=== PATIENT | male | born 1965 | race Caucasian/White ===

== ENCOUNTER 2021-01-10 17:11 | Outpatient (CLI) | payer OTHER, SELFPAY ==
--- NOTE | ~2021-01-10 | US_ITS ---
EXAMINATION: US art doppler w press LE DATE: 01/10/2021 18:01 INDICATION: Left lower limb pain and swelling. TECHNIQUE: Segmental pressures and plethysmographic and Doppler waveforms of the brachial and lower e xtremity arteries were obtained. COMPARISON: None. FINDINGS: Right and left brachial artery pressures of 145 mm Hg and 159 mm Hg, respectively, are concordant (no rmal difference <= 30 mmHg). The right thigh and immediate below-knee pressures could not be measured due to inability to cuff-occ lude the arteries. The right ankle-brachial index (JENNIFER) is 1.14 (normal >= 0.9-1.0). The right great toe-brachial index (TBI) is 0.89 (normal >= 0.65). Arterial Doppler waveforms are at least triphasic in common femoral artery, superficial femoral artery, and posterior tibial artery and biphasic in pop liteal artery and dorsalis pedis. The left thigh pressures could not be measured due to inability to cuff-occlude the arteries. The lef t JENNIFER is 1.06. The left TBI is 0.99. Arterial Doppler waveforms are at least triphasic in common femo ral artery and biphasic from superficial femoral artery to the ankle. IMPRESSION: 1. No significant arterial occlusive disease. Reviewed, dictated and finalized at location A.
--- NOTE | ~2021-01-10 | US_ITS ---
EXAMINATION: US venous doppler [facility] DATE: 01/10/2021 18:01 INDICATION: Left calf pain and swelling. TECHNIQUE: Grayscale ultrasound images without and with compression and Doppler ultrasound images of the bilateral lower extremity veins were obtained. COMPARISON: None. FINDINGS: The visualized portions of right common femoral vein, profunda (deep) femoral vein, femoral vein, pop liteal vein, peroneal veins, posterior tibial veins, and greater saphenous vein outflow are patent. The visualized portions of left common femoral vein, profunda femoral vein, femoral vein, popliteal v ein, peroneal veins, posterior tibial veins, and greater saphenous vein outflow are patent. There are thrombosed superficial veins in the medial left calf. IMPRESSION: 1. No deep venous thrombosis. 2. Thrombosed superficial veins in the medial left calf. Reviewed, dictated and finalized at location A.
== END 2021-01-10 17:12 | disposition home or self-care (01) ==
PROVIDERS: PCP Family Medicine; Visit Provider Nurse Practitioner Family
DX: M79.605 Pain in left leg (principal); M79.89 Other specified soft tissue disorders; R09.89 Other specified symptoms and signs involving the circulatory and respiratory systems
CPT/HCPCS: 93923; 93970

== ENCOUNTER 2021-01-11 06:45 | Outpatient (CLI) | payer OTHER, SELFPAY ==
[2021-01-11 07:26] LABS: Basophils Absolute Auto 0.1 K/mm3 (0.0-0.1); Basophils Percent Auto 0.9 % (0.2-1.2); Eosinophils Absolute Auto 0.4 K/mm3 (0-0.3); Eosinophils Percent Auto 3.8 % (0-4.4); Hematocrit 50.9 % (42.0-52.0); Hemoglobin 16.7 g/dL (14.0-18.0); Immature Granulocyte Absolute 0.03 K/mm3 (0.00-0.031); Immature Granulocyte Percent A 0.3 % (0-0.5); Lymphocytes Absolute Auto 1.75 K/mm3 (0.9-3.2); Lymphocytes Percent Auto 17.7 % (18.3-44.2); Mean Corpuscular HGB Conc 32.8 g/dl (32-36); Mean Corpuscular Hemoglobin 28.2 pg (26-34); Mean Corpuscular Volume 85.8 fl (80-100); Mean Platelet Volume 9.5 fl (7.4-10.4); Monocytes Percent Auto 9.8 % (2.6-8.5); Neutrophils Absolute Auto 6.7 K/mm3 (1.3-6.7); Neutrophils Percent Auto 67.5 % (45.5-73.1); Platelet Count Result 240 k/mm3 (150-375); Red Blood Count 5.93 M/mm3 (4.6-6.20); Red Cell Distribution Width 12.9 % (11.5-14.5); White Blood Count 9.9 K/mm3 (4.5-10.0)
[2021-01-11 07:41] LABS: D Dimer 0.82 ug/mL (<0.48)
[2021-01-11 07:47] LABS: Alanine Aminotransferase 21 U/L (4-50); Albumin Level 4.5 g/dL (3.5-5.1); Alkaline Phosphatase 98 U/L (38-126); Anion Gap 10 mmol/L (8-16); Aspartate Amino Transferase 26 U/L (17-59); Bilirubin,Total 0.7 mg/dL (0.2-1.3); Blood Urea Nitrogen 18 mg/dL (9-20); CRP 2.6 mg/dL (<1.0); Calcium 9.9 mg/dL (8.4-10.2); Carbon Dioxide 25 mmol/L (22-30); Chloride 103 mmol/L (98-107); Estimated Glomerular Filt Rate > 60; Glucose 189 mg/dL (75-110); Potassium 3.9 mmol/L (3.4-5.0); Sodium 138 mmol/L (137-145)
[2021-01-11 08:02] LABS: Erythrocyte Sedimentation Rate 4 mm/hr (0-20)
== END 2021-01-11 06:46 | disposition home or self-care (01) ==
PROVIDERS: PCP Family Medicine; Visit Provider Nurse Practitioner Family
DX: M79.605 Pain in left leg (principal); M79.89 Other specified soft tissue disorders; K70.31 Alcoholic cirrhosis of liver with ascites; G89.29 Other chronic pain; I83.90 Asymptomatic varicose veins of unspecified lower extremity; M25.569 Pain in unspecified knee
CPT/HCPCS: 36415; 80048; 80076; 85025; 85380; 85652; 86038; 86140

== ENCOUNTER 2023-11-14 14:28 | Outpatient (CLI) | payer OTHER, SELFPAY ==
--- NOTE | ~2023-11-14 | US_ITS ---
EXAMINATION: US venous doppler [facility] DATE: 11/14/2023 14:56 INDICATION: Left lower limb pain and swelling. Asymptomatic varicose veins of unspecified lower limb. TECHNIQUE: Grayscale ultrasound images without and with compression and Doppler ultrasound images of the left lower extremity veins were obtained. COMPARISON: Ultrasound 01/10/2021 FINDINGS: The visualized portions of left common femoral vein, profunda (deep) femoral vein, femoral vein, popl iteal vein, peroneal veins, posterior tibial veins, and greater saphenous vein outflow are patent. In the anteromedial lower leg, there is a 2.7 x 0.9 cm hypoechoic mass. IMPRESSION: 1. No deep venous thrombosis. 2. 2.7 x 0.9 cm hypoechoic mass in the anteromedial lower leg, likely a hematoma. Reviewed, dictated and finalized at location E. [employer] IMPRESSION: 1. No deep venous thrombosis. 2. 2.7 x 0.9 cm hypoechoic mass in the anteromedial lower leg, likely a hematom a.
--- NOTE | ~2023-11-14 | XR_ITS ---
EXAMINATION: XR tibia fibula LT 2V DATE: 11/14/2023 14:59 INDICATION: Left lower leg pain. Fall 3 weeks ago. TECHNIQUE: 2 views of left tibia and fibula on 3 radiographs were obtained. COMPARISON: None. FINDINGS: Bone alignment is normal. No fracture. Joint spaces are normal. IMPRESSION: 1. No fracture. Reviewed, dictated and finalized at location E. ER IMPRESSION: 1. No fracture.
== END 2023-11-14 14:29 ==
LOC: MICIMG 14:30
PROVIDERS: PCP Physician Assistant; Visit Provider Physician Assistant
DX: I83.90 Asymptomatic varicose veins of unspecified lower extremity (principal); M79.605 Pain in left leg; M79.89 Other specified soft tissue disorders
CPT/HCPCS: 73590; 93971

== ENCOUNTER 2024-01-14 13:45 | Emergency (ER) | payer OTHER, SELFPAY ==
[2024-01-14] VITALS (17 sets, daily range): BP systolic 105–155; BP diastolic 68–87; PULSE 77–102; RESP 13–20; O2SAT 94–100
--- NOTE | ~2024-01-14 | XR_ITS ---
EXAMINATION: XR chest 2V DATE: 01/14/2024 14:11 INDICATION: Chest pain TECHNIQUE: PA and lateral views of the chest were obtained. COMPARISON: None FINDINGS: The lungs are clear with no focal airspace opacities, pulmonary edema, pleural effusion or pneumothor ax. The cardiomediastinal silhouette is normal. A few chronic appearing bilateral rib fractures. Mild thoracic spondylosis with mild anterior wedging of a couple mid thoracic vertebral bodies. Likely ch olecystectomy clips in upper abdomen. IMPRESSION: 1. No acute cardiopulmonary disease. 2. A few likely old bilateral rib fractures. Correlate with clinical history and for point tenderness as clinically indicated. Reviewed, dictated and finalized at location A. IMPRESSION: 1. No acute cardiopulmonary disease. 2. A few likely old bilateral rib fractures. Correlate with clinical history an d for point tenderness as clinically indicated.
--- NOTE | ~2024-01-14 | NM_ITS ---
EXAMINATION: NM lung vent and perfusion DATE: 01/14/2024 17:13 INDICATION: Chest pain. TECHNIQUE: 20.0 mCi Xenon-133 was given for ventilation images. 4.95 mCi Tc-99m MAA was administered intravenously for perfusion images. Scintigraphic images of the chest were obtained. COMPARISON: Chest 2 views 01/14/2024 FINDINGS: Ventilation images demonstrate low [id number] ratio. Perfusion images show no defects. IMPRESSION: 1. Normal lung perfusion. Reviewed, dictated and finalized at location A. IMPRESSION: 1. Normal lung perfusion.
--- NOTE | 2024-01-14 13:49 | ECG_ITS ---
SEE SCANNED COPY FOR CONFIRMED REPORT MTDD
[2024-01-14 14:09] LABS: Basophils Absolute Auto 0.1 K/mm3 (0.0-0.1); Basophils Percent Auto 0.5 % (0.2-1.2); Eosinophils Absolute Auto 0.1 K/mm3 (0-0.3); Hematocrit 46.6 % (42.0-52.0); Hemoglobin 15.5 g/dL (14.0-18.0); Immature Granulocyte Absolute 0.06 K/mm3 (0.00-0.031); Immature Granulocyte Percent A 0.5 % (0-0.5); Lymphocytes Percent Auto 11.7 % (18.3-44.2); Mean Corpuscular HGB Conc 33.3 g/dl (32-36); Mean Corpuscular Volume 87.3 fl (80-100); Mean Platelet Volume 9.4 fl (7.4-10.4); Monocytes Absolute Auto 0.8 K/mm3 (0.1-0.6); Neutrophils Absolute Auto 8.8 K/mm3 (1.3-6.7); Neutrophils Percent Auto 79.3 % (45.5-73.1); Platelet Count Result 260 k/mm3 (150-375); Red Blood Count 5.34 M/mm3 (4.6-6.20); Red Cell Distribution Width 12.4 % (11.5-14.5); White Blood Count 11.1 K/mm3 (4.5-10.0)
[2024-01-14 14:20] LABS: Alanine Aminotransferase 27 U/L (6-50); Albumin Level 4.6 g/dL (3.5-5.1); Alkaline Phosphatase 81 U/L (38-126); Anion Gap 12 mmol/L (4-12); Aspartate Amino Transferase 30 U/L (17-59); Bilirubin,Total 0.8 mg/dL (0.2-1.3); Blood Urea Nitrogen 29 mg/dL (9-20); Calcium 9.6 mg/dL (8.4-10.2); Carbon Dioxide 18 mmol/L (22-30); Chloride 101 mmol/L (98-107); Estimated CRCL calculation 35 ml/min; Estimated Glomerular Filt Rate 31; Glucose 186 mg/dL (65-110); Lipase 182 U/L (23-300); Potassium 3.8 mmol/L (3.4-5.0); Sodium 131 mmol/L (137-145)
[2024-01-14 14:21] LABS: INR 1.2; Partial Thromboplastin Time 33.1 Seconds (22.3-36.8)
[2024-01-14 14:31] LABS: Troponin I < 0.012 ng/mL (0.000-0.034)
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
--- NOTE | 2024-01-14 16:12 | PC.NURSE ---
Called radiology for nuc med call in for VQ d/t kidney function.
--- NOTE | 2024-01-14 17:05 | PC.NURSE ---
Pt returned to room 7 at this time
[2024-01-14] MEDS: LACTATED RINGERS 500 ML 999 ML IV CONT (17:10)
[2024-01-14 17:39] LABS: NT Pro B Type Natriuretic Pept < 20 pg/mL (19.9-100)
[2024-01-14 17:42] LABS: Troponin I < 0.012 ng/mL (0.000-0.034)
[2024-01-14 17:55] LABS: Influenza A QL RT-PCR Negative (Negative); Influenza B QL RT-PCR Negative (Negative); RSV RNA, RT-PCR Negative (Negative); SARS-CoV-2 RNA PCR Negative (Negative)
[2024-01-14] MEDS: RIVAROXABAN 15 MG TABLET PO (19:11)
[2024-01-14 19:55] LABS: Appearance Urine Clear (Clear); Bilirubin Urine Negative (Negative); Blood Urine Negative (Negative); Color Urine Yellow (Yellow); Glucose Urine UA Negative (Negative); Ketones Urine Trace mg/dL (Negative); Leukocyte Esterase Ur Negative LEU/UL (Negative); Nitrate Urine Negative (Negative); Protein Urine Negative (Negative); Specific Grav Ur 1.019 (1.001-1.035); Urobilinogen Urine 0.2 mg/dL (<2.0)
[2024-01-14 20:16] LABS: Add Urine Microscopic? NO
[2024-01-14] MEDS: TACROLIMUS 0.5 MG CAPSULE 3 MG PO (22:02)
--- NOTE | 2024-01-14 22:08 | PC.NURSE ---
Pt reports L sided pain. made aware. Dr. Sejal HODGE for 1000 mg PO tylenol stat.
[2024-01-14] MEDS: ACETAMINOPHEN 500 MG TABLET 1000 MG PO (22:11)
[2024-01-15 02:09] VITALS: BP 178/97; PULSE 84; RESP 20; O2SAT 94
[2024-01-15 04:16] VITALS: BP 160/93; PULSE 76; RESP 12; O2SAT 98
[2024-01-15] MEDS: oxyCODONE/ACETAMINOPHEN (*CRX) 5-325 MG TABLET 1 TABLET PO (06:29)
[2024-01-15 06:50] VITALS: PULSE 80; RESP 15; O2SAT 95
[2024-01-15 07:16] VITALS: BP 195/100; PULSE 80; RESP 15; O2SAT 98
--- NOTE | 2024-01-15 07:27 | PC.NURSE ---
Breakfast tray ordered for pt
[2024-01-15 07:45] LABS: Anion Gap 7 mmol/L (4-12); Blood Urea Nitrogen 28 mg/dL (9-20); Calcium 9.5 mg/dL (8.4-10.2); Carbon Dioxide 24 mmol/L (22-30); Chloride 103 mmol/L (98-107); Estimated CRCL calculation 45 ml/min; Estimated Glomerular Filt Rate 41; Glucose 134 mg/dL (65-110); Sodium 134 mmol/L (137-145)
[2024-01-15 15:13] LABS: Tacrolimus Prograf 7.6 mcg/L
== END 2024-01-15 09:10 | disposition left against medical advice (07) ==
PROVIDERS: Emergency Medicine; Emergency Provider Student in an Organized Health Care Education/Training Program; PCP Family Medicine
DX: N17.9 Acute kidney failure, unspecified (principal); R07.89 Other chest pain; Z11.52 Encounter for screening for COVID-19; Z94.4 Liver transplant status; Z94.0 Kidney transplant status; Z86.718 Personal history of other venous thrombosis and embolism; Z79.01 Long term (current) use of anticoagulants; Z79.82 Long term (current) use of aspirin; Z77.22 Contact with and (suspected) exposure to environmental tobacco smoke (acute) (chronic)
CPT/HCPCS: 36415; 71046; 78582; 80048; 80053; 80197; 81003; 82570; 83690; 83880; 84484; 85025; 85610; 85730; 87637; 93005; 96360; 99284; A9270; A9540; A9558; J7120

== ENCOUNTER 2024-06-29 09:30 | Outpatient (CLI) | payer OTHER, SELFPAY ==
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
== END 2024-06-29 09:31 | disposition home or self-care (01) ==
PROVIDERS: PCP Family Medicine; Visit Provider Nurse Practitioner Family
DX: M25.512 Pain in left shoulder (principal); M25.531 Pain in right wrist
CPT/HCPCS: 73030; 73110

== ENCOUNTER 2024-10-15 08:45 | Emergency (ER) | payer OTHER, SELFPAY ==
[2024-10-15 08:48] VITALS: BP 157/90; PULSE 87; RESP 14; TEMP 37.1; O2SAT 99
--- OUTSIDE RECORDS SUMMARY | 2024-10-15 08:56 | XMS_ITS | Encounter Summary ---
Author Organization [facility] Address [address] [place] [address] [place] [address] Care Team Providers Care Police Aide Name Role Phone Zain Valenzuela MD Primary Care Provider [phone] Hillary Gallardo RN Unavailable Unavailable Reason for Visit * Reason Onset Date Comments MEDICATION REFILL 02/27/2020 Encounter Details Date Type Department Care Team (Late st Contact Info) Description 02/27/2020 Refill [facility] - Nephrology [address] [place] [phone] Mychart, Generic Provider MEDICATION REFILL Social History Tobacco Use Types Packs/Day Years Used Date Smoking Tobacco: Never Smokeless Tobacco: Never Alcohol Use Standard Drinks/Week Comments No 0 (1 standard drink = 0.6 oz pur e alcohol) Sex and Gender Information Value Date Recorded Sex Assigned at Not on file Gender Identity Not on file Sexual Orientation Not on file documented as of this encounter Functional Status Functional Status Response Date of Assess ment Is person deaf or have serious hearing difficult y? No 11/26/2018 Is person blind or have serious difficulty seein g? No 11/26/2018 Does person have serious dif ficulty walking/climbing stairs? No 11/26/2018 Does person have difficulty dressing/bathing? No 11/26/2018 Does person have difficulty doing errands alone? No 11/26/2018 Cognitive Status Response Date of Assessm ent Does person have difficulty concentrating/remembering/making decisions? No 11/26/2018 documented as of this encounter Plan of Treatment Upcoming Encounters Date Type Department Care Team (Late st Contact Info) Description 10/19/2024 10:00 AM DIRECTOR SCRIPT Office Visit [facility] - Nephrology [address] [place] [address], [place] [phone] 10/19/2024 11:30 AM DIRECTOR SCRIPT Office Visit [facility] - GI [address] [facility], [place] [phone] Katya Montero PA-C [address] [place] [address] [address] [place] [phone] documented as of this encounter Goals Goal Patient Goal Type Associated Problems Recent Progress Patient-Stated? Author Safety General On track( 10:36 AM CDT) No Poly Schaeffer, CHRISTINA Note: Expected end date: Ongonig Interventions: Your nurse will assess your risk for falls/injury each visit Use appropriate and safe transfer methods Medication Management General On track( 10:36 AM CDT) No Poly Schaeffer, CHRISTINA Note: Expected end date: Ongoing Interventions: Take all medications as prescribed Let your doctor know right away about any changes in your medications documented as of this encounter Visit Diagnoses Diagnosis S/P Combined Kidney-Liver TXP in 01/06/16 Kidney replaced by transplant Hypertension, unspecified type documented in this encounter Care Teams Police Aide Relationship Specialty Start Date End Date Zain Valenzuela MD [address] [place] [address] PCP - General 01/10/16 Hillary Gallardo, RN Registered Nurse Hepatology 12/24/17 documented as of this encounter
--- OUTSIDE RECORDS SUMMARY | 2024-10-15 08:56 | XMS_ITS | Encounter Summary ---
Author Organization [facility] Address [address] [place] [address] Care Team Providers Care Railroad Operator Name Role Phone Zain Valenzuela MD Primary Care Provider [phone] Hillary Gallardo RN Unavailable Unavailable Reason for Visit * Reason Comments Refill Request Encounter Details Date Type Department Care Team (Late st Contact Info) Description 09/05/2023 Refill [facility] - Nephrology [address] [place] [address], [place] [phone] Alfonso Pfeiffer MD [address] [place] [address] [place] [phone] Refill Request Social History Tobacco Use Types Packs/Day Years Used Date Smoking Tobacco: Never Smokeless Tobacco: Never Alcohol Use Standard Drinks/Week Comments No 0 (1 standard drink = 0.6 oz pur e alcohol) AUDIT-C Answer Date Recorded Q1: How often do you have a drink containing alc ohol? Never 12/07/2021 Average Number of Drinks Not on file 022 Q3: How often do you have si x or more drinks on one occasion? Never 12/07/2021 Sex and Gender Information Value Date Recorded Sex Assigned at Not on file Gender Identity Not on file Sexual Orientation Not on file documented as of this encounter Functional Status Functional Status Response Date of Assess ment Is person deaf or have serious hearing difficult y? No 12/07/2021 Is person blind or have serious difficulty seein g? No 12/07/2021 Does person have serious dif ficulty walking/climbing stairs? No 12/07/2021 Does person have difficulty dressing/bathing? No 12/07/2021 Does person have difficulty doing errands alone? No 12/07/2021 Cognitive Status Response Date of Assessm ent Does person have difficulty concentrating/remembering/making decisions? No 12/07/2021 documented as of this encounter Plan of Treatment Upcoming Encounters Date Type Department Care Team (Late st Contact Info) Description 10/19/2024 10:00 AM HEAVY EQUIPMENT MECHANIC Office Visit [facility] - Nephrology [address] [place] [phone] 10/19/2024 11:30 AM HEAVY EQUIPMENT MECHANIC Office Visit [facility] - GI [address] [place] [phone] Katya Montero PA-C [address] [place] [address] [facility] [place] [phone] documented as of this encounter Goals Goal Patient Goal Type Associated Problems Recent Progress Patient-Stated? Author Safety General On track( 10:36 AM CDT) No Poly Schaeffer, CHRISTINA Note: Expected end date: Ongonig Interventions: Your nurse will assess your risk for falls/injury each visit Use appropriate and safe transfer methods Medication Management General On track( 10:36 AM CDT) Poly Mejía, CHRISTINA Note: Expected end date: Ongoing Interventions: Take all medications as prescribed Let your doctor know right away about any changes in your medications Medication Management General On track( 11:14 AM HEAVY EQUIPMENT MECHANIC) Neida Alvarado RN Note: Expected end date: ongoing Interventions: Take all medications as prescribed Let your doctor know right away about any changes in your medications Make sure to request a refill of your medication at least one week prior to your last dose documented as of this encounter Visit Diagnoses Diagnosis S/P Combined Kidney-Liver TXP in 01/06/16 Kidney replaced by transplant Hyperuricemia Other abnormal blood chemistry documented in this encounter Care Teams Railroad Operator Relationship Specialty Start Date End Date Zain Valenzuela MD [address] [place] [address] PCP - General 01/10/16 Hillary Gallardo, RN Registered Nurse Hepatology 12/24/17 documented as of this encounter
--- OUTSIDE RECORDS SUMMARY | 2024-10-15 08:56 | XMS_ITS | Clinical Summary ---
Author Organization [facility] Guide Address [address] [place] [address] Care Team Providers Care Milk Hauler Name Role Phone Zain Valenzuela MD Primary Care Provider [phone] Hillary Gallardo RN Unavailable Unavailable Source Comments [facility],non-owned Affiliates and Associated Physician Practices is amultiple site organization consisting of ambulatory clinics and hospital sitesin [place], [place], [place] and [place]. This disclosure is being madepursuant to the Care Everywhere program and may not contain all information available regarding this patient. Last updated 18.[facility] Guide Allergies Active Allergy Reactions Criticality Noted Date Comments Live Vaccines (Immunodeficiency) Other Low 08/14/2016 Patient is s/p liver transplant and is immunocompromised. Should not have live vaccines. Hmg-Coa-R Inhibitors Photosensitivity Medium 9 Medications * Be aware that medications may not be up to date on this document. Alwaysverify current medications with the patient. Medication Sig Dispensed Refills Start Date End Date Status vitamin D, cholecalciferol, 2000 UNITS tablet Take 1 (one) tablet by mouth DAILY 45 tablet 09/16/2017 Active magnesium oxide (MAG-OX) 400 (241.3 MG) MG tablet Take 2 (two) tablets by mouth 2 times daily 120 tablet 11 09/16/2017 Active escitalopram (LEXAPRO) 10 MG tablet Take 1 (one) tablet by mouth DAILY 07/24/2017 Active Multiple Vitamin Take 1 tablet by mouth DAILY. 30 tablet 11 05/23/2017 Active diphenhydrAMINE (BENADRYL) 25 MG capsule Take 2 (two) capsules by mouth nightly as needed Active traZODone (DESYREL) 50 MG tablet Take 1 (one) tablet by mouth at bedtime 09/12/2020 Active Rivaroxaban (XARELTO PO) Take 15 mg by mouth once daily Active gentamicin (GARAMYCIN) 0.1 % topical ointment Apply to affected area 3 times daily 15 g 12/07/2021 Active aspirin (ASPIRIN) 81 MG chew tabletIndication s:S/P liver transplant (HCC) CHEW AND SWALLOW 1 TABLET BY MOUTH ONCE DAILY 30 tablet 11 02/26/2022 Active triamcinolone acetonide (KENALOG) 0.1 % ointmentIndicati ons:Arthropod bite, initial encounter Apply to affected bug bites twice daily. 30 days supply. 80 g 1 04/02/2022 Active pantoprazole EC (Protonix) 40 MG tabletIndication s:Kidney replaced by transplant ([facility]) Take 1 (one) tablet by mouth once daily 90 tablet 3 08/23/2022 Active predniSONE (Deltasone) 5 MG tabletIndication s:Kidney replaced by transplant ([facility]) Take 1 (one) tablet by mouth every 2 days 45 tablet 3 08/23/2022 Active tacrolimus (Prograf) 1 MG capsuleIndicatio ns:Kidney replaced by transplant ([facility]) Take 3 (three) capsules by mouth every morning AND 2 (two) capsules every evening. 450 capsule 3 08/23/2022 Active tacrolimus (Prograf) 1 MG capsule Take 3 (three) capsules by mouth 2 times daily 180 capsule 11 09/02/2023 Active levothyroxine (Synthroid) 112 MCG tablet Take 1 (one) tablet by mouth once daily 09/04/2023 Active Blood Pressure Monitor KIT Use 1 kit once daily 1 kit 10/14/2023 Active allopurinol (Zyloprim) 100 MG tabletIndication s:Kidney replaced by transplant ([facility]),Hyperurice charlee Take 1 (one) tablet by mouth once daily 90 tablet 3 03/01/2024 Active tamsulosin (Flomax) 0.4 MG capsule TAKE ONE CAPSULE BY MOUTH EVERY NIGHT AT BEDTIME AT THE SAME TIME EACH DAY AFTER A MEAL 90 capsule 3 09/02/2023 Active pantoprazole EC (Protonix) 40 MG tablet TAKE ONE TABLET BY MOUTH ONCE DAILY 90 tablet 3 09/09/2023 Active lisinopril (Prinivil; Zestril) 10 MG tablet TAKE ONE TABLET BY MOUTH ONCE DAILY 90 tablet 3 12/03/2023 Active dilTIAZem coated beads 24hr (Cardizem CD) 240 MG capsuleIndicatio ns:Kidney transplant status (HCC) TAKE ONE CAPSULE BY MOUTH ONCE DAILY 90 capsule 3 02/05/2024 02/04/2025 Active allopurinol (Zyloprim) 100 MG tabletIndication s:Kidney transplant status (HCC) TAKE ONE TABLET BY MOUTH ONCE DAILY 90 tablet 3 03/01/2024 03/01/2025 Active pantoprazole EC (Protonix) 40 MG tablet TAKE ONE TABLET BY MOUTH ONCE DAILY 90 tablet 1 06/24/2024 12/20/2024 Active predniSONE (Deltasone) 5 MG tablet Take 1 (one) tablet by mouth every 2 days 45 tablet 1 06/25/2024 Active tacrolimus (Prograf) 1 MG capsule TAKE 3 CAPSULES BY MOUTH 2 TIMES A DAY 180 capsule 11 09/23/2024 09/23/2025 Active predniSONE (Deltasone) 5 MG tablet TAKE ONE TABLET BY MOUTH EVERY 2 DAYS 45 tablet 3 09/23/2024 09/23/2025 Active tacrolimus (Prograf) 1 MG capsule TAKE 3 CAPSULES BY MOUTH 2 TIMES A DAY 180 capsule 11 09/02/2023 09/23/2024 Discontinued (Reorder) predniSONE (Deltasone) 5 MG tablet TAKE ONE TABLET BY MOUTH EVERY 2 DAYS 45 tablet 3 12/03/2023 09/23/2024 Discontinued (Reorder) Active Problems Problem Noted Date Diagnosed Date CKD (chronic kidney disease) stage 2, GFR 60-89 ml/min 04/13/2024 Overview (04/13/2024): SCr: 1.0-1.2, No proteinuria ANA (acute kidney injury) 01/14/2024 Actinic keratosis 04/02/2022 Arthropod bite 04/02/2022 Melanocytic nevi of trunk 04/02/2022 Solar lentiginosis 04/02/2022 Tubular adenoma of colon 10/02/2021 Essential hypertension, benign 05/18/2019 Anemia in stage 2 chronic kidney disease 09/10/2 019 Chronic kidney disease-mineral and bone disorder 05/18/2019 Pure hyperglyceridemia 05/18/2019 Hyperuricemia 04/30/2018 S/P Combined Kidney-Liver TXP in 01/06/16 018 Overview (11/25/2018): Overview: S/P Combined Kidney-Liver TXP in 01/06/16. Donor: Standard criteria donor [id number] KDPI 32% CMV D+/R-, EBV D+/R+ HLA: 0 Ag match, 5 Ag mismatch Recipient: A: 23, 25 B: 18, 49 DR: 11, 17 Donor: A: 1, - B: 7, 57 DR: 7, 103 MAG 3 Renal Scan on 02/01/16: [place] kidneys 47%, TXP 53% function. Bx in 02/21/2016: ATN, no rejection, only 13 glomeruli are available with no FSGS or global glomerulosclerosis, there is minimal IFTA. No glomeruli seen in EM. Bx in 03/04/16: No rejection. 31 glomeruli with no glomerulosclerosis or FSGS. Has some tubular vacuolization. Minimal IFTA. EM: diffuse effacement of foot processes. Rxed with PP + Rituxin. Daily PP started on 03/12/2016 for 1 week, then MWF. Weekly Rituxin started on 03/19/16 X6 doses. 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 PD catheter placed 11/2015 and using it to drain ascites. Liver Kidney Transplant: 01/06/2016: 1) Total hepatectomy 2) Orthotopic liver transplant 3) Left cadaveric kidney transplant to right iliac fossa 4) Cholecystectomy of donor liver 5) Removal PD catheter 6) Primary repair of umbilical hernia Discharged on 01/13/16. Immunosuppression: Thymoglobulin induction 2mg/kg x 3 doses POD 0, 2, 4 Methlpred 500mg - 500mg + 250 mg- 125mg Prednisone 5mg daily Cellcept 500mg BID started POD 1. Tacrolimus started POD 1 Prophylaxis: Valcyte 450mg daily x 6 months for CMV Bactrim SS daily x 6 months for PCP Adjustments: Readmissions: 01/29-02/01: fluid overload, protienuria 02/20: Biopsy 03/04: Repeat biopsy. Elevated Cr and protienuria. Bx and reduction of lisinopril due to hypotension 03/08-03/10: Placement of Vigil and plasmapheresis x 2 for FSGS recurrance treatment. Daily plasmapheresis x 1 week, then MWF at blood donation services 03/19: Rituximab (plan for weekly dose x 4- (03/19, 04/02, 04/10) Started Acthar twice weekly. 07/03/2016: Umbilical hernia repair (Pj) Biopsies: Explant 01/06/2016 LIVER AND GALLBLADDER, CHICKEN RANCH, EXPLANT (A): CIRRHOTIC LIVER WITH STAGE 4 FIBROSIS MILD TO MODERATE PORTAL/PERIPORTAL INFLAMMATION SCHEUER GRADE 1 NO HEPATOCELLULAR CARCINOMA IDENTIFIED GALLBLADDER, NO SIGNIGICANT HISTOPATHOLOGIC CHANGES Kidney Biopsy 02/21/2016 KIDNEY, ALLOGRAFT, PERCUTANEOUS NEEDLE BIOPSY: - ACUTE TUBULAR INJURY. - NEGATIVE FOR ACUTE/ACTIVE (CELLULAR) REJECTION. - NEGATIVE FOR ACUTE ANTIBODY-MEDIATED REJECTION. - SEE COMMENT. COMMENT: Interpretation was hindered by paucity of cortex in the sample: only 13 glomeruli are available for light microscopic analysis, and none show segmental sclerosis. With regard to chronic changes, none of 13 glomeruli is globally sclerotic, there is minimal tubule atrophy, and there is approximately 5% interstitial fibrosis. Kidney Biopsy 03/04/2016 KIDNEY, ALLOGRAFT, PERCUTANEOUS NEEDLE BIOPSY: - TUBULE VACUOLIZATION, CONSISTENT WITH ACUTE CALCINEURIN INHIBITOR EFFECT. - NEGATIVE FOR ACUTE/ACTIVE (CELLULAR) REJECTION. - NEGATIVE FOR ACUTE ANTIBODY-MEDIATED REJECTION. COMMENT: With regard to chronic changes, none of 31 glomeruli is sclerotic, there is minimal tubule atrophy, and there is minimal interstitial fibrosis. EM INTERPRETATION: - WIDESPREAD FOOT PROCESS EFFACEMENT (SEE NOTE). NOTE: Though not specific, widespread foot process effacement is consistent with evolving recurrent focal segmental glomerulosclerosis; however, no segmentally sclerotic glomeruli have been identified in the renal allograft. 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/ml Stent Removed: removed by MINDY 04/04/2016 Transplant Date: 01/06/2016 Donor: Standard criteria donor [id number] KDPI 32% CMV D+/R-, EBV D+/R+ HLA: 0 Am match, 5 Ag mismatch Recipient: A: 23, 25 B: 18, 49 DR: 11, 17 Donor: A: 1, - B: 7, 57 DR: 7, 103 Pre-Transplant Summary: Liver disease secondary to alcoholic cirrhosis. 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 PD catheter placed 11/2015 and using it to drain ascites. Liver Kidney Transplant: 01/06/2016: 1) Total hepatectomy 2) Orthotopic liver transplant 3) Left cadaveric kidney transplant to right iliac fossa 4) Cholecystectomy of donor liver 5) Removal PD catheter 6) Primary repair of umbilical hernia Discharged on 01/13/16. Immunosuppression: Thymoglobulin induction 2mg/kg x 3 doses POD 0, 2, 4 Methlpred 500mg - 500mg + 250 mg- 125mg Prednisone 5mg daily Cellcept 500mg BID started POD 1. Tacrolimus started POD 1 Prophylaxis: Valcyte 450mg daily x 6 months for CMV Bactrim SS daily x 6 months for PCP Adjustments: Readmissions: 01/29-02/01: fluid overload, protienuria 02/20: Biopsy 03/04: Repeat biopsy. Elevated Cr and protienuria. Bx and reduction of lisinopril due to hypotension 03/08-03/10: Placement of Vigil and plasmapheresis x 2 for FSGS recurrance treatment. Daily plasmapheresis x 1 week, then MWF at blood donation services 03/19: Rituximab (plan for weekly dose x 4- (03/19, 04/02, 04/10) Started Acthar twice weekly. 07/03/2016: Umbilical hernia repair (Pj) Biopsies: Explant 01/06/2016 LIVER AND GALLBLADDER, CHICKEN RANCH, EXPLANT (A): CIRRHOTIC LIVER WITH STAGE 4 FIBROSIS MILD TO MODERATE PORTAL/PERIPORTAL INFLAMMATION SCHEUER GRADE 1 NO HEPATOCELLULAR CARCINOMA IDENTIFIED GALLBLADDER, NO SIGNIGICANT HISTOPATHOLOGIC CHANGES Kidney Biopsy 02/21/2016 KIDNEY, ALLOGRAFT, PERCUTANEOUS NEEDLE BIOPSY: - ACUTE TUBULAR INJURY. - NEGATIVE FOR ACUTE/ACTIVE (CELLULAR) REJECTION. - NEGATIVE FOR ACUTE ANTIBODY-MEDIATED REJECTION. - SEE COMMENT. COMMENT: Interpretation was hindered by paucity of cortex in the sample: only 13 glomeruli are available for light microscopic analysis, and none show segmental sclerosis. With regard to chronic changes, none of 13 glomeruli is globally sclerotic, there is minimal tubule atrophy, and there is approximately 5% interstitial fibrosis. Kidney Biopsy 03/04/2016 KIDNEY, ALLOGRAFT, PERCUTANEOUS NEEDLE BIOPSY: - TUBULE VACUOLIZATION, CONSISTENT WITH ACUTE CALCINEURIN INHIBITOR EFFECT. - NEGATIVE FOR ACUTE/ACTIVE (CELLULAR) REJECTION. - NEGATIVE FOR ACUTE ANTIBODY-MEDIATED REJECTION. COMMENT: With regard to chronic changes, none of 31 glomeruli is sclerotic, there is minimal tubule atrophy, and there is minimal interstitial fibrosis. EM INTERPRETATION: - WIDESPREAD FOOT PROCESS EFFACEMENT (SEE NOTE). NOTE: Though not specific, widespread foot process effacement is consistent with evolving recurrent focal segmental glomerulosclerosis; however, no segmentally sclerotic glomeruli have been identified in the renal allograft. 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6-1.8, 2.0, 2.1, 2.3, UPC: 11.5 (03/2015); 20 (07/2015); >19.5 (10/2015); 10 (11/2015); 9.2, 12, 16, 21.3 (01/2016); 13.5 (02/2016); 6.3,10.4, 7.3 (03/2016);10.3 (04/2016) 24 hr urine Protein: 15.6 (07/2015); 30 (01/2016); 16.7 (02/07/2016) UAC: >0.5 (10/30/2015), >1.7 (02/27/16) g/g Long-term use of immunosuppressant medication Therapeutic drug monitoring 01/30/2016 H/O End stage renal disease 01/06/2016 Overview (11/09/2019): 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 Vang's esophagus 11/01/2015 Overview (04/30/2018): Overview: Long segment 01/23/15 EGD: no dysplasia on multiple biopsies Long segment 01/23/15 EGD: no dysplasia on multiple biopsies Hypoalbuminemia 03/01/2015 Resolved Problems Problem Noted Date Diagnosed Date Resolved Date Nausea vomiting and diarrhea 11/24/2018 12/23/2018 Right knee injury 04/29/2018 11/25/2018 Cellulitis of knee 04/29/2018 9 Left lower quadrant pain 06/21/201606/2019 Other disorders of plasma-pr otein metabolism, not elsewhere classified 04/10/2016 05/18/2019 Hypomagnesemia 03/14/2016 05/18/2019 Hyperlipidemia 03/04/2016 05/18/2019 Encounters Date Type Department Care Team Description 09/24/2024 Orders Only [facility] - Nephrology [address] [place] [phone] Da River MD Chronic kidney disease-mineral and bone disorder; S/P Combined Kidney-Liver TXP in 01/06/16 09/24/2024 Orders Only [facility] - Nephrology [address] [place] [phone] Shalonda Barboza MD Kidney replaced by transplant (HCC); Chronic kidney disease-mineral and bone disorder 09/23/2024 Refill [facility] [address] [place] [phone] Alfonso Pfeiffer MD MEDICATION REFILL 09/23/2024 Refill [facility] [address] [place] [phone] Frankie Valero MD MEDICATION REFILL 08/27/2024 Orders [place] [facility] [place] [address] [place] [phone] Katya Montero PA-C S/P Combined Kidney-Liver TXP in 01/06/16; Long-term use of immunosuppressant medication 07/30/[address] [facility] - GI [address] [place] [phone] Katya Montero PA-C S/P Combined Kidney-Liver TXP in 01/06/16; Long-term use of immunosuppressant medication 07/30/[address] [facility] - Nephrology [address] [place] [phone] Shalonda Barboza MD Kidney replaced by transplant (HCC); Chronic kidney disease-mineral and bone disorder from Last 3 Months Immunizations Name Administration Dates Next Due INFLUENZA VACCINE, TRIV. (AF LURIA, FLUZONE TRIVALENT; 6MO+) (IIV3) 05/25/2017 Family History Medical History Relation Name Comments Arthritis - Osteo Brother 1 Status: Al marcelo None Known Brother 2 Status: Alive None Known Father Status: d COPD - Chronic Obstructive P ulmonary Disease Mother Cancer Mother vaginal wall; S tatus: Alive Relation Name Status Comments Brother 1 Brother 2 Father Mother Social History Tobacco Use Types Packs/Day Years Used Date Smoking Tobacco: Never Smokeless Tobacco: Never Tobacco Cessation:Counseling Given: Not Answered Alcohol Use Standard Drinks/Week Comments No 0 [...] on file Sexual Orientation Not on file Last Filed Vital Signs Vital Sign Reading Time Taken Comments Blood Pressure 137/89 04/13/2024 11:29 AM CDT Pulse 76 04/13/2024 11:29 AM CDT Temperature 36.6 C (97.9 F) 04/16/2022 11:17 AM CDT Respiratory Rate 18 04/16/2022 11:17 AM CDT Oxygen Saturation 97% 04/13/2024 11:29 AM CDT Inhaled Oxygen Concentration - - Weight 89.8 kg (198 lb) 04/13/2024 11:29 AM CDT Height 180.3 cm (5' 11 ) 10/14/2023 11:[address] REPORTER Body Mass Index 27.62 10/14/2023 11:[address] REPORTER Plan of Treatment Upcoming Encounters Date Type Department Care Team (Late st Contact Info) Description 10/19/2024 10:[address] REPORTER Office Visit [facility] - Nephrology [address] [place] [phone] 10/19/2024 11:[address] REPORTER Office Visit [facility] - GI [address] [place] [phone] Katya Montero PA-C [address] [place] [address] [facility] [place] [phone] Health Maintenance Due Date Last Done Comments COLOGUARD (AGES 45-75) - COLON CA SCREENING 1965 CT COLONOGRAPHY - COLON CA SCREENING 1965 FIT - COLON CA SCREENING 1965 FLEX SIG - COLON CA SCREENING 1965 COVID-19 VACCINE (#1) 01/25/1969 DTAP/TDAP/TD VACCINES (1 - Tdap) 01/25/1983 PNEUMOCOCCAL VACCINE 50+ (1 of 2 - PCV) 01/25/1983 ZOSTER VACCINE (1 of 2) 01/25/1983 HEPATITIS B VACCINE (1 of 3 - Risk 3-dose series) 2024 Respiratory Syncytial Virus (RSV) Vaccine Pt: or over 60 yrs (1 - Risk 60-74 years 1-dose series) 2024 INFLUENZA VACCINE (#1) 2024 05/29/2017, 2016 DEPRESSION SCREENING 09/08/2024 SCREENING FOR DIABETES 09/11/2027 , 09/11/2024, 09/11/2024, Additional history exists LIPID TESTING 04/17/2029 04/17/2024, 1212/2022, 08/29/2022, Additional history exists COLON MONITORING 12/08/2031 12/07/2021, 12/07/2021 COLONOSCOPY - COLON CA SCREENING 12/08/2031 12/07/2021, 12/07/2021 Colorectal Cancer Screening 12/08/2031 HIV SCREENING Completed 12/06/2015 HEPATITIS C SCREENING Completed 01/06/2016 , 10/31/2015, 07/20/2015, Additional history exists HIB VACCINE Aged Out No longer eligi ble based on patient's age to complete this topic HPV VACCINE Aged Out No longer eligi ble based on patient's age to complete this topic MENINGOCOCCAL (Group B) VACCINE Aged Out No longer eligible based on patient's age to complete this topic MENINGOCOCCAL VACCINE Aged Out No jeannette jessica eligible based on patient's age to complete this topic Goals Goal Patient Goal Type Associated Problems Recent Progress Patient-Stated? Author Safety General On track( 10:36 AM CDT) No Poly Schaeffer, CHRISTINA Note: Expected end date: Ongonig Interventions: Your nurse will assess your risk for falls/injury each visit Use appropriate and safe transfer methods Medication Management General On track( 10:36 AM CDT) No Poly Schaeffer RN Note: Expected end date: Ongoing Interventions: Take all medications as prescribed Let your doctor know right away about any changes in your medications Medication Management General On track( 11:[address] REPORTER) No Neida Mcgarry RN Note: Expected end date: ongoing Interventions: Take all medications as prescribed Let your doctor know right away about any changes in your medications Make sure to request a refill of your medication at least one week prior to your last dose Procedures Procedure Name Priority Date/Time Associated Diagnosis Comments HEMOGLOBIN A1C Routine 09/11/2024 9:[address] REPORTER 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 MICROALB/CREAT RATIO URINE RANDOM PANEL Routine 09/11/2024 9:[address] REPORTER Kidney replaced by transplant ([facility]) Chronic kidney disease-mineral and bone disorder URINALYSIS REFLEX TO MICROSCOPIC NO CULTURE Routine 09/11/2024 9:[address] REPORTER Kidney replaced by transplant ([facility]) Chronic kidney disease-mineral and bone disorder PHOSPHORUS BLOOD Routine 09/11/2024 9:[address] REPORTER Kidney replaced by transplant ([facility]) Chronic kidney disease-mineral and bone disorder MAGNESIUM BLOOD Routine 09/11/2024 9:[address] REPORTER Kidney replaced by transplant ([facility]) Chronic kidney disease-mineral and bone disorder COMPREHENSIVE METABOLIC PANEL Routine 09/11/2024 9:[address] REPORTER Kidney replaced by transplant ([facility]) Chronic kidney disease-mineral and bone disorder CBC W AUTO DIFFERENTIAL Routine 09/11/2024 9:[address] REPORTER Kidney replaced by transplant ([facility]) Chronic kidney disease-mineral and bone disorder TACROLIMUS LEVEL Routine 09/11/2024 9:[address] REPORTER S/P Combined Kidney-Liver TXP in 01/06/16 Long-term use of immunosuppressant medication CBC W AUTO DIFFERENTIAL Routine 09/11/2024 9:[address] REPORTER S/P Combined Kidney-Liver TXP in 01/06/16 Long-term use of immunosuppressant medication COMPREHENSIVE METABOLIC PANEL Routine 09/11/2024 9:[address] REPORTER S/P Combined Kidney-Liver TXP in 01/06/16 Long-term use of immunosuppressant medication LIPID PROFILE Routine 04/17/2024 10:14 AM CDT Kidney replaced by transplant ([facility]) Chronic kidney disease-mineral and bone disorder ENDOSCOPY, COLON, DIAGNOSTIC Routine 12/07/2021 9:32 AM CDT HEPATITIS SCREEN ACUTE Routine 01/06/2016 10:53 PM CDT HIV-1 HIV-2 ANTIGEN/ANTIBODY Routine 12/06/2015 9:36 AM CDT from Last 3 Months or Most Recently Relevant to Health Maintenance Results * (ABNORMAL) HEMOGLOBIN A1C (09/11/2024 9:[address] REPORTER) Hemoglobin A1c 6.6(H) 4.8 - 5.6 % [facility] INSURANCE BILL Comment: Prediabetes: 5.7 - 6.4 Diabetes: >6.4 Glycemic control for adults with diabetes: <7.0 Blood BLOOD SPECIMEN / Unknown 09/11/2024 9:[address] REPORTER 09/11/2024 Narrative [facility] INSURANCE BILL - 09/12/2024 6:[address] REPORTER Performed at: [address] [place] [id number] [employer] Operator: Santana Mathis PhD, Phone: [phone] Da River MD LAB - CHEMISTRY REID MILL[facility] Organization Address City/State/ZIP Co de Phone Number [facility] INSURANCE BILL [address] [place] [address] * MICROALB/CREAT RATIO URINE RANDOM PANEL (09/11/2024 9:[address] REPORTER) Creatinine Urine 52.0 Not Estab. mg/dL [facility] INSURANCE BILL Microalbumin Urine 14.4 Not Estab. ug/mL [facility] INSURANCE BILL Microalbumin/Crea tinine Ratio 28 0 - 29 mg/g creat [facility] INSURANCE BILL Comment: Normal: 0 - 29 Moderately increased: 30 - 300 Severely increased: >300 Urine URINE SPECIMEN OBTAINED BY CLEAN CATCH PROCEDURE / Unknown 09/11/2024 9:[address] REPORTER 09/11/2024 Narrative [facility] INSURANCE BILL - 09/12/2024 7:[address] REPORTER Performed at: [facility] [address] [place] [id number] [employer] Screen Printing Machine Operator: Santana Mathis PhD, Phone: [phone] Da River MD LAB - URINE CHEMISTR Y ORDERABLES Performing Organization Address [facility] de Phone Number [facility] INSURANCE BILL [address] [place] [address] * URINALYSIS REFLEX TO MICROSCOPIC NO CULTURE (09/11/2024 9:[address] REPORTER) Specific [place] UA 1.011 1.005 - 1.030 [facility] INSURANCE BILL pH UA 7.5 5.0 - 7.5 [facility] INSURANCE BILL Color UA Yellow Yellow [facility] INSURANCE BILL Appearance Clear Clear [facility] INSURANCE BILL Leukocyte UA Negative Negative [facility] INSURANCE BILL Protein UA Negative Negative/Tra ce [facility] INSURANCE BILL Glucose UA Negative Negative [facility] INSURANCE BILL Ketone UA Negative Negative [facility] INSURANCE BILL Occult Blood Urine Negative Negative [facility] INSURANCE BILL Bilirubin UA Negative Negative [facility] INSURANCE BILL Urobilinogen 0.2 0.2 - 1.0 mg/dL [facility] INSURANCE BILL Nitrite UA Negative Negative [facility] INSURANCE BILL Microscopic Examination Urine Comment [facility] INSURANCE BILL Comment:Microscopic not elio cated and not performed. Urine URINE SPECIMEN OBTAINED BY CLEAN CATCH PROCEDURE / Unknown 09/11/2024 9:[address] REPORTER 09/11/2024 Narrative [facility] INSURANCE BILL - 09/12/2024 7:[address] REPORTER Performed at: [address] [place] [id number] Rotary Screen Printing Machine Operator: Santana Mathis PhD, Phone: [phone] Da River MD LAB - URINALYSIS ORD ERABLES Performing Organization Address [facility] Co de Phone Number [facility] INSURANCE BILL [address] [place] [address] * CBC WITH DIFFERENTIAL (09/11/2024 9:[address] REPORTER) Only the most recent of2 resultswithin the time period is included. WBC 6.9 3.4 - 10.8 x10E3/uL [facility] INSURANCE BILL RBC 5.31 4.14 - 5.80 x10E6/uL [facility] INSURANCE BILL Hemoglobin 15.5 13.0 - 17.7 g/dL [facility] INSURANCE BILL Hematocrit 46.4 37.5 - 51.0 % [facility] INSURANCE BILL MCV 87 79 - 97 fL [facility] INSURANCE BILL MCH 29.2 26.6 - 33.0 pg [facility] INSURANCE BILL MCHC 33.4 31.5 - 35.7 g/dL [facility] INSURANCE BILL RDW 12.3 11.6 - 15.4 % [facility] INSURANCE BILL Platelet Count 331 150 - 450 x10E3/uL [facility] INSURANCE BILL Granulocytes % 59 Not Estab. % [facility] INSURANCE BILL Lymphocytes % 23 Not Estab. % [facility] INSURANCE BILL Monocytes % 11 Not Estab. % [facility] INSURANCE BILL Eosinophils % 6 Not Estab. % [facility] INSURANCE BILL Basophils % 1 Not Estab. % [facility] INSURANCE BILL Granulocytes Absolute 4.1 1.4 - 7.0 x10E3/uL [facility] INSURANCE BILL Lymphocytes Absolute 1.6 0.7 - 3.1 x10E3/uL [facility] INSURANCE BILL Monocytes Absolute 0.7 0.1 - 0.9 x10E3/uL [facility] INSURANCE BILL Eosinophils Absolute 0.4 0.0 - 0.4 x10E3/uL [facility] INSURANCE BILL Basophils Absolute 0.1 0.0 - 0.2 x10E3/uL [facility] INSURANCE BILL Immature Granulocytes 0 Not Estab. % [facility] INSURANCE BILL Immature Granulocytes Absolute 0.0 0.0 - 0.1 x10E3/uL [facility] INSURANCE BILL Blood BLOOD SPECIMEN / Unknown 09/11/2024 9:[address] REPORTER 09/11/2024 Narrative [facility] INSURANCE BILL - 09/12/2024 7:[address] REPORTER Performed at: 01 - [facility] [id number] Rotary Screen Printing Machine Operator: Santana Mathis PhD, Phone: [phone] Da River MD LAB - HEMATOLOGY ORD ERABLES [facility] INSURANCE BILL [address] [place] [address] * (ABNORMAL) COMPREHENSIVE METABOLIC PANEL (09/11/2024 9:[address] REPORTER) Only the most recent of2 resultswithin the time period is included. Glucose 134(H) 70 - 99 mg/dL [facility] INSURANCE BILL BUN 14 8 - 27 mg/dL [facility] INSURANCE BILL Creatinine 1.12 0.76 - 1.27 mg/dL [facility] INSURANCE BILL eGFR by CKD-EPI 75 >59 mL/min/1.7 3 [facility] INSURANCE BILL BUN/Creatinine Ratio 13 10 - 24 [facility] INSURANCE BILL Sodium 141 134 - 144 mmol/L [facility] INSURANCE BILL Potassium 4.2 3.5 - 5.2 mmol/L [facility] INSURANCE BILL Chloride 103 96 - 106 mmol/L [facility] INSURANCE BILL CO2 22 20 - 29 mmol/L [facility] INSURANCE BILL Calcium 10.0 8.6 - 10.2 mg/dL [facility] INSURANCE BILL Protein Total 7.1 6.0 - 8.5 g/dL [facility] INSURANCE BILL Albumin 4.2 3.8 - 4.9 g/dL [facility] INSURANCE BILL Globulin Total 2.9 1.5 - 4.5 g/dL [facility] INSURANCE BILL Bilirubin Total 0.3 0.0 - 1.2 mg/dL [facility] INSURANCE BILL Alkaline Phosphatase 108 44 - 121 IU/L [facility] INSURANCE BILL AST 24 0 - 40 IU/L [facility] INSURANCE BILL ALT 21 0 - 44 IU/L [facility] INSURANCE BILL Blood BLOOD SPECIMEN / Unknown 09/11/2024 9:[address] REPORTER 09/11/2024 Narrative [facility] INSURANCE BILL - 09/12/2024 8:[address] REPORTER Performed at: 01 - [place] [id number] [place], [place] [id number] Rotary Screen Printing Machine Operator: Santana Mathis PhD, Phone: [phone] Da River MD LAB - CHEMISTRY REID MILLER [facility] INSURANCE BILL [address] [place] [address] * PHOSPHORUS BLOOD (09/11/2024 9:[address] REPORTER) Phosphorus 3.3 2.8 - 4.1 mg/dL [facility] INSURANCE BILL Blood BLOOD SPECIMEN / Unknown 09/11/2024 9:[address] REPORTER 09/11/2024 Narrative [facility] INSURANCE BILL - 09/12/2024 8:[address] REPORTER Performed at: [address] [place] [id number] Rotary Screen Printing Machine Operator: Santana Mathis PhD, Phone: [phone] Da River MD LAB - CHEMISTRY REID MILLER Performing Organization Address [facility] Co de Phone Number [facility] INSURANCE BILL [address] [place] [address] * MAGNESIUM BLOOD (09/11/2024 9:[address] REPORTER) Magnesium 1.7 1.6 - 2.3 mg/dL [facility] INSURANCE BILL Blood BLOOD SPECIMEN / Unknown 09/11/2024 9:[address] REPORTER 09/11/2024 Narrative [facility] INSURANCE BILL - 09/12/2024 8:[address] REPORTER Performed at: [address] [place] [id number] Rotary Screen Printing Machine Operator: Santana Mathis PhD, Phone: [phone] Da River MD LAB - CHEMISTRY REID MILLER Performing Organization Address [facility] de Phone Number [facility] INSURANCE BILL [address] [place] [address] * TACROLIMUS LEVEL (09/11/2024 9:[address] REPORTER) Tacrolimus 11.9 2.0 - 20.0 ng/mL [facility] INSURANCE BILL Comment: Trough (immediately following transplant) 15.0 Trough (steady state, 2 weeks or more after transplant): 3.0 - 8.0 Performed by LC-MS/MS technology. Blood BLOOD SPECIMEN / Unknown 09/11/2024 9:[address] REPORTER 09/11/2024 Narrative [facility] INSURANCE BILL - 09/16/2024 6:[address] REPORTER Test(s) [id number] ([id number]), Blood was developed and its performance characteristics determined by [employer]. It has not been cleared or approved by the Food and Drug Administration. Performed at: [place] [address] [place], [place] [id number] Rotary Screen Printing Machine Operator: Lauren Flores MD, Phone: [phone] Katya Montero PA-C LAB - THERAPEUT IC DRUG MONITORING ORDERABLES Performing Organization Address [facility]/ZIP Co de Phone Number [facility] INSURANCE BILL [address] [place] [address] * (ABNORMAL) LIPID PROFILE (04/17/2024 10:14 AM CDT) Cholesterol 218(H) 100 - 199 mg/dL [facility] INSURANCE BILL Triglycerides 285(H) 0 - 149 mg/dL [facility] INSURANCE BILL HDL Cholesterol 38(L) >39 mg/dL [facility] INSURANCE BILL VLDL Calculated 51(H) 5 - 40 mg/dL [facility] INSURANCE BILL LDL Calculated 129(H) 0 - 99 mg/dL [facility] INSURANCE BILL Comment LDL Calc NOT AVAILABLE [facility] INSURANCE BILL Comment: FASTING Result cannot be obtained for this observation. Blood BLOOD SPECIMEN / Unknown 04/17/2024 10:14 AM CDT 04/17/2024 Narrative Resulting Agency Comment Lab Testing performed at: [facility] [address] [facility] [id number] Da River MD LAB - CHEMISTRY REID MILLER Performing Organization Address [facility] Co de Phone Number [facility] INSURANCE BILL [address] [place] [address] * ENDOSCOPY, COLON, DIAGNOSTIC (12/07/2021 9:32 AM CDT) Report Endoscopy POC Endoscopy Department Report _ Patient Name: Raul Wan Procedure Date: 12/07/2021 9:32 AM Date of : 1965 Classification: Outpatient Gender: Male Ethnicity: Not or Race: White _ Providers: Shereen Erwin MD, Sommer Martinez (Fellow) Referring MD: Zain Valenzuela MD (Referring MD) Procedure: Colonoscopy Indications: Screening for colorectal malignant neoplasm Medications: Monitored Anesthesia Care Description of Procedure: Pre-Anesthesia Assessment: - Prior to the procedure, a History and Physical was performed, and patient medications and allergies were reviewed. The patient's tolerance of previous anesthesia was also reviewed. The risks and benefits of the procedure and the sedation options and risks were discussed with the patient. All questions were answered, and informed consent was obtained. Prior Anticoagulants: The patient has taken Xarelto (rivaroxaban), last dose was day of procedure. ASA Grade Assessment: III - A patient with severe systemic disease. After reviewing the risks and benefits, the patient was deemed in satisfactory condition to undergo the procedure. After I obtained informed consent, the scope was passed under direct vision. Throughout the procedure, the patient's blood pressure, pulse, and oxygen saturations were monitored continuously. The [id number] was introduced through the anus and advanced to the cecum, identified by appendiceal orifice and ileocecal valve. The colonoscopy was performed without difficulty. The patient tolerated the procedure well. The quality of the bowel preparation was adequate. The appendiceal orifice and the rectum were photographed. Findings: The perianal and digital rectal examinations were normal. Multiple diverticula were found in the recto-sigmoid colon and sigmoid colon. Internal hemorrhoids were found during retroflexion. Estimated Blood Loss: Estimated blood loss: none. Complications: No immediate complications. Impression: - Diverticulosis in the recto-sigmoid colon and in the sigmoid colon. - Internal hemorrhoids. - No specimens collected. Recommendation: - Patient has a contact number available for emergencies. The signs and symptoms of potential delayed complications were discussed with the patient. Return to normal activities tomorrow. Written discharge instructions were provided to the patient. - Resume previous diet. - Continue present medications. - Repeat colonoscopy in 10 years for screening purposes. Attending Participation: I was present and participated during the entire procedure, including non-turk portions. Procedure Code(s): --- Professional --- 11048, Colonoscopy, flexible; diagnostic, including collection of specimen(s) by brushing or washing, when performed (separate procedure) Diagnosis Code(s): --- Professional --- Z12.11, Encounter for screening for malignant neoplasm of colon K64.8, Other hemorrhoids K57.30, Diverticulosis of large intestine without perforation or abscess without bleeding CPT copyright 2019 [employer]. All rights reserved. The codes documented in this report are preliminary and upon account services representative review may be revised to meet current compliance requirements. Shereen Erwin MD 12/07/2021 10:50:24 AM This report has been signed electronically. Note Initiated On: 12/07/2021 9:32 AM Number of Addenda: [address] 12/07/2021 9:32 AM CDT Shereen Erwin MD GI PROCEDURE ORDERAB LES [facility] * HEPATITIS SCREEN ACUTE (01/06/2016 10:53 PM CDT) Hepatitis A Virus Antibody IgM Non-react [facility] Hepatitis B Virus Surface Antigen Non-react [facility] Hepatitis B Core Virus Antibody IgM Non-react [facility] Hepatitis C Antibody Non-react [facility] Comment: Hepatitis C Antibody screen indicates no serologic evidence of past or current infection with Hepatitis C Virus. Patients with unexplained liver disease who are immunocompromised or suspected of having acute Hepatitis C infection may benefit from Nucleic Acid Test (MARIANO) for Hepatitis C Viral RNA to confirm Hepatitis C status. Blood specimen (specimen) BLOOD SPECIMEN / Unknown 01/06/2016 10:53 PM CDT 01/06/2016 11:05 PM CDT Zaida Oliva MD LAB - CHEMISTRY ORDERABLES Performing Organization Address [facility]/ZIP Co de Phone Number [facility] [address] [place] [address] * HIV-1 HIV-2 ANTIGEN/ANTIBODY (12/06/2015 9:36 AM CDT) HIV Antigen/Antibod y 1 & 2 Non-reacti ve Non-react marcelo [facility] Comment: Neither HIV-1 p24 Antigen nor HIV-1/HIV-2 Antibodies are detected. Blood specimen (specimen) BLOOD SPECIMEN / Unknown 12/06/2015 9:36 AM CDT 12/06/2015 10:14 AM CDT Zaida Oliva MD LAB - HEMATOLOG Y ORDERABLES Performing Organization Address [facility] Co de Phone Number [address] [phone] from Last 3 Months or Most Recently Relevant to Health Maintenance Advance Directives * Full Code (Latest Code Status on File) Date Activated Date Inactivated Comments 11/24/2018 7:20 PM 11/26/2018 1:25 PM * Full Code Date Activated Date Inactivated Comments 04/29/2018 5:12 PM 05/01/2018 2:37 PM Care Teams Milk Hauler Relationship Specialty Start Date End Date Zain Valenzuela MD [address] [place] [address] PCP - General 01/10/16 Hillary Gallardo, RN Registered Nurse Hepatology 12/24/17
--- OUTSIDE RECORDS SUMMARY | 2024-10-15 08:56 | XMS_ITS | Encounter Summary ---
Author Organization [facility] Address [facility] [place] [address] Care Team Providers Care Master Coastal Waters Name Role Phone Zain Valenzuela MD Primary Care Provider [phone] Hillary Gallardo RN Unavailable Unavailable Reason for Visit * Reason Comments Refill Request Encounter Details Date Type Department Care Team (Late st Contact Info) Description 09/05/2023 Refill [facility] - GI [address] [place] [address], [place] [address] Katya Montero PA-C [address] [place] [address] [address] [place] [address] Refill Request Social History Tobacco [...] st Contact Info) Description 10/19/2024 10:00 AM CRANE SERVICE TECHNICIAN Office Visit [facility] - Nephrology [address] [place] [phone] 10/19/2024 11:30 AM CRANE SERVICE TECHNICIAN Office Visit [facility] - GI [address] [place] [phone] Katya Montero PA-C [address] [place] [address] [address] [place] [place] [address] documented as of this encounter [...] Medication Management General On track( 11:14 AM CRANE SERVICE TECHNICIAN) Neida Alvarado RN Note: Expected end date: ongoing Interventions: Take all medications as prescribed Let your doctor know right away about any changes in your medications Make sure to request a refill of your medication at least one week prior to your last dose documented as of this encounter Visit Diagnoses Diagnosis 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
--- OUTSIDE RECORDS SUMMARY | 2024-10-15 08:56 | XMS_ITS ---
Author Organization [facility] Address [address] [place] [address] Care Team Providers Care Tallier Name Role Phone Zain Valenzuela MD Primary Care Provider [phone] Hillary Gallardo RN Unavailable Unavailable Transplant Episode Kidney Recipient 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 Donor Information Organ ABO Source Meets Risk Criteria HLA Match Mismatches Cross Match Left Kidney Transplanted B DBD No A: B: DR: Left Kidney Donor Serology Results Anti-CMV CMV IgG: Positive EBV IgG EBV VCA IgM: Positive Anti-HBcAb HBC Total: Negative HBsAg HBsAg: Negative HBV DNA No results on file Anti-HCV HCV: Negative Anti-HIV I/II HIV-1: Negative RPR/VDRL RPR: Negative EBV IgM EBV VCA IgM: Positive HBsAb No results on file Toxoplas ma No results on file SARS CoV-2 No results on file Care Team Name Role Phone Fax Email Hillary Gallardo RN Kidney Coordinator N/A N/A N/A Frankie Valero MD Referring Physician N/A N/A N/A Zaida Oliva MD Transplant Surgeon N/A N/A N/A Events Post-Transplant Pre-Transplant Admitted: 01/06/2016 Referred: 10/31/2015 Transplanted: 01/06/2016 Evaluation began: 6 Discharged: 01/13/2016 UNOS qualified: 11/30/2015 Center waitlisted: 6
--- OUTSIDE RECORDS SUMMARY | 2024-10-15 08:56 | XMS_ITS ---
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 History Noted Survival Infection Treatment Organism Resolved 09/16/2017 1 year 8 months 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 Donor Information Organ ABO Source Meets Risk Criteria HLA Match Mismatches Cross Match Liver Transplanted B DBD No A: B: DR: Liver Donor Serology Results Anti-CMV CMV IgG: Positive EBV IgG EBV VCA IgM: Positive Anti-HBcAb HBC Total: Negative HBsAg HBsAg: Negative HBV DNA No results on file Anti-HCV HCV: Negative Anti-HIV I/II HIV-1: Negative Anti-HTLV I/II HTLV: Not Done RPR/VDRL RPR: Negative EBV IgM EBV VCA IgM: Positive HBsAb No results on file Toxoplasma No results on file SARS CoV-2 No results on file Care Team Name Role Phone Fax Email Hillary Gallardo RN Liver Coordinator N/A N/A N/A Frankie Valero MD Referring Physician N/A N/A N/A Zaida Oliva MD Transplant Surgeon N/A N/A N/A Events Post-Transplant Pre-Transplant Admitted: 01/06/2016 Referred: 10/31/2015 Transplanted: 01/06/2016 Evaluation began: 6 Discharged: 01/13/2016 Center waitlisted: 6
--- OUTSIDE RECORDS SUMMARY | 2024-10-15 08:56 | XMS_ITS | Referral Summary ---
Author Organization [facility] Address [address] [place] [address] Care Team Providers Care Implementation Analyst Name Role Phone Zain Valenzuela MD Primary Care Provider Hillary Gallardo RN Unavailable Unavailable Source Comments [facility],non-owned Affiliates and Associated Physician Practices is amultiple site organization consisting of ambulatory clinics and hospital sitesin [place], [place], [place] and [place]. This disclosure is being madepursuant to the Care Everywhere program and may not contain all information available regarding this patient. Last updated 18.[facility] Encounters Date Type Department Care Team Description 09/24/2024 Orders Only [facility] - Nephrology [address] [place] [phone] Da River MD Chronic kidney disease-mineral and bone disorder; S/P Combined Kidney-Liver TXP in 01/06/16 09/24/2024 Orders Only [facility] - Nephrology [address] [place] [address] [phone] Shalonda Barboza MD Kidney replaced by transplant (HCC); Chronic kidney disease-mineral and bone disorder 09/23/2024 Refill [facility] [address] [place] [phone] Alfonso Pfeiffer MD MEDICATION REFILL 09/23/2024 Refill [facility] [address] [place] [address] Frankie Valero MD MEDICATION REFILL 08/27/2024 Orders Only [facility] - GI [address] [place] [phone] Katya Montero PA-C S/P Combined Kidney-Liver TXP in 01/06/16; Long-term use of immunosuppressant medication 07/30/2024 Orders Only [facility] - GI [address] [place] [phone] Katya Montero PA-C S/P Combined Kidney-Liver TXP in 01/06/16; Long-term use of immunosuppressant medication 07/30/2024 Orders Only [facility] - Nephrology [address] [place] [address] [phone] Shalonda Barboza MD Kidney replaced by transplant (HCC); Chronic kidney disease-mineral and bone disorder from Last 3 Months Allergies Active Allergy Reactions Criticality Noted Date [...] by mouth 2 times daily 120 tablet 09/16/2017 Active escitalopram (LEXAPRO) 10 MG tablet [...] 81 MG chew tabletIndication s:S/P liver transplant ([facility]) CHEW AND SWALLOW 1 TABLET BY MOUTH ONCE DAILY 30 tablet 11 02/26/2022 Active triamcinolone acetonide (KENALOG) 0.1 % ointmentIndicati ons:Arthropod bite, initial encounter Apply to affected bug bites twice daily. 30 days supply. 80 g 1 04/02/2022 Active pantoprazole EC (Protonix) 40 MG tabletIndication s:Kidney replaced by transplant ([facility]) Take 1 (one) tablet by mouth once daily 90 tablet 3 08/23/2022 Active predniSONE (Deltasone) 5 MG tabletIndication s:Kidney replaced by transplant ([facility]) Take 1 (one) tablet by mouth every 2 days 45 tablet 3 08/23/2022 Active tacrolimus (Prograf) 1 MG capsuleIndicatio ns:Kidney replaced by transplant ([facility]) Take 3 (three) capsules by mouth every [...] 100 MG tabletIndication s:Kidney replaced by transplant ([facility]),Hyperurice charlee Take 1 (one) tablet by mouth [...] 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 Donor: Standard criteria donor [id number] KDPI 32% CMV D+/R-, EBV D+/R+ HLA: 0 Ag match, 5 Ag mismatch Recipient: A: 23, 25 B: 18, 49 DR: 11, 17 Donor: A: 1, - B: 7, 57 DR: 7, 103 MAG 3 Renal Scan on 02/01/16: [place] kidneys 47%, TXP 53% function. Bx in [...] Transplant Date: 01/06/2016 Donor: Standard criteria donor [id number] KDPI 32% CMV D+/R-, EBV D+/R+ HLA: [...] (Pj) Biopsies: Explant 01/06/2016 LIVER AND GALLBLADDER, [place], EXPLANT (A): CIRRHOTIC LIVER WITH STAGE 4 [...] 13,000 copies/ml Stent Removed: removed by 04/04/2016 Transplant Date: 01/06/2016 Donor: Standard criteria donor [id number] KDPI 32% CMV D+/R-, EBV D+/R+ HLA: [...] (Pj) Biopsies: Explant 01/06/2016 LIVER AND GALLBLADDER, [place], EXPLANT (A): CIRRHOTIC LIVER WITH STAGE 4 [...] 05/18/2019 Hypomagnesemia 03/14/2016 05/18/2019 Hyperlipidemia 03/04/2016 05/18/2019 Immunizations Name Administration Dates Next Due INFLUENZA VACCINE, TRIV. (AF LURIA, FLUZONE TRIVALENT; 6MO+) (IIV3) 05/25/2017 Social History Tobacco Use Types Packs/Day Years [...] cm (5' 11 ) 10/14/2023 11:50 AM WATER PROJECT MANAGER Body Mass Index 27.62 10/14/2023 11:50 AM WATER PROJECT MANAGER Functional Status Functional Status Response Date of [...] person have difficulty concentrating/remembering/making decisions? No 12/07/2021 Plan of Treatment Upcoming Encounters Date Type Department Care Team (Late st Contact Info) Description 10/19/2024 10:00 AM WATER PROJECT MANAGER Office Visit [facility] - Nephrology [address] [place] [address] [phone] 10/19/2024 11:30 AM WATER PROJECT MANAGER Office Visit [facility] - GI [address] [place] [phone] Katya Montero PA-C [address] [place] [address] [place] [phone] Goals Goal Patient Goal Type Associated Problems Recent Progress Patient-Stated? Author Safety General On track( 10:36 AM CDT) Poly Mejía RN Note: Expected end date: Ongonig Interventions: Your nurse will assess your risk for falls/injury each visit Use appropriate and safe transfer methods Medication Management General On track( 10:36 AM CDT) Poly Mejía, CHRISTINA Note: Expected end date: Ongoing Interventions: Take all medications as prescribed Let your doctor know right away about any changes in your medications Medication Management General On track(01/25/2 022 11:14 AM WATER PROJECT MANAGER) Neida Alvarado RN Note: Expected end date: ongoing Interventions: Take all medications as prescribed Let your doctor know right away about any changes in your medications Make sure to request a refill of your medication at least one week prior to your last dose Procedures Procedure Name Priority Date/Time Associated Diagnosis Comments HEMOGLOBIN A1C Routine 09/11/2024 9:08 AM WATER PROJECT MANAGER 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 MICROALB/CREAT RATIO URINE RANDOM PANEL Routine 09/11/2024 9:07 AM WATER PROJECT MANAGER Kidney replaced by transplant ([facility]) Chronic kidney disease-mineral and bone disorder URINALYSIS REFLEX TO MICROSCOPIC NO CULTURE Routine 09/11/2024 9:07 AM WATER PROJECT MANAGER Kidney replaced by transplant ([facility]) Chronic kidney disease-mineral and bone disorder PHOSPHORUS BLOOD Routine 09/11/2024 9:07 AM WATER PROJECT MANAGER Kidney replaced by transplant ([facility]) Chronic kidney disease-mineral and bone disorder MAGNESIUM BLOOD Routine 09/11/2024 9:07 AM WATER PROJECT MANAGER Kidney replaced by transplant ([facility]) Chronic kidney disease-mineral and bone disorder COMPREHENSIVE METABOLIC PANEL Routine 09/11/2024 9:07 AM WATER PROJECT MANAGER Kidney replaced by transplant ([facility]) Chronic kidney disease-mineral and bone disorder CBC W AUTO DIFFERENTIAL Routine 09/11/2024 9:07 AM WATER PROJECT MANAGER Kidney replaced by transplant ([facility]) Chronic kidney disease-mineral and bone disorder TACROLIMUS LEVEL Routine 09/11/2024 9:06 AM WATER PROJECT MANAGER S/P Combined Kidney-Liver TXP in 01/06/16 Long-term use of immunosuppressant medication CBC W AUTO DIFFERENTIAL Routine 09/11/2024 9:06 AM WATER PROJECT MANAGER S/P Combined Kidney-Liver TXP in 01/06/16 Long-term use of immunosuppressant medication COMPREHENSIVE METABOLIC PANEL Routine 09/11/2024 9:06 AM WATER PROJECT MANAGER S/P Combined Kidney-Liver TXP in 01/06/16 Long-term use of immunosuppressant medication LIPID PROFILE Routine 04/17/2024 10:14 AM CDT Kidney replaced by transplant (HCC) Chronic kidney disease-mineral and bone disorder ENDOSCOPY, COLON, DIAGNOSTIC Routine 12/07/2021 9:32 AM CDT HEPATITIS SCREEN ACUTE Routine 01/06/2016 10:53 PM CDT HIV-1 HIV-2 ANTIGEN/ANTIBODY Routine 12/06/2015 9:36 AM CDT from Last 3 Months or Most Recently Relevant to Health Maintenance Results * (ABNORMAL) HEMOGLOBIN A1C (09/11/2024 9:08 AM WATER PROJECT MANAGER) Hemoglobin A1c 6.6(H) 4.8 - 5.6 % [facility] INSURANCE BILL Comment: Prediabetes: 5.7 - 6.4 Diabetes: >6.4 Glycemic control for adults with diabetes: <7.0 Blood BLOOD SPECIMEN / Unknown 09/11/2024 9:08 AM WATER PROJECT MANAGER 09/11/2024 Narrative [facility] INSURANCE BILL - 09/12/2024 6:39 AM WATER PROJECT MANAGER Performed at: [address] [place] [address] [id number] Gluing Pressman: Santana Mathis PhD, Phone: [phone] Da River MD LAB - CHEMISTRY REID MILLER [facility] INSURANCE BILL [address] [place] [address] * MICROALB/CREAT RATIO URINE RANDOM PANEL (09/11/2024 9:07 AM WATER PROJECT MANAGER) Creatinine Urine 52.0 Not Estab. mg/dL [facility] INSURANCE BILL Microalbumin Urine 14.4 Not Estab. ug/mL [facility] INSURANCE BILL Microalbumin/Crea tinine Ratio 28 0 - 29 mg/g creat [facility] INSURANCE BILL Comment: Normal: 0 - 29 Moderately increased: 30 - 300 Severely increased: >300 Urine URINE SPECIMEN OBTAINED BY CLEAN CATCH PROCEDURE / Unknown 09/11/2024 9:07 AM WATER PROJECT MANAGER 09/11/2024 Narrative [facility] INSURANCE BILL - 09/12/2024 7:06 AM WATER PROJECT MANAGER Performed at: [address] [place] [id number] Gluing Pressman: Santana Mathis PhD, Phone: [phone] Da River MD LAB - URINE CHEMISTR Y ORDERABLES Performing Organization Address City/State/[facility] Co de Phone Number [facility] INSURANCE BILL [address] [place] [address] * URINALYSIS REFLEX TO MICROSCOPIC NO CULTURE (09/11/2024 9:07 AM WATER PROJECT MANAGER) Specific [place] UA 1.011 1.005 - 1.030 [facility] INSURANCE [...] CATCH PROCEDURE / Unknown 09/11/2024 9:07 AM WATER PROJECT MANAGER 09/11/2024 Narrative [facility] INSURANCE BILL - 09/12/2024 7:06 AM WATER PROJECT MANAGER Performed at: [address] [place] [address] [id number] Gluing Pressman: Santana Mathis PhD, Phone: [phone] Da River MD LAB - URINALYSIS ORD ERABLES [facility] INSURANCE BILL [address] [place] [address] * CBC WITH DIFFERENTIAL (09/11/2024 9:07 AM WATER PROJECT MANAGER) Only the most recent of2 resultswithin the [...] BLOOD SPECIMEN / Unknown 09/11/2024 9:07 AM WATER PROJECT MANAGER 09/11/2024 Narrative [facility] INSURANCE BILL - 09/12/2024 7:06 AM WATER PROJECT MANAGER Performed at: 01 - [facility] [address] [place], [place] [id number] Gluing Pressman: Santana Mathis PhD, Phone: [phone] Da River MD LAB - HEMATOLOGY ORD ERABLES [facility] INSURANCE BILL [address] [place] [address] * (ABNORMAL) COMPREHENSIVE METABOLIC PANEL (09/11/2024 9:07 AM WATER PROJECT MANAGER) Only the most recent of2 resultswithin the [...] BLOOD SPECIMEN / Unknown 09/11/2024 9:07 AM WATER PROJECT MANAGER 09/11/2024 Narrative [facility] INSURANCE BILL - 09/12/2024 8:07 AM WATER PROJECT MANAGER Performed at: - [facility] [address] [place], [place] [id number] Gluing Pressman: Santana Mathis PhD, Phone: [phone] Da River MD LAB - CHEMISTRY REID MILLER Performing Organization Address City/[facility]/ZIP Co de Phone Number [facility] INSURANCE BILL [address] [place] [address] * PHOSPHORUS BLOOD (09/11/2024 9:07 AM WATER PROJECT MANAGER) Phosphorus 3.3 2.8 - 4.1 mg/dL [facility] INSURANCE BILL Blood BLOOD SPECIMEN / Unknown 09/11/2024 9:07 AM WATER PROJECT MANAGER 09/11/2024 Narrative [facility] INSURANCE BILL - 09/12/2024 8:07 AM WATER PROJECT MANAGER Performed at: - [facility] [id number] Gluing Pressman: Santana Mathis PhD, Phone: [phone] Da River MD LAB - CHEMISTRY REID MILLER Performing Organization Address [facility] Co de Phone Number [facility] INSURANCE BILL [address] [place] [address] * MAGNESIUM BLOOD (09/11/2024 9:07 AM WATER PROJECT MANAGER) Magnesium 1.7 1.6 - 2.3 mg/dL [facility] INSURANCE BILL Blood BLOOD SPECIMEN / Unknown 09/11/2024 9:07 AM WATER PROJECT MANAGER 09/11/2024 Narrative [facility] INSURANCE BILL - 09/12/2024 8:07 AM WATER PROJECT MANAGER Performed at: [facility] [id number] Gluing Pressman: Santana Mathis PhD, Phone: [phone] Da River MD LAB - CHEMISTRY REID MILLER Performing Organization Address City/[facility] Co de Phone Number [facility] INSURANCE BILL [address] [place] [address] * TACROLIMUS LEVEL (09/11/2024 9:06 AM WATER PROJECT MANAGER) Tacrolimus 11.9 2.0 - 20.0 ng/mL [facility] INSURANCE BILL Comment: Trough (immediately following transplant) 15.0 Trough (steady state, 2 weeks or more after transplant): 3.0 - 8.0 Performed by LC-MS/MS technology. Blood BLOOD SPECIMEN / Unknown 09/11/2024 9:06 AM WATER PROJECT MANAGER 09/11/2024 Narrative [facility] INSURANCE BILL - 09/16/2024 6:10 AM WATER PROJECT MANAGER Test(s) 336432-[id number] (FK506), Blood was developed and its performance characteristics determined by [facility] It has not been cleared or approved by the Food and Drug Administration. Performed at: - [address] [id number] Gluing Pressman: Lauren Flores MD, Phone: [phone] Katya Montero PA-C LAB - THERAPEUT IC DRUG MONITORING ORDERABLES Performing Organization Address [facility] Co de Phone Number [facility] INSURANCE BILL [address] [place] [address] * (ABNORMAL) LIPID PROFILE (04/17/2024 10:14 AM [...] Resulting Agency Comment Lab Testing performed at: [facility] [address] [facility] [id number] Da River MD LAB - CHEMISTRY REID MILLER Performing Organization Address City/[facility]/ZIP Co de Phone Number [facility] INSURANCE BILL [address] [place] [address] * ENDOSCOPY, COLON, DIAGNOSTIC (12/07/2021 9:32 AM [...] non-turk portions. Procedure Code(s): --- Professional --- 72998, Colonoscopy, flexible; diagnostic, including collection of specimen(s) by brushing or washing, when performed (separate procedure) Diagnosis Code(s): --- Professional --- Z12.11, Encounter for screening for malignant neoplasm of colon K64.8, Other hemorrhoids K57.30, Diverticulosis of large intestine without perforation or abscess without bleeding CPT copyright 2019 [employer]. All rights reserved. The codes documented in this report are preliminary and upon director of knowledge management review may be revised to meet current compliance requirements. Shereen Erwin MD 12/07/2021 10:50:24 AM This report has been signed electronically. Note Initiated On: 12/07/2021 9:32 AM Number of Addenda: [address] [address] [facility] 12/07/2021 9:32 AM CDT Shereen Erwin MD GI PROCEDURE ORDERAB LES [facility] * HEPATITIS SCREEN ACUTE (01/06/2016 10:53 PM CDT) Hepatitis A Virus Antibody IgM Non-react marcelo Non-reac tive [facility] Hepatitis B Virus Surface Antigen [facility] Hepatitis B Core Virus Antibody IgM Non-react [facility] Hepatitis C Antibody Non-react [facility] Comment: Hepatitis C Antibody screen indicates [...] 10:53 PM CDT 01/06/2016 11:05 PM CDT aZida Oliva MD LAB - CHEMISTRY ORDERABLES Performing Organization Address [facility] Co de Phone Number [address] [phone] * HIV-1 HIV-2 ANTIGEN/ANTIBODY (12/06/2015 9:36 AM CDT) HIV Antigen/Antibod y 1 & 2 Non-reacti ve Non-react [facility] Comment: Neither HIV-1 p24 Antigen nor HIV-1/HIV-2 Antibodies are detected. Blood specimen (specimen) BLOOD SPECIMEN / Unknown 12/06/2015 9:36 AM CDT 12/06/2015 10:14 AM CDT Zaida Oliva MD LAB - HEMATOLOG Y ORDERABLES Performing Organization Address City/[facility]/ZIP Co de Phone Number [address] [phone] from Last 3 Months or Most Recently Relevant to Health Maintenance Advance Directives * Full Code (Latest Code Status on File) Date Activated Date Inactivated Comments 11/24/2018 7:20 PM 11/26/2018 1:25 PM * Full Code Date Activated Date Inactivated Comments 04/29/2018 5:12 PM 05/01/2018 2:37 PM Care Teams Implementation Analyst Relationship Specialty Start Date End Date Zain Valenzuela MD [address] [place] [address] PCP - General 01/10/16 Hillary Gallardo, RN Registered Nurse Hepatology 12/24/17
--- OUTSIDE RECORDS SUMMARY | 2024-10-15 08:56 | XMS_ITS | Encounter Summary ---
Author Organization [facility] Address [address] [place], [place] [address] [address] Care Team Providers Care International Trade Manager Name Role Phone Zain Valenzuela MD Primary Care Provider [phone] Hillary Gallardo RN Unavailable Unavailable Reason for Visit * Reason Onset Date Comments MEDICATION REFILL 10/19/2019 Encounter Details Date Type Department Care Team (Late st Contact Info) Description 10/19/2019 Refill [facility] GI [address] [place] [address] Frankie Valero MD [address] [place] [address] MEDICATION REFILL Social History Tobacco Use Types [...] st Contact Info) Description 10/19/2024 10:00 AM QUALITY ASSURANCE/R&D LAB TECHNICIAN Office Visit [facility] - Nephrology [address] [place] [address], [place] [phone] 10/19/2024 11:30 AM QUALITY ASSURANCE/R&D LAB TECHNICIAN Office Visit [facility] [place] [address] [place] [phone] Katya Montero PA-C [address] [place] [address] [address] [place] [phone] documented as of this encounter Goals Goal [...] documented as of this encounter Visit Diagnoses Not on filedocumented in this encounter Care Teams International Trade Manager Relationship Specialty Start Date End Date Zain Valenzuela MD [address] [place] [phone] PCP - General 01/10/16 Hillary Gallardo, RN Registered Nurse Hepatology 12/24/17 documented as of this encounter
--- OUTSIDE RECORDS SUMMARY | 2024-10-15 08:56 | XMS_ITS | Encounter Summary ---
Author Organization [facility] Address [facility] [facility] [place] [address] Care Team Providers Care Kitchen Designer Name Role Phone Zain Valenzuela MD Primary Care Provider [phone] Hillary Gallardo RN Unavailable Unavailable Reason for Visit * Reason Onset Date Comments MEDICATION REFILL 04/22/2023 Encounter Details Date Type Department Care Team (Late st Contact Info) Description 04/22/2023 Refill [facility] [address] [facility] [address] [place] [address] Alfonso Pfeiffer MD [address] [place] [phone] MEDICATION REFILL Social History Tobacco Use Types [...] st Contact Info) Description 10/19/2024 10:00 AM BALANCE WHEEL ARM BURNISHER Office Visit [facility] - Nephrology [address] [place] [phone] 10/19/2024 11:30 AM BALANCE WHEEL ARM BURNISHER Office Visit [facility] - GI [address] [place] [phone] Katya Montero PA-C [address] [place] [address] [facility] [place] [place] [phone] documented as of this encounter Goals Goal Patient Goal Type Associated Problems Recent Progress Patient-Stated? Author Safety General On track( 10:36 AM CDT) Poly Mejía, CHRISTINA Note: Expected end date: Ongonig Interventions: [...] Medication Management General On track( 11:14 AM BALANCE WHEEL ARM BURNISHER) Neida Alvarado RN Note: Expected end date: ongoing Interventions: Take all medications as prescribed Let your doctor know right away about any changes in your medications Make sure to request a refill of your medication at least one week prior to your last dose documented as of this encounter Visit Diagnoses Not on filedocumented in this encounter Care Teams Kitchen Designer Relationship Specialty Start Date End Date Zain Valenzuela MD [address] [place] [phone] PCP - General 01/10/16 Hillary Gallardo, RN Registered Nurse Hepatology 12/24/17 documented as of this encounter
--- OUTSIDE RECORDS SUMMARY | 2024-10-15 08:57 | XMS_ITS | Patient Health Summary ---
Author Organization [facility] Address [address] [place] [address] Care Team Providers Care Group Program Manager Name Role Phone Zain Valenzuela MD Primary Care Provider [phone] Hillary Gallardo RN Unavailable Unavailable Note from [facility],non-owned Affiliates and Associated Physician Practices is amultiple site organization consisting of ambulatory clinics and hospital sitesin [place], [place], [place] and [place]. This disclosure is being madepursuant to the Care Everywhere program and may not contain all information available regarding this patient. Last updated 18.[facility] Allergies * Live Vaccines (Immunodeficiency)(Other) -Low Criticality * Hmg-Coa-R Inhibitors(Photosensitivity) -Medium Criticality Medications * Be aware that medications may not be up to date on this document. Alwaysverify current medications with the patient. * vitamin D, cholecalciferol, 2000 UNITS tablet(Started 09/16/2017) Take 1 (one) tablet by mouth DAILY 11 refills left * magnesium oxide (MAG-OX) 400 (241.3 MG) MG tablet(Started 09/16/2017) Take 2 (two) tablets by mouth 2 times daily 11 refills left * escitalopram (LEXAPRO) 10 MG tablet(Started 07/24/2017) Take 1 (one) tablet by mouth DAILY * Multiple Vitamin(Started 05/23/2017) Take 1 tablet by mouth DAILY. 11 refills left * diphenhydrAMINE (BENADRYL) 25 MG capsule Take 2 (two) capsules by mouth nightly as needed * traZODone (DESYREL) 50 MG tablet(Started 09/12/2020) Take 1 (one) tablet by mouth at bedtime * Rivaroxaban (XARELTO PO) Take 15 mg by mouth once daily * gentamicin (GARAMYCIN) 0.1 % topical ointment(Started 12/07/2021) Apply to affected area 3 times daily * aspirin (ASPIRIN) 81 MG chew tablet(Started 02/26/2022) CHEW AND SWALLOW 1 TABLET BY MOUTH ONCE DAILY 11 refills by 02/26/2023 * triamcinolone acetonide (KENALOG) 0.1 % ointment(Started 04/02/2022) Apply to affected bug bites twice daily. 30 days supply. 1 refill by 04/02/2023 * pantoprazole EC (Protonix) 40 MG tablet(Started 08/23/2022) Take 1 (one) tablet by mouth once daily 3 refills by 08/23/2023 * predniSONE (Deltasone) 5 MG tablet(Started 08/23/2022) Take 1 (one) tablet by mouth every 2 days 3 refills by 08/23/2023 * tacrolimus (Prograf) 1 MG capsule(Started 08/23/2022) Take 3 (three) capsules by mouth every morning AND 2 (two) capsules every evening. 3 refills by 08/23/2023 * tacrolimus (Prograf) 1 MG capsule(Started 09/02/2023) Take 3 (three) capsules by mouth 2 times daily 11 refills by 09/01/2024 * levothyroxine (Synthroid) 112 MCG tablet(Started 09/04/2023) Take 1 (one) tablet by mouth once daily * Blood Pressure Monitor KIT(Started 10/14/2023) Use 1 kit once daily * allopurinol (Zyloprim) 100 MG tablet(Started 03/01/2024) Take 1 (one) tablet by mouth once daily 3 refills by 03/01/2025 * tamsulosin (Flomax) 0.4 MG capsule(Started 09/02/2023) TAKE ONE CAPSULE BY MOUTH EVERY NIGHT AT BEDTIME AT THE SAME TIME EACH DAY AFTER A MEAL Partial refill of 30 capsules by 09/01/2024 * pantoprazole EC (Protonix) 40 MG tablet(Started 09/09/2023) TAKE ONE TABLET BY MOUTH ONCE DAILY 2+ refills by 02/27/2024 * lisinopril (Prinivil; Zestril) 10 MG tablet(Started 12/03/2023) TAKE ONE TABLET BY MOUTH ONCE DAILY 2+ refills by 04/13/2024 * dilTIAZem coated beads 24hr (Cardizem CD) 240 MG capsule(Started 02/05/2024) TAKE ONE CAPSULE BY MOUTH ONCE DAILY 1 refill by 02/04/2025 * allopurinol (Zyloprim) 100 MG tablet(Started 03/01/2024) TAKE ONE TABLET BY MOUTH ONCE DAILY 3+ refills by 03/01/2025 * pantoprazole EC (Protonix) 40 MG tablet(Started 06/24/2024) TAKE ONE TABLET BY MOUTH ONCE DAILY Partial refill of 60 tablets by 06/24/2025 * predniSONE (Deltasone) 5 MG tablet(Started 06/25/2024) Take 1 (one) tablet by mouth every 2 days 2 refills by 06/25/2025 * tacrolimus (Prograf) 1 MG capsule(Started 09/23/2024) TAKE 3 CAPSULES BY MOUTH 2 TIMES A DAY 11 refills by 09/23/2025 * predniSONE (Deltasone) 5 MG tablet(Started 09/23/2024) TAKE ONE TABLET BY MOUTH EVERY 2 DAYS 3+ refills by 09/23/2025 Ended Medications* tacrolimus (Prograf) 1 MG capsule(Started 09/02/2023) (Discontinued) TAKE 3 CAPSULES BY MOUTH 2 TIMES A DAY No refills remaining * predniSONE (Deltasone) 5 MG tablet(Started 12/03/2023)(Discontinued) TAKE ONE TABLET BY MOUTH EVERY 2 DAYS Partial refill of 30 tablets by 12/02/2024 Active Problems Problem Noted Date Diagnosed Date CKD (chronic kidney disease) stage 2, GFR 60-89 ml/min 04/13/2024 ANA (acute kidney injury) 01/14/2024 Actinic keratosis 04/02/2022 Arthropod bite 04/02/2022 Melanocytic nevi of trunk 04/02/2022 Solar lentiginosis 04/02/2022 Tubular adenoma of colon 10/02/2021 Essential hypertension, benign 05/18/2019 Anemia in stage 2 chronic kidney disease 019 Chronic kidney disease-mineral and bone disorder 05/18/2019 Pure hyperglyceridemia 05/18/2019 Hyperuricemia 04/30/2018 S/P Combined Kidney-Liver TXP in 01/06/16 018 Viral infection 09/16/2017 CKD stage 2, GFR 60-89 ml/min 09/16/2017 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 S/P liver transplant 01/03/2017 Medication overuse headache 10/01/2016 Umbilical hernia without obstruction and without gangrene 07/05/2016 Nephrotic syndrome with foca l and segmental glomerular lesion 02/21/2016 Long-term use of immunosuppressant medication Therapeutic drug monitoring 01/30/2016 H/O End stage renal disease 01/06/2016 Vang's esophagus 11/01/2015 Hypoalbuminemia 03/01/2015 Resolved Problems Problem Noted Date Diagnosed Date Resolved Date Nausea vomiting and diarrhea 11/24/2018 12/23/2018 Right knee injury 04/29/2018 11/25/2018 Cellulitis of knee 04/29/2018 9 Left lower quadrant pain 06/21/201606/2019 Other disorders of plasma-pr otein metabolism, not elsewhere classified 04/10/2016 05/18/2019 Hypomagnesemia 03/14/2016 05/18/2019 Hyperlipidemia 03/04/2016 05/18/2019 Immunizations * INFLUENZA VACCINE, TRIV. 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 Procedures * HEMOGLOBIN A1C(Performed 09/11/2024) Performed for Chronic kidney disease-mineral and bone disorder, S/P Combined Kidney-Liver TXP in 01/06/16 * MICROALB/CREAT RATIO URINE RANDOM PANEL(Performed 09/11/2024) Performed for Kidney replaced by transplant ([facility]), Chronic kidney disease- mineral and bone disorder * URINALYSIS REFLEX TO MICROSCOPIC NO CULTURE(Performed 09/11/2024) Performed for Kidney replaced by transplant ([facility]), Chronic kidney disease- mineral and bone disorder * PHOSPHORUS BLOOD(Performed 09/11/2024) Performed for Kidney replaced by transplant ([facility]), Chronic kidney disease- mineral and bone disorder * MAGNESIUM BLOOD(Performed 09/11/2024) Performed for Kidney replaced by transplant ([facility]), Chronic kidney disease- mineral and bone disorder * COMPREHENSIVE METABOLIC PANEL(Performed 09/11/2024) Performed for Kidney replaced by transplant ([facility]), Chronic kidney disease- mineral and bone disorder * CBC W AUTO DIFFERENTIAL(Performed 09/11/2024) Performed for Kidney replaced by transplant ([facility]), Chronic kidney disease- mineral and bone disorder * TACROLIMUS LEVEL(Performed 09/11/2024) Performed for S/P Combined Kidney-Liver TXP in 01/06/16, Long-term use of immunosuppressant medication * CBC W AUTO DIFFERENTIAL(Performed 09/11/2024) Performed for S/P Combined Kidney-Liver TXP in 01/06/16, Long-term use of immunosuppressant medication * COMPREHENSIVE METABOLIC PANEL(Performed 09/11/2024) Performed for S/P Combined Kidney-Liver TXP in 01/06/16, Long-term use of immunosuppressant medication * HEMOGLOBIN A1C(Performed 04/17/2024) Performed for Chronic kidney disease-mineral and bone disorder, S/P Combined Kidney-Liver TXP in 01/06/16 * MICROALB/CREAT RATIO URINE RANDOM PANEL(Performed 04/17/2024) Performed for Kidney replaced by transplant ([facility]), Chronic kidney disease- mineral and bone disorder * URINALYSIS REFLEX TO MICROSCOPIC NO CULTURE(Performed 04/17/2024) Performed for Kidney replaced by transplant ([facility]), Chronic kidney disease- mineral and bone disorder * TACROLIMUS LEVEL(Performed 04/17/2024) Performed for Kidney replaced by transplant ([facility]), Chronic kidney disease- mineral and bone disorder * PHOSPHORUS BLOOD(Performed 04/17/2024) Performed for Kidney replaced by transplant ([facility]), Chronic kidney disease- mineral and bone disorder * MAGNESIUM BLOOD(Performed 04/17/2024) Performed for Kidney replaced by transplant ([facility]), Chronic kidney disease- mineral and bone disorder * COMPREHENSIVE METABOLIC PANEL(Performed 04/17/2024) Performed for Kidney replaced by transplant ([facility]), Chronic kidney disease- mineral and bone disorder * CBC W AUTO DIFFERENTIAL(Performed 04/17/2024) Performed for Kidney replaced by transplant ([facility]), Chronic kidney disease- mineral and bone disorder * PTH INTACT(Performed 04/17/2024) Performed for Kidney replaced by transplant ([facility]), Chronic kidney disease- mineral and bone disorder * URIC ACID BLOOD(Performed 04/17/2024) Performed for Kidney replaced by transplant ([facility]), Chronic kidney disease- mineral and bone disorder * VITAMIN D 25-HYDROXY(Performed 04/17/2024) Performed for Kidney replaced by transplant ([facility]), Chronic kidney disease- mineral and bone disorder * CYTOMEGALOVIRUS QUANT BLOOD(Performed 04/17/2024) Performed for Kidney replaced by transplant ([facility]), Chronic kidney disease- mineral and bone disorder * BK VIRUS PCR QUANTITATIVE(Performed 04/17/2024) Performed for Kidney replaced by transplant ([facility]), Chronic kidney disease- mineral and bone disorder * LIPID PROFILE(Performed 04/17/2024) Performed for Kidney replaced by transplant ([facility]), Chronic kidney disease- mineral and bone disorder * COMPREHENSIVE METABOLIC PANEL(Performed 01/31/2024) Performed for ANA (acute kidney injury) ([facility]), S/P Combined Kidney-Liver TXP in 01/06/16 * TACROLIMUS LEVEL(Performed 01/31/2024) Performed for S/P Combined Kidney-Liver TXP in 01/06/16, Long-term use of immunosuppressant medication, 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, Tubular adenoma of colon, CKD stage 2, GFR 60-89 ml/min * CBC W AUTO DIFFERENTIAL(Performed 01/31/2024) Performed for S/P Combined Kidney-Liver TXP in 01/06/16, Long-term use of immunosuppressant medication, 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, Tubular adenoma of colon, CKD stage 2, GFR 60-89 ml/min * COMPREHENSIVE METABOLIC PANEL(Performed 01/31/2024) Performed for S/P Combined Kidney-Liver TXP in 01/06/16, Long-term use of immunosuppressant medication, 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, Tubular adenoma of colon, CKD stage 2, GFR 60-89 ml/min * TACROLIMUS LEVEL(Performed 01/15/2024) Performed for S/P Combined Kidney-Liver TXP in 01/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, Long-term use of immunosuppressant medication, 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, Tubular adenoma of colon, CKD stage 2, GFR 60-89 ml/min * CBC W AUTO DIFFERENTIAL(Performed 01/15/2024) Performed for S/P Combined Kidney-Liver TXP in 01/06/16, Long-term use of immunosuppressant medication, 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, Tubular adenoma of colon, CKD stage 2, GFR 60-89 ml/min * COMPREHENSIVE METABOLIC PANEL(Performed 01/15/2024) Performed for S/P Combined Kidney-Liver TXP in 01/06/16, Long-term use of immunosuppressant medication, 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, Tubular adenoma of colon, CKD stage 2, GFR 60-89 ml/min * URINALYSIS MICROSCOPIC ONLY REFLEXED(Performed 08/11/2023) Performed for Kidney replaced by transplant (HCC), CKD (chronic kidney disease) stage 2, GFR 60-89 ml/min, Alcoholic cirrhosis of liver without ascites (HCC) * COMPREHENSIVE METABOLIC PANEL(Performed 08/11/2023) Performed for S/P Combined Kidney-Liver TXP in 01/06/16, CKD stage 2, GFR 60-89 ml/min, Alcoholic cirrhosis of liver without ascites (HCC) * CBC W AUTO DIFFERENTIAL(Performed 08/11/2023) Performed for S/P Combined Kidney-Liver TXP in 01/06/16, CKD stage 2, GFR 60-89 ml/min, Alcoholic cirrhosis of liver without ascites (HCC) * TACROLIMUS LEVEL(Performed 08/11/2023) Performed for S/P Combined Kidney-Liver TXP in 01/06/16, CKD stage 2, GFR 60-89 ml/min, Alcoholic cirrhosis of liver without ascites (HCC) * PHOSPHORUS BLOOD(Performed 08/11/2023) Performed for S/P Combined Kidney-Liver TXP in 01/06/16, CKD stage 2, GFR 60-89 ml/min, Alcoholic cirrhosis of liver without ascites (HCC) * MAGNESIUM BLOOD(Performed 08/11/2023) Performed for S/P Combined Kidney-Liver TXP in 01/06/16, CKD stage 2, GFR 60-89 ml/min, Alcoholic cirrhosis of liver without ascites (HCC) * URINALYSIS W/MICROSCOPIC NO CULTURE(Performed 08/11/2023) Performed for S/P Combined Kidney-Liver TXP in 01/06/16, CKD stage 2, GFR 60-89 ml/min, Alcoholic cirrhosis of liver without ascites (HCC) * PROTEIN URINE RANDOM QUANTITATIVE(Performed 08/11/2023) Performed for S/P Combined Kidney-Liver TXP in 01/06/16, CKD stage 2, GFR 60-89 ml/min, Alcoholic cirrhosis of liver without ascites (HCC) * CREATININE URINE RANDOM(Performed 08/11/2023) Performed for S/P Combined Kidney-Liver TXP in 01/06/16, CKD stage 2, GFR 60-89 ml/min, Alcoholic cirrhosis of liver without ascites (HCC) * LIPID PROFILE(Performed 08/11/2023) Performed for S/P Combined Kidney-Liver TXP in 01/06/16, CKD stage 2, GFR 60-89 ml/min, Alcoholic cirrhosis of liver without ascites (HCC) * VITAMIN D 1,25 DIHYDROXY(Performed 08/11/2023) Performed for S/P Combined Kidney-Liver TXP in 01/06/16, CKD stage 2, GFR 60-89 ml/min, Alcoholic cirrhosis of liver without ascites (HCC) * URIC ACID BLOOD(Performed 08/11/2023) Performed for S/P Combined Kidney-Liver TXP in 01/06/16, CKD stage 2, GFR 60-89 ml/min, Alcoholic cirrhosis of liver without ascites (HCC) * PTH INTACT(Performed 08/11/2023) Performed for S/P Combined Kidney-Liver TXP in 01/06/16, CKD stage 2, GFR 60-89 ml/min, Alcoholic cirrhosis of liver without ascites (HCC) * BK VIRUS PCR QUANTITATIVE(Performed 08/11/2023) Performed for S/P Combined Kidney-Liver TXP in 01/06/16, CKD stage 2, GFR 60-89 ml/min, Alcoholic cirrhosis of liver without ascites (HCC) * URINALYSIS MICROSCOPIC ONLY REFLEXED(Performed 08/29/2022) Performed for Hyperuricemia, Pure hyperglyceridemia, Kidney replaced by transplant (HCC), Immunosuppression ([facility]), Long-term use of immunosuppressant medication, Chronic kidney disease-mineral and bone disorder * PTH INTACT(Performed 08/29/2022) Performed for Hyperuricemia, Pure hyperglyceridemia, S/P Combined Kidney-Liver TXP in 01/06/16, Immunosuppression ([facility]), Long-term use of immunosuppressant medication, Chronic kidney disease-mineral and bone disorder * URIC ACID BLOOD(Performed 08/29/2022) Performed for Hyperuricemia, Pure hyperglyceridemia, S/P Combined Kidney-Liver TXP in 01/06/16, Immunosuppression ([facility]), Long-term use of immunosuppressant medication, Chronic kidney disease-mineral and bone disorder * VITAMIN D 25-HYDROXY(Performed 08/29/2022) Performed for Hyperuricemia, Pure hyperglyceridemia, S/P Combined Kidney-Liver TXP in 01/06/16, Immunosuppression ([facility]), Long-term use of immunosuppressant medication, Chronic kidney disease-mineral and bone disorder * LIPID PROFILE(Performed 08/29/2022) Performed for Hyperuricemia, Pure hyperglyceridemia, S/P Combined Kidney-Liver TXP in 01/06/16, Immunosuppression ([facility]), Long-term use of immunosuppressant medication, Chronic kidney disease-mineral and bone disorder * CREATININE URINE RANDOM(Performed 08/29/2022) Performed for Hyperuricemia, Pure hyperglyceridemia, S/P Combined Kidney-Liver TXP in 01/06/16, Immunosuppression ([facility]), Long-term use of immunosuppressant medication, Chronic kidney disease-mineral and bone disorder * PROTEIN URINE RANDOM QUANTITATIVE(Performed 08/29/2022) Performed for Hyperuricemia, Pure hyperglyceridemia, S/P Combined Kidney-Liver TXP in 01/06/16, Immunosuppression ([facility]), Long-term use of immunosuppressant medication, Chronic kidney disease-mineral and bone disorder * URINALYSIS W/MICROSCOPIC NO CULTURE(Performed 08/29/2022) Performed for Hyperuricemia, Pure hyperglyceridemia, S/P Combined Kidney-Liver TXP in 01/06/16, Immunosuppression ([facility]), Long-term use of immunosuppressant medication, Chronic kidney disease-mineral and bone disorder * PHOSPHORUS BLOOD(Performed 08/29/2022) Performed for Hyperuricemia, Pure hyperglyceridemia, S/P Combined Kidney-Liver TXP in 01/06/16, Immunosuppression ([facility]), Long-term use of immunosuppressant medication, Chronic kidney disease-mineral and bone disorder * MAGNESIUM BLOOD(Performed 08/29/2022) Performed for Hyperuricemia, Pure hyperglyceridemia, S/P Combined Kidney-Liver TXP in 01/06/16, Immunosuppression ([facility]), Long-term use of immunosuppressant medication, Chronic kidney disease-mineral and bone disorder * CYTOMEGALOVIRUS QUANT BLOOD(Performed 08/29/2022) Performed for Hyperuricemia, Pure hyperglyceridemia, S/P Combined Kidney-Liver TXP in 01/06/16, Immunosuppression ([facility]), Long-term use of immunosuppressant medication, Chronic kidney disease-mineral and bone disorder * BK VIRUS PCR QUANTITATIVE(Performed 08/29/2022) Performed for Hyperuricemia, Pure hyperglyceridemia, S/P Combined Kidney-Liver TXP in 01/06/16, Immunosuppression ([facility]), Long-term use of immunosuppressant medication, Chronic kidney disease-mineral and bone disorder * TACROLIMUS LEVEL(Performed 08/29/2022) Performed for S/P Combined Kidney-Liver TXP in 01/06/16, Therapeutic drug monitoring, Long-term use of immunosuppressant medication * COMPREHENSIVE METABOLIC PANEL(Performed 08/29/2022) Performed for S/P Combined Kidney-Liver TXP in 01/06/16, Therapeutic drug monitoring, Long-term use of immunosuppressant medication * CBC W AUTO DIFFERENTIAL(Performed 08/29/2022) Performed for S/P Combined Kidney-Liver TXP in 01/06/16, Therapeutic drug monitoring, Long-term use of immunosuppressant medication * URINALYSIS MICROSCOPIC ONLY REFLEXED(Performed 04/27/2022) Performed for Kidney replaced by transplant (HCC), Hyperuricemia, Pure hyperglyceridemia, Immunosuppression (HCC), Long-term use of immunosuppressant medication, Chronic kidney disease-mineral and bone disorder * CREATININE URINE RANDOM(Performed 04/27/2022) Performed for S/P Combined Kidney-Liver TXP in 01/06/16, Hyperuricemia, Pure hyperglyceridemia, Immunosuppression (HCC), Long-term use of immunosuppressant medication, Chronic kidney disease-mineral and bone disorder * PROTEIN URINE RANDOM QUANTITATIVE(Performed 04/27/2022) Performed for S/P Combined Kidney-Liver TXP in 01/06/16, Hyperuricemia, Pure hyperglyceridemia, Immunosuppression (HCC), Long-term use of immunosuppressant medication, Chronic kidney disease-mineral and bone disorder * URINALYSIS W/MICROSCOPIC NO CULTURE(Performed 04/27/2022) Performed for S/P Combined Kidney-Liver TXP in 01/06/16, Hyperuricemia, Pure hyperglyceridemia, Immunosuppression (HCC), Long-term use of immunosuppressant medication, Chronic kidney disease-mineral and bone disorder * PHOSPHORUS BLOOD(Performed 04/27/2022) Performed for S/P Combined Kidney-Liver TXP in 01/06/16, Hyperuricemia, Pure hyperglyceridemia, Immunosuppression (HCC), Long-term use of immunosuppressant medication, Chronic kidney disease-mineral and bone disorder * MAGNESIUM BLOOD(Performed 04/27/2022) Performed for S/P Combined Kidney-Liver TXP in 01/06/16, Hyperuricemia, Pure hyperglyceridemia, Immunosuppression (HCC), Long-term use of immunosuppressant medication, Chronic kidney disease-mineral and bone disorder * COMPREHENSIVE METABOLIC PANEL(Performed 04/27/2022) Performed for S/P Combined Kidney-Liver TXP in 01/06/16, Hyperuricemia, Pure hyperglyceridemia, Immunosuppression (HCC), Long-term use of immunosuppressant medication, Chronic kidney disease-mineral and bone disorder * CBC W AUTO DIFFERENTIAL(Performed 04/27/2022) Performed for S/P Combined Kidney-Liver TXP in 01/06/16, Hyperuricemia, Pure hyperglyceridemia, Immunosuppression (HCC), Long-term use of immunosuppressant medication, Chronic kidney disease-mineral and bone disorder * TACROLIMUS LEVEL(Performed 04/27/2022) Performed for S/P Combined Kidney-Liver TXP in 01/06/16, Hyperuricemia, Pure hyperglyceridemia, Immunosuppression (HCC), Long-term use of immunosuppressant medication, Chronic kidney disease-mineral and bone disorder * CBC W AUTO DIFFERENTIAL(Performed 04/27/2022) Performed for Kidney replaced by transplant (HCC), Essential hypertension, benign, Long-term use ofimmunosuppressant medication, 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, CKD stage 2, GFR 60-89 ml/min * COMPREHENSIVE METABOLIC PANEL(Performed 04/27/2022) Performed for Kidney replaced by transplant (HCC), Essential hypertension, benign, Long-term use ofimmunosuppressant medication, 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, CKD stage 2, GFR 60-89 ml/min * PROSTATE SPECIFIC ANTIGEN SCREEN(Performed 04/27/2022) Performed for Kidney replaced by transplant (HCC), Essential hypertension, benign, Long-term use ofimmunosuppressant medication, 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, CKD stage 2, GFR 60-89 ml/min * MO DESTROY PREMALIG LESION, 1ST LESION(Performed 04/02/2022) Performed for Actinic keratosis * PATHOLOGY TISSUE(Performed 12/07/2021) Performed for Screen for colon cancer, 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 * COLONOSCOPY SCREEN(Performed 12/07/2021) Performed for Screen for colon cancer, 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 * MO ED EGD FLEX TRANSORAL DX(Performed 12/07/2021) Performed for Screen for colon cancer, 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 * EGD(Performed 12/07/2021) * ENDOSCOPY, COLON, DIAGNOSTIC(Performed 12/07/2021) * MAGNESIUM BLOOD(Performed 12/07/2021) Performed for S/P Combined Kidney-Liver TXP in 01/06/16 * BK VIRUS PCR QUANT BLOOD STL(Performed 10/02/2021) Performed for BK polyoma viremia, Essential hypertension, benign, Hyperuricemia, Hypoalbuminemia, Long-term use of immunosuppressant medication, Pure hyperglyceridemia, Chronic kidney disease-mineraland bone disorder, Kidney replaced by transplant (HCC) * PTH INTACT W/O CALCIUM(Performed 10/02/2021) Performed for BK polyoma viremia, Essential hypertension, benign, Hyperuricemia, Hypoalbuminemia, Long-term use of immunosuppressant medication, Pure hyperglyceridemia, Chronic kidney disease-mineraland bone disorder, Kidney replaced by transplant (HCC) * LIPID PROFILE(Performed 10/02/2021) Performed for BK polyoma viremia, Essential hypertension, benign, Hyperuricemia, Hypoalbuminemia, Long-term use of immunosuppressant medication, Pure hyperglyceridemia, Chronic kidney disease-mineraland bone disorder, Kidney replaced by transplant ([facility]) * VITAMIN D 25-HYDROXY(Performed 10/02/2021) Performed for BK polyoma viremia, Essential hypertension, benign, Hyperuricemia, Hypoalbuminemia, Long-term use of immunosuppressant medication, Pure hyperglyceridemia, Chronic kidney disease-mineraland bone disorder, Kidney replaced by transplant ([facility]) * URIC ACID BLOOD(Performed 10/02/2021) Performed for BK polyoma viremia, Essential hypertension, benign, Hyperuricemia, Hypoalbuminemia, Long-term use of immunosuppressant medication, Pure hyperglyceridemia, Chronic kidney disease-mineraland bone disorder, Kidney replaced by transplant ([facility]) * CREATININE URINE RANDOM(Performed 10/02/2021) Performed for BK polyoma viremia, Essential hypertension, benign, Hyperuricemia, Hypoalbuminemia, Long-term use of immunosuppressant medication, Pure hyperglyceridemia, Chronic kidney disease-mineraland bone disorder, Kidney replaced by transplant ([facility]) * PROTEIN URINE RANDOM QUANTITATIVE(Performed 10/02/2021) Performed for BK polyoma viremia, Essential hypertension, benign, Hyperuricemia, Hypoalbuminemia, Long-term use of immunosuppressant medication, Pure hyperglyceridemia, Chronic kidney disease-mineraland bone disorder, Kidney replaced by transplant ([facility]) * URINALYSIS W/MICROSCOPIC NO CULTURE(Performed 10/02/2021) Performed for BK polyoma viremia, Essential hypertension, benign, Hyperuricemia, Hypoalbuminemia, Long-term use of immunosuppressant medication, Pure hyperglyceridemia, Chronic kidney disease-mineraland bone disorder, Kidney replaced by transplant ([facility]) * PHOSPHORUS BLOOD(Performed 10/02/2021) Performed for BK polyoma viremia, Essential hypertension, benign, Hyperuricemia, Hypoalbuminemia, Long-term use of immunosuppressant medication, Pure hyperglyceridemia, Chronic kidney disease-mineraland bone disorder, Kidney replaced by transplant ([facility]) * MAGNESIUM BLOOD(Performed 10/02/2021) Performed for BK polyoma viremia, Essential hypertension, benign, Hyperuricemia, Hypoalbuminemia, Long-term use of immunosuppressant medication, Pure hyperglyceridemia, Chronic kidney disease-mineraland bone disorder, Kidney replaced by transplant ([facility]) * COMPREHENSIVE METABOLIC PANEL(Performed 10/02/2021) Performed for BK polyoma viremia, Essential hypertension, benign, Hyperuricemia, Hypoalbuminemia, Long-term use of immunosuppressant medication, Pure hyperglyceridemia, Chronic kidney disease-mineraland bone disorder, Kidney replaced by transplant (HCC) * CBC W AUTO DIFFERENTIAL(Performed 10/02/2021) Performed for BK polyoma viremia, Essential hypertension, benign, Hyperuricemia, Hypoalbuminemia, Long-term use of immunosuppressant medication, Pure hyperglyceridemia, Chronic kidney disease-mineraland bone disorder, Kidney replaced by transplant (HCC) * TACROLIMUS LEVEL(Performed 10/02/2021) Performed for BK polyoma viremia, Essential hypertension, benign, Hyperuricemia, Hypoalbuminemia, Long-term use of immunosuppressant medication, Pure hyperglyceridemia, Chronic kidney disease-mineraland bone disorder, Kidney replaced by transplant (HCC) * TACROLIMUS LEVEL(Performed 07/14/2021) Performed for S/P Combined Kidney-Liver TXP in 01/06/16, Long-term use of immunosuppressant medication * URINALYSIS MICROSCOPIC ONLY REFLEXED(Performed 06/09/2021) Performed for Kidney replaced by transplant (HCC), Hyperuricemia, Pure hyperglyceridemia, Immunosuppression (HCC), Long-term use of immunosuppressant medication, Chronic kidney disease-mineral and bone disorder * PTH INTACT(Performed 06/09/2021) Performed for S/P Combined Kidney-Liver TXP in 01/06/16, Hyperuricemia, Pure hyperglyceridemia, Immunosuppression (HCC), Long-term use of immunosuppressant medication, Chronic kidney disease-mineral and bone disorder * URIC ACID BLOOD(Performed 06/09/2021) Performed for S/P Combined Kidney-Liver TXP in 01/06/16, Hyperuricemia, Pure hyperglyceridemia, Immunosuppression (HCC), Long-term use of immunosuppressant medication, Chronic kidney disease-mineral and bone disorder * VITAMIN D 25-HYDROXY(Performed 06/09/2021) Performed for S/P Combined Kidney-Liver TXP in 01/06/16, Hyperuricemia, Pure hyperglyceridemia, Immunosuppression (HCC), Long-term use of immunosuppressant medication, Chronic kidney disease-mineral and bone disorder * LIPID PROFILE(Performed 06/09/2021) Performed for S/P Combined Kidney-Liver TXP in 01/06/16, Hyperuricemia, Pure hyperglyceridemia, Immunosuppression (HCC), Long-term use of immunosuppressant medication, Chronic kidney disease-mineral and bone disorder * CREATININE URINE RANDOM(Performed 06/09/2021) Performed for S/P Combined Kidney-Liver TXP in 01/06/16, Hyperuricemia, Pure hyperglyceridemia, Immunosuppression (HCC), Long-term use of immunosuppressant medication, Chronic kidney disease-mineral and bone disorder * PROTEIN URINE RANDOM QUANTITATIVE(Performed 06/09/2021) Performed for S/P Combined Kidney-Liver TXP in 01/06/16, Hyperuricemia, Pure hyperglyceridemia, Immunosuppression (HCC), Long-term use of immunosuppressant medication, Chronic kidney disease-mineral and bone disorder * URINALYSIS W/MICROSCOPIC NO CULTURE(Performed 06/09/2021) Performed for S/P Combined Kidney-Liver TXP in 01/06/16, Hyperuricemia, Pure hyperglyceridemia, Immunosuppression (HCC), Long-term use of immunosuppressant medication, Chronic kidney disease-mineral and bone disorder * PHOSPHORUS BLOOD(Performed 06/09/2021) Performed for S/P Combined Kidney-Liver TXP in 01/06/16, Hyperuricemia, Pure hyperglyceridemia, Immunosuppression (HCC), Long-term use of immunosuppressant medication, Chronic kidney disease-mineral and bone disorder * MAGNESIUM BLOOD(Performed 06/09/2021) Performed for S/P Combined Kidney-Liver TXP in 01/06/16, Hyperuricemia, Pure hyperglyceridemia, Immunosuppression (HCC), Long-term use of immunosuppressant medication, Chronic kidney disease-mineral and bone disorder * COMPREHENSIVE METABOLIC PANEL(Performed 06/09/2021) Performed for S/P Combined Kidney-Liver TXP in 01/06/16, Hyperuricemia, Pure hyperglyceridemia, Immunosuppression (HCC), Long-term use of immunosuppressant medication, Chronic kidney disease-mineral and bone disorder * CBC W AUTO DIFFERENTIAL(Performed 06/09/2021) Performed for S/P Combined Kidney-Liver TXP in 01/06/16, Hyperuricemia, Pure hyperglyceridemia, Immunosuppression (HCC), Long-term use of immunosuppressant medication, Chronic kidney disease-mineral and bone disorder * TACROLIMUS LEVEL(Performed 06/09/2021) Performed for S/P Combined Kidney-Liver TXP in 01/06/16, Hyperuricemia, Pure hyperglyceridemia, Immunosuppression ([facility]), Long-term use of immunosuppressant medication, Chronic kidney disease-mineral and bone disorder * DIFFERENTIAL MANUAL(Performed 09/12/2020) Performed for S/P Combined Kidney-Liver TXP in 01/06/16, Hyperuricemia, Immunosuppression ([facility]), Long-term use of immunosuppressant medication, Chronic kidney disease-mineral and bone disorder * PTH INTACT W/O CALCIUM(Performed 09/12/2020) Performed for Kidney replaced by transplant ([facility]) * URIC ACID BLOOD(Performed 09/12/2020) Performed for S/P Combined Kidney-Liver TXP in 01/06/16, Hyperuricemia, Immunosuppression ([facility]), Long-term use of immunosuppressant medication, Chronic kidney disease-mineral and bone disorder * VITAMIN D 25-HYDROXY(Performed 09/12/2020) Performed for S/P Combined Kidney-Liver TXP in 01/06/16, Hyperuricemia, Immunosuppression ([facility]), Long-term use of immunosuppressant medication, Chronic kidney disease-mineral and bone disorder * LIPID PROFILE(Performed 09/12/2020) Performed for S/P Combined Kidney-Liver TXP in 01/06/16, Hyperuricemia, Immunosuppression ([facility]), Long-term use of immunosuppressant medication, Chronic kidney disease-mineral and bone disorder * CREATININE URINE RANDOM(Performed 09/12/2020) Performed for S/P Combined Kidney-Liver TXP in 01/06/16, Hyperuricemia, Immunosuppression ([facility]), Long-term use of immunosuppressant medication, Chronic kidney disease-mineral and bone disorder * PROTEIN URINE RANDOM QUANTITATIVE(Performed 09/12/2020) Performed for S/P Combined Kidney-Liver TXP in 01/06/16, Hyperuricemia, Immunosuppression ([facility]), Long-term use of immunosuppressant medication, Chronic kidney disease-mineral and bone disorder * URINALYSIS W/MICROSCOPIC NO CULTURE(Performed 09/12/2020) Performed for S/P Combined Kidney-Liver TXP in 01/06/16, Hyperuricemia, Immunosuppression ([facility]), Long-term use of immunosuppressant medication, Chronic kidney disease-mineral and bone disorder * PHOSPHORUS BLOOD(Performed 09/12/2020) Performed for S/P Combined Kidney-Liver TXP in 01/06/16, Hyperuricemia, Immunosuppression (HCC), Long-term use of immunosuppressant medication, Chronic kidney disease-mineral and bone disorder * MAGNESIUM BLOOD(Performed 09/12/2020) Performed for S/P Combined Kidney-Liver TXP in 01/06/16, Hyperuricemia, Immunosuppression (HCC), Long-term use of immunosuppressant medication, Chronic kidney disease-mineral and bone disorder * COMPREHENSIVE METABOLIC PANEL(Performed 09/12/2020) Performed for S/P Combined Kidney-Liver TXP in 01/06/16, Hyperuricemia, Immunosuppression (HCC), Long-term use of immunosuppressant medication, Chronic kidney disease-mineral and bone disorder * CBC W AUTO DIFFERENTIAL(Performed 09/12/2020) Performed for S/P Combined Kidney-Liver TXP in 01/06/16, Hyperuricemia, Immunosuppression (HCC), Long-term use of immunosuppressant medication, Chronic kidney disease-mineral and bone disorder * TACROLIMUS LEVEL(Performed 09/12/2020) Performed for S/P Combined Kidney-Liver TXP in 01/06/16, Hyperuricemia, Immunosuppression (HCC), Long-term use of immunosuppressant medication, Chronic kidney disease-mineral and bone disorder * TACROLIMUS LEVEL(Performed 05/27/2020) Performed for S/P Combined Kidney-Liver TXP in 01/06/16, Long-term use of immunosuppressant medication * COMPREHENSIVE METABOLIC PANEL(Performed 05/27/2020) Performed for S/P Combined Kidney-Liver TXP in 01/06/16, Long-term use of immunosuppressant medication * CBC W AUTO DIFFERENTIAL(Performed 05/27/2020) Performed for S/P Combined Kidney-Liver TXP in 01/06/16, Long-term use of immunosuppressant medication * URINALYSIS MICROSCOPIC ONLY REFLEXED(Performed 05/27/2020) Performed for Kidney replaced by transplant (HCC), Hyperuricemia, Pure hyperglyceridemia, Long-termuse of immunosuppressant medication, Chronic kidney disease-mineral and bone disorder * PTH INTACT(Performed 05/27/2020) Performed for S/P Combined Kidney-Liver TXP in 01/06/16, Hyperuricemia, Pure hyperglyceridemia, Long-term use of immunosuppressant medication, Chronic kidney disease-mineral and bone disorder * URIC ACID BLOOD(Performed 05/27/2020) Performed for S/P Combined Kidney-Liver TXP in 01/06/16, Hyperuricemia, Pure hyperglyceridemia, Long-term use of immunosuppressant medication, Chronic kidney disease-mineral and bone disorder * VITAMIN D 25-HYDROXY(Performed 05/27/2020) Performed for S/P Combined Kidney-Liver TXP in 01/06/16, Hyperuricemia, Pure hyperglyceridemia, Long-term use of immunosuppressant medication, Chronic kidney disease-mineral and bone disorder * LIPID PROFILE(Performed 05/27/2020) Performed for S/P Combined Kidney-Liver TXP in 01/06/16, Hyperuricemia, Pure hyperglyceridemia, Long-term use of immunosuppressant medication, Chronic kidney disease-mineral and bone disorder * CREATININE URINE RANDOM(Performed 05/27/2020) Performed for S/P Combined Kidney-Liver TXP in 01/06/16, Hyperuricemia, Pure hyperglyceridemia, Long-term use of immunosuppressant medication, Chronic kidney disease-mineral and bone disorder * PROTEIN URINE RANDOM QUANTITATIVE(Performed 05/27/2020) Performed for S/P Combined Kidney-Liver TXP in 01/06/16, Hyperuricemia, Pure hyperglyceridemia, Long-term use of immunosuppressant medication, Chronic kidney disease-mineral and bone disorder * URINALYSIS W/MICROSCOPIC NO CULTURE(Performed 05/27/2020) Performed for S/P Combined Kidney-Liver TXP in 01/06/16, Hyperuricemia, Pure hyperglyceridemia, Long-term use of immunosuppressant medication, Chronic kidney disease-mineral and bone disorder * PHOSPHORUS BLOOD(Performed 05/27/2020) Performed for S/P Combined Kidney-Liver TXP in 01/06/16, Hyperuricemia, Pure hyperglyceridemia, Long-term use of immunosuppressant medication, Chronic kidney disease-mineral and bone disorder * MAGNESIUM BLOOD(Performed 05/27/2020) Performed for S/P Combined Kidney-Liver TXP in 01/06/16, Hyperuricemia, Pure hyperglyceridemia, Long-term use of immunosuppressant medication, Chronic kidney disease-mineral and bone disorder * URINALYSIS MICROSCOPIC ONLY REFLEXED(Performed 01/08/2020) Performed for Kidney replaced by transplant (HCC), Hyperuricemia, Pure hyperglyceridemia, Long-termuse of immunosuppressant medication, Chronic kidney disease-mineral and bone disorder * PTH INTACT(Performed 01/08/2020) Performed for S/P Combined Kidney-Liver TXP in 01/06/16, Hyperuricemia, Pure hyperglyceridemia, Long-term use of immunosuppressant medication, Chronic kidney disease-mineral and bone disorder * URIC ACID BLOOD(Performed 01/08/2020) Performed for S/P Combined Kidney-Liver TXP in 01/06/16, Hyperuricemia, Pure hyperglyceridemia, Long-term use of immunosuppressant medication, Chronic kidney disease-mineral and bone disorder * VITAMIN D 25-HYDROXY(Performed 01/08/2020) Performed for S/P Combined Kidney-Liver TXP in 01/06/16, Hyperuricemia, Pure hyperglyceridemia, Long-term use of immunosuppressant medication, Chronic kidney disease-mineral and bone disorder * LIPID PROFILE(Performed 01/08/2020) Performed for S/P Combined Kidney-Liver TXP in 01/06/16, Hyperuricemia, Pure hyperglyceridemia, Long-term use of immunosuppressant medication, Chronic kidney disease-mineral and bone disorder * CREATININE URINE RANDOM(Performed 01/08/2020) Performed for S/P Combined Kidney-Liver TXP in 01/06/16, Hyperuricemia, Pure hyperglyceridemia, Long-term use of immunosuppressant medication, Chronic kidney disease-mineral and bone disorder * PROTEIN URINE RANDOM QUANTITATIVE(Performed 01/08/2020) Performed for S/P Combined Kidney-Liver TXP in 01/06/16, Hyperuricemia, Pure hyperglyceridemia, Long-term use of immunosuppressant medication, Chronic kidney disease-mineral and bone disorder * URINALYSIS W/MICROSCOPIC NO CULTURE(Performed 01/08/2020) Performed for S/P Combined Kidney-Liver TXP in 01/06/16, Hyperuricemia, Pure hyperglyceridemia, Long-term use of immunosuppressant medication, Chronic kidney disease-mineral and bone disorder * PHOSPHORUS BLOOD(Performed 01/08/2020) Performed for S/P Combined Kidney-Liver TXP in 01/06/16, Hyperuricemia, Pure hyperglyceridemia, Long-term use of immunosuppressant medication, Chronic kidney disease-mineral and bone disorder * MAGNESIUM BLOOD(Performed 01/08/2020) Performed for S/P Combined Kidney-Liver TXP in 01/06/16, Hyperuricemia, Pure hyperglyceridemia, Long-term use of immunosuppressant medication, Chronic kidney disease-mineral and bone disorder * TACROLIMUS LEVEL(Performed 01/08/2020) Performed for S/P Combined Kidney-Liver TXP in 01/06/16, Long-term use of immunosuppressant medication * COMPREHENSIVE METABOLIC PANEL(Performed 01/08/2020) Performed for S/P Combined Kidney-Liver TXP in 01/06/16, Long-term use of immunosuppressant medication * CBC W AUTO DIFFERENTIAL(Performed 01/08/2020) Performed for S/P Combined Kidney-Liver TXP in 01/06/16, Long-term use of immunosuppressant medication * HEMOGLOBIN A1C(Performed 11/29/2019) Performed for Elevated fasting glucose * TACROLIMUS LEVEL(Performed 11/29/2019) Performed for S/P Combined Kidney-Liver TXP in 01/06/16, Long-term use of immunosuppressant medication * COMPREHENSIVE METABOLIC PANEL(Performed 11/29/2019) Performed for S/P Combined Kidney-Liver TXP in 01/06/16, Long-term use of immunosuppressant medication * CBC W AUTO DIFFERENTIAL(Performed 11/29/2019) Performed for S/P Combined Kidney-Liver TXP in 01/06/16, Long-term use of immunosuppressant medication * URINALYSIS MICROSCOPIC ONLY REFLEXED(Performed 11/06/2019) Performed for Immunosuppression ([facility]), Long-term use of immunosuppressant medication, Kidney replaced by transplant ([facility]), Chronic kidney disease-mineral and bone disorder, Hyperuricemia, Pure hyperglyceridemia, S/P liver transplant ([facility]) * VITAMIN D 25-HYDROXY(Performed 11/06/2019) Performed for Immunosuppression ([facility]), Long-term use of immunosuppressant medication, Kidney replaced by transplant ([facility]), Chronic kidney disease-mineral and bone disorder, Hyperuricemia, Pure hyperglyceridemia, S/P liver transplant ([facility]) * PTH INTACT(Performed 11/06/2019) Performed for Immunosuppression ([facility]), Long-term use of immunosuppressant medication, Kidney replaced by transplant ([facility]), Chronic kidney disease-mineral and bone disorder, Hyperuricemia, Pure hyperglyceridemia, S/P liver transplant ([facility]) * URIC ACID BLOOD(Performed 11/06/2019) Performed for Immunosuppression ([facility]), Long-term use of immunosuppressant medication, Kidney replaced by transplant ([facility]), Chronic kidney disease-mineral and bone disorder, Hyperuricemia, Pure hyperglyceridemia, S/P liver transplant ([facility]) * LIPID PROFILE(Performed 11/06/2019) Performed for Immunosuppression ([facility]), Long-term use of immunosuppressant medication, Kidney replaced by transplant ([facility]), Chronic kidney disease-mineral and bone disorder, Hyperuricemia, Pure hyperglyceridemia, S/P liver transplant ([facility]) * CREATININE URINE RANDOM(Performed 11/06/2019) Performed for Immunosuppression ([facility]), Long-term use of immunosuppressant medication, Kidney replaced by transplant ([facility]), Chronic kidney disease-mineral and bone disorder, Hyperuricemia, Pure hyperglyceridemia, S/P liver transplant ([facility]) * PROTEIN URINE RANDOM QUANTITATIVE(Performed 11/06/2019) Performed for Immunosuppression ([facility]), Long-term use of immunosuppressant medication, Kidney replaced by transplant ([facility]), Chronic kidney disease-mineral and bone disorder, Hyperuricemia, Pure hyperglyceridemia, S/P liver transplant ([facility]) * URINALYSIS W/MICROSCOPIC NO CULTURE(Performed 11/06/2019) Performed for Immunosuppression ([facility]), Long-term use of immunosuppressant medication, Kidney replaced by transplant ([facility]), Chronic kidney disease-mineral and bone disorder, Hyperuricemia, Pure hyperglyceridemia, S/P liver transplant ([facility]) * PHOSPHORUS BLOOD(Performed 11/06/2019) Performed for Immunosuppression ([facility]), Long-term use of immunosuppressant medication, Kidney replaced by transplant ([facility]), Chronic kidney disease-mineral and bone disorder, Hyperuricemia, Pure hyperglyceridemia, S/P liver transplant ([facility]) * MAGNESIUM BLOOD(Performed 11/06/2019) Performed for Immunosuppression ([facility]), Long-term use of immunosuppressant medication, Kidney replaced by transplant ([facility]), Chronic kidney disease-mineral and bone disorder, Hyperuricemia, Pure hyperglyceridemia, S/P liver transplant ([facility]) * COMPREHENSIVE METABOLIC PANEL(Performed 06/19/2019) Performed for S/P Combined Kidney-Liver TXP in 01/06/16, Long-term use of immunosuppressant medication * CBC W AUTO DIFFERENTIAL(Performed 06/19/2019) Performed for S/P Combined Kidney-Liver TXP in 01/06/16, Long-term use of immunosuppressant medication * TACROLIMUS IMMUNOASSAY(Performed 06/19/2019) Performed for Encounter for therapeutic drug level monitoring, History of kidney transplant ([facility]), History of liver transplant ([facility]) * CREATININE URINE RANDOM(Performed 05/18/2019) Performed for Long-term use of immunosuppressant medication, Kidney replaced by transplant (HCC), Chronic kidney disease-mineral and bone disorder, Hyperlipidemia, unspecified hyperlipidemia type, Hyperuricemia * PROTEIN URINE RANDOM QUANTITATIVE(Performed 05/18/2019) Performed for Long-term use of immunosuppressant medication, Kidney replaced by transplant (HCC), Chronic kidney disease-mineral and bone disorder, Hyperlipidemia, unspecified hyperlipidemia type, Hyperuricemia * URINALYSIS W/MICROSCOPIC NO CULTURE(Performed 05/18/2019) Performed for Long-term use of immunosuppressant medication, Kidney replaced by transplant (HCC), Chronic kidney disease-mineral and bone disorder, Hyperlipidemia, unspecified hyperlipidemia type, Hyperuricemia * TACROLIMUS LEVEL(Performed 05/18/2019) Performed for S/P Combined Kidney-Liver TXP in 01/06/16, CKD stage 2, GFR 60-89 ml/min * COMPREHENSIVE METABOLIC PANEL(Performed 05/18/2019) Performed for S/P Combined Kidney-Liver TXP in 01/06/16, CKD stage 2, GFR 60-89 ml/min * CBC W AUTO DIFFERENTIAL(Performed 05/18/2019) Performed for S/P Combined Kidney-Liver TXP in 01/06/16, CKD stage 2, GFR 60-89 ml/min * PTH INTACT W/O CALCIUM(Performed 05/18/2019) Performed for S/P Combined Kidney-Liver TXP in 01/06/16, Viral infection * URIC ACID BLOOD(Performed 05/18/2019) Performed for Long-term use of immunosuppressant medication, Kidney replaced by transplant (HCC), Chronic kidney disease-mineral and bone disorder, Hyperlipidemia, unspecified hyperlipidemia type, Hyperuricemia * VITAMIN D 25-HYDROXY(Performed 05/18/2019) Performed for Long-term use of immunosuppressant medication, Kidney replaced by transplant (HCC), Chronic kidney disease-mineral and bone disorder, Hyperlipidemia, unspecified hyperlipidemia type, Hyperuricemia * LIPID PROFILE(Performed 05/18/2019) Performed for Long-term use of immunosuppressant medication, Kidney replaced by transplant (HCC), Chronic kidney disease-mineral and bone disorder, Hyperlipidemia, unspecified hyperlipidemia type, Hyperuricemia * PHOSPHORUS BLOOD(Performed 05/18/2019) Performed for Long-term use of immunosuppressant medication, Kidney replaced by transplant (HCC), Chronic kidney disease-mineral and bone disorder, Hyperlipidemia, unspecified hyperlipidemia type, Hyperuricemia * MAGNESIUM BLOOD(Performed 05/18/2019) Performed for Long-term use of immunosuppressant medication, Kidney replaced by transplant (HCC), Chronic kidney disease-mineral and bone disorder, Hyperlipidemia, unspecified hyperlipidemia type, Hyperuricemia * CBC W AUTO DIFFERENTIAL(Performed 11/26/2018) * RENAL FUNCTION PANEL(Performed 11/26/2018) * BK VIRUS PCR QUANTITATIVE(Performed 11/26/2018) * URIC ACID BLOOD(Performed 11/26/2018) * MAGNESIUM BLOOD(Performed 11/26/2018) * TACROLIMUS LEVEL(Performed 11/26/2018) * CREATININE URINE RANDOM(Performed 11/26/2018) * PROTEIN URINE RANDOM QUANTITATIVE(Performed 11/26/2018) * PT-INR [facility](Performed 11/25/2018) * PTT [facility](Performed 11/25/2018) * DIFFERENTIAL MANUAL(Performed 11/25/2018) * TACROLIMUS LEVEL(Performed 11/25/2018) * CBC W AUTO DIFFERENTIAL(Performed 11/25/2018) * COMPREHENSIVE METABOLIC PANEL(Performed 11/25/2018) * URINALYSIS REFLEX TO MICROSCOPIC NO CULTURE(Performed 11/25/2018) * UREA NITROGEN URINE RANDOM(Performed 11/25/2018) * CREATININE URINE RANDOM(Performed 11/25/2018) * SODIUM URINE RANDOM(Performed 11/25/2018) * CULTURE STOOL+ E COLI SHIGA-LIKE TOXIN(Performed 11/25/2018) * C DIFFICILE GDH AG + TOXIN A+B(Performed 11/24/2018) * XR ABDOMEN 2VW(Performed 11/24/2018) Performed for Nausea vomiting and diarrhea * LACTIC ACID BLOOD(Performed 11/24/2018) * TACROLIMUS LEVEL(Performed 11/24/2018) * T4 FREE(Performed 11/24/2018) * TSH(Performed 11/24/2018) * COMPREHENSIVE METABOLIC PANEL(Performed 11/24/2018) * CBC W AUTO DIFFERENTIAL(Performed 11/24/2018) * CULTURE BLOOD(Performed 11/24/2018) * CULTURE BLOOD(Performed 11/24/2018) * PATHOLOGY TISSUE(Performed 11/16/2018) Performed for Encounter for therapeutic drug level monitoring, S/P liver transplant (HCC), CKD stage G3b/A3, GFR 30-44 and albumin creatinine ratio >300 mg/g (HCC) * ESOPHAGOGASTRODUODENOSCOPY (EGD) DIAGNOSTIC(Performed 11/16/2018) Performed for Encounter for therapeutic drug level monitoring, S/P liver transplant (HCC), CKD stage G3b/A3, GFR 30-44 and albumin creatinine ratio >300 mg/g (HCC) * EGD(Performed 11/16/2018) * TACROLIMUS IMMUNOASSAY(Performed 09/12/2018) Performed for Encounter for therapeutic drug level monitoring, History of kidney transplant (HCC), History of liver transplant (HCC) * CBC W AUTO DIFFERENTIAL(Performed 09/12/2018) Performed for Encounter for therapeutic drug level monitoring, History of kidney transplant (HCC), History of liver transplant (HCC) * COMPREHENSIVE METABOLIC PANEL(Performed 09/12/2018) Performed for Encounter for therapeutic drug level monitoring, History of kidney transplant (HCC), History of liver transplant (HCC) * CARDIAC PROCEDURE ORDER(Performed 07/04/2018) * CARDIAC EKG ORDER(Performed 06/24/2018) * CYTOMEGALOVIRUS QUANT BLOOD(Performed 06/10/2018) * BK VIRUS PCR QUANTITATIVE(Performed 06/10/2018) * TACROLIMUS LEVEL(Performed 06/10/2018) * CREATININE URINE RANDOM(Performed 06/10/2018) * PROTEIN URINE RANDOM QUANTITATIVE(Performed 06/10/2018) * BASIC METABOLIC PANEL (CALCIUM TOTAL)(Performed 06/10/2018) * URINALYSIS W/MICROSCOPIC NO CULTURE(Performed 06/10/2018) * CBC W AUTO DIFFERENTIAL(Performed 06/10/2018) * MAGNESIUM BLOOD(Performed 06/10/2018) * PHOSPHORUS BLOOD(Performed 06/10/2018) * HEPATIC FUNCTION PANEL(Performed 06/10/2018) * URINALYSIS MICROSCOPIC ONLY REFLEXED(Performed 06/10/2018) * CULTURE URINE(Performed 06/10/2018) * TACROLIMUS IMMUNOASSAY(Performed 05/12/2018) * CREATININE URINE RANDOM(Performed 05/12/2018) * PROTEIN URINE RANDOM QUANTITATIVE(Performed 05/12/2018) * CBC W AUTO DIFFERENTIAL(Performed 05/12/2018) * PTH INTACT(Performed 05/12/2018) Performed for History of kidney transplant (HCC) * COMPREHENSIVE METABOLIC PANEL(Performed 05/12/2018) Performed for Encounter for therapeutic drug level monitoring, History of kidney transplant (HCC), History of liver transplant (HCC) * CARDIAC EKG ORDER(Performed 05/04/2018) * CARDIAC EKG ORDER(Performed 05/04/2018) * CBC W AUTO DIFFERENTIAL(Performed 05/04/2018) Performed for History of kidney transplant (HCC), History of liver transplant (HCC), Encounter for therapeutic drug level monitoring, 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 * URIC ACID BLOOD(Performed 05/01/2018) Performed for Cellulitis, unspecified cellulitis site, Injury of right knee, subsequent encounter, Cellulitis of right lower extremity, Hyperkalemia, History of kidney transplant (HCC), History of liver transplant (HCC), Chronic kidney disease, stage III (moderate) (HCC), Cellulitis of knee, S/P Combined Kidney- Liver TXP in 01/06/16, CKD stage G3b/A3, GFR 30-44 and albumin creatinine ratio >300mg/g (HCC), S/P liver transplant (HCC), Nephrotic syndrome with focal and segmental glomerular lesion, Encounter for therapeutic drug level monitoring, Viral infection, Drug-induced headache, not elsewhere classified, not intractable, Umbilical hernia without obstruction or gangrene, Left lower quad rant pain, Other disorders of plasma-protein metabolism, not elsewhere classified, Hypomagnesemia, Hyperlipidemia, unspecified hyperlipidemia type, H/O End stage renal disease, BK polyoma viremia, Hyperuricemia * MAGNESIUM BLOOD(Performed 05/01/2018) Performed for Cellulitis, unspecified cellulitis site, Injury of right knee, subsequent encounter, Cellulitis of right lower extremity, Hyperkalemia, History of kidney transplant (HCC), History of liver transplant (HCC), Chronic kidney disease, stage III (moderate) (HCC), Cellulitis of knee, S/P Combined Kidney- Liver TXP in 01/06/16, CKD stage G3b/A3, GFR 30-44 and albumin creatinine ratio >300mg/g (HCC), S/P liver transplant (HCC), Nephrotic syndrome with focal and segmental glomerular lesion, Encounter for therapeutic drug level monitoring, Viral infection, Drug-induced headache, not elsewhere classified, not intractable, Umbilical hernia without obstruction or gangrene, Left lower quad rant pain, Other disorders of plasma-protein metabolism, not elsewhere classified, Hypomagnesemia, Hyperlipidemia, unspecified hyperlipidemia type, H/O End stage renal disease, BK polyoma viremia, Hyperuricemia * BASIC METABOLIC PANEL (CALCIUM TOTAL)(Performed 05/01/2018) Performed for Cellulitis of right lower extremity, Chronic kidney disease, stage III (moderate) (HCC) * TACROLIMUS LEVEL(Performed 05/01/2018) Performed for History of kidney transplant (HCC), History of liver transplant (HCC) * CBC W AUTO DIFFERENTIAL(Performed 05/01/2018) Performed for Cellulitis of knee * EKG 12-LEAD(Performed 05/01/2018) Performed for Hyperkalemia * MAGNESIUM BLOOD(Performed 04/30/2018) Performed for S/P Combined Kidney-Liver TXP in 01/06/16 * BASIC METABOLIC PANEL (CALCIUM TOTAL)(Performed 04/30/2018) Performed for Cellulitis, unspecified cellulitis site, Injury of right knee, subsequent encounter, Cellulitis of right lower extremity, Hyperkalemia, History of kidney transplant (HCC), History of liver transplant (HCC), Chronic kidney disease, stage III (moderate) (HCC), Cellulitis of knee, S/P Combined Kidney- Liver TXP in 01/06/16, CKD stage G3b/A3, GFR 30-44 and albumin creatinine ratio >300mg/g (HCC), S/P liver transplant (HCC), Nephrotic syndrome with focal and segmental glomerular lesion, Encounter for therapeutic drug level monitoring, Viral infection, Drug-induced headache, not elsewhere classified, not intractable, Umbilical hernia without obstruction or gangrene, Left lower quad rant pain, Other disorders of plasma-protein metabolism, not elsewhere classified, Hypomagnesemia, Hyperlipidemia, unspecified hyperlipidemia type, H/O End stage renal disease, BK polyoma viremia, Hyperuricemia * BK VIRUS PCR QUANTITATIVE(Performed 04/30/2018) Performed for S/P Combined Kidney-Liver TXP in 01/06/16 * CREATININE URINE RANDOM(Performed 04/30/2018) * UREA NITROGEN URINE RANDOM(Performed 04/30/2018) * SODIUM URINE RANDOM(Performed 04/30/2018) * HEPATIC FUNCTION PANEL(Performed 04/30/2018) * BASIC METABOLIC PANEL (CALCIUM TOTAL)(Performed 04/30/2018) * PT-INR [facility](Performed 04/30/2018) * CBC W AUTO DIFFERENTIAL(Performed 04/30/2018) * TACROLIMUS LEVEL(Performed 04/30/2018) * BASIC METABOLIC PANEL (CALCIUM TOTAL)(Performed 04/29/2018) * XR KNEE RIGHT 2VW OR LESS(Performed 04/29/2018) Performed for Cellulitis of right lower extremity * EKG 12-LEAD(Performed 04/29/2018) Performed for Hyperkalemia * CULTURE BLOOD(Performed 04/29/2018) * MAGNESIUM BLOOD(Performed 04/29/2018) * PT-INR [facility](Performed 04/29/2018) * PHOSPHORUS BLOOD(Performed 04/29/2018) * LACTIC ACID BLOOD(Performed 04/29/2018) * CBC W AUTO DIFFERENTIAL(Performed 04/29/2018) * COMPREHENSIVE METABOLIC PANEL(Performed 04/29/2018) * CULTURE BLOOD(Performed 04/29/2018) * URINALYSIS W/MICROSCOPIC NO CULTURE(Performed 04/29/2018) * PT EVAL AND TREAT(Performed 04/29/2018) * OT EVAL AND TREAT(Performed 04/29/2018) * TACROLIMUS IMMUNOASSAY(Performed 04/28/2018) Performed for History of kidney transplant (HCC), History of liver transplant (HCC), Encounter for therapeutic drug level monitoring, 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 * MAGNESIUM BLOOD(Performed 04/13/2018) * PHOSPHORUS BLOOD(Performed 04/13/2018) * TACROLIMUS LEVEL(Performed 04/13/2018) * CYTOMEGALOVIRUS QUANT BLOOD(Performed 04/13/2018) * BK VIRUS PCR QUANTITATIVE(Performed 04/13/2018) * HEPATIC FUNCTION PANEL(Performed 04/13/2018) * BASIC METABOLIC PANEL (CALCIUM TOTAL)(Performed 04/13/2018) * URINALYSIS MICROSCOPIC ONLY REFLEXED(Performed 04/13/2018) * URINALYSIS W/MICROSCOPIC NO CULTURE(Performed 04/13/2018) * CBC W AUTO DIFFERENTIAL(Performed 04/13/2018) * CREATININE URINE RANDOM(Performed 04/13/2018) Performed for History of kidney transplant (HCC), 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) * PROTEIN URINE RANDOM QUANTITATIVE(Performed 04/13/2018) Performed for History of kidney transplant (HCC), 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) * CULTURE URINE(Performed 04/13/2018) * BK VIRUS PCR QUANTITATIVE(Performed 12/27/2017) * TACROLIMUS LEVEL(Performed 12/27/2017) * CBC W AUTO DIFFERENTIAL(Performed 12/27/2017) * CREATININE URINE RANDOM(Performed 12/27/2017) * PROTEIN URINE RANDOM QUANTITATIVE(Performed 12/27/2017) * URINALYSIS W/MICROSCOPIC NO CULTURE(Performed 12/27/2017) * PHOSPHORUS BLOOD(Performed 12/27/2017) * MAGNESIUM BLOOD(Performed 12/27/2017) * HEPATIC FUNCTION PANEL(Performed 12/27/2017) * BASIC METABOLIC PANEL (CALCIUM TOTAL)(Performed 12/27/2017) * URINALYSIS MICROSCOPIC ONLY REFLEXED(Performed 12/27/2017) * CYTOMEGALOVIRUS DNA RT-PCR QUANT(Performed 12/27/2017) * CULTURE URINE(Performed 12/27/2017) * BK VIRUS PCR QUANTITATIVE(Performed 10/30/2017) * TACROLIMUS LEVEL(Performed 10/30/2017) * PTH INTACT W/O CALCIUM(Performed 10/30/2017) * CREATININE URINE RANDOM(Performed 10/30/2017) * PROTEIN URINE RANDOM QUANTITATIVE(Performed 10/30/2017) * URINALYSIS W/MICROSCOPIC NO CULTURE(Performed 10/30/2017) * URIC ACID BLOOD(Performed 10/30/2017) * PHOSPHORUS BLOOD(Performed 10/30/2017) * MAGNESIUM BLOOD(Performed 10/30/2017) * HEPATIC FUNCTION PANEL(Performed 10/30/2017) * URINALYSIS MICROSCOPIC ONLY REFLEXED(Performed 10/30/2017) * BASIC METABOLIC PANEL (CALCIUM TOTAL)(Performed 10/30/2017) * CBC W AUTO DIFFERENTIAL(Performed 10/30/2017) * VITAMIN D 25-HYDROXY(Performed 10/30/2017) * LIPID PROFILE(Performed 10/30/2017) * CYTOMEGALOVIRUS DNA RT-PCR QUANT(Performed 10/30/2017) * CULTURE URINE(Performed 10/30/2017) * NM RENAL SCAN W FLOW AND FUNCTION(Performed 10/13/2017) * BK VIRUS PCR QUANTITATIVE(Performed 09/13/2017) * TACROLIMUS LEVEL(Performed 09/13/2017) * CBC W AUTO DIFFERENTIAL(Performed 09/13/2017) * URINALYSIS MICROSCOPIC ONLY REFLEXED(Performed 09/13/2017) * URINALYSIS W/MICROSCOPIC NO CULTURE(Performed 09/13/2017) * CREATININE URINE RANDOM(Performed 09/13/2017) * PROTEIN URINE RANDOM QUANTITATIVE(Performed 09/13/2017) * PHOSPHORUS BLOOD(Performed 09/13/2017) * MAGNESIUM BLOOD(Performed 09/13/2017) * HEPATIC FUNCTION PANEL(Performed 09/13/2017) * BASIC METABOLIC PANEL (CALCIUM TOTAL)(Performed 09/13/2017) * CYTOMEGALOVIRUS DNA RT-PCR QUANT(Performed 09/13/2017) * CULTURE URINE(Performed 09/13/2017) * BK VIRUS PCR QUANTITATIVE(Performed 07/18/2017) * TACROLIMUS LEVEL(Performed 07/18/2017) * PTH INTACT W/O CALCIUM(Performed 07/18/2017) * CREATININE URINE RANDOM(Performed 07/18/2017) * PROTEIN URINE RANDOM QUANTITATIVE(Performed 07/18/2017) * URINALYSIS REFLEX TO MICROSCOPIC NO CULTURE(Performed 07/18/2017) * PHOSPHORUS BLOOD(Performed 07/18/2017) * MAGNESIUM BLOOD(Performed 07/18/2017) * HEPATIC FUNCTION PANEL(Performed 07/18/2017) * BASIC METABOLIC PANEL (CALCIUM TOTAL)(Performed 07/18/2017) * CBC W AUTO DIFFERENTIAL(Performed 07/18/2017) * [facility] VIRUS PCR QUANT BLOOD/CSF(Performed 07/18/2017) * CYTOMEGALOVIRUS DNA RT-PCR QUANT(Performed 07/18/2017) * PROTEIN CREATININE RATIO URINE RANDOM PNL(Performed 05/22/2017) * URINALYSIS REFLEX TO MICROSCOPIC NO CULTURE(Performed 05/22/2017) * CULTURE URINE(Performed 05/22/2017) * TACROLIMUS LEVEL(Performed 05/22/2017) * BK VIRUS PCR QUANTITATIVE(Performed 05/22/2017) * HEPATIC FUNCTION PANEL(Performed 05/22/2017) * BASIC METABOLIC PANEL (CALCIUM TOTAL)(Performed 05/22/2017) * PHOSPHORUS BLOOD(Performed 05/22/2017) * MAGNESIUM BLOOD(Performed 05/22/2017) * CBC W AUTO DIFFERENTIAL(Performed 05/22/2017) * CYTOMEGALOVIRUS DNA RT-PCR QUANT(Performed 05/22/2017) * [facility] VIRUS PCR QUANT BLOOD/CSF(Performed 05/22/2017) * TACROLIMUS LEVEL(Performed 04/12/2017) * CBC W AUTO DIFFERENTIAL(Performed 04/12/2017) * HEPATIC FUNCTION PANEL(Performed 04/12/2017) * BASIC METABOLIC PANEL (CALCIUM TOTAL)(Performed 04/12/2017) * PHOSPHORUS BLOOD(Performed 04/12/2017) * MAGNESIUM BLOOD(Performed 04/12/2017) * URINALYSIS W/MICROSCOPIC NO CULTURE(Performed 04/12/2017) * IMMUNE CELL FUNCTION ASSAY(Performed 04/12/2017) * BK VIRUS PCR QUANTITATIVE(Performed 03/27/2017) * TACROLIMUS LEVEL(Performed 03/27/2017) * VITAMIN D 25-HYDROXY(Performed 03/27/2017) * PTH INTACT W/O CALCIUM(Performed 03/27/2017) * PHOSPHORUS BLOOD(Performed 03/27/2017) * MAGNESIUM BLOOD(Performed 03/27/2017) * HEPATIC FUNCTION PANEL(Performed 03/27/2017) * BASIC METABOLIC PANEL (CALCIUM TOTAL)(Performed 03/27/2017) * LIPID PROFILE(Performed 03/27/2017) * URIC ACID BLOOD(Performed 03/27/2017) * CREATININE URINE RANDOM(Performed 03/27/2017) * PROTEIN URINE RANDOM QUANTITATIVE(Performed 03/27/2017) * CBC W AUTO DIFFERENTIAL(Performed 03/27/2017) * [facility] VIRUS PCR QUANT BLOOD/CSF(Performed 03/27/2017) * CYTOMEGALOVIRUS DNA RT-PCR QUANT(Performed 03/27/2017) * CBC W AUTO DIFFERENTIAL(Performed 03/27/2017) * PROTEIN CREATININE RATIO URINE RANDOM PNL(Performed 01/22/2017) * URINALYSIS REFLEX TO MICROSCOPIC NO CULTURE(Performed 01/22/2017) * CULTURE URINE(Performed 01/22/2017) * BK VIRUS PCR QUANTITATIVE(Performed 01/22/2017) * TACROLIMUS LEVEL(Performed 01/22/2017) * HEPATIC FUNCTION PANEL(Performed 01/22/2017) * BASIC METABOLIC PANEL (CALCIUM TOTAL)(Performed 01/22/2017) * PHOSPHORUS BLOOD(Performed 01/22/2017) * MAGNESIUM BLOOD(Performed 01/22/2017) * CBC W AUTO DIFFERENTIAL(Performed 01/22/2017) * CYTOMEGALOVIRUS DNA RT-PCR QUANT(Performed 01/22/2017) * [facility] VIRUS PCR QUANT BLOOD/CSF(Performed 01/22/2017) * HEMOGLOBIN A1C(Performed 12/19/2016) * TACROLIMUS LEVEL(Performed 12/17/2016) * PROTEIN CREATININE RATIO URINE RANDOM PNL(Performed 12/17/2016) * HEPATIC FUNCTION PANEL(Performed 12/17/2016) * BASIC METABOLIC PANEL (CALCIUM TOTAL)(Performed 12/17/2016) * PHOSPHORUS BLOOD(Performed 12/17/2016) * MAGNESIUM BLOOD(Performed 12/17/2016) * URINALYSIS REFLEX TO MICROSCOPIC NO CULTURE(Performed 12/17/2016) * CBC W AUTO DIFFERENTIAL(Performed 12/17/2016) * CULTURE URINE(Performed 12/17/2016) * TACROLIMUS LEVEL(Performed 11/19/2016) * PROTEIN CREATININE RATIO URINE RANDOM PNL(Performed 11/19/2016) * HEPATIC FUNCTION PANEL(Performed 11/19/2016) * BASIC METABOLIC PANEL (CALCIUM TOTAL)(Performed 11/19/2016) * PHOSPHORUS BLOOD(Performed 11/19/2016) * MAGNESIUM BLOOD(Performed 11/19/2016) * URINALYSIS REFLEX TO MICROSCOPIC NO CULTURE(Performed 11/19/2016) * CBC W AUTO DIFFERENTIAL(Performed 11/19/2016) * CULTURE URINE(Performed 11/19/2016) * TACROLIMUS LEVEL(Performed 10/29/2016) * PROTEIN CREATININE RATIO URINE RANDOM PNL(Performed 10/29/2016) * HEPATIC FUNCTION PANEL(Performed 10/29/2016) * BASIC METABOLIC PANEL (CALCIUM TOTAL)(Performed 10/29/2016) * PHOSPHORUS BLOOD(Performed 10/29/2016) * MAGNESIUM BLOOD(Performed 10/29/2016) * URINALYSIS REFLEX TO MICROSCOPIC NO CULTURE(Performed 10/29/2016) * CBC W AUTO DIFFERENTIAL(Performed 10/29/2016) * CULTURE URINE(Performed 10/29/2016) * TACROLIMUS LEVEL(Performed 10/22/2016) * HEPATIC FUNCTION PANEL(Performed 10/22/2016) * BASIC METABOLIC PANEL (CALCIUM TOTAL)(Performed 10/22/2016) * PHOSPHORUS BLOOD(Performed 10/22/2016) * MAGNESIUM BLOOD(Performed 10/22/2016) * CBC W AUTO DIFFERENTIAL(Performed 10/22/2016) * TACROLIMUS LEVEL(Performed 10/15/2016) * PROTEIN CREATININE RATIO URINE RANDOM PNL(Performed 10/15/2016) * URINALYSIS REFLEX TO MICROSCOPIC NO CULTURE(Performed 10/15/2016) * HEPATIC FUNCTION PANEL(Performed 10/15/2016) * BASIC METABOLIC PANEL (CALCIUM TOTAL)(Performed 10/15/2016) * PHOSPHORUS BLOOD(Performed 10/15/2016) * MAGNESIUM BLOOD(Performed 10/15/2016) * CBC W AUTO DIFFERENTIAL(Performed 10/15/2016) * CULTURE URINE(Performed 10/15/2016) * BK VIRUS PCR QUANTITATIVE(Performed 10/07/2016) * TACROLIMUS LEVEL(Performed 10/07/2016) * PROTEIN CREATININE RATIO URINE RANDOM PNL(Performed 10/07/2016) * HEPATIC FUNCTION PANEL(Performed 10/07/2016) * BASIC METABOLIC PANEL (CALCIUM TOTAL)(Performed 10/07/2016) * PHOSPHORUS BLOOD(Performed 10/07/2016) * MAGNESIUM BLOOD(Performed 10/07/2016) * CBC W AUTO DIFFERENTIAL(Performed 10/07/2016) * URINALYSIS REFLEX TO MICROSCOPIC NO CULTURE(Performed 10/07/2016) * CULTURE URINE(Performed 10/07/2016) * CULTURE URINE(Performed 10/07/2016) * [facility] VIRUS PCR QUANT BLOOD/CSF(Performed 10/07/2016) * CULTURE URINE(Performed 10/07/2016) * CYTOMEGALOVIRUS DNA RT-PCR QUANT(Performed 10/07/2016) * CULTURE URINE(Performed 10/07/2016) * CULTURE URINE(Performed 10/07/2016) * BK VIRUS PCR QUANTITATIVE(Performed 09/30/2016) * TACROLIMUS LEVEL(Performed 09/30/2016) * PROTEIN CREATININE RATIO URINE RANDOM PNL(Performed 09/30/2016) * URINALYSIS REFLEX TO MICROSCOPIC NO CULTURE(Performed 09/30/2016) * HEPATIC FUNCTION PANEL(Performed 09/30/2016) * BASIC METABOLIC PANEL (CALCIUM TOTAL)(Performed 09/30/2016) * PHOSPHORUS BLOOD(Performed 09/30/2016) * MAGNESIUM BLOOD(Performed 09/30/2016) * CBC W AUTO DIFFERENTIAL(Performed 09/30/2016) * CULTURE URINE(Performed 09/30/2016) * CULTURE URINE(Performed 09/30/2016) * [facility] VIRUS PCR QUANT BLOOD/CSF(Performed 09/30/2016) * CULTURE URINE(Performed 09/30/2016) * CYTOMEGALOVIRUS DNA RT-PCR QUANT(Performed 09/30/2016) * CULTURE URINE(Performed 09/30/2016) * CULTURE URINE(Performed 09/30/2016) * PROTEIN CREATININE RATIO URINE RANDOM PNL(Performed 09/11/2016) * URINALYSIS REFLEX TO MICROSCOPIC NO CULTURE(Performed 09/11/2016) * CULTURE URINE(Performed 09/11/2016) * BK VIRUS PCR QUANTITATIVE(Performed 09/11/2016) * TACROLIMUS LEVEL(Performed 09/11/2016) * PTH INTACT W/O CALCIUM(Performed 09/11/2016) * VITAMIN D 25-HYDROXY(Performed 09/11/2016) * URIC ACID BLOOD(Performed 09/11/2016) * LIPID PROFILE(Performed 09/11/2016) * HEPATIC FUNCTION PANEL(Performed 09/11/2016) * BASIC METABOLIC PANEL (CALCIUM TOTAL)(Performed 09/11/2016) * PHOSPHORUS BLOOD(Performed 09/11/2016) * MAGNESIUM BLOOD(Performed 09/11/2016) * CBC W AUTO DIFFERENTIAL(Performed 09/11/2016) * CYTOMEGALOVIRUS DNA RT-PCR QUANT(Performed 09/11/2016) * [facility] VIRUS PCR QUANT BLOOD/CSF(Performed 09/11/2016) * PROTEIN CREATININE RATIO URINE RANDOM PNL(Performed 09/03/2016) * TACROLIMUS LEVEL(Performed 09/03/2016) * URINALYSIS REFLEX TO MICROSCOPIC NO CULTURE(Performed 09/03/2016) * HEPATIC FUNCTION PANEL(Performed 09/03/2016) * BASIC METABOLIC PANEL (CALCIUM TOTAL)(Performed 09/03/2016) * PHOSPHORUS BLOOD(Performed 09/03/2016) * MAGNESIUM BLOOD(Performed 09/03/2016) * CBC W AUTO DIFFERENTIAL(Performed 09/03/2016) * CULTURE URINE(Performed 09/03/2016) * TACROLIMUS LEVEL(Performed 08/20/2016) * HEPATIC FUNCTION PANEL(Performed 08/20/2016) * BASIC METABOLIC PANEL (CALCIUM TOTAL)(Performed 08/20/2016) * PHOSPHORUS BLOOD(Performed 08/20/2016) * MAGNESIUM BLOOD(Performed 08/20/2016) * PROTEIN CREATININE RATIO URINE RANDOM PNL(Performed 08/20/2016) * URINALYSIS REFLEX TO MICROSCOPIC NO CULTURE(Performed 08/20/2016) * CBC W AUTO DIFFERENTIAL(Performed 08/20/2016) * CULTURE URINE(Performed 08/20/2016) * CULTURE URINE(Performed 08/20/2016) * VITAMIN D 25-HYDROXY(Performed 08/13/2016) * CALCIUM IONIZED BLOOD(Performed 08/13/2016) * ASPERGILLUS ANTIGEN PANEL(Performed 08/13/2016) * PT-INR [facility](Performed 08/13/2016) * CRYPTOCOCCUS ANTIGEN BLOOD(Performed 08/13/2016) * IMMUNE CELL FUNCTION ASSAY(Performed 08/13/2016) * BK VIRUS PCR QUANTITATIVE(Performed 08/13/2016) * TACROLIMUS LEVEL(Performed 08/13/2016) * PROTEIN CREATININE RATIO URINE RANDOM PNL(Performed 08/13/2016) * HEPATIC FUNCTION PANEL(Performed 08/13/2016) * BASIC METABOLIC PANEL (CALCIUM TOTAL)(Performed 08/13/2016) * PHOSPHORUS BLOOD(Performed 08/13/2016) * MAGNESIUM BLOOD(Performed 08/13/2016) * CBC W AUTO DIFFERENTIAL(Performed 08/13/2016) * URINALYSIS REFLEX TO MICROSCOPIC NO CULTURE(Performed 08/13/2016) * CULTURE URINE(Performed 08/13/2016) * [facility] VIRUS PCR QUANT BLOOD/CSF(Performed 08/13/2016) * CULTURE URINE(Performed 08/13/2016) * CULTURE URINE(Performed 08/13/2016) * CYTOMEGALOVIRUS DNA RT-PCR QUANT(Performed 08/13/2016) * CULTURE URINE(Performed 08/13/2016) * CULTURE URINE(Performed 08/13/2016) * TACROLIMUS LEVEL(Performed 08/06/2016) * PROTEIN CREATININE RATIO URINE RANDOM PNL(Performed 08/06/2016) * URINALYSIS REFLEX TO MICROSCOPIC NO CULTURE(Performed 08/06/2016) * HEPATIC FUNCTION PANEL(Performed 08/06/2016) * BASIC METABOLIC PANEL (CALCIUM TOTAL)(Performed 08/06/2016) * PHOSPHORUS BLOOD(Performed 08/06/2016) * MAGNESIUM BLOOD(Performed 08/06/2016) * CBC W AUTO DIFFERENTIAL(Performed 08/06/2016) * CULTURE URINE(Performed 08/06/2016) * CULTURE URINE(Performed 08/06/2016) * CULTURE URINE(Performed 08/06/2016) * TACROLIMUS LEVEL(Performed 07/23/2016) * HEPATIC FUNCTION PANEL(Performed 07/23/2016) * BASIC METABOLIC PANEL (CALCIUM TOTAL)(Performed 07/23/2016) * PHOSPHORUS BLOOD(Performed 07/23/2016) * MAGNESIUM BLOOD(Performed 07/23/2016) * CBC W AUTO DIFFERENTIAL(Performed 07/23/2016) * BK VIRUS PCR QUANTITATIVE(Performed 07/16/2016) * PROTEIN CREATININE RATIO URINE RANDOM PNL(Performed 07/16/2016) * TACROLIMUS LEVEL(Performed 07/16/2016) * HEPATIC FUNCTION PANEL(Performed 07/16/2016) * BASIC METABOLIC PANEL (CALCIUM TOTAL)(Performed 07/16/2016) * PHOSPHORUS BLOOD(Performed 07/16/2016) * MAGNESIUM BLOOD(Performed 07/16/2016) * URINALYSIS REFLEX TO MICROSCOPIC NO CULTURE(Performed 07/16/2016) * CBC W AUTO DIFFERENTIAL(Performed 07/16/2016) * CULTURE URINE(Performed 07/16/2016) * CYTOMEGALOVIRUS DNA RT-PCR QUANT(Performed 07/16/2016) * CULTURE URINE(Performed 07/16/2016) * CULTURE URINE(Performed 07/16/2016) * [facility] VIRUS PCR QUANT BLOOD/CSF(Performed 07/16/2016) * CULTURE URINE(Performed 07/16/2016) * PROTEIN CREATININE RATIO URINE RANDOM PNL(Performed 07/09/2016) * TACROLIMUS LEVEL(Performed 07/09/2016) * HEPATIC FUNCTION PANEL(Performed 07/09/2016) * BASIC METABOLIC PANEL (CALCIUM TOTAL)(Performed 07/09/2016) * PHOSPHORUS BLOOD(Performed 07/09/2016) * MAGNESIUM BLOOD(Performed 07/09/2016) * URINALYSIS REFLEX TO MICROSCOPIC NO CULTURE(Performed 07/09/2016) * CBC W AUTO DIFFERENTIAL(Performed 07/09/2016) * CULTURE URINE(Performed 07/09/2016) * [facility] VIRUS PCR QUALITATIVE(Performed 07/09/2016) * CULTURE URINE(Performed 07/09/2016) * EKG 12-LEAD(Performed 07/03/2016) * XR CHEST 2VW(Performed 07/01/2016) * BK VIRUS PCR QUANTITATIVE(Performed 07/01/2016) * TACROLIMUS LEVEL(Performed 07/01/2016) * PROTEIN CREATININE RATIO URINE RANDOM PNL(Performed 07/01/2016) * HEPATIC FUNCTION PANEL(Performed 07/01/2016) * BASIC METABOLIC PANEL (CALCIUM TOTAL)(Performed 07/01/2016) * PHOSPHORUS BLOOD(Performed 07/01/2016) * MAGNESIUM BLOOD(Performed 07/01/2016) * CBC W AUTO DIFFERENTIAL(Performed 07/01/2016) * URINALYSIS REFLEX TO MICROSCOPIC NO CULTURE(Performed 07/01/2016) * CBC W AUTO DIFFERENTIAL(Performed 07/01/2016) * CULTURE URINE(Performed 07/01/2016) * CULTURE URINE(Performed 07/01/2016) * CYTOMEGALOVIRUS DNA RT-PCR QUANT(Performed 07/01/2016) * CULTURE URINE(Performed 07/01/2016) * EKG 12-LEAD(Performed 07/01/2016) * TACROLIMUS LEVEL(Performed 06/25/2016) * PROTEIN CREATININE RATIO URINE RANDOM PNL(Performed 06/25/2016) * HEPATIC FUNCTION PANEL(Performed 06/25/2016) * BASIC METABOLIC PANEL (CALCIUM TOTAL)(Performed 06/25/2016) * PHOSPHORUS BLOOD(Performed 06/25/2016) * MAGNESIUM BLOOD(Performed 06/25/2016) * CBC W AUTO DIFFERENTIAL(Performed 06/25/2016) * URINALYSIS REFLEX TO MICROSCOPIC NO CULTURE(Performed 06/25/2016) * CBC W AUTO DIFFERENTIAL(Performed 06/25/2016) * CULTURE URINE(Performed 06/25/2016) * CULTURE URINE(Performed 06/25/2016) * URINALYSIS REFLEX TO MICROSCOPIC NO CULTURE(Performed 06/21/2016) * CULTURE URINE(Performed 06/21/2016) * PROTEIN CREATININE RATIO URINE RANDOM PNL(Performed 06/18/2016) * TACROLIMUS LEVEL(Performed 06/18/2016) * HEPATIC FUNCTION PANEL(Performed 06/18/2016) * RENAL FUNCTION PANEL(Performed 06/18/2016) * MAGNESIUM BLOOD(Performed 06/18/2016) * CBC W AUTO DIFFERENTIAL(Performed 06/18/2016) * TACROLIMUS LEVEL(Performed 06/11/2016) * PROTEIN CREATININE RATIO URINE RANDOM PNL(Performed 06/11/2016) * HEPATIC FUNCTION PANEL(Performed 06/11/2016) * RENAL FUNCTION PANEL(Performed 06/11/2016) * MAGNESIUM BLOOD(Performed 06/11/2016) * CBC W AUTO DIFFERENTIAL(Performed 06/11/2016) * PROTEIN CREATININE RATIO URINE RANDOM PNL(Performed 06/04/2016) * TACROLIMUS LEVEL(Performed 06/04/2016) * HEPATIC FUNCTION PANEL(Performed 06/04/2016) * RENAL FUNCTION PANEL(Performed 06/04/2016) * MAGNESIUM BLOOD(Performed 06/04/2016) * CBC W AUTO DIFFERENTIAL(Performed 06/04/2016) * BK VIRUS PCR QUANTITATIVE(Performed 05/28/2016) * TACROLIMUS LEVEL(Performed 05/28/2016) * COMPREHENSIVE METABOLIC PANEL(Performed 05/28/2016) * CBC W AUTO DIFFERENTIAL(Performed 05/28/2016) * CREATININE URINE RANDOM(Performed 05/28/2016) * PROTEIN URINE RANDOM QUANTITATIVE(Performed 05/28/2016) * PROTEIN CREATININE RATIO URINE RANDOM PNL(Performed 05/21/2016) * MAGNESIUM BLOOD(Performed 05/21/2016) * RENAL FUNCTION PANEL(Performed 05/21/2016) * HEPATIC FUNCTION PANEL(Performed 05/21/2016) * TACROLIMUS LEVEL(Performed 05/21/2016) * CBC W AUTO DIFFERENTIAL(Performed 05/21/2016) * PROTEIN CREATININE RATIO URINE RANDOM PNL(Performed 05/16/2016) * TACROLIMUS LEVEL(Performed 05/16/2016) * TACROLIMUS LEVEL(Performed 05/10/2016) * PROTEIN CREATININE RATIO URINE RANDOM PNL(Performed 05/10/2016) * CBC W AUTO DIFFERENTIAL(Performed 05/10/2016) * TACROLIMUS LEVEL(Performed 05/10/2016) * MAGNESIUM BLOOD(Performed 05/10/2016) * RENAL FUNCTION PANEL(Performed 05/10/2016) * HEPATIC FUNCTION PANEL(Performed 05/10/2016) * PROTEIN CREATININE RATIO URINE RANDOM PNL(Performed 05/10/2016) * CBC W AUTO DIFFERENTIAL(Performed 05/10/2016) * IR PICC LINE INSERT(Performed 05/03/2016) * CRYPTOCOCCUS ANTIGEN BLOOD(Performed 05/03/2016) * PROTEIN CREATININE RATIO URINE RANDOM PNL(Performed 05/01/2016) * URINALYSIS REFLEX TO MICROSCOPIC NO CULTURE(Performed 05/01/2016) * CULTURE URINE(Performed 05/01/2016) * BK VIRUS PCR QUANTITATIVE(Performed 05/01/2016) * TACROLIMUS LEVEL(Performed 05/01/2016) * PTH INTACT W/O CALCIUM(Performed 05/01/2016) * MAGNESIUM BLOOD(Performed 05/01/2016) * RENAL FUNCTION PANEL(Performed 05/01/2016) * HEPATIC FUNCTION PANEL(Performed 05/01/2016) * LIPID PROFILE(Performed 05/01/2016) * URIC ACID BLOOD(Performed 05/01/2016) * VITAMIN D 25-HYDROXY(Performed 05/01/2016) * CBC W AUTO DIFFERENTIAL(Performed 05/01/2016) * CYTOMEGALOVIRUS DNA RT-PCR QUANT(Performed 05/01/2016) * PARVOVIRUS B19 ANTIBODY IGM(Performed 04/30/2016) * PARVOVIRUS B19 ANTIBODY IGG(Performed 04/30/2016) * BK VIRUS PCR QUANTITATIVE(Performed 04/30/2016) * TRANSFERRIN(Performed 04/30/2016) * FERRITIN(Performed 04/30/2016) * IRON BLOOD(Performed 04/30/2016) * TACROLIMUS LEVEL(Performed 04/30/2016) * FOLATE(Performed 04/30/2016) * VITAMIN B12(Performed 04/30/2016) * VITAMIN D 25-HYDROXY(Performed 04/30/2016) * DIFFERENTIAL MANUAL(Performed 04/30/2016) * HEPATIC FUNCTION PANEL(Performed 04/30/2016) * MAGNESIUM BLOOD(Performed 04/30/2016) * PTH INTACT W/O CALCIUM(Performed 04/30/2016) * LIPID PROFILE(Performed 04/30/2016) * URIC ACID BLOOD(Performed 04/30/2016) * RENAL FUNCTION PANEL(Performed 04/30/2016) * CBC W AUTO DIFFERENTIAL(Performed 04/30/2016) * RETIC COUNT(Performed 04/30/2016) * CYTOMEGALOVIRUS DNA RT-PCR QUANT(Performed 04/30/2016) * CBC W AUTO DIFFERENTIAL(Performed 04/30/2016) * PT-INR [facility](Performed 04/26/2016) * CBC W/O DIFFERENTIAL(Performed 04/26/2016) * CALCIUM IONIZED WHOLE BLOOD(Performed 04/26/2016) * PT-INR [facility](Performed 04/25/2016) * CALCIUM IONIZED WHOLE BLOOD(Performed 04/25/2016) * CBC W/O DIFFERENTIAL(Performed 04/25/2016) * PROTEIN URINE RANDOM QUANTITATIVE(Performed 04/23/2016) * CREATININE URINE RANDOM(Performed 04/23/2016) * TACROLIMUS LEVEL(Performed 04/23/2016) * MAGNESIUM BLOOD(Performed 04/23/2016) * COMPREHENSIVE METABOLIC PANEL(Performed 04/23/2016) * PHOSPHORUS BLOOD(Performed 04/23/2016) * DIFFERENTIAL MANUAL(Performed 04/23/2016) * PT-INR [facility](Performed 04/23/2016) * CALCIUM IONIZED WHOLE BLOOD(Performed 04/23/2016) * CBC W AUTO DIFFERENTIAL(Performed 04/23/2016) * CBC W AUTO DIFFERENTIAL(Performed 04/23/2016) * TACROLIMUS LEVEL(Performed 04/19/2016) * COMPREHENSIVE METABOLIC PANEL(Performed 04/19/2016) * PT-INR [facility](Performed 04/19/2016) * CALCIUM IONIZED WHOLE BLOOD(Performed 04/19/2016) * CBC W/O DIFFERENTIAL(Performed 04/19/2016) * PT-INR [facility](Performed 04/17/2016) * CBC W/O DIFFERENTIAL(Performed 04/17/2016) * CALCIUM IONIZED WHOLE BLOOD(Performed 04/17/2016) * PROTEIN URINE RANDOM QUANTITATIVE(Performed 04/15/2016) * CREATININE URINE RANDOM(Performed 04/15/2016) * TACROLIMUS LEVEL(Performed 04/15/2016) * COMPREHENSIVE METABOLIC PANEL(Performed 04/15/2016) * MAGNESIUM BLOOD(Performed 04/15/2016) * PHOSPHORUS BLOOD(Performed 04/15/2016) * PT-INR [facility](Performed 04/15/2016) * CBC W/O DIFFERENTIAL(Performed 04/15/2016) * CALCIUM IONIZED WHOLE BLOOD(Performed 04/15/2016) * PT-INR [facility](Performed 04/12/2016) * CALCIUM IONIZED WHOLE BLOOD(Performed 04/12/2016) * CBC W/O DIFFERENTIAL(Performed 04/12/2016) * PT-INR [facility](Performed 04/10/2016) * CBC W/O DIFFERENTIAL(Performed 04/10/2016) * CALCIUM IONIZED WHOLE BLOOD(Performed 04/10/2016) * PROTEIN URINE RANDOM QUANTITATIVE(Performed 04/09/2016) * CREATININE URINE RANDOM(Performed 04/09/2016) * TYPE + SCREEN PANEL(Performed 04/09/2016) * TACROLIMUS LEVEL(Performed 04/09/2016) * DIFFERENTIAL MANUAL(Performed 04/09/2016) * PHOSPHORUS BLOOD(Performed 04/09/2016) * COMPREHENSIVE METABOLIC PANEL(Performed 04/09/2016) * MAGNESIUM BLOOD(Performed 04/09/2016) * PT-INR [facility](Performed 04/09/2016) * CBC W AUTO DIFFERENTIAL(Performed 04/09/2016) * CALCIUM IONIZED WHOLE BLOOD(Performed 04/09/2016) * CBC W AUTO DIFFERENTIAL(Performed 04/09/2016) * TYPE + SCREEN PANEL(Performed 04/05/2016) * CBC W/O DIFFERENTIAL(Performed 04/05/2016) * PT-INR [facility](Performed 04/05/2016) * CALCIUM IONIZED WHOLE BLOOD(Performed 04/05/2016) * CULTURE BLOOD(Performed 04/03/2016) * CULTURE BLOOD(Performed 04/03/2016) * CULTURE BLOOD(Performed 04/03/2016) * COMPREHENSIVE METABOLIC PANEL(Performed 04/03/2016) * PT-INR [facility](Performed 04/03/2016) * CBC W/O DIFFERENTIAL(Performed 04/03/2016) * CALCIUM IONIZED WHOLE BLOOD(Performed 04/03/2016) * CREATININE URINE RANDOM(Performed 04/01/2016) * PROTEIN URINE RANDOM QUANTITATIVE(Performed 04/01/2016) * TYPE + SCREEN PANEL(Performed 04/01/2016) * TACROLIMUS LEVEL(Performed 04/01/2016) * COMPREHENSIVE METABOLIC PANEL(Performed 04/01/2016) * PHOSPHORUS BLOOD(Performed 04/01/2016) * MAGNESIUM BLOOD(Performed 04/01/2016) * PT-INR [facility](Performed 04/01/2016) * CBC W AUTO DIFFERENTIAL(Performed 04/01/2016) * CALCIUM IONIZED WHOLE BLOOD(Performed 04/01/2016) * CBC W AUTO DIFFERENTIAL(Performed 04/01/2016) * TYPE + SCREEN PANEL(Performed 03/29/2016) * CROSSMATCH RBC LEUKOREDUCED(Performed 03/29/2016) * CBC W/O DIFFERENTIAL(Performed 03/29/2016) * PT-INR [facility](Performed 03/29/2016) * CALCIUM IONIZED WHOLE BLOOD(Performed 03/29/2016) * FERRITIN(Performed 03/27/2016) * IRON BLOOD(Performed 03/27/2016) * TRANSFERRIN(Performed 03/27/2016) * CBC W/O DIFFERENTIAL(Performed 03/27/2016) * MAGNESIUM BLOOD(Performed 03/27/2016) * PT-INR [facility](Performed 03/27/2016) * CALCIUM IONIZED WHOLE BLOOD(Performed 03/27/2016) * CREATININE URINE RANDOM(Performed 03/25/2016) * PROTEIN URINE RANDOM QUANTITATIVE(Performed 03/25/2016) * PT-INR [facility](Performed 03/25/2016) * TYPE + SCREEN PANEL(Performed 03/25/2016) * TACROLIMUS LEVEL(Performed 03/25/2016) * MAGNESIUM BLOOD(Performed 03/25/2016) * COMPREHENSIVE METABOLIC PANEL(Performed 03/25/2016) * PHOSPHORUS BLOOD(Performed 03/25/2016) * CBC W AUTO DIFFERENTIAL(Performed 03/25/2016) * CALCIUM IONIZED WHOLE BLOOD(Performed 03/25/2016) * CBC W AUTO DIFFERENTIAL(Performed 03/25/2016) * PT-INR [facility](Performed 03/22/2016) * CBC W/O DIFFERENTIAL(Performed 03/22/2016) * CALCIUM IONIZED WHOLE BLOOD(Performed 03/22/2016) * CBC W/O DIFFERENTIAL(Performed 03/21/2016) * PT-INR [facility](Performed 03/21/2016) * CALCIUM IONIZED WHOLE BLOOD(Performed 03/21/2016) * PT-INR [facility](Performed 03/20/2016) * CBC W/O DIFFERENTIAL(Performed 03/20/2016) * CALCIUM IONIZED WHOLE BLOOD(Performed 03/20/2016) * CREATININE URINE RANDOM(Performed 03/19/2016) * PROTEIN URINE RANDOM QUANTITATIVE(Performed 03/19/2016) * PT-INR [facility](Performed 03/19/2016) * CALCIUM IONIZED WHOLE BLOOD(Performed 03/19/2016) * CBC W/O DIFFERENTIAL(Performed 03/19/2016) * TYPE + SCREEN PANEL(Performed 03/18/2016) * TACROLIMUS LEVEL(Performed 03/18/2016) * MAGNESIUM BLOOD(Performed 03/18/2016) * PHOSPHORUS BLOOD(Performed 03/18/2016) * COMPREHENSIVE METABOLIC PANEL(Performed 03/18/2016) * PT-INR [facility](Performed 03/18/2016) * CBC W AUTO DIFFERENTIAL(Performed 03/18/2016) * CALCIUM IONIZED WHOLE BLOOD(Performed 03/18/2016) * CBC W AUTO DIFFERENTIAL(Performed 03/18/2016) * PT-INR [facility](Performed 03/15/2016) * CBC W/O DIFFERENTIAL(Performed 03/15/2016) * CALCIUM IONIZED WHOLE BLOOD(Performed 03/15/2016) * PT-INR [facility](Performed 03/14/2016) * CBC W/O DIFFERENTIAL(Performed 03/14/2016) * CALCIUM IONIZED WHOLE BLOOD(Performed 03/14/2016) * IR PICC LINE INSERT(Performed 03/13/2016) * IR PICC OR CENTRAL LINE REPLACE(Performed 03/13/2016) * TYPE + SCREEN PANEL(Performed 03/13/2016) * PT-INR [facility](Performed 03/13/2016) * CBC W/O DIFFERENTIAL(Performed 03/13/2016) * CALCIUM IONIZED WHOLE BLOOD(Performed 03/13/2016) * XR CHEST 1VW PORTABLE(Performed 03/10/2016) * PT-INR [facility](Performed 03/10/2016) * CALCIUM IONIZED WHOLE BLOOD(Performed 03/10/2016) * CBC W/O DIFFERENTIAL(Performed 03/10/2016) * TACROLIMUS LEVEL(Performed 03/10/2016) * COMPREHENSIVE METABOLIC PANEL(Performed 03/10/2016) * CBC W/O DIFFERENTIAL(Performed 03/10/2016) * PT-INR [facility](Performed 03/09/2016) * COMPREHENSIVE METABOLIC PANEL(Performed 03/09/2016) * CALCIUM IONIZED WHOLE BLOOD(Performed 03/09/2016) * CBC W AUTO DIFFERENTIAL(Performed 03/09/2016) * CBC W AUTO DIFFERENTIAL(Performed 03/09/2016) * URINALYSIS REFLEX TO MICROSCOPIC NO CULTURE(Performed 03/08/2016) * GLUCOSE ACCUCHECK(Performed 03/08/2016) * CULTURE AEROBIC(Performed 03/08/2016) * DIFFERENTIAL MANUAL FLUID(Performed 03/08/2016) * CELL COUNT W DIFFERENTIAL FLUID(Performed 03/08/2016) * CELL COUNT FLUID(Performed 03/08/2016) * CULTURE ANAEROBE(Performed 03/08/2016) * TYPE + SCREEN PANEL(Performed 03/08/2016) * CALCIUM IONIZED WHOLE BLOOD(Performed 03/08/2016) * IR PICC LINE INSERT(Performed 03/08/2016) * IR US GUIDE VASCULAR ACCESS(Performed 03/08/2016) * IR CENTRAL LINE INSERT TUNNEL(Performed 03/08/2016) * COMPREHENSIVE METABOLIC PANEL(Performed 03/08/2016) * PTT [facility](Performed 03/08/2016) * PT-INR [facility](Performed 03/08/2016) * CBC W AUTO DIFFERENTIAL(Performed 03/08/2016) * CBC W AUTO DIFFERENTIAL(Performed 03/08/2016) * TACROLIMUS LEVEL(Performed 03/05/2016) * COMPREHENSIVE METABOLIC PANEL(Performed 03/05/2016) * CBC W AUTO DIFFERENTIAL(Performed 03/05/2016) * CBC W AUTO DIFFERENTIAL(Performed 03/04/2016) * CBC W AUTO DIFFERENTIAL(Performed 03/04/2016) * CT GUIDED NEEDLE PLACEMENT(Performed 03/04/2016) * CT GUIDED NEEDLE PLACEMENT(Performed 03/04/2016) * PATHOLOGY TISSUE(Performed 03/04/2016) * BASIC METABOLIC PANEL (CALCIUM TOTAL)(Performed 03/04/2016) * PTT [facility](Performed 03/04/2016) * PT-INR [facility](Performed 03/04/2016) * CBC W AUTO DIFFERENTIAL(Performed 03/04/2016) * CBC W AUTO DIFFERENTIAL(Performed 03/04/2016) * TYPE + SCREEN PANEL(Performed 03/04/2016) * MICROALB/CREAT RATIO URINE RANDOM PANEL(Performed 02/27/2016) * CREATININE URINE RANDOM(Performed 02/27/2016) * TACROLIMUS LEVEL(Performed 02/26/2016) * COMPREHENSIVE METABOLIC PANEL(Performed 02/26/2016) * CBC W AUTO DIFFERENTIAL(Performed 02/26/2016) * CBC W AUTO DIFFERENTIAL(Performed 02/21/2016) * CBC W AUTO DIFFERENTIAL(Performed 02/21/2016) * CT GUIDED NEEDLE PLACEMENT(Performed 02/21/2016) * CT GUIDED NEEDLE PLACEMENT(Performed 02/21/2016) * PATHOLOGY TISSUE(Performed 02/21/2016) * HEPATITIS B DNA QUANT(Performed 02/19/2016) * CULTURE URINE(Performed 02/09/2016) * CREATININE CLEARANCE URINE TIMED + BLOOD(Performed 02/07/2016) * PROTEIN CREATININE RATIO URINE TIMED PNL(Performed 02/07/2016) * HEPATIC FUNCTION PANEL(Performed 02/07/2016) * BASIC METABOLIC PANEL (CALCIUM TOTAL)(Performed 02/07/2016) * PHOSPHORUS BLOOD(Performed 02/07/2016) * MAGNESIUM BLOOD(Performed 02/07/2016) * TACROLIMUS LEVEL(Performed 02/07/2016) * CREATININE URINE RANDOM(Performed 02/07/2016) * URINALYSIS REFLEX TO MICROSCOPIC NO CULTURE(Performed 02/07/2016) * CBC W AUTO DIFFERENTIAL(Performed 02/07/2016) * PT-INR [facility](Performed 02/07/2016) * TACROLIMUS LEVEL(Performed 02/02/2016) * CBC W AUTO DIFFERENTIAL(Performed 02/02/2016) * CBC W AUTO DIFFERENTIAL(Performed 02/02/2016) * COMPREHENSIVE METABOLIC PANEL(Performed 02/02/2016) * PHOSPHORUS BLOOD(Performed 02/02/2016) * MAGNESIUM BLOOD(Performed 02/02/2016) * PROTHROMBIN [id number] PANEL(Performed 02/01/2016) * FACTOR V LEIDEN MUTATION PANEL(Performed 02/01/2016) * CT PARACENTESIS(Performed 02/01/2016) * PROTEIN FLUID(Performed 02/01/2016) * ALBUMIN FLUID(Performed 02/01/2016) * PROTEIN URINE TIMED QUANTITATIVE(Performed 02/01/2016) * UREA NITROGEN URINE TIMED(Performed 02/01/2016) * CREATININE URINE TIMED(Performed 02/01/2016) * NM RENAL SCAN W FLOW AND FUNCTION(Performed 02/01/2016) * TACROLIMUS LEVEL(Performed 02/01/2016) * MAGNESIUM BLOOD(Performed 02/01/2016) * COMPREHENSIVE METABOLIC PANEL(Performed 02/01/2016) * PHOSPHORUS BLOOD(Performed 02/01/2016) * PT-INR [facility](Performed 02/01/2016) * CBC W AUTO DIFFERENTIAL(Performed 02/01/2016) * CBC W AUTO DIFFERENTIAL(Performed 02/01/2016) * PREALBUMIN(Performed 01/31/2016) * FACTOR X ASSAY(Performed 01/31/2016) * PT-INR [facility](Performed 01/31/2016) * VAS BILATERAL VENOUS DUPLEX LE(Performed 01/31/2016) * PT-INR [facility](Performed 01/31/2016) * PHOSPHORUS BLOOD(Performed 01/31/2016) * CBC W AUTO DIFFERENTIAL(Performed 01/31/2016) * CBC W AUTO DIFFERENTIAL(Performed 01/31/2016) * TACROLIMUS LEVEL(Performed 01/31/2016) * COMPREHENSIVE METABOLIC PANEL(Performed 01/31/2016) * MAGNESIUM BLOOD(Performed 01/31/2016) * COMPREHENSIVE METABOLIC PANEL(Performed 01/30/2016) * CBC W AUTO DIFFERENTIAL(Performed 01/30/2016) * CBC W AUTO DIFFERENTIAL(Performed 01/30/2016) * US RENAL TRANSPLANT(Performed 01/30/2016) * US ABDOMEN LIMITED(Performed 01/30/2016) * US ABDOMEN DOPPLER ONLY LTD(Performed 01/30/2016) * CREATININE URINE RANDOM(Performed 01/30/2016) * PROTEIN URINE RANDOM QUANTITATIVE(Performed 01/30/2016) * URINALYSIS REFLEX TO MICROSCOPIC NO CULTURE(Performed 01/30/2016) * CULTURE URINE(Performed 01/30/2016) * HEPATIC FUNCTION PANEL(Performed 01/29/2016) * TACROLIMUS LEVEL(Performed 01/29/2016) * URINALYSIS REFLEX TO MICROSCOPIC NO CULTURE(Performed 01/29/2016) * BASIC METABOLIC PANEL (CALCIUM TOTAL)(Performed 01/29/2016) * MAGNESIUM BLOOD(Performed 01/29/2016) * PHOSPHORUS BLOOD(Performed 01/29/2016) * CBC W AUTO DIFFERENTIAL(Performed 01/29/2016) * CULTURE URINE(Performed 01/29/2016) * CBC W AUTO DIFFERENTIAL(Performed 01/29/2016) * HEPATIC FUNCTION PANEL(Performed 01/25/2016) * TACROLIMUS LEVEL(Performed 01/25/2016) * BASIC METABOLIC PANEL (CALCIUM TOTAL)(Performed 01/25/2016) * MAGNESIUM BLOOD(Performed 01/25/2016) * PHOSPHORUS BLOOD(Performed 01/25/2016) * CBC W AUTO DIFFERENTIAL(Performed 01/25/2016) * CBC W AUTO DIFFERENTIAL(Performed 01/25/2016) * URINALYSIS W/MICROSCOPIC NO CULTURE(Performed 01/25/2016) * TACROLIMUS LEVEL(Performed 01/22/2016) * MAGNESIUM BLOOD(Performed 01/22/2016) * HEPATIC FUNCTION PANEL(Performed 01/22/2016) * PHOSPHORUS BLOOD(Performed 01/22/2016) * BASIC METABOLIC PANEL (CALCIUM TOTAL)(Performed 01/22/2016) * CBC W AUTO DIFFERENTIAL(Performed 01/22/2016) * CBC W AUTO DIFFERENTIAL(Performed 01/22/2016) * TACROLIMUS LEVEL(Performed 01/18/2016) * CREATININE URINE RANDOM(Performed 01/18/2016) * PROTEIN URINE RANDOM QUANTITATIVE(Performed 01/18/2016) * DIFFERENTIAL MANUAL(Performed 01/18/2016) * CBC W AUTO DIFFERENTIAL(Performed 01/18/2016) * CBC W AUTO DIFFERENTIAL(Performed 01/18/2016) * HEPATIC FUNCTION PANEL(Performed 01/18/2016) * BASIC METABOLIC PANEL (CALCIUM TOTAL)(Performed 01/18/2016) * PHOSPHORUS BLOOD(Performed 01/18/2016) * MAGNESIUM BLOOD(Performed 01/18/2016) * URINALYSIS W/MICROSCOPIC NO CULTURE(Performed 01/18/2016) * CULTURE URINE(Performed 01/18/2016) * TACROLIMUS LEVEL(Performed 01/15/2016) * HEPATIC FUNCTION PANEL(Performed 01/15/2016) * BASIC METABOLIC PANEL (CALCIUM TOTAL)(Performed 01/15/2016) * MAGNESIUM BLOOD(Performed 01/15/2016) * PHOSPHORUS BLOOD(Performed 01/15/2016) * CBC W AUTO DIFFERENTIAL(Performed 01/15/2016) * DIFFERENTIAL MANUAL(Performed 01/15/2016) * CBC W AUTO DIFFERENTIAL(Performed 01/15/2016) * TACROLIMUS LEVEL(Performed 01/13/2016) * CBC W AUTO DIFFERENTIAL(Performed 01/13/2016) * DIFFERENTIAL MANUAL(Performed 01/13/2016) * BASIC METABOLIC PANEL (CALCIUM TOTAL)(Performed 01/13/2016) * HEPATIC FUNCTION PANEL(Performed 01/13/2016) * CBC W AUTO DIFFERENTIAL(Performed 01/13/2016) * PHOSPHORUS BLOOD(Performed 01/13/2016) * MAGNESIUM BLOOD(Performed 01/13/2016) * GLUCOSE ACCUCHECK(Performed 01/12/2016) * GLUCOSE ACCUCHECK(Performed 01/12/2016) * TACROLIMUS LEVEL(Performed 01/12/2016) * MAGNESIUM BLOOD(Performed 01/12/2016) * HEPATIC FUNCTION PANEL(Performed 01/12/2016) * BASIC METABOLIC PANEL (CALCIUM TOTAL)(Performed 01/12/2016) * PHOSPHORUS BLOOD(Performed 01/12/2016) * CBC W AUTO DIFFERENTIAL(Performed 01/12/2016) * CBC W AUTO DIFFERENTIAL(Performed 01/12/2016) * GLUCOSE ACCUCHECK(Performed 01/11/2016) * GLUCOSE ACCUCHECK(Performed 01/11/2016) * GLUCOSE ACCUCHECK(Performed 01/11/2016) * GLUCOSE ACCUCHECK(Performed 01/11/2016) * GLUCOSE ACCUCHECK(Performed 01/11/2016) * TACROLIMUS LEVEL(Performed 01/11/2016) * HEPATIC FUNCTION PANEL(Performed 01/11/2016) * PHOSPHORUS BLOOD(Performed 01/11/2016) * BASIC METABOLIC PANEL (CALCIUM TOTAL)(Performed 01/11/2016) * MAGNESIUM BLOOD(Performed 01/11/2016) * CBC W AUTO DIFFERENTIAL(Performed 01/11/2016) * CBC W AUTO DIFFERENTIAL(Performed 01/11/2016) * GLUCOSE ACCUCHECK(Performed 01/10/2016) * GLUCOSE ACCUCHECK(Performed 01/10/2016) * GLUCOSE ACCUCHECK(Performed 01/10/2016) * PT-INR [facility](Performed 01/10/2016) * GLUCOSE ACCUCHECK(Performed 01/10/2016) * TACROLIMUS LEVEL(Performed 01/10/2016) * PHOSPHORUS BLOOD(Performed 01/10/2016) * HEPATIC FUNCTION PANEL(Performed 01/09/2016) * BASIC METABOLIC PANEL (CALCIUM TOTAL)(Performed 01/09/2016) * MAGNESIUM BLOOD(Performed 01/09/2016) * CBC W AUTO DIFFERENTIAL(Performed 01/09/2016) * CBC W AUTO DIFFERENTIAL(Performed 01/09/2016) * GLUCOSE ACCUCHECK(Performed 01/09/2016) * GLUCOSE ACCUCHECK(Performed 01/09/2016) * GLUCOSE ACCUCHECK(Performed 01/09/2016) * GLUCOSE ACCUCHECK(Performed 01/09/2016) * MRI ANGIO ABDOMEN WWO CONTRAST(Performed 01/09/2016) * MRI ANGIO PELVIS WWO CONTRAST(Performed 01/09/2016) * GLUCOSE ACCUCHECK(Performed 01/09/2016) * GLUCOSE ACCUCHECK(Performed 01/09/2016) * GLUCOSE ACCUCHECK(Performed 01/09/2016) * BASIC METABOLIC PANEL (CALCIUM TOTAL)(Performed 01/09/2016) * HEPATIC FUNCTION PANEL(Performed 01/09/2016) * MAGNESIUM BLOOD(Performed 01/09/2016) * CBC W AUTO DIFFERENTIAL(Performed 01/09/2016) * CBC W AUTO DIFFERENTIAL(Performed 01/09/2016) * PTT [facility](Performed 01/09/2016) * GLUCOSE ACCUCHECK(Performed 01/08/2016) * GLUCOSE ACCUCHECK(Performed 01/08/2016) * PROTEIN URINE RANDOM QUANTITATIVE(Performed 01/08/2016) * CREATININE URINE RANDOM(Performed 01/08/2016) * PREALBUMIN(Performed 01/08/2016) * PT-INR [facility](Performed 01/08/2016) * GLUCOSE ACCUCHECK(Performed 01/08/2016) * GLUCOSE ACCUCHECK(Performed 01/08/2016) * TACROLIMUS LEVEL(Performed 01/08/2016) * HEPATIC FUNCTION PANEL(Performed 01/08/2016) * BASIC METABOLIC PANEL (CALCIUM TOTAL)(Performed 01/08/2016) * MAGNESIUM BLOOD(Performed 01/08/2016) * CBC W AUTO DIFFERENTIAL(Performed 01/08/2016) * CBC W AUTO DIFFERENTIAL(Performed 01/08/2016) * PTT [facility](Performed 01/08/2016) * HEPATIC FUNCTION PANEL(Performed 01/08/2016) * BASIC METABOLIC PANEL (CALCIUM TOTAL)(Performed 01/08/2016) * MAGNESIUM BLOOD(Performed 01/08/2016) * PTT [facility](Performed 01/08/2016) * PT-INR [facility](Performed 01/08/2016) * CBC W/O DIFFERENTIAL(Performed 01/08/2016) * GLUCOSE ACCUCHECK(Performed 01/07/2016) * D-DIMER(Performed 01/07/2016) * FIBRINOGEN ACTIVITY(Performed 01/07/2016) * HEPATIC FUNCTION PANEL(Performed 01/07/2016) * BASIC METABOLIC PANEL (CALCIUM TOTAL)(Performed 01/07/2016) * MAGNESIUM BLOOD(Performed 01/07/2016) * PTT [facility](Performed 01/07/2016) * PT-INR [facility](Performed 01/07/2016) * HEPATIC FUNCTION PANEL(Performed 01/07/2016) * BASIC METABOLIC PANEL (CALCIUM TOTAL)(Performed 01/07/2016) * PTT [facility](Performed 01/07/2016) * MAGNESIUM BLOOD(Performed 01/07/2016) * CBC W/O DIFFERENTIAL(Performed 01/07/2016) * GLUCOSE ACCUCHECK(Performed 01/07/2016) * US RENAL TRANSPLANT(Performed 01/07/2016) * US ABDOMEN LIMITED(Performed 01/07/2016) * US ABDOMEN DOPPLER ONLY LTD(Performed 01/07/2016) * GLUCOSE ACCUCHECK(Performed 01/07/2016) * GLUCOSE ACCUCHECK(Performed 01/07/2016) * PT-INR [facility](Performed 01/07/2016) * HEPATIC FUNCTION PANEL(Performed 01/07/2016) * PTT [facility](Performed 01/07/2016) * GLUCOSE ACCUCHECK(Performed 01/07/2016) * GLUCOSE ACCUCHECK(Performed 01/07/2016) * GLUCOSE ACCUCHECK(Performed 01/07/2016) * GLUCOSE ACCUCHECK(Performed 01/07/2016) * GLUCOSE ACCUCHECK(Performed 01/07/2016) * PT-INR [facility](Performed 01/07/2016) * MAGNESIUM BLOOD(Performed 01/07/2016) * HEPATIC FUNCTION PANEL(Performed 01/07/2016) * BASIC METABOLIC PANEL (CALCIUM TOTAL)(Performed 01/07/2016) * GLUCOSE ACCUCHECK(Performed 01/07/2016) * GLUCOSE ACCUCHECK(Performed 01/07/2016) * GLUCOSE ACCUCHECK(Performed 01/06/2016) * XR CHEST 1VW PORTABLE(Performed 01/06/2016) * CYTOMEGALOVIRUS ANTIBODY IGG BLOOD(Performed 01/06/2016) * PTH INTACT W/O CALCIUM(Performed 01/06/2016) * CBC W AUTO DIFFERENTIAL(Performed 01/06/2016) * CBC W AUTO DIFFERENTIAL(Performed 01/06/2016) * HEPATITIS SCREEN ACUTE(Performed 01/06/2016) * MAGNESIUM BLOOD(Performed 01/06/2016) * BASIC METABOLIC PANEL (CALCIUM TOTAL)(Performed 01/06/2016) * PT-INR [facility](Performed 01/06/2016) * PTT [facility](Performed 01/06/2016) * PHOSPHORUS BLOOD(Performed 01/06/2016) * LACTIC ACID BLOOD(Performed 01/06/2016) * FIBRINOGEN ACTIVITY(Performed 01/06/2016) * CALCIUM IONIZED WHOLE BLOOD(Performed 01/06/2016) * BLOOD GASES ARTERIAL(Performed 01/06/2016) * GLUCOSE ACCUCHECK(Performed 01/06/2016) * BLOOD GASES ART COMPLETE [facility] OR(Performed 01/06/2016) * XR ABDOMEN KUB PORTABLE(Performed 01/06/2016) * BLOOD GASES ART COMPLETE [facility] OR(Performed 01/06/2016) * PATHOLOGY TISSUE(Performed 01/06/2016) * BLOOD GASES ART COMPLETE [facility] OR(Performed 01/06/2016) * XR ABDOMEN KUB PORTABLE(Performed 01/06/2016) * BLOOD GASES ART COMPLETE [facility] OR(Performed 01/06/2016) * TEG CITRATED KAOLIN (CK)(Performed 01/06/2016) * BLOOD GASES ART COMPLETE [facility] OR(Performed 01/06/2016) * PT-INR [facility](Performed 01/06/2016) * PTT [facility](Performed 01/06/2016) * FIBRINOGEN ACTIVITY(Performed 01/06/2016) * CBC W AUTO DIFFERENTIAL(Performed 01/06/2016) * CBC W AUTO DIFFERENTIAL(Performed 01/06/2016) * BLOOD GASES ART COMPLETE [facility] OR(Performed 01/06/2016) * URINALYSIS W/MICROSCOPIC NO CULTURE(Performed 01/06/2016) * CULTURE URINE(Performed 01/06/2016) * TEG CITRATED KAOLIN (CK)(Performed 01/06/2016) * FIBRINOGEN ACTIVITY(Performed 01/06/2016) * PTT [facility](Performed 01/06/2016) * PT-INR [facility](Performed 01/06/2016) * CBC W/O DIFFERENTIAL(Performed 01/06/2016) * BLOOD GASES ART COMPLETE [facility] OR(Performed 01/06/2016) * CULTURE ANAEROBE(Performed 01/06/2016) * CULTURE AEROBIC(Performed 01/06/2016) * FLOW HLA XM DONOR(Performed 01/06/2016) * HLA ANTIBODY SCREEN LUM CLASS 2 SAB(Performed 01/06/2016) * HLA ANTIBODY SCREEN LUM CLASS 1 SAB(Performed 01/06/2016) * HLA XM SEROLOGIC DONOR(Performed 01/06/2016) * HLA TYPING DNA LOW RESOLUTION A,B,C(Performed 01/06/2016) * HLA TYPING DNA LOW RESOLUTION DR,DQ(Performed 01/06/2016) * VAS BILATERAL VENOUS DUPLEX LE(Performed 01/06/2016) * CELL COUNT W DIFFERENTIAL FLUID(Performed 01/06/2016) * DIFFERENTIAL MANUAL FLUID(Performed 01/06/2016) * CELL COUNT FLUID(Performed 01/06/2016) * CULTURE ANAEROBE(Performed 01/06/2016) * CULTURE AEROBIC(Performed 01/06/2016) * PREPARE FFP UNIT(S)(Performed 01/06/2016) * CROSSMATCH RBC LEUKOREDUCED(Performed 01/06/2016) * PREPARE FFP UNIT(S)(Performed 01/06/2016) * XR CHEST 2VW(Performed 01/06/2016) * TYPE + SCREEN PANEL(Performed 01/06/2016) * CBC W AUTO DIFFERENTIAL(Performed 01/06/2016) * CBC W AUTO DIFFERENTIAL(Performed 01/06/2016) * HEPATIC FUNCTION PANEL(Performed 01/06/2016) * BASIC METABOLIC PANEL (CALCIUM TOTAL)(Performed 01/06/2016) * PHOSPHORUS BLOOD(Performed 01/06/2016) * MAGNESIUM BLOOD(Performed 01/06/2016) * LIPASE BLOOD(Performed 01/06/2016) * AMYLASE BLOOD(Performed 01/06/2016) * PT-INR [facility](Performed 01/06/2016) * FIBRINOGEN ACTIVITY(Performed 01/06/2016) * PTT [facility](Performed 01/06/2016) * EKG 12-LEAD(Performed 01/06/2016) * PT-INR [facility](Performed 01/04/2016) * COMPREHENSIVE METABOLIC PANEL(Performed 01/04/2016) * VANCOMYCIN LEVEL TROUGH(Performed 12/27/2015) * PT-INR [facility](Performed 12/27/2015) * COMPREHENSIVE METABOLIC PANEL(Performed 12/27/2015) * TRIGLYCERIDES FLUID(Performed 12/27/2015) * CELL COUNT W DIFFERENTIAL FLUID(Performed 12/27/2015) * DIFFERENTIAL MANUAL FLUID(Performed 12/27/2015) * CELL COUNT FLUID(Performed 12/27/2015) * CULTURE FUNGUS OTHER+FUNGUS SMEAR(Performed 12/27/2015) * CULTURE AEROBIC(Performed 12/27/2015) * DIFFERENTIAL MANUAL FLUID(Performed 12/15/2015) * CELL COUNT FLUID(Performed 12/15/2015) * CELL COUNT W DIFFERENTIAL FLUID(Performed 12/15/2015) * CULTURE AEROBIC(Performed 12/15/2015) * CELL COUNT W DIFFERENTIAL FLUID(Performed 12/08/2015) * DIFFERENTIAL MANUAL FLUID(Performed 12/08/2015) * CELL COUNT FLUID(Performed 12/08/2015) * CULTURE AEROBIC(Performed 12/08/2015) * URINALYSIS REFLEX TO MICROSCOPIC NO CULTURE(Performed 12/06/2015) * DRUG ABUSE PANEL 10-20+ETHANOL URINE NO CONFIRM(Performed 12/06/2015) * HLA XM SEROLOGIC DONOR(Performed 12/06/2015) * HLA TYPING DNA LOW RESOLUTION A,B,C(Performed 12/06/2015) * HLA TYPING DNA LOW RESOLUTION DR,DQ(Performed 12/06/2015) * XR PANOREX(Performed 12/06/2015) * TYPE + SCREEN PANEL(Performed 12/06/2015) * QUANTIFERON TB-GOLD (CLIENT INCUBATED)(Performed 12/06/2015) * VANCOMYCIN LEVEL RANDOM(Performed 12/06/2015) * HLA XM SEROLOGIC AUTO(Performed 12/06/2015) * HLA ANTIBODY SCREEN LUM CLASS 2 ID(Performed 12/06/2015) * HLA ANTIBODY SCREEN LUM CLASS 1 ID(Performed 12/06/2015) * BLOOD TYPE ABO+ RH PANEL(Performed 12/06/2015) * NICOTINE + METABOLITES BLOOD(Performed 12/06/2015) * CYTOMEGALOVIRUS ANTIBODY IGG BLOOD(Performed 12/06/2015) * A[facility]A-JUNIOR VIRUS ANTIBODY TO VCA IGG(Performed 12/06/2015) * MUMPS ANTIBODY IGG(Performed 12/06/2015) * RUBELLA ANTIBODY IGG(Performed 12/06/2015) * ALPHA FETOPROTEIN BLOOD TUMOR MARKER(Performed 12/06/2015) * HEPATITIS A ANTIBODY(Performed 12/06/2015) * RPR(Performed 12/06/2015) * HEPATITIS B SURFACE ANTIGEN W RFLX CONFIRMATION(Performed 12/06/2015) * HEMOGLOBIN A1C(Performed 12/06/2015) * FERRITIN(Performed 12/06/2015) * HIV-1 HIV-2 ANTIGEN/ANTIBODY(Performed 12/06/2015) * HEPATITIS B SURFACE ANTIBODY(Performed 12/06/2015) * HEPATITIS B CORE ANTIBODY TOTAL(Performed 12/06/2015) * PSA FREE + TOTAL PANEL(Performed 12/06/2015) * TRANSFERRIN(Performed 12/06/2015) * COMPREHENSIVE METABOLIC PANEL(Performed 12/06/2015) * ALCOHOL ETHYL BLOOD(Performed 12/06/2015) * [id number] BLOOD(Performed 12/06/2015) * CERULOPLASMIN(Performed 12/06/2015) * LIPID PROFILE(Performed 12/06/2015) * CBC W AUTO DIFFERENTIAL(Performed 12/06/2015) * PT-INR SLH(Performed 12/06/2015) * CBC W AUTO DIFFERENTIAL(Performed 12/06/2015) * ECHO STRESS COLOR FLOW AND DOPPLER(Performed 12/06/2015) * ECHO STRESS W DOBUTAMINE(Performed 12/06/2015) * VANCOMYCIN LEVEL TROUGH(Performed 11/27/2015) * PT-INR [facility](Performed 11/27/2015) * CELL COUNT W DIFFERENTIAL FLUID(Performed 11/20/2015) * DIFFERENTIAL MANUAL FLUID(Performed 11/20/2015) * CELL COUNT FLUID(Performed 11/20/2015) * CULTURE AEROBIC(Performed 11/20/2015) * RENAL FUNCTION PANEL(Performed 11/18/2015) * CBC W AUTO DIFFERENTIAL(Performed 11/18/2015) * PT-INR [facility](Performed 11/18/2015) * DIFFERENTIAL MANUAL FLUID(Performed 11/15/2015) * CELL COUNT W DIFFERENTIAL FLUID(Performed 11/15/2015) * CELL COUNT FLUID(Performed 11/15/2015) * CULTURE ANAEROBE(Performed 11/15/2015) * CULTURE AEROBIC(Performed 11/15/2015) * RENAL FUNCTION PANEL(Performed 11/15/2015) * MAGNESIUM BLOOD(Performed 11/15/2015) * PT-INR [facility](Performed 11/15/2015) * CBC W AUTO DIFFERENTIAL(Performed 11/15/2015) * CBC W AUTO DIFFERENTIAL(Performed 11/15/2015) * CALCIUM IONIZED WHOLE BLOOD(Performed 11/15/2015) * PROTEIN URINE RANDOM QUANTITATIVE(Performed 11/15/2015) * CREATININE URINE RANDOM(Performed 11/15/2015) * CULTURE URINE(Performed 11/14/2015) * TYPE + SCREEN PANEL(Performed 11/14/2015) * CELL COUNT W DIFFERENTIAL FLUID(Performed 11/14/2015) * DIFFERENTIAL MANUAL FLUID(Performed 11/14/2015) * CELL COUNT FLUID(Performed 11/14/2015) * TRIGLYCERIDES FLUID(Performed 11/14/2015) * ALBUMIN FLUID(Performed 11/14/2015) * CULTURE ANAEROBE(Performed 11/14/2015) * CULTURE AEROBIC(Performed 11/14/2015) * RENAL FUNCTION PANEL(Performed 11/14/2015) * MAGNESIUM BLOOD(Performed 11/14/2015) * PT-INR [facility](Performed 11/14/2015) * CBC W AUTO DIFFERENTIAL(Performed 11/14/2015) * CBC W AUTO DIFFERENTIAL(Performed 11/14/2015) * SODIUM URINE RANDOM(Performed 11/13/2015) * OSMOLALITY URINE(Performed 11/13/2015) * URINALYSIS W/MICROSCOPIC NO CULTURE(Performed 11/13/2015) * MAGNESIUM BLOOD(Performed 11/13/2015) * PHOSPHORUS BLOOD(Performed 11/13/2015) * COMPREHENSIVE METABOLIC PANEL(Performed 11/13/2015) * CBC W AUTO DIFFERENTIAL(Performed 11/13/2015) * CBC W AUTO DIFFERENTIAL(Performed 11/13/2015) * CULTURE BLOOD(Performed 11/13/2015) * CULTURE BLOOD(Performed 11/13/2015) * HEPATIC FUNCTION PANEL(Performed 11/10/2015) * BASIC METABOLIC PANEL (CALCIUM TOTAL)(Performed 11/10/2015) * PT-INR [facility](Performed 11/10/2015) * CBC W AUTO DIFFERENTIAL(Performed 11/10/2015) * PTT SLH(Performed 11/02/2015) * PTT [facility](Performed 11/02/2015) * COMPREHENSIVE METABOLIC PANEL(Performed 11/02/2015) * PT-INR [facility](Performed 11/02/2015) * PHOSPHORUS BLOOD(Performed 11/02/2015) * MAGNESIUM BLOOD(Performed 11/02/2015) * PTT [facility](Performed 11/02/2015) * CBC W AUTO DIFFERENTIAL(Performed 11/02/2015) * CBC W AUTO DIFFERENTIAL(Performed 11/02/2015) * PTT [facility](Performed 11/01/2015) * PTT [facility](Performed 11/01/2015) * PTT [facility](Performed 11/01/2015) * CBC W AUTO DIFFERENTIAL(Performed 11/01/2015) * CBC W AUTO DIFFERENTIAL(Performed 11/01/2015) * COMPREHENSIVE METABOLIC PANEL(Performed 11/01/2015) * PHOSPHORUS BLOOD(Performed 11/01/2015) * MAGNESIUM BLOOD(Performed 11/01/2015) * PT-INR [facility](Performed 11/01/2015) * PTT [facility](Performed 11/01/2015) * PTT [facility](Performed 10/31/2015) * CBC W AUTO DIFFERENTIAL(Performed 10/31/2015) * CBC W AUTO DIFFERENTIAL(Performed 10/31/2015) * HEPATITIS SCREEN ACUTE(Performed 10/31/2015) * MAGNESIUM BLOOD(Performed 10/31/2015) * COMPREHENSIVE METABOLIC PANEL(Performed 10/31/2015) * PHOSPHORUS BLOOD(Performed 10/31/2015) * PT-INR [facility](Performed 10/31/2015) * PTT [facility](Performed 10/31/2015) * XR CHEST 2VW(Performed 10/30/2015) * IR PERITONEAL TUNNEL CATH PLACE(Performed 10/30/2015) * IR PERITONEOGRAM(Performed 10/30/2015) * IR PERITONEOGRAM(Performed 10/30/2015) * IR US PARACENTESIS(Performed 10/30/2015) * US GUIDE INTRAOPERATIVE(Performed 10/30/2015) * PROTEIN URINE TIMED QUANTITATIVE(Performed 10/30/2015) * ALBUMIN URINE TIMED(Performed 10/30/2015) * CREATININE URINE TIMED(Performed 10/30/2015) * VITAMIN D 25-HYDROXY(Performed 10/30/2015) * PTH INTACT W/O CALCIUM(Performed 10/30/2015) * MAGNESIUM BLOOD(Performed 10/30/2015) * COMPREHENSIVE METABOLIC PANEL(Performed 10/30/2015) * PHOSPHORUS BLOOD(Performed 10/30/2015) * PT-INR [facility](Performed 10/30/2015) * CBC W AUTO DIFFERENTIAL(Performed 10/30/2015) * CBC W AUTO DIFFERENTIAL(Performed 10/30/2015) * PTT [facility](Performed 10/29/2015) * PTT [facility](Performed 10/29/2015) * CBC W/O DIFFERENTIAL(Performed 10/29/2015) * CALCIUM IONIZED WHOLE BLOOD(Performed 10/29/2015) * MAGNESIUM BLOOD(Performed 10/29/2015) * COMPREHENSIVE METABOLIC PANEL(Performed 10/29/2015) * PHOSPHORUS BLOOD(Performed 10/29/2015) * PTT [facility](Performed 10/29/2015) * CBC W AUTO DIFFERENTIAL(Performed 10/29/2015) * CBC W AUTO DIFFERENTIAL(Performed 10/29/2015) * CBC W AUTO DIFFERENTIAL(Performed 10/28/2015) * CBC W AUTO DIFFERENTIAL(Performed 10/28/2015) * VAS BILATERAL VENOUS DUPLEX LE(Performed 10/28/2015) * CBC W/O DIFFERENTIAL(Performed 10/28/2015) * CT ABDOMEN PELVIS WO CONTRAST(Performed 10/28/2015) * CBC W AUTO DIFFERENTIAL(Performed 10/28/2015) * CBC W AUTO DIFFERENTIAL(Performed 10/28/2015) * TYPE + SCREEN PANEL(Performed 10/28/2015) * CROSSMATCH RBC LEUKOREDUCED(Performed 10/28/2015) * BASIC METABOLIC PANEL (CALCIUM TOTAL)(Performed 10/28/2015) * PHOSPHORUS BLOOD(Performed 10/28/2015) * MAGNESIUM BLOOD(Performed 10/28/2015) * CBC W AUTO DIFFERENTIAL(Performed 10/28/2015) * CBC W AUTO DIFFERENTIAL(Performed 10/28/2015) * URINALYSIS W/MICROSCOPIC NO CULTURE(Performed 10/27/2015) * DIFFERENTIAL MANUAL FLUID(Performed 10/27/2015) * CELL COUNT W DIFFERENTIAL FLUID(Performed 10/27/2015) * AMYLASE BODY FLUID(Performed 10/27/2015) * TRIGLYCERIDES FLUID(Performed 10/27/2015) * PROTEIN FLUID(Performed 10/27/2015) * CELL COUNT FLUID(Performed 10/27/2015) * CULTURE AEROBIC(Performed 10/27/2015) * CULTURE ANAEROBE(Performed 10/27/2015) * CBC W AUTO DIFFERENTIAL(Performed 10/27/2015) * DIFFERENTIAL MANUAL(Performed 10/27/2015) * CBC W AUTO DIFFERENTIAL(Performed 10/27/2015) * BASIC METABOLIC PANEL (CALCIUM TOTAL)(Performed 10/27/2015) * CT GUIDED NEEDLE PLACEMENT(Performed 10/27/2015) * CT GUIDED NEEDLE PLACEMENT(Performed 10/27/2015) * PATHOLOGY TISSUE(Performed 10/27/2015) * PT-INR [facility](Performed 10/25/2015) * HEPATIC FUNCTION PANEL(Performed 10/25/2015) * BASIC METABOLIC PANEL (CALCIUM TOTAL)(Performed 10/25/2015) * CBC W AUTO DIFFERENTIAL(Performed 10/25/2015) * DIFFERENTIAL MANUAL FLUID(Performed 10/19/2015) * CELL COUNT W DIFFERENTIAL FLUID(Performed 10/19/2015) * CELL COUNT FLUID(Performed 10/19/2015) * CULTURE ANAEROBE(Performed 10/19/2015) * CULTURE AEROBIC(Performed 10/19/2015) * MICROALB/CREAT RATIO URINE RANDOM PANEL(Performed 10/17/2015) * COMPREHENSIVE METABOLIC PANEL(Performed 10/17/2015) * URINALYSIS W/MICROSCOPIC NO CULTURE(Performed 10/17/2015) * CBC W AUTO DIFFERENTIAL(Performed 10/17/2015) * CELL COUNT W DIFFERENTIAL FLUID(Performed 10/09/2015) * DIFFERENTIAL MANUAL FLUID(Performed 10/09/2015) * CELL COUNT FLUID(Performed 10/09/2015) * CULTURE ANAEROBE(Performed 10/09/2015) * CULTURE AEROBIC(Performed 10/09/2015) * HEPATIC FUNCTION PANEL(Performed 10/05/2015) * BASIC METABOLIC PANEL (CALCIUM TOTAL)(Performed 10/05/2015) * PT-INR [facility](Performed 10/05/2015) * CBC W AUTO DIFFERENTIAL(Performed 10/05/2015) * CBC W AUTO DIFFERENTIAL(Performed 09/28/2015) * CBC W AUTO DIFFERENTIAL(Performed 09/28/2015) * DIFFERENTIAL MANUAL FLUID(Performed 09/28/2015) * CELL COUNT W DIFFERENTIAL FLUID(Performed 09/28/2015) * CELL COUNT FLUID(Performed 09/28/2015) * CULTURE ANAEROBE(Performed 09/28/2015) * CULTURE AEROBIC(Performed 09/28/2015) * COMPREHENSIVE METABOLIC PANEL(Performed 09/28/2015) * PT-INR [facility](Performed 09/28/2015) * DRUG ABUSE PANEL 10-20+ETHANOL URINE NO CONFIRM(Performed 09/20/2015) * COMPREHENSIVE METABOLIC PANEL(Performed 09/20/2015) * PHOSPHORUS BLOOD(Performed 09/20/2015) * MAGNESIUM BLOOD(Performed 09/20/2015) * PT-INR [facility](Performed 09/20/2015) * CBC W AUTO DIFFERENTIAL(Performed 09/20/2015) * CBC W AUTO DIFFERENTIAL(Performed 09/20/2015) * URINALYSIS W/MICROSCOPIC NO CULTURE(Performed 09/20/2015) * CULTURE URINE(Performed 09/20/2015) * CULTURE BLOOD(Performed 09/19/2015) * BASIC METABOLIC PANEL (CALCIUM TOTAL)(Performed 09/19/2015) * HEPATIC FUNCTION PANEL(Performed 09/19/2015) * PHOSPHORUS BLOOD(Performed 09/19/2015) * MAGNESIUM BLOOD(Performed 09/19/2015) * CBC W AUTO DIFFERENTIAL(Performed 09/19/2015) * CBC W AUTO DIFFERENTIAL(Performed 09/19/2015) * PT-INR [facility](Performed 09/19/2015) * CULTURE BLOOD(Performed 09/19/2015) * DIFFERENTIAL MANUAL FLUID(Performed 09/19/2015) * CELL COUNT W DIFFERENTIAL FLUID(Performed 09/19/2015) * CELL COUNT FLUID(Performed 09/19/2015) * CULTURE ANAEROBE(Performed 09/19/2015) * CULTURE AEROBIC(Performed 09/19/2015) * DIFFERENTIAL MANUAL FLUID(Performed 09/18/2015) * CELL COUNT W DIFFERENTIAL FLUID(Performed 09/18/2015) * CELL COUNT FLUID(Performed 09/18/2015) * CULTURE ANAEROBE(Performed 09/18/2015) * CULTURE AEROBIC(Performed 09/18/2015) * CELL COUNT W DIFFERENTIAL FLUID(Performed 09/06/2015) * DIFFERENTIAL MANUAL FLUID(Performed 09/06/2015) * CELL COUNT FLUID(Performed 09/06/2015) * CULTURE ANAEROBE(Performed 09/06/2015) * CULTURE AEROBIC(Performed 09/06/2015) * MICROALB/CREAT RATIO URINE RANDOM PANEL(Performed 09/04/2015) * COMPREHENSIVE METABOLIC PANEL(Performed 09/04/2015) * URINALYSIS W/MICROSCOPIC NO CULTURE(Performed 09/04/2015) * CBC W AUTO DIFFERENTIAL(Performed 09/04/2015) * CELL COUNT W DIFFERENTIAL FLUID(Performed 08/21/2015) * DIFFERENTIAL MANUAL FLUID(Performed 08/21/2015) * CELL COUNT FLUID(Performed 08/21/2015) * CULTURE ANAEROBE(Performed 08/21/2015) * CULTURE AEROBIC(Performed 08/21/2015) * COMPREHENSIVE METABOLIC PANEL(Performed 08/21/2015) * PT-INR [facility](Performed 08/21/2015) * CBC W AUTO DIFFERENTIAL(Performed 08/21/2015) * CBC W AUTO DIFFERENTIAL(Performed 08/21/2015) * MICROALB/CREAT RATIO URINE RANDOM PANEL(Performed 08/09/2015) * URINALYSIS W/MICROSCOPIC NO CULTURE(Performed 08/09/2015) * COMPREHENSIVE METABOLIC PANEL(Performed 08/09/2015) * CBC W AUTO DIFFERENTIAL(Performed 08/09/2015) * DIFFERENTIAL MANUAL FLUID(Performed 08/07/2015) * CELL COUNT W DIFFERENTIAL FLUID(Performed 08/07/2015) * CELL COUNT FLUID(Performed 08/07/2015) * CBC W AUTO DIFFERENTIAL(Performed 08/07/2015) * CBC W AUTO DIFFERENTIAL(Performed 08/07/2015) * PT-INR [facility](Performed 08/07/2015) * CULTURE ANAEROBE(Performed 08/07/2015) * CULTURE AEROBIC(Performed 08/07/2015) * COMPREHENSIVE METABOLIC PANEL(Performed 08/07/2015) * VAS LEFT VENOUS DUPLEX LE(Performed 07/24/2015) * HEPATIC FUNCTION PANEL(Performed 07/24/2015) * BASIC METABOLIC PANEL (CALCIUM TOTAL)(Performed 07/24/2015) * PHOSPHORUS BLOOD(Performed 07/24/2015) * MAGNESIUM BLOOD(Performed 07/24/2015) * CBC W AUTO DIFFERENTIAL(Performed 07/24/2015) * CBC W AUTO DIFFERENTIAL(Performed 07/24/2015) * PT-INR [facility](Performed 07/24/2015) * CULTURE BLOOD(Performed 07/23/2015) * HEPATIC FUNCTION PANEL(Performed 07/23/2015) * BASIC METABOLIC PANEL (CALCIUM TOTAL)(Performed 07/23/2015) * MAGNESIUM BLOOD(Performed 07/23/2015) * PHOSPHORUS BLOOD(Performed 07/23/2015) * PT-INR [facility](Performed 07/23/2015) * CBC W AUTO DIFFERENTIAL(Performed 07/23/2015) * CBC W AUTO DIFFERENTIAL(Performed 07/23/2015) * CULTURE BLOOD(Performed 07/22/2015) * CREATINE URINE TIMED(Performed 07/22/2015) * UREA NITROGEN URINE TIMED(Performed 07/22/2015) * PROTEIN URINE TIMED QUANTITATIVE(Performed 07/22/2015) * CBC W AUTO DIFFERENTIAL(Performed 07/22/2015) * CBC W AUTO DIFFERENTIAL(Performed 07/22/2015) * HEPATIC FUNCTION PANEL(Performed 07/22/2015) * BASIC METABOLIC PANEL (CALCIUM TOTAL)(Performed 07/22/2015) * MAGNESIUM BLOOD(Performed 07/22/2015) * PHOSPHORUS BLOOD(Performed 07/22/2015) * PT-INR [facility](Performed 07/22/2015) * FOLATE(Performed 07/21/2015) * VITAMIN B12(Performed 07/21/2015) * FERRITIN(Performed 07/21/2015) * TRANSFERRIN(Performed 07/21/2015) * IRON BLOOD(Performed 07/21/2015) * RETIC COUNT(Performed 07/21/2015) * PATHOLOGY TISSUE(Performed 07/21/2015) * TYPE + SCREEN PANEL(Performed 07/21/2015) * US ABDOMEN LIMITED(Performed 07/21/2015) * HEPATIC FUNCTION PANEL(Performed 07/21/2015) * BASIC METABOLIC PANEL (CALCIUM TOTAL)(Performed 07/21/2015) * CBC W AUTO DIFFERENTIAL(Performed 07/21/2015) * CBC W AUTO DIFFERENTIAL(Performed 07/21/2015) * MAGNESIUM BLOOD(Performed 07/21/2015) * PHOSPHORUS BLOOD(Performed 07/21/2015) * PT-INR [facility](Performed 07/21/2015) * PROTEIN URINE RANDOM QUANTITATIVE(Performed 07/20/2015) * CREATININE URINE RANDOM(Performed 07/20/2015) * SODIUM URINE RANDOM(Performed 07/20/2015) * URINALYSIS W/MICROSCOPIC NO CULTURE(Performed 07/20/2015) * EOSINOPHIL URINE SMEAR(Performed 07/20/2015) * CULTURE URINE(Performed 07/20/2015) * HEPATITIS C RNA QUANTITATIVE(Performed 07/20/2015) * T4 FREE(Performed 07/20/2015) * TSH(Performed 07/20/2015) * CULTURE BLOOD(Performed 07/20/2015) * BCID PANEL(Performed 07/20/2015) * CULTURE BLOOD(Performed 07/20/2015) * CELL COUNT W DIFFERENTIAL FLUID(Performed 07/20/2015) * DIFFERENTIAL MANUAL FLUID(Performed 07/20/2015) * CELL COUNT FLUID(Performed 07/20/2015) * COMPREHENSIVE METABOLIC PANEL(Performed 07/20/2015) * PT-INR [facility](Performed 07/20/2015) * CBC W AUTO DIFFERENTIAL(Performed 07/20/2015) * CBC W AUTO DIFFERENTIAL(Performed 07/20/2015) * CULTURE AEROBIC(Performed 07/20/2015) * CULTURE ANAEROBE(Performed 07/20/2015) * HEPATIC FUNCTION PANEL(Performed 07/17/2015) * BASIC METABOLIC PANEL (CALCIUM TOTAL)(Performed 07/17/2015) * CBC W AUTO DIFFERENTIAL(Performed 07/17/2015) * PT-INR [facility](Performed 07/17/2015) * CULTURE ANAEROBE(Performed 07/06/2015) * CULTURE AEROBIC(Performed 07/06/2015) * CELL COUNT W DIFFERENTIAL FLUID(Performed 07/06/2015) * DIFFERENTIAL MANUAL FLUID(Performed 07/06/2015) * CELL COUNT FLUID(Performed 07/06/2015) * COMPREHENSIVE METABOLIC PANEL(Performed 07/06/2015) * DIFFERENTIAL MANUAL(Performed 07/06/2015) * CBC W AUTO DIFFERENTIAL(Performed 07/06/2015) * PT-INR [facility](Performed 07/06/2015) * CBC W AUTO DIFFERENTIAL(Performed 07/06/2015) * XR CHEST 2VW(Performed 06/26/2015) * COMPREHENSIVE METABOLIC PANEL(Performed 06/26/2015) * CBC W AUTO DIFFERENTIAL(Performed 06/26/2015) * CBC W AUTO DIFFERENTIAL(Performed 06/26/2015) * IR PICC LINE INSERT(Performed 06/26/2015) * IR US GUIDE VASCULAR ACCESS(Performed 06/26/2015) * DIFFERENTIAL MANUAL FLUID(Performed 06/26/2015) * CELL COUNT W DIFFERENTIAL FLUID(Performed 06/26/2015) * CELL COUNT FLUID(Performed 06/26/2015) * CULTURE ANAEROBE(Performed 06/26/2015) * CULTURE AEROBIC(Performed 06/26/2015) * DIFFERENTIAL MANUAL FLUID(Performed 06/15/2015) * CELL COUNT W DIFFERENTIAL FLUID(Performed 06/15/2015) * CELL COUNT FLUID(Performed 06/15/2015) * CULTURE ANAEROBE(Performed 06/15/2015) * CULTURE AEROBIC(Performed 06/15/2015) * HEPATIC FUNCTION PANEL(Performed 06/14/2015) * BASIC METABOLIC PANEL (CALCIUM TOTAL)(Performed 06/14/2015) * CBC W AUTO DIFFERENTIAL(Performed 06/14/2015) * PT-INR [facility](Performed 06/14/2015) * COMPLEMENT C4(Performed 06/14/2015) * COMPLEMENT C3(Performed 06/14/2015) * QUANTIFERON TB-GOLD(Performed 06/14/2015) * CELL COUNT W DIFFERENTIAL FLUID(Performed 06/01/2015) * DIFFERENTIAL MANUAL FLUID(Performed 06/01/2015) * CELL COUNT FLUID(Performed 06/01/2015) * CULTURE ANAEROBE(Performed 06/01/2015) * CULTURE AEROBIC(Performed 06/01/2015) * CBC W AUTO DIFFERENTIAL(Performed 05/26/2015) * CBC W AUTO DIFFERENTIAL(Performed 05/26/2015) * CT GUIDED NEEDLE PLACEMENT(Performed 05/26/2015) * CT GUIDED NEEDLE PLACEMENT(Performed 05/26/2015) * PATHOLOGY TISSUE(Performed 05/26/2015) * PROTEIN ELECTROPHORESIS URINE RANDOM PANEL(Performed 05/18/2015) * HEPATIC FUNCTION PANEL(Performed 05/18/2015) * US ABDOMEN DOPPLER ONLY LTD(Performed 05/18/2015) * US RETROPERITONEAL COMPLETE(Performed 05/18/2015) * CELL COUNT W DIFFERENTIAL FLUID(Performed 05/18/2015) * DIFFERENTIAL MANUAL FLUID(Performed 05/18/2015) * CELL COUNT FLUID(Performed 05/18/2015) * CULTURE ANAEROBE(Performed 05/18/2015) * CULTURE AEROBIC(Performed 05/18/2015) * COMPREHENSIVE METABOLIC PANEL(Performed 05/18/2015) * PT-INR [facility](Performed 05/18/2015) * CBC W AUTO DIFFERENTIAL(Performed 05/18/2015) * CBC W AUTO DIFFERENTIAL(Performed 05/18/2015) * MPO + PR3 W/ REFLEX ANCA(Performed 05/09/2015) * HIV 1/0/2 RFLX TO WB DONOR(Performed 05/09/2015) * GLOMERULAR BASE MEMBRANE ANTIBODY IGG(Performed 05/09/2015) * PROTEIN ELECTROPHORESIS WO INTERP BLOOD(Performed 05/09/2015) * PROTEIN URINE RANDOM QUANTITATIVE(Performed 05/09/2015) * IMMUNOFIXATION BLOOD(Performed 05/09/2015) * NEUTROPHIL CYTOPLASMIC ANTIBODY(Performed 05/09/2015) * HIV-1 HIV-2 ANTIBODY DIFFERENTIATION(Performed 05/09/2015) * C3, C4, COMPLEMENT CH50(Performed 05/09/2015) * HEPATITIS B IMMUNITY PANEL(Performed 05/09/2015) * URINALYSIS REFLEX TO MICROSCOPIC NO CULTURE(Performed 05/09/2015) * DIFFERENTIAL MANUAL FLUID(Performed 05/04/2015) * CELL COUNT W DIFFERENTIAL FLUID(Performed 05/04/2015) * CELL COUNT FLUID(Performed 05/04/2015) * CULTURE ANAEROBE(Performed 05/04/2015) * CULTURE AEROBIC(Performed 05/04/2015) * PT-INR SLH(Performed 05/02/2015) * HEPATIC FUNCTION PANEL(Performed 05/02/2015) * BASIC METABOLIC PANEL (CALCIUM TOTAL)(Performed 05/02/2015) * CBC W AUTO DIFFERENTIAL(Performed 05/02/2015) * DIFFERENTIAL MANUAL FLUID(Performed 04/20/2015) * CELL COUNT W DIFFERENTIAL FLUID(Performed 04/20/2015) * CELL COUNT FLUID(Performed 04/20/2015) * CULTURE ANAEROBE(Performed 04/20/2015) * CULTURE AEROBIC(Performed 04/20/2015) * PT-INR [facility](Performed 04/18/2015) * HEPATIC FUNCTION PANEL(Performed 04/18/2015) * BASIC METABOLIC PANEL (CALCIUM TOTAL)(Performed 04/18/2015) * CBC W AUTO DIFFERENTIAL(Performed 04/18/2015) * DIFFERENTIAL MANUAL FLUID(Performed 04/10/2015) * CELL COUNT W DIFFERENTIAL FLUID(Performed 04/10/2015) * CELL COUNT FLUID(Performed 04/10/2015) * CULTURE ANAEROBE(Performed 04/10/2015) * CULTURE AEROBIC(Performed 04/10/2015) * PT-INR [facility](Performed 04/01/2015) * HEPATIC FUNCTION PANEL(Performed 04/01/2015) * BASIC METABOLIC PANEL (CALCIUM TOTAL)(Performed 04/01/2015) * CBC W AUTO DIFFERENTIAL(Performed 04/01/2015) * URINALYSIS REFLEX TO MICROSCOPIC NO CULTURE(Performed 03/20/2015) * CREATININE URINE RANDOM(Performed 03/20/2015) * PROTEIN URINE RANDOM QUANTITATIVE(Performed 03/20/2015) * CELL COUNT W DIFFERENTIAL FLUID(Performed 03/20/2015) * DIFFERENTIAL MANUAL FLUID(Performed 03/20/2015) * CELL COUNT FLUID(Performed 03/20/2015) * CULTURE ANAEROBE(Performed 03/20/2015) * CULTURE AEROBIC(Performed 03/20/2015) * COMPREHENSIVE METABOLIC PANEL(Performed 03/18/2015) * TROPONIN I(Performed 03/18/2015) * MAGNESIUM BLOOD(Performed 03/18/2015) * PTT SLH(Performed 03/18/2015) * PT-INR [facility](Performed 03/18/2015) * CBC W AUTO DIFFERENTIAL(Performed 03/18/2015) * CBC W AUTO DIFFERENTIAL(Performed 03/18/2015) * EKG 12-LEAD(Performed 03/18/2015) * PT-INR [facility](Performed 03/08/2015) * HEPATIC FUNCTION PANEL(Performed 03/08/2015) * BASIC METABOLIC PANEL (CALCIUM TOTAL)(Performed 03/08/2015) * CBC W AUTO DIFFERENTIAL(Performed 03/08/2015) * COMPREHENSIVE METABOLIC PANEL(Performed 03/01/2015) * CBC W AUTO DIFFERENTIAL(Performed 03/01/2015) * CBC W AUTO DIFFERENTIAL(Performed 03/01/2015) * DIFFERENTIAL MANUAL FLUID(Performed 03/01/2015) * CELL COUNT W DIFFERENTIAL FLUID(Performed 03/01/2015) * CELL COUNT FLUID(Performed 03/01/2015) * CULTURE ANAEROBE(Performed 03/01/2015) * CULTURE AEROBIC(Performed 03/01/2015) * CELL COUNT W DIFFERENTIAL FLUID(Performed 02/13/2015) * DIFFERENTIAL MANUAL FLUID(Performed 02/13/2015) * CELL COUNT FLUID(Performed 02/13/2015) * COMPREHENSIVE METABOLIC PANEL(Performed 02/13/2015) * PT-INR SLH(Performed 02/13/2015) * CBC W AUTO DIFFERENTIAL(Performed 02/13/2015) * CBC W AUTO DIFFERENTIAL(Performed 02/13/2015) * CULTURE ANAEROBE(Performed 02/13/2015) * CULTURE AEROBIC(Performed 02/13/2015) * PATHOLOGY TISSUE(Performed 01/23/2015) * PT-INR SL[facility](Performed 01/21/2015) * CBC W AUTO DIFFERENTIAL(Performed 01/21/2015) * HEPATIC FUNCTION PANEL(Performed 01/21/2015) * BASIC METABOLIC PANEL (CALCIUM TOTAL)(Performed 01/21/2015) * COMPREHENSIVE METABOLIC PANEL(Performed 01/06/2015) * TRIGLYCERIDES FLUID(Performed 12/29/2014) * CELL COUNT W DIFFERENTIAL FLUID(Performed 12/29/2014) * DIFFERENTIAL MANUAL FLUID(Performed 12/29/2014) * CELL COUNT FLUID(Performed 12/29/2014) * ALBUMIN FLUID(Performed 12/29/2014) * CYTOLOGY NON-ESCALATOR SERVICE MECHANIC PANEL (STL)(Performed 12/29/2014) * PROTEIN FLUID(Performed 12/29/2014) * AMYLASE BODY FLUID(Performed 12/29/2014) * LIPASE BODY FLUID STL(Performed 12/29/2014) * CULTURE ANAEROBE(Performed 12/29/2014) * CULTURE AEROBIC(Performed 12/29/2014) * PT-INR [facility](Performed 12/29/2014) * COMPREHENSIVE METABOLIC PANEL(Performed 12/29/2014) * CBC W AUTO DIFFERENTIAL(Performed 12/29/2014) * CBC W AUTO DIFFERENTIAL(Performed 12/29/2014) * COMPREHENSIVE METABOLIC PANEL(Performed 12/26/2014) * [id number] BLOOD PHENOTYPING PANEL(Performed 12/13/2014) * MITOCHONDRIAL ANTIBODY SCREEN(Performed 12/13/2014) * SMOOTH MUSCLE ANTIBODY(Performed 12/13/2014) * HEPATITIS A ANTIBODY(Performed 12/13/2014) * TRANSFERRIN(Performed 12/13/2014) * IRON BLOOD(Performed 12/13/2014) * FERRITIN(Performed 12/13/2014) * HEPATITIS C ANTIBODY(Performed 12/13/2014) * HEPATITIS B SURFACE ANTIGEN W RFLX CONFIRMATION(Performed 12/13/2014) * HEPATITIS B SURFACE ANTIBODY(Performed 12/13/2014) * COMPREHENSIVE METABOLIC PANEL(Performed 12/13/2014) * PT-INR SL[facility](Performed 12/13/2014) * CBC W AUTO DIFFERENTIAL(Performed 12/13/2014) * CBC W AUTO DIFFERENTIAL(Performed 12/13/2014) * HEPATITIS B VIRUS DNA QUANT PCR(Performed 02/18/1998) Results * (ABNORMAL) HEMOGLOBIN A1C (09/11/2024 9:08 AM MANAGER PAPER) Only the most recent of5 resultswithin the time period is included. Hemoglobin A1c 6.6(H) 4.8 - 5.6 % [facility] INSURANCE BILL Comment: Prediabetes: 5.7 - 6.4 Diabetes: >6.4 Glycemic control for adults with diabetes: <7.0 Blood BLOOD SPECIMEN / Unknown 09/11/2024 9:08 AM MANAGER PAPER 09/11/2024 Narrative [facility] INSURANCE BILL - 09/12/2024 6:39 AM MANAGER PAPER Performed at: - [address] [id number] Travel Ticketing Reviewer: Santana Mathis PhD, Phone: [phone] Peggy River MD LAB - CHEMISTRY [facility] Organization Address City/State/ZIP Co de Phone Number [facility] INSURANCE BILL [address] [place] [address] * MICROALB/CREAT RATIO URINE RANDOM PANEL (09/11/2024 9:07 AM MANAGER PAPER) Only the most recent of6 resultswithin the time period is included. Creatinine Urine 52.0 Not Estab. mg/dL [facility] INSURANCE BILL Microalbumin Urine 14.4 Not Estab. ug/mL [facility] INSURANCE BILL Microalbumin/Crea tinine Ratio 28 0 - 29 mg/g creat [facility] INSURANCE BILL Comment: Normal: 0 - 29 Moderately increased: 30 - 300 Severely increased: >300 Urine URINE SPECIMEN OBTAINED BY CLEAN CATCH PROCEDURE / Unknown 09/11/2024 9:07 AM MANAGER PAPER 09/11/2024 Narrative [facility] INSURANCE BILL - 09/12/2024 7:06 AM MANAGER PAPER Performed at: 01 - Lab[address] [id number] Travel Ticketing Reviewer: Santana Mathis PhD, Phone: [phone] Peggy River MD LAB - URINE CHEMISTR Y ORDERABLES Performing Organization Address [facility] Co de Phone Number [facility] INSURANCE BILL [address] [place] [address] * URINALYSIS REFLEX TO MICROSCOPIC NO CULTURE (09/11/2024 9:07 AM MANAGER PAPER) Only the most recent of30 resultswithin the time period is included. Specific Crane UA 1.011 1.005 - 1.030 [facility] INSURANCE [...] CATCH PROCEDURE / Unknown 09/11/2024 9:07 AM MANAGER PAPER 09/11/2024 Narrative [facility] INSURANCE BILL - 09/12/2024 7:06 AM MANAGER PAPER Performed at: [facility] Lab[address] [id number] Travel Ticketing Reviewer: Santana Mathis PhD, Phone: [phone] Peggy River MD LAB - URINALYSIS ORD ERABLES Performing Organization Address City/[facility]/ZIP Co de Phone Number [facility] INSURANCE BILL [address] [place] [address] * CBC WITH DIFFERENTIAL (09/11/2024 9:07 AM MANAGER PAPER) Only the most recent of203 resultswithin the time period is included. WBC [...] BLOOD SPECIMEN / Unknown 09/11/2024 9:07 AM MANAGER PAPER 09/11/2024 Narrative [facility] INSURANCE BILL - 09/12/2024 7:06 AM MANAGER PAPER Performed at: 01 - [address] [id number] Travel Ticketing Reviewer: Santana Mathis PhD, Phone: [phone] Peggy River MD LAB - HEMATOLOGY LILIANA DIALLO [facility] INSURANCE BILL [address] [place] [address] * (ABNORMAL) COMPREHENSIVE METABOLIC PANEL (09/11/2024 9:07 AM MANAGER PAPER) Only the most recent of68 resultswithin the time period is included. Glucose [...] BLOOD SPECIMEN / Unknown 09/11/2024 9:07 AM MANAGER PAPER 09/11/2024 Narrative [facility] INSURANCE BILL - 09/12/2024 8:07 AM MANAGER PAPER Performed at: 01 - [address] [id number] Travel Ticketing Reviewer: Santana Mathis PhD, Phone: [phone] Peggy River MD LAB - CHEMISTRY REID MILLER [facility] INSURANCE BILL [address] [place] [address] * PHOSPHORUS BLOOD (09/11/2024 9:07 AM MANAGER PAPER) Only the most recent of74 resultswithin the time period is included. Phosphorus 3.3 2.8 - 4.1 mg/dL [facility] INSURANCE BILL Blood BLOOD SPECIMEN / Unknown 09/11/2024 9:07 AM MANAGER PAPER 09/11/2024 Narrative [facility] INSURANCE BILL - 09/12/2024 8:07 AM MANAGER PAPER Performed at: [address] [place] [id number] Travel Ticketing Reviewer: Santana Mathis PhD, Phone: [phone] Peggy River MD LAB - CHEMISTRY REID MILLER Performing Organization Address [facility] de Phone Number [facility] INSURANCE BILL [address] [place] [address] * MAGNESIUM BLOOD (09/11/2024 9:07 AM MANAGER PAPER) Only the most recent of95 resultswithin the time period is included. Magnesium 1.7 1.6 - 2.3 mg/dL [facility] INSURANCE BILL Blood BLOOD SPECIMEN / Unknown 09/11/2024 9:07 AM MANAGER PAPER 09/11/2024 Narrative [facility] INSURANCE BILL - 09/12/2024 8:07 AM MANAGER PAPER Performed at: [facility] [employer] [id number] Travel Ticketing Reviewer: Santana Mathis PhD, Phone: [phone] Peggy River MD LAB - CHEMISTRY REID MILLER Performing Organization Address [facility] Co de Phone Number [facility] INSURANCE BILL [address] [place] [address] * TACROLIMUS LEVEL (09/11/2024 9:06 AM MANAGER PAPER) Only the most recent of81 resultswithin the time period is included. Tacrolimus 11.9 2.0 - 20.0 ng/mL [facility] INSURANCE BILL Comment: Trough (immediately following transplant) 15.0 Trough (steady state, 2 weeks or more after transplant): 3.0 - 8.0 Performed by LC-MS/MS technology. Blood BLOOD SPECIMEN / Unknown 09/11/2024 9:06 AM MANAGER PAPER 09/11/2024 Narrative [facility] INSURANCE BILL - 09/16/2024 6:10 AM MANAGER PAPER Test(s) 101527-[id number] ([id number]), Blood was developed and its performance characteristics determined by [facility]. It has not been cleared or approved by the Food and Drug Administration. Performed at: - [address] [id number] Travel Ticketing Reviewer: Lauren Flores MD, Phone: [phone] Katya Montero PA-C LAB - THERAPEUT IC DRUG MONITORING ORDERABLES Performing Organization Address [facility] de Phone Number [facility] INSURANCE BILL [address] [place] [address] * CYTOMEGALOVIRUS QUANT BLOOD (04/17/2024 10:14 AM CDT) Only the most recent of4 resultswithin the time period is included. [facility] Cytomegalovirus DNA Quantitative PCR Negative Negative IU/mL [facility] INSURANCE BILL Comment: No CMV DNA detected. The quantitative range of this assay is 200 to 1 million IU/mL. log10 CMV QN DNA Plasma NOT AVAILABLE log10 IU/mL [facility] INSURANCE BILL Comment: Unable to calculate result since non-numeric result obtained for component test. FASTING Result cannot be obtained for this observation. Blood BLOOD SPECIMEN / Unknown 04/17/2024 10:14 AM CDT 04/17/2024 Narrative Resulting Agency Comment Lab Testing performed at: [address] [phone] Peggy River MD LAB - CHEMISTRY REID MILLER Performing Organization Address City/[facility]/ZIP Co de Phone Number [facility] INSURANCE BILL [address] [place] [address] * URIC ACID BLOOD (04/17/2024 10:14 AM CDT) Only the most recent of17 resultswithin the time period is included. Uric Acid 7.5 3.8 - 8.4 mg/dL [facility] INSURANCE BILL Comment: Therapeutic target for gout patients: <6.0 FASTING Blood BLOOD SPECIMEN / Unknown 04/17/2024 10:14 AM CDT 04/17/2024 Narrative Resulting Agency Comment Lab Testing performed at: [facility] [place] [address] [facility] [phone] Peggy River MD LAB - CHEMISTRY REID MILLER Performing Organization Address City/[facility]/ZIP Co de Phone Number [facility] INSURANCE BILL [address] [place] [address] * PTH INTACT (04/17/2024 10:14 AM CDT) Only the most recent of8 resultswithin the time period is included. PTH Intact 36 15 - 65 pg/mL [facility] INSURANCE BILL Comment:FASTING Blood BLOOD SPECIMEN / Unknown 04/17/2024 10:14 AM CDT 04/17/2024 Narrative Resulting Agency Comment Lab Testing performed at: [facility] [place] [address] [facility] [phone] Peggy River MD LAB - CHEMISTRY REID MILLER Performing Organization Address [facility] Co de Phone Number [facility] INSURANCE BILL [address] [place] [address] * VITAMIN D 25-HYDROXY (04/17/2024 10:14 AM CDT) Only the most recent of16 resultswithin the time period is included. Vitamin D, 25 Hydroxy 35.7 30.0 - 100.0 ng/mL [facility] INSURANCE BILL Comment: Vitamin D deficiency has been defined by the [place] of Medicine and an Endocrine Society practice guideline as a level of serum 25-OH vitamin D less than 20 ng/mL (1,2). The Endocrine Society went on to further define vitamin D insufficiency as a level between 21 and 29 ng/mL (2). 1. IOM ([place] of Medicine). 2010. Dietary reference intakes for calcium and D. [place]: The National Academies Press. 2. Salvatore MF, Vern MURPHY, Fortino VANG, et al. Evaluation, treatment, and prevention of vitamin D deficiency: an Endocrine Society clinical practice guideline. JCEM. 2010; 96(7):1911-30. FASTING Blood BLOOD SPECIMEN / Unknown 04/17/2024 10:14 AM CDT 04/17/2024 Narrative Resulting Agency Comment Lab Testing performed at: [facility] [place] [address] [facility] [phone] Peggy River MD LAB - CHEMISTRY REID ANGUIANOJAYLON Performing Organization Address City/[facility] Co de Phone Number [facility] INSURANCE BILL [address] [place] [address] * BK VIRUS PCR QUANTITATIVE (04/17/2024 10:14 AM CDT) Only the most recent of23 resultswithin the time period is included. Pathologist [facility] BK Virus Quantitative Negative Negative IU/mL [facility] INSURANCE BILL Comment: No BK DNA detected. . The linear range of the assay is 22 - 100,000,000 IU/mL. BK DNA Quantitative PCR Log 10 copy/mL NOT AVAILABLE [facility] INSURANCE BILL Comment: FASTING Result cannot be obtained for this observation. Blood BLOOD SPECIMEN / Unknown 04/17/2024 10:14 AM CDT 04/17/2024 Narrative Resulting Agency Comment Lab Testing performed at: [employer] [id number] Peggy River MD LAB - CHEMISTRY ScreenTagZbigniew MILLER Performing Organization Address City/[facility]/ZIP Co de Phone Number [facility] INSURANCE BILL [address] [place] [address] * (ABNORMAL) LIPID PROFILE (04/17/2024 10:14 AM CDT) Only the most recent of16 resultswithin the time period is included. Cholesterol 218(H) 100 - 199 mg/dL [facility] [...] Resulting Agency Comment [facility] [address] [facility] [phone] Peggy River MD LAB - CHEMISTRY REID MILLER [facility] INSURANCE BILL [address] [place] [address] * URINALYSIS MICROSCOPIC ONLY REFLEXED (08/11/2023 10:44 AM MANAGER PAPER) Only the most recent of12 resultswithin the time period is included. WBC UA None seen 0 - 5 /hpf [facility] INSURANCE BILL RBC UA None seen 0 - 2 /hpf [facility] INSURANCE BILL Epithelial Cells (non renal) None seen 0 - 10 /hpf [facility] INSURANCE BILL Epithelial Cells (renal) NOT AVAILABLE [facility] INSURANCE BILL Comment:Result cannot be obt ained for this observation. Casts ua None seen None seen /lpf [facility] INSURANCE BILL Casts UA NOT AVAILABLE [facility] INSURANCE BILL Comment:Result cannot be obt ained for this observation. Crystals UA NOT AVAILABLE [facility] INSURANCE BILL Comment:Result cannot be obt ained for this observation. Crystals UA NOT AVAILABLE [facility] INSURANCE BILL Comment:Result cannot be obt ained for this observation. Mucus UA NOT AVAILABLE [facility] INSURANCE BILL Comment:Result cannot be obt ained for this observation. Bacteria UA None seen None seen/Few [facility] INSURANCE BILL Yeast UA NOT AVAILABLE [facility] INSURANCE BILL Comment:Result cannot be obt ained for this observation. Trichomonas UA NOT AVAILABLE [facility] INSURANCE BILL Comment:Result cannot be obt ained for this observation. Comment Urine NOT AVAILABLE [facility] INSURANCE BILL Comment: FASTING Result cannot be obtained for this observation. 08/11/2023 10:4 4 AM MANAGER PAPER 08/11/2023 Narrative Resulting Agency Comment Lab Testing performed at: [facility] [place] [address] [facility] [phone] Moni Nova APRN-OFFICE MACHINES SALES REPRESENTATIVE LAB - URINALYSI S ORDERABLES Performing Organization Address City/[facility]/ZIP Co de Phone Number [facility] INSURANCE BILL [address] [place] [address] * URINALYSIS W/MICROSCOPIC NO CULTURE (08/11/2023 10:44 AM MANAGER PAPER) Only the most recent of27 resultswithin the time period is included. Specific Crane UA 1.016 1.005 - 1.030 [facility] INSURANCE BILL pH UA 7.0 5.0 - 7.5 [facility] INSURANCE BILL Color [...] Negative [facility] INSURANCE BILL Microscopic Examination Urine [facility] INSURANCE BILL Comment:Microscopic follows if indicated. Microscopic Examination Urine See below: [facility] INSURANCE BILL Comment: Microscopic was indicated and was performed. FASTING Urine URINE SPECIMEN OBTAINED BY CLEAN CATCH PROCEDURE / Unknown 08/11/2023 10:44 AM MANAGER PAPER 08/11/2023 Narrative Resulting Agency Comment Lab Testing performed at: [facility] [place] [address] [facility] [phone] Moni Nova APRN-OFFICE MACHINES SALES REPRESENTATIVE LAB - URINALYSI S ORDERABLES Performing Organization Address City/[facility]/ZIP Co de Phone Number [facility] INSURANCE BILL [address] [place] [address] * VITAMIN D 1,25 DIHYDROXY (08/11/2023 10:44 AM MANAGER PAPER) Calcitriol (1,25 di-OH Vit D) 62.4 24.8 - 81.5 pg/mL [facility] INSURANCE BILL Comment:FASTING Blood BLOOD SPECIMEN / Unknown 08/11/2023 10:44 AM MANAGER PAPER 08/11/2023 Narrative Resulting Agency Comment Lab Testing performed at: [facility] [address] [phone] Moni Nova PARTS COUNTER SALESPERSON-OFFICE MACHINES SALES REPRESENTATIVE LAB - CHEMISTRY ORDERABLES Performing Organization Address City/[facility] Co de Phone Number [facility] INSURANCE BILL [address] [place] [address] * PROTEIN URINE RANDOM QUANTITATIVE (08/11/2023 10:44 AM MANAGER PAPER) Only the most recent of33 resultswithin the time period is included. Protein Urine 12.0 Not Estab. mg/dL [facility] INSURANCE BILL Comment:FASTING Urine URINE SPECIMEN OBTAINED BY CLEAN CATCH PROCEDURE / Unknown 08/11/2023 10:44 AM MANAGER PAPER 08/11/2023 Narrative Resulting Agency Comment Lab Testing performed at: [facility] [place] [id number] [facility] [phone] Moni Nova PARTS COUNTER SALESPERSON-OFFICE MACHINES SALES REPRESENTATIVE LAB - URINE KEERTHI ASHLEY ORDERABLES Performing Organization Address [facility] de Phone Number [facility] INSURANCE BILL [address] [place] [address] * CREATININE URINE RANDOM (08/11/2023 10:44 AM MANAGER PAPER) Only the most recent of36 resultswithin the time period is included. Creatinine Urine 137.8 Not Estab. mg/dL [facility] INSURANCE BILL Comment:FASTING Urine URINE SPECIMEN OBTAINED BY CLEAN CATCH PROCEDURE / Unknown 08/11/2023 10:44 AM MANAGER PAPER 08/11/2023 Narrative Resulting Agency Comment Lab Testing performed at: [facility] [place] [address] [facility] [phone] Moni Nova PARTS COUNTER SALESPERSON-OFFICE MACHINES SALES REPRESENTATIVE LAB - URINE KEERTHI ASHLEY ORDERABLES Performing Organization Address City/[facility] Co de Phone Number [facility] INSURANCE BILL [address] [place] [address] * PROSTATE SPECIFIC ANTIGEN SCREEN (04/27/2022 8:58 AM CDT) PSA 2.7 0.0 - 4.0 ng/mL [facility] INSURANCE BILL Comment: Mandy ECLIA methodology. . According to the [place] [employer], Serum PSA should decrease and remain at undetectable levels after radical prostatectomy. The AUA defines biochemical recurrence as an initial PSA value 0.2 ng/mL or greater followed by a subsequent confirmatory PSA value 0.2 ng/mL or greater. Values obtained with different assay methods or kits cannot be used interchangeably. Results cannot be interpreted as absolute evidence of the presence or absence of malignant disease. FASTING Blood BLOOD SPECIMEN / Unknown 04/27/2022 8:58 AM CDT 04/27/2022 Narrative Resulting Agency Comment Lab Testing performed at: [facility] [address] [facility] [phone] Katya Montero PA-C LAB - CHEMISTRY ORDERABLES [facility] INSURANCE BILL [address] [place] [address] * MO DESTROY PREMALIG LESION, 1ST LESION (04/02/2022 1:53 PM CDT) Narrative German Thompson MD - 04/02/2022 1:53 PM CDT Kenia Nunez MD 04/02/2022 1:54 PM Diagnosis and treatment options discussed, addressing the benefit and risks of each. Pt wish to proceed with cryotherapy. Liquid Nitrogen was applied to 1 lesion on (R anglican) for 7-10s each. Number of cycles: 1. Wound care reviewed. Kenia Nunez MD Dermatology, PGY-2 German Thompson MD PROCEDURE/MINOR SURG ICAL ORDERABLES * PATHOLOGY TISSUE (12/07/2021 9:49 AM CDT) Only the most recent of9 resultswithin the time period is included. Case Report Surgical Pathology Report Case: [id number] Authorizing Provider: Shereen Erwin MD Collected: 12/07/2021 09:49 AM Ordering Location: [facility] END[facility]COPY Received: 12/07/2021 11:14 AM Pathologist: German Anthony MD Specimens: A) - Esophagus, Esophageal Bx at 36-38 cm B) - Esophagus, Esophageal Bx 34-36 cm C) - Esophagus, Esophageal Bx 32- 34 cm D) - Esophagus, Esophageal Bx 30- 32 cm E) - Esophagus, Esophageal Bx 28- 30 cm F) - Esophagus, Esophageal Bx 26-28 cm 12/10/2021 11:20 AM [facility] LAB Final Diagnosis Esophagus, 36-38 cm, biopsy (A): - Columnar mucosa with mild chronic inflammation - No squamous mucosa - No intestinal metaplasia - No dysplasia Esophagus, 34-36 cm, biopsy (B): - Columnar mucosa with intestinal metaplasia (see comment) - No dysplasia Esophagus, 32-34 cm, biopsy (C): - Columnar mucosa with intestinal metaplasia (see comment) - No dysplasia Esophagus, 30-32 cm, biopsy (D): - Columnar mucosa with intestinal metaplasia (see comment) - No dysplasia Esophagus, 28-30 cm, biopsy (E): - Columnar mucosa with intestinal metaplasia (see comment) - No dysplasia Esophagus, 26-28 cm, biopsy (F): - Squamocolumnar mucosa with mild chronic inflammation - No intestinal metaplasia - No dysplasia 12/10/2021 11:20 AM [facility] Microscopic Description and Comment Comment: For parts B, C, D, and E the biopsies shows gastric-type mucosa with scattered goblet cells. The diagnosis in this case depends on the location of this biopsy. If this biopsy was taken from the tubular esophagus, it represents Vang mucosa of the distinctive type. If this biopsy was taken from the gastric cardia, it represents intestinal metaplasia of the gastric cardia. Sections show varying amounts of squamocolumnar mucosa with or without complete intestinal metaplasia as per the final diagnosis, similar to the prior biopsies ([id number], reviewed). 12/10/2021 11:20 AM [facility] Clinical History The patient is a 56-year-old man with Vang's esophagus, no history of dysplasia. Operative procedure/findings: 12 cm Vang's, biopsied. 12/10/2021 11:20 AM [facility] Gross Description The requisition and specimen(s) are identified with the patient's name Raul Wan. Received in formalin, specimen A , is a 0.4 x 0.2 x 0.2 cm pink-hartman tissue, submitted in toto in cassette A1. Received in formalin, specimen B , is a 0.5 x 0.3 x 0.1 cm pink-hartman tissue, submitted in toto in cassette B1. Received in formalin, specimen C , are 2 pink-hartman tissues, 0.1 x 0.1 x 0.1 cm and 0.3 x 0.2 x 0.1 cm, submitted in toto in cassette C1. Received in formalin, specimen D , is a 0.2 x 0.2 x 0.1 cm pink-hartman tissue with associated fecal material, submitted in toto in cassette D1. Received in formalin, specimen E , are 3 pink-hartman tissues, 0.3-0.4 cm in greatest dimension and 0.9 x 0.1 x 0.1 cm in aggregate, submitted in toto in cassette E1. Received in formalin, specimen F , is a 0.4 x 0.2 x 0.1 cm pink-hartman tissue, submitted in toto in cassette F1. DF 12/10/2021 11:20 AM [facility] Disclaimer The performance characteristics of all immunohistochemical and indirect immunofluorescence stains (if any) cited in this report were determined by the Histopathology Laboratory of [facility]. Some of these tests were developed by our own laboratory and have not been cleared or approved by the US Food and Drug Administration. The FDA does not require this test to go through premarket FDA review. These tests are used for clinical purposes. They should not be regarded as investigational or for research. This laboratory is certified under the Clinical Laboratory Improvement Amendments (CLIA) as qualified to perform high complexity clinical laboratory testing. This case has been personally reviewed and interpreted by the attending (teaching) pathologist. 12/10/2021 11:20 AM [facility] Embedded Images 12/10/2021 11:20 AM [facility] Biopsy, NOS REGION OF ESOPHAGUS / Unknown 12/07/2021 9:49 AM CDT 12/07/2021 11:14 AM CDT Comment:Pre-op diagnosis: Screen for colon cancer [Z12.11] 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 [K22.70] Biopsy, NOS REGION OF ESOPHAGUS / Unknown 12/07/2021 9:51 AM CDT 12/07/2021 11:14 AM CDT Comment:Pre-op diagnosis: Screen for colon cancer [Z12.11] 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 [K22.70] Biopsy, NOS REGION OF ESOPHAGUS / Unknown 12/07/2021 9:52 AM CDT 12/07/2021 11:14 AM CDT Comment:Pre-op diagnosis: Screen for colon cancer [Z12.11] 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 [K22.70] Biopsy, NOS REGION OF ESOPHAGUS / Unknown 12/07/2021 9:54 AM CDT 12/07/2021 11:14 AM CDT Comment:Pre-op diagnosis: Screen for colon cancer [Z12.11] 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 [K22.70] Biopsy, NOS REGION OF ESOPHAGUS / Unknown 12/07/2021 9:55 AM CDT 12/07/2021 11:14 AM CDT Comment:Pre-op diagnosis: Screen for colon cancer [Z12.11] 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 [K22.70] Biopsy, NOS REGION OF ESOPHAGUS / Unknown 12/07/2021 9:57 AM CDT 12/07/2021 11:14 AM CDT Comment:Pre-op diagnosis: Screen for colon cancer [Z12.11] 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 [K22.70] Shereen Erwin MD LAB - PATHOLOGY/CYTO LOGY ORDERABLES Performing Organization Address City/State/[facility] de Phone Number [facility] [address] [place], [place] [address] [phone] * EGD (12/07/2021 9:34 AM CDT) Report Endoscopy POC Endoscopy Department Report _ Patient Name: Raul Wan Procedure Date: 12/07/2021 9:34 AM Date of : 1965 Classification: Outpatient Gender: Male Ethnicity: Not or Race: White _ Providers: Shereen Erwin MD, Sommer Martinez (Fellow) Referring MD: Zain Valenzuela MD (Referring MD) Procedure: Upper GI endoscopy Indications: Follow-up of Vang's esophagus Medications: Monitored Anesthesia Care Description of Procedure: [...] has taken Xarelto (rivaroxaban), last dose was 2 days prior to procedure. ASA Grade Assessment: IV - A patient with severe systemic disease that is a constant threat to life. After reviewing the risks and benefits, the patient was deemed in satisfactory condition to undergo the procedure. After obtaining informed consent, the endoscope was passed under direct vision. Throughout the procedure, the patient's blood pressure, pulse, and oxygen saturations were monitored continuously. The Endoscope was introduced through the mouth, and advanced to the second part of duodenum. The upper GI endoscopy was accomplished without difficulty. The patient tolerated the procedure well. Findings: Esophagogastric landmarks were identified: the Z-line was found at 26 cm, the upper extent of the gastric folds was found at 36 cm and the site of hiatal narrowing was found at 38 cm from the incisors. There were esophageal mucosal changes consistent with long-segment Vang's esophagus present in the mid esophagus and in the distal esophagus. The maximum longitudinal extent of these mucosal changes was 11 cm in length. Mucosa was biopsied with a cold forceps for histology in 4 quadrants at intervals of 2 cm at 26, 28, 30, 32, 34, 36 and 38 cm from the incisors. C9M11 according to prague classification. A total of 6 specimen bottles were sent to pathology. The entire examined stomach was normal. The examined duodenum was normal. Estimated Blood Loss: Estimated blood loss was minimal. Complications: No immediate complications. Impression: - Esophagogastric landmarks identified. - Esophageal mucosal changes consistent with long-segment Vang's esophagus. Biopsied. C9M11 according to prague classification. - Normal stomach. - Normal examined duodenum. Recommendation: - Patient has a contact number available for emergencies. The signs and symptoms of potential delayed complications were discussed with the patient. Return to normal activities tomorrow. Written discharge instructions were provided to the patient. - Resume previous diet. - Continue present medications. - Await pathology results. - Repeat upper endoscopy based on pathology report. - Perform a colonoscopy now. Attending Participation: I was present and participated during the entire procedure, including non-turk portions. Procedure Code(s): --- Professional --- 17435, Esophagogastroduod enoscopy, flexible, transoral; with biopsy, single or multiple Diagnosis Code(s): --- Professional --- K22.70, 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 CPT copyright 2019 [employer]. All rights reserved. The codes documented in this report are preliminary and upon outpatient coder review may be revised to meet current compliance requirements. Shereen Erwin MD 12/07/2021 10:48:06 AM This report has been signed electronically. Note Initiated On: 12/07/2021 9:34 AM Number of Addenda: 0 [facility] [address] [place] [address] [facility] 12/07/2021 9:34 AM CDT Shereen Erwin MD GI PROCEDURE ORDERAB LES [facility] * ENDOSCOPY, COLON, DIAGNOSTIC (12/07/2021 9:32 AM [...] non-turk portions. Procedure Code(s): --- Professional --- 44806, Colonoscopy, flexible; diagnostic, including collection of specimen(s) by brushing or washing, when performed (separate procedure) Diagnosis Code(s): --- Professional --- Z12.11, Encounter for screening for malignant neoplasm of colon K64.8, Other hemorrhoids K57.30, Diverticulosis of large intestine without perforation or abscess without bleeding CPT copyright 2019 [employer]. All rights reserved. The codes documented in this report are preliminary and upon outpatient coder review may be revised to meet current compliance requirements. Shereen Erwin MD 12/07/2021 10:50:24 AM This report has been signed electronically. Note Initiated On: 12/07/2021 9:32 AM Number of Addenda: [address] [address] [facility] 12/07/2021 9:32 AM CDT Shereen Erwin MD GI PROCEDURE ORDERAB LES [facility] * BK VIRUS QUANT PCR PLASMA STL (10/02/2021 10:26 AM MANAGER PAPER) BK Virus Quant by PCR, Interp Not detected Not detected 10/03/2021 3:46 PM MANAGER PAPER [facility]CRO[facility] Specimen Type Plasma 10/03/2021 3:46 PM MANAGER PAPER [facility] Blood BLOOD SPECIMEN / Unknown Lab Venipuncture / Unknown 10/02/2021 10:26 AM MANAGER PAPER 10/02/2021 11:12 AM MANAGER PAPER Narrative [facility] MICRO[facility]OLOG[facility] - 10/03/2021 3:46 PM MANAGER PAPER DNA isolated from the plasma was analyzed in a qPCR assay to detect and quantify BK virus DNA. An internal control is included to evaluate for PCR inhibition. The quantitative range of this assay is 200 IU/mL to 20,000,000 IU/mL. Values below 200 IU/mL will be reported as (Detected <200 IU/mL). 1 copy equals 0.32 IU. This test was developed and its performance characteristics determined by [facility]. It has not been cleared or approved by the U.S. Food and Drug Administration. The FDA has determined that such clearance or approval is not necessary. The test is used for clinical purposes. It should not be regarded as investigational or for research. This laboratory is certified under the Clinical Laboratory. Moni Nova PARTS [facility]TER [facility] - CHEMISTRY ORDERABLES [facility] [address] [place] [address], [facility] [phone] * (ABNORMAL) PTH INTACT ([facility]) (10/02/2021 10:26 AM MANAGER PAPER) Only the most recent of11 resultswithin the time period is included. PTH Intact 84.0(H) 8.0 - 77.0 pg/mL 10/02/2021 11:48 AM MANAGER PAPER [facility] Blood BLOOD SPECIMEN / Unknown Lab Venipuncture / Unknown 10/02/2021 10:26 AM MANAGER PAPER 10/02/2021 11:14 AM MANAGER PAPER Moni Nova PARTS COUNTER [facility] - CHEMISTRY ORDERABLES [facility] [address] [place] [address], [place] [phone] * (ABNORMAL) DIFFERENTIAL MANUAL (09/12/2020 10:49 AM MANAGER PAPER) Only the most recent of10 resultswithin the time period is included. WBC (corrected for NRBC) 16.3 10 3/uL 09/12/2020 12:32 PM [facility] Total Cell Count 100 09/12/2020 12:32 PM [facility] Neutrophils Absolute Manual 12.06(H) 1.60 - 7.00 10 3/uL 09/12/2020 12:32 PM [facility] Comment:(BANDS+SEGS) x WBC = NEUT # (ANC) Lymphocyte Absolute Manual 1.79 0.80 - 2.90 10 3/uL 09/12/2020 12:32 PM [facility] Monocytes Absolute Manual 2.12(H) 0.14 - 0.66 10 3/uL 09/12/2020 12:32 PM [facility] Eosinophils Absolute Manual 0.16 0.00 - 0.22 10 3/uL 09/12/2020 12:32 PM [facility] Basophil Absolute Manual 0.16(H) 0.00 - 0.06 10 3/uL 09/12/2020 12:32 PM [facility] Band % Manual 1 0 - 10 % 09/12/2020 12:32 PM [facility] Neutrophil % Manual 73(H) 30 - 60 % 09/12/2020 12:32 PM [facility] Lymphocyte % Manual 11(L) 20 - 45 % 09/12/2020 12:32 PM [facility] Monocytes % Manual 13(H) 2 - 10 % 09/12/2020 12:32 PM [facility] Eosinophils % Manual 1 1 - 6 % 09/12/2020 12:32 PM [facility] Basophils % Manual 1 0 - 3 % 09/12/2020 12:32 PM [facility] Platelet Estimate Adequate Adequate 09/12/2020 12:32 PM [facility] RBC Morphology Normal 09/12/2020 12:32 PM [facility] Blood BLOOD SPECIMEN / Unknown Lab Venipuncture / Unknown 09/12/2020 10:49 AM MANAGER PAPER 09/12/2020 11:19 AM MANAGER PAPER Moni Dunbarp PARTS COUNTER SALESPERSON-OFFICE MACHINES SALES REPRESENTATIVE LAB - HEMATOLOG Y ORDERABLES [facility] [address] [place] [address], [facility] [phone] * TACROLIMUS IMMUNOASSAY (06/19/2019 10:50 AM CDT) Only the most recent of4 resultswithin the time period is included. Pathologist [facility] Tacrolimus 6.5 2.0 - 20.0 ng/mL [facility] INSURANCE BILL Comment: Clinical studies have shown that patients administered 0.07 mg/kg Prograf, obtain an optimal response to the drug at the following trough levels: . Trough (immediately following transplant): 15.0 . Trough (steady state, 2 weeks or more after transplant): 3.0 - 8.0 . Detection Limit = 2.0 . Tacrolimus assay performed by [employer] QMS Immunoassay. FASTING Blood BLOOD SPECIMEN / Unknown 06/19/2019 10:50 AM CDT 06/19/2019 Narrative Resulting Agency Comment Lab Testing performed at: [facility] [address] [facility] [id number] Katya Montero PA-C LAB - CHEMISTRY ORDERABLES [facility] INSURANCE BILL [address] [place] [address] * (ABNORMAL) RENAL FUNCTION PANEL (11/26/2018 5:17 AM CDT) Only the most recent of11 resultswithin the time period is included. Pathologist [facility] BUN 15 7 - 26 mg/dL 11/26/2018 6:00 AM T [facility] Creatinine 1.1 0.6 - 1.2 mg/dL 11/26/2018 6:[address] [facility] Sodium 141 136 - 145 mmol/L 11/26/2018 6:00 AM T [facility] Potassium 3.3(L) 3.5 - 4.5 mmol/L 11/26/2018 6:00 AM T [facility] Chloride 109(H) 98 - 107 mmol/L 11/26/2018 6:[address] [facility] CO2 23 22 - 29 mmol/L 11/26/2018 6:[address] [facility] Glucose 105 70 - 115 mg/dL 11/26/2018 6:00 AM [facility] Albumin 3.4 3.4 - 5.0 g/dL 11/26/2018 6:00 AM [facility] Calcium 8.8 8.4 - 10.2 mg/dL 11/26/2018 6:00 AM [facility] Phosphorus 3.2 2.3 - 4.7 mg/dL 11/26/2018 6:00 AM [facility] Anion Gap 12 8 - 18 11/26/2018 6:00 AM [facility] BUN/Creatinine Ratio 14 7 - 23 11/26/2018 6:00 AM [facility] Osmolality Calculated 293 270 - 300 mOsm/kg 11/26/2018 6:00 AM [facility] eGFR >60 >60 mL/min/1.7 3 m2 11/26/2018 6:00 AM [facility] Blood BLOOD SPECIMEN / Unknown Lab Venipuncture / Unknown 11/26/2018 5:17 AM CDT 11/26/2018 5:34 AM CDT Amanda Anguiano MD LAB - CHEMISTRY [facility] [address] [phone] * PTT [facility] (11/25/2018 7:14 AM CDT) Only the most recent of26 resultswithin the time period is included. APTT 33.2 23.0 - 38.4 Seconds 11/25/2018 8:02 AM [facility] Comment: Suggested therapeutic range for full dose I.V. heparin therapy for venous thromboembolism is 66.0-91.0 seconds. Blood BLOOD SPECIMEN / Unknown Lab Venipuncture / Unknown 11/25/2018 7:14 AM CDT 11/25/2018 7:44 AM CDT Zander Lux MD LAB - COAGULATION OR DERABLES [address] [phone] * PT-INR [facility] (11/25/2018 7:14 AM CDT) Only the most recent of82 resultswithin the time period is included. PT 13.7 12.1 - 14.8 Seconds 11/25/2018 8:01 AM CDT [facility] INR 1.1 See Comment 11/25/2018 8:01 AM CDT [facility] Comment: The suggested therapeutic range for standard coumadin (warfarin) therapy is an INR of 2.0-3.0. For high-risk patients (Mechanical Mitral Valve Prosthesis, etc.), the suggested prophylactic therapeutic range is an INR of 2.5-3.5. Blood BLOOD SPECIMEN / Unknown Lab Venipuncture / Unknown 11/25/2018 7:14 AM CDT 11/25/2018 7:44 AM CDT Zander Lux MD LAB - COAGULATION OR DERABLES Performing Organization Address [facility] Co de Phone Number [address] [phone] * CULTURE STOOL+ E COLI SHIGA-LIKE TOXIN (11/25/2018 3:53 AM CDT) Culture No growth Salmonella, Shigella, Campylobacter, Escherichia coli 0157:h7 or Yersinia RICKY 11/27/2018 2:29 PM CDT [facility] Culture Negative Escherichia coli Shiga-like toxin (NM) RICKY 11/27/2018 2:29 PM CDT [facility] Stool STOOL SPECIMEN / Unknown Collection / Unknown 11/25/2018 3:53 AM CDT 11/25/2018 3:53 AM CDT Zander Lux MD LAB - MICROBIOLOGY O RDERABLES Performing Organization Address [facility]/ZIP Co de Phone Number [facility]CROBIOLOGY [address] [place] [address], [facility] [phone] * SODIUM URINE RANDOM (11/25/2018 3:53 AM CDT) Only the most recent of4 resultswithin the time period is included. Sodium Urine <20 Not Established mmol/L 11/25/2018 4:16 AM CDT [facility] Urine URINE SPECIMEN OBTAINED BY CLEAN CATCH PROCEDURE / Unknown Collection / Unknown 11/25/2018 3:53 AM CDT 11/25/2018 3:53 AM CDT Leticia Marte MD LAB - URINE CHEMISTR Y ORDERABLES Performing Organization Address City/[facility] Co de Phone Number [address] [phone] * UREA NITROGEN URINE RANDOM (11/25/2018 3:53 AM CDT) Only the most recent of2 resultswithin the time period is included. Urea Nitrogen Random Urine 1,801 Not Established mg/dL 11/25/2018 4:16 AM CDT [facility] Urine URINE SPECIMEN OBTAINED BY CLEAN CATCH PROCEDURE / Unknown Collection / Unknown 11/25/2018 3:53 AM CDT 11/25/2018 3:53 AM CDT Leticia Marte MD LAB - URINE CHEMISTR Y ORDERABLES Performing Organization Address [facility] Co de Phone Number [address] [phone] * CLOSTRIDIUM DIFFICILE GD AG + TOXIN A+B (11/24/2018 7:55 PM CDT) GDH Antigen Negative Negative, Invalid 11/25/2018 8:34 AM CDT [facility] C difficile Toxin A + B Negative Negative, Invalid 11/25/2018 8:34 AM CDT [facility] Interpretation C difficile Negative for toxigenic C. difficile Negative for toxigenic C. difficile 11/25/2018 8:34 AM CDT [facility] Stool STOOL SPECIMEN / Unknown Collection / Unknown 11/24/2018 7:55 PM CDT 11/24/2018 7:55 PM CDT Amanda Anguiano MD LAB - MICROBIOLOGY O NIKI [facility] [address] [place], [place] [address], [facility] [phone] * XR ABDOMEN 2VW (11/24/2018 7:38 PM CDT) Anatomical Region Laterality Modality Abdomen Radiographic Leticia ging 11/25/2018 7:41 AM CDT Impressions 11/25/2018 7:50 AM CDT IMPRESSION: No evidence of bowel obstruction. Dictated by Keeley Irvin MD (radiology clerk). Dr. DEBO Mccoy have personally reviewed and interpreted this examination/study. This report was electronically signed by DEBO HAUSER on 11/25/2018 7:50 AM . Narrative 11/25/2018 7:50 AM CDT EXAMINATION: XR ABDOMEN 2VW HISTORY: diarrhea work up COMPARISON: Abdominal radiograph dated 01/06/2016 FINDINGS: Surgical clips are seen in the right pelvis. There are no dilated bowel loops. No pathological calcification is seen. The visible osseous structures are intact. Procedure Note Debo Hauser, DO - 11/25/2018 EXAMINATION: XR ABDOMEN 2VW HISTORY: diarrhea work up COMPARISON: Abdominal radiograph dated 01/06/2016 FINDINGS: Surgical clips are seen in the right pelvis. There are no dilated bowel loops. No pathological calcification is seen. The visible osseous structures are intact. IMPRESSION: No evidence of bowel obstruction. Dictated by Keeley Irvin MD (radiology clerk). Dr. DEBO Mccoy have personally reviewed and interpreted this examination/study. This report was electronically signed by DEBO HAUSER on 11/25/2018 7:50 AM . Amanda Anguiano MD DIAGNOSTIC IMAGING O NIKI * LACTIC ACID BLOOD (11/24/2018 7:20 PM CDT) Only the most recent of3 resultswithin the time period is included. Lactic Acid-Stat 1.1 0.5 - 2.2 mmol/L 11/24/2018 7:44 PM [facility]T [facility] Blood BLOOD SPECIMEN / Unknown Lab Venipuncture / Unknown 11/24/2018 7:20 PM CDT 11/24/2018 7:20 PM CDT Amanda Anguiano MD LAB - CHEMISTRY [facility] [address] [phone] * TSH (11/24/2018 7:19 PM CDT) Only the most recent of2 resultswithin the time period is included. TSH 0.598 0.350 - 4.940 uIU/mL 11/24/2018 9:38 PM CDT [facility] Blood BLOOD SPECIMEN / Unknown Lab Venipuncture / Unknown 11/24/2018 7:19 PM CDT 11/24/2018 7:19 PM CDT Amanda Anguiano MD LAB - CHEMISTRY [facility] Performing Organization Address [facility]/ZIP Co de Phone Number [address] [phone] * T4 FREE (11/24/2018 7:19 PM CDT) Only the most recent of2 resultswithin the time period is included. T4 Free 0.9 0.7 - 1.5 ng/dL 11/24/2018 9:38 PM CDT [facility] Blood BLOOD SPECIMEN / Unknown Lab Venipuncture / Unknown 11/24/2018 7:19 PM CDT 11/24/2018 7:19 PM CDT Amanda Anguiano MD LAB - CHEMISTRY [facility] Performing Organization Address City/[facility]/[place] [address], [facility] [phone] * CULTURE BLOOD (11/24/2018 7:09 PM CDT) Only the most recent of15 resultswithin the time period is included. Culture No growth day 5 RICKY 11/29/2018 11:30 PM CDT [facility] Blood PERIPHERAL BLOOD / Unknown Lab Venipuncture / Unknown 11/24/2018 7:09 PM CDT 11/24/2018 7:19 PM CDT Amanda Anguiano MD LAB - MICROBIOLOGY O RDERABLES [facility] MICROBIOLOGY [address] [place], [address] [phone] * EGD (11/16/2018 1:45 PM CDT) Report Endoscopy POC Endoscopy Department Report __ _ Patient Name: Raul Wan Procedure Date: 11/16/2018 1:45 PM Date of : 1965 Classification: Outpatient Gender: Male __ _ Providers: Frankie Valero MD, Monica Marcos (Fellow) Referring MD: Procedure: Upper GI endoscopy Indications: Follow-up of Vang's esophagus Medications: Monitored Anesthesia Care Description of Procedure: [...] obtained. Prior Anticoagulants: The patient has taken aspirin. ASA Grade Assessment: III - A patient with severe systemic disease. After reviewing the risks and benefits, the patient was deemed in satisfactory condition to undergo the procedure. After obtaining informed consent, the endoscope was passed under direct vision. Throughout the procedure, the patient's blood pressure, pulse, and oxygen saturations were monitored continuously. The GIF-H190 was introduced through the mouth, and advanced to the second part of duodenum. The upper GI endoscopy was accomplished without difficulty. The patient tolerated the procedure well. Findings: Esophagogastric landmarks were identified: the Z-line was found at 25 cm, the gastroesophageal junction was found at 36 cm and the site of hiatal narrowing was found at 40 cm from the incisors. A 4 cm hiatal hernia was present. The esophagus and gastroesophageal junction were examined with white light. There were esophageal mucosal changes classified as Vang's stage C9-M11 per [place] criteria. These changes involved the mucosa at the upper extent of the gastric folds (36 cm from the incisors) extending to the Z-line (25 cm from the incisors). Circumferential salmon-colored mucosa was present at 27 cm and multiple tongues of salmon-colored mucosa were present from 25 to 27 cm. The maximum longitudinal extent of these esophageal mucosal changes was 11 cm in length. This was biopsied with a cold forceps for histology. Biopsies were taken every 2 cm with 4 quadrants. Bottles were marked as: 36, 34, 32, 30, 28, 26, 25 cm. A single localized, small non-bleeding erosion was found in the gastric antrum. There were no stigmata of recent bleeding. The examined duodenum was normal. Estimated Blood Loss: Estimated blood loss: none. Complications: No immediate complications. 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 Biopsied 4 quadrant every 2 cm. - Non-bleeding erosive gastropathy. - Normal examined duodenum. Recommendation: - Patient has a contact number available for emergencies. The signs and symptoms of potential delayed complications were discussed with the patient. Return to normal activities tomorrow. Written discharge instructions were provided to the patient. - Discharge patient to home (ambulatory). - Resume previous diet. - Continue present medications. - Await pathology results. - Would recommend to check H. Pylori serology. Attending Participation: I was present and participated during the entire procedure from insertion to removal of the endoscope. Procedure Code(s): --- Professional --- 03355, Esophagogastroduode noscopy, flexible, transoral; with biopsy, single or multiple Diagnosis Code(s): --- Professional --- K22.70, 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 K31.89, Other diseases of stomach and duodenum CPT copyright 2016 [employer]. All rights reserved. The codes documented in this report are preliminary and upon outpatient coder review may be revised to meet current compliance requirements. Frankie Valero MD 11/16/2018 2:38:25 PM This report has been signed electronically. Note Initiated On: 11/16/2018 1:45 PM Number of Addenda: 0 [facility] [address] [facility] [place] [address] [facility] 11/16/2018 1:45 PM CDT Frankie Valero MD GI PROCEDURE ORDERAB LES [facility] PROVATION * CARDIAC PROCEDURE ORDER (07/04/2018 3:30 PM CDT) Narrative 07/04/2018 3:30 PM CDT Ordered by an unspecified provider. Scanned Document CARDIAC SERVICES ORD ERABLES * CARDIAC EKG ORDER (06/24/2018 8:22 AM CDT) Only the most recent of3 resultswithin the time period is included. Narrative 06/24/2018 8:22 AM CDT Ordered by an unspecified provider. Scanned Document CARDIAC SERVICES ORD ERABLES * CULTURE URINE (06/10/2018 8:01 AM CDT) Only the most recent of54 resultswithin the time period is included. Urine Culture Routine Final report [facility] INSURANCE BILL Result 1 No growth [facility] INSURANCE BILL Comment:FASTING 06/10/2018 8:01 AM CDT 06/10/2018 Narrative Resulting Agency Comment [address] [id number] Mariah Giordano MD LAB - MICROBIOLOGY O RDERABLES Performing Organization Address [facility]/ZIP Co de Phone Number [facility] INSURANCE BILL [address] [place] [address] * (ABNORMAL) BASIC METABOLIC PANEL (CALCIUM TOTAL) (06/10/2018 8:01 AM CDT) Only the most recent of67 resultswithin the time period is included. Glucose 129(H) 65 - 99 mg/dL [facility] INSURANCE BILL BUN 15 6 - 24 mg/dL [facility] INSURANCE BILL Creatinine 1.07 0.76 - 1.27 mg/dL [facility] INSURANCE BILL eGFR by MDRD 78 >59 mL/min/1.7 3 [facility] INSURANCE BILL eGFR by MDRD 90 >59 mL/min/1.7 3 [facility] INSURANCE BILL BUN/Creatinine Ratio 14 9 - 20 [facility] INSURANCE BILL Sodium 143 134 - 144 mmol/L [facility] INSURANCE BILL Potassium 4.4 3.5 - 5.2 mmol/L [facility] INSURANCE BILL Chloride 103 96 - 106 mmol/L [facility] INSURANCE BILL CO2 21 20 - 29 mmol/L [facility] INSURANCE BILL Calcium 9.6 8.7 - 10.2 mg/dL [facility] INSURANCE BILL Comment:FASTING 06/10/2018 8:01 AM CDT 06/10/2018 Narrative Resulting Agency Comment [facility] [address] [facility] [phone] Mariah Giordano MD LAB - CHEMISTRY ORDE RABJAYLON Performing Organization Address [facility] Co de Phone Number [facility] INSURANCE BILL [address] [place] [address] * (ABNORMAL) HEPATIC FUNCTION PANEL (06/10/2018 8:01 AM CDT) Only the most recent of69 resultswithin the time period is included. Protein Total 6.6 6.0 - 8.5 g/dL [facility] INSURANCE BILL Albumin 4.3 3.5 - 5.5 g/dL [facility] INSURANCE BILL Bilirubin Total <0.2 0.0 - 1.2 mg/dL [facility] INSURANCE BILL Bilirubin Direct 0.09 0.00 - 0.40 mg/dL [facility] INSURANCE BILL Alkaline Phosphatase 121(H) 39 - 117 IU/L [facility] INSURANCE BILL AST 23 0 - 40 IU/L [facility] INSURANCE BILL ALT 27 0 - 44 IU/L [facility] INSURANCE BILL Comment:FASTING 06/10/2018 8:01 AM CDT 06/10/2018 Narrative Resulting Agency Comment [facility] [address] [facility] [phone] Mariah Giordano MD LAB - CHEMISTRY [facility] Performing Organization Address City/[facility]/ZIP Co de Phone Number [facility] INSURANCE BILL [address] [place] [address] * EKG 12-LEAD (05/01/2018 12:42 AM CDT) Only the most recent of6 resultswithin the time period is included. Ventricular Rate 77 BPM [facility] Atrial Rate 77 BPM [facility] P-R Interval 176 ms [facility] QRS Duration ms 86 ms [facility] Q-T Interval ms 350 ms [facility] QTC Calculation (Bezet) 396 ms [facility] Calculated P [place] 30 degrees [facility] Calculated R [place] 39 degrees [facility] Calculated T [place] 30 degrees [facility] Interpretation EKG NORMAL SINUS RHYTHM St elevation consistent with EARLY REPOLARIZATION and pericarditis ABNORMAL ECG WHEN COMPARED WITH ECG OF 29-APR-2018 19:31, NO SIGNIFICANT CHANGE WAS FOUND Confirmed by MD Denise., Leni ([id number]), order editor Jagdish Blari ([id number]) on 05/20/2018 9:03:31 PM [facility] MUSE 05/01/2018 12:4 2 AM CDT 05/20/2018 9:03 PM CDT Tristin Gray MD ECG ORDERA BLESylwia Performing Organization Address City/[facility]/ZIP Co de Phone Number [facility] MUSE * XR KNEE RIGHT 2VW OR LESS (04/29/2018 8:40 PM CDT) Anatomical Region Laterality Modality Lower Extremity Radiographic Leticia ging 04/30/2018 7:10 AM CDT Impressions 04/30/2018 7:17 AM CDT Impression: No acute osseous injury. Dictated by Glynn Jean MD (radiology clerk) Nadine, Dr. DEBO HAUSER have personally reviewed and interpreted this examination/study. This report was electronically signed by DEBO HAUSER on 04/30/2018 7:17 AM . Narrative 04/30/2018 7:17 AM CDT Exam: XR KNEE RIGHT 2VW OR LESS Date: 04/29/2018 8:40 PM History: knee injury, swelling, abrasion Comparison: No prior study is available for comparison. Findings: The osseous structures are intact and well aligned without acute fracture or dislocation. The knee joint space is preserved. Bone density and texture are normal. There is mild soft tissue swelling at the knee. Vascular calcification is noted. Procedure Note Debo Hauser DO - 04/30/2018 Exam: XR KNEE RIGHT 2VW OR LESS Date: 04/29/2018 8:40 PM History: knee injury, swelling, abrasion Comparison: No prior study is available for comparison. Findings: The osseous structures are intact and well aligned without acutefracture or dislocation. The knee joint space is preserved. Bone density and texture are normal. There is mild soft tissue swelling at the knee. Vascular calcification is noted. Impression: No acute osseous injury. Dictated by Glynn Jean MD (radiology clerk) Dr. DEBO Mccoy have personally reviewed and interpreted this examination/study. This report was electronically signed by DEBO HAUSER on 04/30/2018 7:17 AM . Ruchi Bond DO DIAGNOSTIC IMAGING ORDERABLES * CYTOMEGALOVIRUS DNA RT-PCR QUANT (12/27/2017 7:56 AM CDT) Only the most recent of15 resultswithin the time period is included. Cytomegalovirus DNA Quantitative Negative Negative IU/mL [facility] ([facility]) Comment: No CMV DNA detected. The quantitative range of this assay is 200 to 1 million IU/mL. This test was developed and its performance characteristics determined by [facility]. It has not been cleared or approved by the Food and Drug Administration. The FDA has determined that such clearance or approval is not necessary. log10 CMV DNA Quantitative CANCELED log10 IU/mL [facility] ([facility]) Comment: Unable to calculate result since non-numeric result obtained for component test. Result canceled by the ancillary 12/27/2017 7:56 AM CDT 12/27/2017 Narrative [facility] ([facility]) - 12/30/2017 3:21 PM CDT Performed at: - [address] [id number] Travel Ticketing Reviewer: Casey El MD, Phone: [phone] Mariah Giordano MD LAB - MICROBIOLOGY O RDERABLES [facility] ([facility]) [address] [place] [address] * NM RENAL SCAN W FLOW AND FUNCTION (10/13/2017 10:46 AM MANAGER PAPER) Only the most recent of2 resultswithin the time period is included. Anatomical Region Laterality Modality Abdomen Other Impressions 10/13/2017 2:19 PM MANAGER PAPER Procedure: Renal blood flow and function without Lasix diuresis. 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 Technique: 10.3 mCi of Tc-99m MAG3, injected IV in the RAC. Sequential dynamic blood flow images of the abdomen were obtained in the anterior and posterior projections for 30 minutes following radiotracer injection. Patient's weight 201 lb, height 175 cm. Findings: Comparison is made to prior study from 02/01/2016. Right kidney : There is a normal blood flow to the kidney. There is prompt uptake and excretion of the radiotracer. There is no evidence of obstruction or hydronephrosis. The ureter is visualized. Left kidney: There is a normal blood flow to the kidney. There is prompt uptake and excretion of the radiotracer. There is no evidence of obstruction or hydronephrosis. The ureter is visualized. Transplanted kidney: There is a normal blood flow to the kidney. There is prompt uptake and excretion of the radiotracer. There is no evidence of obstruction or hydronephrosis. Quantitative function Left Right Txp Renography 4.5 4.0 2.5 Peak time (min) 10 12.5 7.5 T1/2 (Min) 22% 23% 55% Differential function (%) Impression: 1. Normal blood flow with prompt uptake and excretion of the tracer by both [place] kidneys. No evidence of hydronephrosis or obstruction. 2. In the transplanted kidney, there is preserved flow and function and no evidence for obstruction. 3. Differential function is 55% for the transplanted kidney and 45% for the [place] kidneys, grossly unchanged (previously 53%and 47% respectively). This report was approved by Monica Patel on 10/13/2017 1:37 PM . I, Dr. SMITHA MELO D.O. have personally reviewed and interpreted this examination/study. This report was electronically signed by SMITHA MELO D.O. on 10/13/2017 2:19 PM . Narrative Procedure Note Smitha Melo, DO - 12/10/2017 IMPRESSION Procedure: Renal blood flow and function without Lasix diuresis. 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 Technique: 10.3 mCi of Tc-99m MAG3, injected IV in the RAC. Sequentialdynamic blood flow images of the abdomen were obtained in the anterior andposterior projections for 30 minutes following radiotracer injection.Patient's weight 201 lb, height 175 cm. Findings: Comparison is made to prior study from 02/01/2016. Right kidney : There is a normal blood flow to the kidney. There is promptuptake and excretion of the radiotracer. There is no evidence ofobstruction or hydronephrosis. The ureter is visualized. Left kidney: There is a normal blood flow to the kidney. There is promptuptake and excretion of the radiotracer. There is no evidence ofobstruction or hydronephrosis. The ureter is visualized. Transplanted kidney: There is a normal blood flow to the kidney. There isprompt uptake and excretion of the radiotracer. There is no evidence ofobstruction or hydronephrosis. Quantitative function Left Right Txp Renography 4.5 4.0 2.5 Peak time (min) 10 12.5 7.5 T1/2 (Min) 22% 23% 55% Differential function (%) Impression: 1. Normal blood flow with prompt uptake and excretion of the tracer byboth [place] kidneys. No evidence of hydronephrosis or obstruction. 2. In the transplanted kidney, there is preserved flow and function and noevidence for obstruction. 3. Differential function is 55% for the transplanted kidney and 45% forthe [place] kidneys, grossly unchanged (previously 53%and 47%respectively). This report was approved by Monica Patel on 10/13/2017 1:37 PM . I, Dr. SMITHA MELO D.O. have personally reviewed and interpreted thisexamination/study. This report was electronically signed by SMITHA MELO D.O. on 10/13/20172:19 PM . Peggy River MD NM ORDERABLES * AURORA-JUNIOR VIRUS PCR QUANT BLOOD/CSF (07/18/2017 8:05 AM MANAGER PAPER) Only the most recent of9 resultswithin the time period is included. Aurora-Junior DNA PCR Real Time Negative CANCELED Negative copies/mL [facility] ([facility] Comment: No EBV DNA detected. The quantitative range of this assay is 100 to 1 million copies/mL. This test was developed and its performance characteristics determined by [facility]. It has not been cleared or approved by the Food and Drug Administration. Unable to calculate result since non-numeric result obtained for component test. Result canceled by the ancillary Other (qualifier value) 07/18/2017 8:05 AM MANAGER PAPER 07/18/2017 Narrative [facility] ([facility]) - 07/22/2017 6:12 AM MANAGER PAPER Performed at: [address] [place] [id number] Travel Ticketing Reviewer: Casey El MD, Phone: [phone] Specimen Comment: A courtesy copy of this report has been sent to Specimen Comment: the patient. Ajit Bello PA-C LAB - MICROBIOLOGY ORDERABLES [facility] ([facility]) * PROTEIN CREATININE RATIO URINE RANDOM PNL (05/22/2017 1:44 PM CDT) Only the most recent of25 resultswithin the time period is included. Creatinine Urine 81 20 - 370 mg/dL [facility] ([facility]) Protein/Creatini ne Ratio 74 22 - 128 mg/g creat [facility] ([facility]) Protein Total Random Urine 6 5 - 25 mg/dL [facility] ([facility]) Comment: REPORT COMMENT: SPLIT 05/22/2017 FROM [id number] Test Performed at: [facility] [place] [address] [place] [address] CASEY SANCHEZ DO,MPH 05/22/2017 1:44 PM CDT 05/22/2017 1:51 PM CDT Frankie Valero MD LAB - URINE CHEMISTR Y ORDERABLES Performing Organization Address City/[facility]/ZIP Co de Phone Number [facility] ([facility]) * IMMUNE CELL FUNCTION ASSAY (04/12/2017 7:10 AM CDT) Only the most recent of2 resultswithin the time period is included. [employer](R) TNP ATP ng/mL [facility] ([facility]) Comment: * Test not performed. * * Unsuitable for analysis due * * to the age of the specimen. * REPORT COMMENT: FASTING:YES Test Performed at: [facility] [address] [place] [id number] COLT SCOTT,PHD 04/12/2017 7:10 AM CDT 04/12/2017 7:11 AM CDT Mariah Giordano MD LAB - SEROLOGY ORDER KAIN [facility] ([facility]) * CALCIUM IONIZED BLOOD (08/13/2016 11:42 AM MANAGER PAPER) [facility] Calcium Ionized 5.1 4.8 - 5.6 mg/dL [facility] ([facility]) Comment: Test Performed at: [facility] [place] [address] [address] [place] [phone] CASEY SANCHEZ DO,MPH Venous blood specimen (specimen) 08/13/2016 11:42 AM MANAGER PAPER 08/13/2016 11:42 AM MANAGER PAPER Mariah Giordano MD LAB - CHEMISTRY ORDE PAUL Performing Organization Address City/[facility]/ZIP Co de Phone Number [facility] ([facility]) * ASPERGILLUS ANTIGEN PANEL (08/13/2016 11:41 AM MANAGER PAPER) [facility] Index Total 0.13 <0.50 [facility] ([facility]) Aspergillus Antigen Not Detected Not Detected [facility] ([facility]) Comment: A negative result does not exclude invasive aspergillosis. Follow-up testing may be indicated for high-risk patients. RESULT INTERPRETATION: An Index <0.50 is considered to be negative. An Index >=0.50 is considered to be positive. A positive result for patients being treated with piperacillin-tazobactam and other beta-lactam antibiotics such as amoxicillin-clavulanate may be a false positive due to cross reactivity and should be viewed in conjunction with all clinical findings. Positive results with this assay has also been reported in patients infected with Penicillium marneffei and Cryptococcus. REPORT COMMENT: IS PATIENT ON HEPARIN, ARGATROBAN OR DABIGATRAN?->N Test Performed at: [facility]/[address] NORMA BRYANT MD,PHD 08/13/2016 11:4 1 AM MANAGER PAPER 08/13/2016 11:41 AM MANAGER PAPER Mariah Giordano MD LAB - SEROLOGY ORDER KAIN [facility] ([facility]) * CRYPTOCOCCUS ANTIGEN BLOOD (08/13/2016 11:39 AM MANAGER PAPER) Only the most recent of2 resultswithin the time period is included. [facility] Serum [facility] ([facility]) MSAFP Screen Not Detected Not Detected [facility] ([facility]) Comment: Culture should be performed on the initial positive antigen test in order to recover the causative organism for precise identification (C. neoformans vs C. gattii) and potential susceptibility testing. Test Performed at: [facility]/[address] [id number] NORMA BRYANT MD,PHD 08/13/2016 11:3 9 AM MANAGER PAPER 08/13/2016 11:39 AM MANAGER PAPER Mariah Giordano MD LAB - SEROLOGY ORDER KAIN Performing Organization Address [facility] de Phone Number [facility] ([facility]) * AURORA-JUNIOR VIRUS PCR QUALITATIVE (07/09/2016 7:32 AM CDT) [facility] EDTA WHOLE BLOOD [facility] ([facility]) Aurora-Junior Virus by PCR NOT DETECTED [facility] ([facility]) Comment: REFERENCE RANGE: NOT DETECTED This test was developed and its analytical performance characteristics have been determined by [facility]. It has not been cleared or approved by the U.S. Food and Drug Administration. The FDA has determined that such clearance or approval is not necessary. This assay has been validated pursuant to the CLIA regulations and is used for clinical purposes. Test Performed at: [facility] [address] [place] [id number] JAISON MILLS MD,PHD 07/09/2016 7:32 AM CDT 07/09/2016 7:32 AM CDT Frankie Valero MD LAB - MICROBIOLOGY O RDERABLES Performing Organization Address [facility]/ZIP Co de Phone Number [facility] ([facility]) * XR CHEST 2VW (07/01/2016 11:50 AM CDT) Only the most recent of4 resultswithin the time period is included. Anatomical Region Laterality Modality Chest Other Impressions 07/01/2016 3:59 PM CDT IMPRESSION: No acute pulmonary process. Report dictated by Maris Oneil M.D. This report was approved by Maris Oneil M.D. on 07/01/2016 3:[address] MILENA Mccoy M.D. have personally reviewed and interpreted this examination/study. This report was electronically signed by MILENA SHAH M.D. on 07/01/2016 3:59 PM . Narrative 07/01/2016 3:59 PM CDT EXAMINATION: Chest, PA and lateral views HISTORY: pre-op eval COMPARISON: Portable upright chest from 03/10/2016 FINDINGS: The left internal jugular central venous catheter has been removed. There is no focal consolidation, pleural effusion, or pneumothorax. The cardiomediastinal silhouette is normal. The imaged osseous structures are intact. Procedure Note Milena Shah MD - 12/06/2017 EXAMINATION: Chest, PA and lateral views HISTORY: pre-op eval COMPARISON: Portable upright chest from 03/10/2016 FINDINGS: The left internal jugular central venous catheter has been removed. Thereis no focal consolidation, pleural effusion, or pneumothorax. Thecardiomediastinal silhouette is normal. The imaged osseous structures areintact. IMPRESSION IMPRESSION: No acute pulmonary process. Report dictated by Maris Oneil M.D. This report was approved by Maris Oneil M.D. on 07/01/2016 3:41PM . Dr. MILENA Mccoy M.D. have personally reviewed and interpreted thisexamination/study. This report was electronically signed by MILENA SHAH M.D. on07/01/2016 3:59 PM . Zaida Oliva MD DIAGNOSTIC IMAG ING ORDERABLES * IR PICC LINE INSERT (05/03/2016 2:22 PM CDT) Only the most recent of4 resultswithin the time period is included. 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 This patient was referred for removal of a tunneled central venous catheter.. Following informed consent the patient was taken to the angiography holding area where they were noted to have a left internal jugular tunneled central venous catheter.The existing dressing was removed, the skin was cleansed with chlorhexidine and sterile drapes were applied. Local anesthetic was infiltrated around the exit site and the area of the subcutaneous cuff. The exit site suture was removed.Using blunt and sharp dissection, the catheter was freed from surrounding tissues and with traction was brought to the surface. Holding pressure at the venotomy site in the neck, the catheter was removed in its entirety. Hemostasis was secured with pressure. A sterile occlusive dressing was then applied. The patient tolerated the procedure without difficulty. I was present throughout the procedure. This report was electronically signed by BRISA WITT MD on 05/03/2016 2:48 PM . Procedure Note Brisa Witt MD - 12/06/2017 This is an interventional nephrology procedure performed on 05/03/2016 2:48PM Attending(s), General Foundry Worker(s): Brisa Witt MD Procedure : Removal of tunneled central venous catheter which was used forplasmapheresis to treat FSGS. This patient was referred for removal of a tunneled central venouscatheter.. Following informed consent the patient was taken to the angiographyholding area where they were noted to have a left internal jugulartunneled central venous catheter.The existing dressing was removed, theskin was cleansed with chlorhexidine and sterile drapes were applied. Local anesthetic was infiltrated around theexit site and the area of the subcutaneous cuff. The exit site suture wasremoved.Using blunt and sharp dissection, the catheter was freed fromsurrounding tissues and with traction was brought to the surface. Holding pressure at the venotomy site in theneck, the catheter was removed in its entirety. Hemostasis was securedwith pressure. A sterile occlusive dressing was then applied. The patient tolerated the procedure without difficulty. I was present throughout the procedure. This report was electronically signed by BRISA WITT MD on 05/03/20162:48 PM . Mariah Giordano MD IR ORDERABLES * PARVOVIRUS B19 ANTIBODY IGM (04/30/2016 11:20 AM CDT) Pathologist [facility] Parvovirus B19 Antibody IgM 0.4 0.0 - 0.8 index [facility] ([facility]) Comment: Negative <0.9 Equivocal 0.9 - 1.1 Positive >1.1 Blood specimen (specimen) BLOOD SPECIMEN / Unknown 04/30/2016 11:20 AM CDT 04/30/2016 11:34 AM CDT Narrative [facility] ([facility]) - 05/02/2016 1:13 PM CDT Performed at: [address] [place] [id number] Travel Ticketing Reviewer: Casey El MD, Phone: [phone] Mariah Giordano MD LAB - SEROLOGY ORDER KAIN Performing Organization Address [facility] de Phone Number [facility]) * PARVOVIRUS B19 ANTIBODY IGG (04/30/2016 11:20 AM CDT) [facility] Parvovirus B19 Antibody IgG 0.1 0.0 - 0.8 index [facility] ([facility]) Comment: Negative <0.9 Equivocal 0.9 - 1.1 Positive >1.1 Blood specimen (specimen) BLOOD SPECIMEN / Unknown 04/30/2016 11:20 AM CDT 04/30/2016 11:34 AM CDT Narrative [facility]) - 05/02/2016 1:13 PM CDT Performed at: [address] [place] [id number] Travel Ticketing Reviewer: Casey El MD, Phone: [phone] Mariah Giordano MD LAB - SEROLOGY ORDER KAIN Performing Organization Address City/[facility] Co de Phone Number [facility]) * (ABNORMAL) TRANSFERRIN (04/30/2016 11:20 AM CDT) Only the most recent of5 resultswithin the time period is included. [facility] Transferrin 129(L) 174 - 382 mg/dL [facility] Transferrin Saturation % 13(L) 16 - 50 % [facility] Blood specimen (specimen) BLOOD SPECIMEN / Unknown 04/30/2016 11:20 AM CDT 04/30/2016 11:34 AM CDT Mariah Giordano MD LAB - CHEMISTRY REID MILLER Performing Organization Address City/[facility]/ZIP Co de Phone Number [address] [phone] * (ABNORMAL) RETIC COUNT (04/30/2016 11:20 AM CDT) Only the most recent of2 resultswithin the time period is included. Reticulocyte % 3.1(H) 0.4 - 2.5 % [facility] Reticulocyte Absolute 0.11 0.02 - 0.13 10 6/uL [facility] Blood specimen (specimen) BLOOD SPECIMEN / Unknown 04/30/2016 11:20 AM CDT 04/30/2016 11:35 AM CDT Mariah Giordano MD LAB - HEMATOLOGY LILIANA DIALLO Performing Organization Address [facility]/ZIP Co de Phone Number [address] [phone] * (ABNORMAL) IRON BLOOD (04/30/2016 11:20 AM CDT) Only the most recent of4 resultswithin the time period is included. Iron 21(L) 50 - 175 mcg/dL [facility] Blood specimen (specimen) BLOOD SPECIMEN / Unknown 04/30/2016 11:20 AM CDT 04/30/2016 11:34 AM CDT Mariah Giordano MD LAB - CHEMISTRY REID MILLER Performing Organization Address City/[facility]/ZIP Co de Phone Number [address] [phone] * FOLATE (04/30/2016 11:20 AM CDT) Only the most recent of2 resultswithin the time period is included. Folate 13.6 7.0 - 31.4 ng/mL [facility] Blood specimen (specimen) BLOOD SPECIMEN / Unknown 04/30/2016 11:20 AM CDT 04/30/2016 11:35 AM CDT Mariah Giordano MD LAB - CHEMISTRY REID MILLER Performing Organization Address City/[facility]/ZIP Co de Phone Number [address] [phone] * VITAMIN B12 (04/30/2016 11:20 AM CDT) Only the most recent of2 resultswithin the time period is included. Vitamin B12 459 213 - 816 pg/mL [facility] Blood specimen (specimen) BLOOD SPECIMEN / Unknown 04/30/2016 11:20 AM CDT 04/30/2016 11:35 AM CDT Mariah Giordano MD LAB - CHEMISTRY REID MILLER Performing Organization Address [facility] Co de Phone Number [address] [phone] * FERRITIN (04/30/2016 11:20 AM CDT) Only the most recent of5 resultswithin the time period is included. Ferritin 140 22 - 275 ng/mL [facility] Blood specimen (specimen) BLOOD SPECIMEN / Unknown 04/30/2016 11:20 AM CDT 04/30/2016 11:34 AM CDT Mariah Giordano MD LAB - CHEMISTRY REID MILLER Performing Organization Address [facility] Co de Phone Number [address] [phone] * (ABNORMAL) CALCIUM IONIZED WHOLE BLOOD (04/26/2016 8:16 AM CDT) Only the most recent of29 resultswithin the time period is included. Ionized Calcium Whole Blood 1.20 mmol/L [facility] Adjusted Ionized Calcium 1.17(L) 1.19 - 1.34 mmol/L [facility] pH Whole Blood 7.35 7.35 - 7.45 [facility] Blood specimen (specimen) BLOOD SPECIMEN / Unknown 04/26/2016 8:16 AM CDT 04/26/2016 8:20 AM CDT Narrative [facility] - 04/26/2016 8:22 AM CDT For apheresis procedure Peggy River MD LAB - CHEMISTRY ORDE PAUL [facility] [address] [place] [address] * (ABNORMAL) CBC W/O DIFFERENTIAL (04/26/2016 8:16 AM CDT) Only the most recent of25 resultswithin the time period is included. WBC 3.1(L) 3.5 - 10.5 10 3/uL [facility] RBC 3.07(L) 4.30 - 5.70 10 6/uL [facility] Hemoglobin 7.7(L) 13.5 - 17.5 g/dL [facility] Hematocrit 24.9(L) 39.0 - 50.0 % [facility] MCV 81.1 81.0 - 97.0 fL [facility] MCH 25.1(L) 28.0 - 34.0 pg [facility] MCHC 30.9(L) 32.0 - 36.0 g/dL [facility] Platelet Count 414(H) 150 - 400 10 3/uL [facility] RDW-SD 52.1(H) 36.0 - 50.0 fL [facility] RDW-CV 17.3(H) 11.2 - 14.8 % [facility] MPV 8.9(L) 9.3 - 12.8 fL [facility] Blood specimen (specimen) BLOOD SPECIMEN / Unknown 04/26/2016 8:16 AM CDT 04/26/2016 8:20 AM CDT Peggy River MD LAB - HEMATOLOGY ORD ERABLES [facility] [address] [place] [address] * TYPE + SCREEN PANEL (04/09/2016 7:54 AM CDT) Only the most recent of14 resultswithin the time period is included. Typem B POS [facility] Antibody Screen NEG [facility] Blood specimen (specimen) 04/09/2016 7:54 AM CDT 04/09/2016 8:03 AM CDT Peggy River MD LAB - BLOOD BANK ORD ERABLES Performing Organization Address [facility] Co de Phone Number [facility] [address] [place] [address] * CROSSMATCH RBC LEUKOREDUCED (03/29/2016 9:07 AM CDT) Only the most recent of3 resultswithin the time period is included. Unit RBC-WBCD [id number] transfused [facility]LO[facility] PRODUCTS (BEAKER) Unit ABO B [facility] PRODU[facility] (BEAKER) Unit Rh POS [facility] B[facility] PRODUCTS (BEAKER) Unit Number [id number] [facility] BLO[facility] PRODUCTS (BEAKER) Unit Status Transfused [facility] BLO OD BANK PRODUCTS (BEAKER) 03/29/2016 9:07 AM CDT 03/29/2016 9:26 AM CDT Narrative [facility]LO[facility] PRODUCTS (BEAKER) - 03/29/2016 9:07 AM CDT # of Units->1 Peggy River MD LAB - BLOOD BANK ORD ERABLES Performing Organization Address [facility]/ZIP Co de Phone Number [facility] BLOOD BANK PRODUCTS (BEAKER) * IR PICC OR CENTRAL LINE REPLACE (03/13/2016 10:46 AM CDT) Anatomical Region Laterality Modality Other Narrative 03/14/2016 5:15 PM CDT This is an interventional nephrology procedure performed on March 13, 2016 General Foundry Worker: Andressa Nsasar Procedures performed: 1. Replacement of tunneled Vigil catheter through same venous access 2. Fluoroscopic guidance for central venous catheter procedure This patient was referred for replacement of tunneled dialysis was access catheter which was no longer working satisfactorily. Following informed consent the patient was taken to the angiography suite and placed on the fluoroscopy table. The skin of the left neck and chest was prepared with chlorhexidine and sterile drapes were applied. The stay sutures around existing left internal jugular Vigil catheter were removed and local anesthetic was infiltrated around the exit site. Using blunt dissection the cuff was freed from surrounding tissues and brought to the exterior. A stiff Glidewire was then inserted through the blue port of the catheter and manipulated into the inferior vena cava. The existing catheter was then removed over the guidewire. A new 27 cm Vigil catheter was then advanced over the wire and the wire was then removed. All lumens flushed easily and locked with heparin. Fluoroscopy confirmed the presence of the catheter tip at the junction of SVC and right atrium. The catheter was sutured in place at the exit site with 2-0 nylon and a stat lock was applied. A sterile CHD dressing was then applied. The patient tolerated procedure without difficulty. I was present for the entire procedure. This report was electronically signed by BRIANNE NASSAR MD on 03/14/2016 5:15 PM . Procedure Note James, MD Brianne - 12/06/2017 This is an interventional nephrology procedure performed on March 13, 2016 General Foundry Worker: Andressa Nassar Procedures performed: 1. Replacement of tunneled Vigil catheter through same venous access 2. Fluoroscopic guidance for central venous catheter procedure This patient was referred for replacement of tunneled dialysis was accesscatheter which was no longer working satisfactorily. Following informed consent the patient was taken to the angiography suiteand placed on the fluoroscopy table. The skin of the left neck and chestwas prepared with chlorhexidine and sterile drapes were applied. The staysutures around existing left internal jugular Vigil catheter were removed and local anesthetic wasinfiltrated around the exit site. Using blunt dissection the cuff wasfreed from surrounding tissues and brought to the exterior. A stiffGlidewire was then inserted through the blue port of the catheter and manipulated into the inferior vena cava. Theexisting catheter was then removed over the guidewire. A new 27 cm Hickmancatheter was then advanced over the wire and the wire was then removed.All lumens flushed easily and locked with heparin. Fluoroscopy confirmed the presence of the catheter tip atthe junction of SVC and right atrium. The catheter was sutured in place atthe exit site with 2-0 nylon and a stat lock was applied. A sterile CHDdressing was then applied. The patient tolerated procedure without difficulty. I was present for the entire procedure. This report was electronically signed by BRIANNE NASSAR MD on 03/14/20165:15 PM . Regino Joseph MD IR ORDERABLES * XR CHEST 1VW PORTABLE (03/10/2016 12:57 PM CDT) Only the most recent of2 resultswithin the time period is included. Anatomical Region Laterality Modality Chest Other Impressions 03/12/2016 3:47 PM CDT Impression: No acute pulmonary process. This report has been dictated by Hira Rojas M.D. (Resident). I, Dr. JUVE WEN MD have personally reviewed and interpreted this examination/study. This report was electronically signed by JUVE WEN MD on 03/12/2016 3:47 PM . Narrative 03/12/2016 3:47 PM CDT Exam: PX CHEST 1 VW. Date: 03/10/2016 12:57 PM. History: Line position. Comparison: Comparison is made with a study from 01/06/2016. Findings: A left internal jugular approach central venous catheter tip superimposes the superior vena cava. Mild left basilar atelectasis is present. There is no focal consolidation, pleural effusion or pneumothorax. The cardiomediastinal silhouette is normal. The visible bony thorax is intact. Procedure Note Juve Wen MD - 12/06/2017 Exam: PX CHEST 1 VW. Date: 03/10/2016 12:57 PM. History: Line position. Comparison: Comparison is made with a study from 01/06/2016. Findings: A left internal jugular approach central venous catheter tip superimposesthe superior vena cava. Mild left basilar atelectasis is present. There isno focal consolidation, pleural effusion or pneumothorax. Thecardiomediastinal silhouette is normal. The visible bony thorax is intact. IMPRESSION Impression: No acute pulmonary process. This report has been dictated by Hira Rojas M.D. (Resident). I, Dr. JUVE WEN MD have personally reviewed and interpreted thisexamination/study. This report was electronically signed by JUVE WEN MD on 03/12/20163:47 PM . Chavo Obregon MD DIAGNOSTIC IMAGING O RDERAJENNIFER * GLUCOSE ACCUCHECK (03/08/2016 6:44 PM CDT) Only the most recent of36 resultswithin the time period is included. Glucose, Fingerstick 93 70-115mg/d L mg/dL [facility]) Comment:General Foundry Worker: CHAPITO NICE 03/08/2016 6:44 PM CDT Chavo Obregon MD LAB - CHEMISTRY REID MILLER Performing Organization Address City/[facility]/ZIP Co de Phone Number [facility]) * CULTURE AEROBIC (03/08/2016 5:38 PM CDT) Only the most recent of31 resultswithin the time period is included. Culture Aerobic No Growth at 5 days [facility] Gram Stain [facility] Comment:Bottles only. Abdominal Fluid PERITONEAL FLUID / Unknown 03/08/2016 5:38 PM CDT 03/08/2016 5:38 PM CDT Narrative [facility] - 03/14/2016 10:59 AM CDT Specimen Type->Abdominal fluid Gram Stains are routinely screened for the presence of Polymorphonuclear Cells. Chavo Obregon MD LAB - MICROBIOLOGY O NIKI Performing Organization Address City/[facility]/ZIP Co de Phone Number [address] [phone] * CELL COUNT W DIFFERENTIAL FLUID (03/08/2016 5:37 PM CDT) Only the most recent of30 resultswithin the time period is included. Fluid specimen (specimen) ([facility]) 03/08/2016 5:37 PM CDT Narrative [facility] - 03/08/2016 5:58 PM CDT The following orders were created for panel order Body fluid cell count with diff. Procedure Abnormality Status --------- ------ Body fluid cell count wit...[[id number]] Abnormal Final result MANUAL DIFFERENTIAL FLUID[[id number]] Final result Please view results for these tests on the individual orders. Chavo Obregon MD LAB - BODY FLUID ORD ERABLES Performing Organization Address City/[facility]/ZIP Co de Phone Number [facility] [address] * DIFFERENTIAL MANUAL FLUID (03/08/2016 5:37 PM CDT) Only the most recent of30 resultswithin the time period is included. Pathologist [facility] Segs % Fluid 2 % [facility] Lymphocytes % Fluid 72 % [facility] Monocytes % Fluid 18 % [facility] Macrophages % Fluid 7 % [facility] Mesothelials % Fluid 1 % [facility] Fluid specimen (specimen) ([facility]) 03/08/2016 5:37 PM CDT 03/08/2016 5:52 PM CDT Narrative [facility] - 03/08/2016 5:58 PM CDT No reference ranges established for body fluid differential. Chavo Obregon MD LAB - BODY FLUID ORD ERABLES Performing Organization Address [facility]/ZIP Co de Phone Number [facility] [address] [phone] * (ABNORMAL) CELL COUNT FLUID (03/08/2016 5:37 PM CDT) Only the most recent of30 resultswithin the time period is included. Color Fluid Yellow(A) Colorless, Straw [facility] Clarity Fluid Hazy(A) Clear [facility] Volume Fluid 6.0 mL [facility] WBC Fluid 289 Reference Range Not Established /uL [facility] RBC Fluid 1,000 Reference Range Not Established /uL [facility] Differential Manual Differential to follow. [facility] Fluid specimen (specimen) ([facility]) 03/08/2016 5:37 PM CDT 03/08/2016 5:37 PM CDT Narrative [facility] - 03/08/2016 5:52 PM CDT No established reference ranges for WBC and RBC body fluid count. Chavo Obregon MD LAB - BODY FLUID ORD ERABLES Performing Organization Address [facility] Co de Phone Number [address] [phone] * CULTURE ANAEROBE (03/08/2016 5:28 PM CDT) Only the most recent of27 resultswithin the time period is included. Culture Anaerobic No Growth at 5 days [facility] Abdominal Fluid 03/08/2016 5 :28 PM CDT 03/10/2016 4:00 PM CDT [facility] - 03/14/2016 11:00 AM CDT Specimen Type->Abdominal fluid Chavo Obregon MD LAB - MICROBIOLOGY O RDERABLES Performing Organization Address [facility] de Phone Number [address] [phone] * IR CENTRAL LINE INSERT TUNNEL (03/08/2016 10:00 AM CDT) Anatomical Region Laterality Modality Other Narrative 03/08/2016 11:25 AM CDT This is an Interventional Nephrology procedure performed on March 08, 2016 General Foundry Worker: Regino Joseph Attending: Regino Joseph Procedures performed: 1. Insertion of tunneled Vigil triple-lumen central venous catheter 2. Fluoroscopic guidance for central venous catheter procedure. 3. Ultrasound guidance for vascular access with permanent recording. Following informed consent the patient was taken to the angiography suite and placed on the fluoroscopy table. The skin of the left neck and chest was prepared with chlorhexidine and sterile drapes were applied. Under real time ultrasound guidance, the left internal jugular vein was accessed with a micropuncture needle, a barillas scale image was recorded and a microfilament wire was advanced to the central veins under fluoroscopic guidance. This allowed the placement of a 5 Stateless trocar which in turn allowed the placement of a 0.035 guidewire which was manipulated into the IVC. An exit site was chosen on the chest wall and anesthetized with lidocaine. Using a metal tunneling device, a 23 cm Vigil triple-lumen central venous catheter was brought through a subcutaneous tunnel to the venotomy incision and prepared for insertion. Serial dilators were utilized to create a track to the jugular vein sufficient to accommodate a peel-away sheath which was inserted over the guidewire and the inner stylet was removed. The catheter was inserted through the sheath which was then removed. The catheter was adjusted for length under fluoroscopy such that the tip was at the junction of the SVC and RA. All lumens flushed easily and were locked with heparin. The catheter was sutured in place with 3-0 nylon and a CHG dressing and StatLock were placed. The venotomy incision was closed with a 3-0 nylon suture. I was present for the entire procedure. This report was electronically signed by REGINO JOSEPH M.D. on 03/08/2016 11:25 AM . Procedure Note Regino Joseph MD - 12/06/2017 This is an Interventional Nephrology procedure performed on March 08, 2016 General Foundry Worker: Regino Joseph Attending: Regino Joseph Procedures performed: 1. Insertion of tunneled Vigil triple-lumen central venous catheter 2. Fluoroscopic guidance for central venous catheter procedure. 3. Ultrasound guidance for vascular access with permanent recording. Following informed consent the patient was taken to the angiography suiteand placed on the fluoroscopy table. The skin of the left neck and chestwas prepared with chlorhexidine and sterile drapes were applied. Underreal time ultrasound guidance, the left internal jugular vein was accessed with a micropuncture needle, agrey scale image was recorded and a microfilament wire was advanced to thecentral veins under fluoroscopic guidance. This allowed the placement ofa 5 Stateless trocar which in turn allowed the placement of a 0.035 guidewire which was manipulated into theIVC. An exit site was chosen on the chest wall and anesthetized withlidocaine. Using a metal tunneling device, a 23 cm Vigil triple-lumencentral venous catheter was brought through a subcutaneous tunnel to the venotomy incision and prepared forinsertion. Serial dilators were utilized to create a track to the jugularvein sufficient to accommodate a peel-away sheath which was inserted overthe guidewire and the inner stylet was removed. The catheter was inserted through the sheath whichwas then removed. The catheter was adjusted for length under fluoroscopysuch that the tip was at the junction of the SVC and RA. All lumensflushed easily and were locked with heparin. The catheter was sutured in place with 3-0 nylon and a CHGdressing and StatLock were placed. The venotomy incision was closed witha 3-0 nylon suture. I was present for the entire procedure. This report was electronically signed by REGINO JOSEPH M.D. on 03/08/201611:25 AM . Chavo Obregon MD IR ORDERABLES * IR US GUIDE VASCULAR ACCESS (03/08/2016 10:00 AM CDT) Only the most recent of2 resultswithin the time period is included. Anatomical Region Laterality Modality Other Narrative 03/08/2016 11:25 AM CDT This is an Interventional Nephrology procedure performed on March 08, 2016 General Foundry Worker: Regino Joseph Attending: Regino Joseph Procedures performed: 1. Insertion of tunneled Vigil triple-lumen central venous catheter 2. Fluoroscopic guidance for central venous catheter procedure. 3. Ultrasound guidance for vascular access with permanent recording. Following informed consent the patient was taken to the angiography suite and placed on the fluoroscopy table. The skin of the left neck and chest was prepared with chlorhexidine and sterile drapes were applied. Under real time ultrasound guidance, the left internal jugular vein was accessed with a micropuncture needle, a barillas scale image was recorded and a microfilament wire was advanced to the central veins under fluoroscopic guidance. This allowed the placement of a 5 Stateless trocar which in turn allowed the placement of a 0.035 guidewire which was manipulated into the IVC. An exit site was chosen on the chest wall and anesthetized with lidocaine. Using a metal tunneling device, a 23 cm Vigil triple-lumen central venous catheter was brought through a subcutaneous tunnel to the venotomy incision and prepared for insertion. Serial dilators were utilized to create a track to the jugular vein sufficient to accommodate a peel-away sheath which was inserted over the guidewire and the inner stylet was removed. The catheter was inserted through the sheath which was then removed. The catheter was adjusted for length under fluoroscopy such that the tip was at the junction of the SVC and RA. All lumens flushed easily and were locked with heparin. The catheter was sutured in place with 3-0 nylon and a CHG dressing and StatLock were placed. The venotomy incision was closed with a 3-0 nylon suture. I was present for the entire procedure. This report was electronically signed by REGINO JOSEPH M.D. on 03/08/2016 11:25 AM . Procedure Note Regino Joseph MD - 12/06/2017 This is an Interventional Nephrology procedure performed on March 08, 2016 General Foundry Worker: Regino Joseph Attending: Regino Joseph Procedures performed: 1. Insertion of tunneled Vigil triple-lumen central venous catheter 2. Fluoroscopic guidance for central venous catheter procedure. 3. Ultrasound guidance for vascular access with permanent recording. Following informed consent the patient was taken to the angiography suiteand placed on the fluoroscopy table. The skin of the left neck and chestwas prepared with chlorhexidine and sterile drapes were applied. Underreal time ultrasound guidance, the left internal jugular vein was accessed with a micropuncture needle, agrey scale image was recorded and a microfilament wire was advanced to thecentral veins under fluoroscopic guidance. This allowed the placement ofa 5 Stateless trocar which in turn allowed the placement of a 0.035 guidewire which was manipulated into theIVC. An exit site was chosen on the chest wall and anesthetized withlidocaine. Using a metal tunneling device, a 23 cm Vigil triple-lumencentral venous catheter was brought through a subcutaneous tunnel to the venotomy incision and prepared forinsertion. Serial dilators were utilized to create a track to the jugularvein sufficient to accommodate a peel-away sheath which was inserted overthe guidewire and the inner stylet was removed. The catheter was inserted through the sheath whichwas then removed. The catheter was adjusted for length under fluoroscopysuch that the tip was at the junction of the SVC and RA. All lumensflushed easily and were locked with heparin. The catheter was sutured in place with 3-0 nylon and a CHGdressing and StatLock were placed. The venotomy incision was closed witha 3-0 nylon suture. I was present for the entire procedure. This report was electronically signed by REGINO JOSEPH M.D. on 03/08/201611:25 AM . Chavo Obregon MD IR ORDERABLES * CT GUIDED NEEDLE PLACEMENT (03/04/2016 9:32 AM CDT) Only the most recent of8 resultswithin the time period is included. Anatomical Region Laterality Modality Abdomen Other Narrative 03/08/2016 4:07 PM CDT General Foundry Worker: Christiano Attending: Peggy River MD Indication for procedure: Proteinuria After the risks and benefits of the procedure were explained to the patient by Dr. Alvarado and patient was informed of potential risk of gross hematuria, perinephric hematoma, abscess, loss of kidney function, need for blood transfusion. The patient signed the consent form. The patient was taken to the CT room where a preliminary CT scan identified the position of the kidney. The distance from the skin to the surface of the kidney was measured. The patient received one percent lidocaine to numb the skin and subcutaneous tissue. A trocar needle was passed from the skin to the surface of the lower pole of TXP kidney in RLQ. Repeat CT scan indicated the proper positioning of the trocar needle. An 18-gauge automated spring loaded biopsy needle was used. 4 passes yielded 3 cores of the kidney. The patient tolerated the procedure very well. A CT scan postprocedure showed no significant perinephric hematoma. The patient was instructed to remain on absolute bed rest with the sandbag over the transplant kidney for 6 hours. A CBC will obtained in 6 hours and tomorrow morning. The patient will remain in bed till next day morning. D-Stat was used to Minimize bleeding Peggy BEST I supervised the entire procedure. This report was electronically signed by PEGGY RIVER on 03/08/2016 4:07 PM . Procedure Note Peggy River MD - 12/06/2017 General Foundry Worker: Christiano Attending: Peggy River MD Indication for procedure: Proteinuria After the risks and benefits of the procedure were explained to thepatient by Dr. Alvarado and patient was informed of potential risk of grosshematuria, perinephric hematoma, abscess, loss of kidney function, needfor blood transfusion. The patient signed the consent form. The patient was taken to the CT room where a preliminary CT scanidentified the position of the kidney. The distance from the skin to thesurface of the kidney was measured. The patient received one percentlidocaine to numb the skin and subcutaneous tissue. A trocar needle was passed from the skin to the surface of thelower pole of TXP kidney in RLQ. Repeat CT scan indicated the properpositioning of the trocar needle. An 18-gauge automated spring loadedbiopsy needle was used. 4 passes yielded 3 cores of the kidney. The patient tolerated the procedure very well. A CTscan postprocedure showed no significant perinephric hematoma. The patientwas instructed to remain on absolute bed rest with the sandbag over thetransplant kidney for 6 hours. A CBC will obtained in 6 hours and tomorrow morning. The patient will remainin bed till next day morning. D-Stat was used to Minimize bleeding Peggy BEST I supervised the entire procedure. This report was electronically signed by PEGGY RIVER on 03/08/2016 4:07PM . Zaida Oliva MD CT ORDERABLES * HEPATITIS B QUANT PCR (02/19/2016) Hepatitis B Virus DNA IU/mL <20 Not Detected [facility] Blood specimen (specimen) BLOOD SPECIMEN / Unknown 02/19/2016 Narrative [facility] - 02/19/2016 This order was created through External Result Entry Historical Provider LAB - CHEMISTRY O RDERABLES [facility] * (ABNORMAL) PROTEIN CREATININE RATIO URINE TIMED PNL (02/07/2016 8:55 AM CDT) Creatinine 24 Hour Urine 1.24 0.63 - 2.50 g/24 h [facility]) Protein 24 Hour Urine 13,500(H) < OR = 84 mg/g creat [facility]) Protein 24 Hour Urine 16,740(H) <150 mg/24 h [facility] ([facility]) Comment: TOTAL URINE VOLUME: REPORT COMMENT: SPLIT 02/07/2016 FROM [id number] Test Performed at: [facility] [id number] [place] [address] CASEY SANCHEZ DO,MPH Urine specimen (specimen) 02/07/2016 8:55 AM CDT 02/07/2016 10:49 PM CDT Leticia Vaughn MD LAB - URINE CHEMISTR Y ORDERABLES Performing Organization Address [facility]/ZIP Co de Phone Number [facility]) * (ABNORMAL) CREATININE CLEARANCE URINE TIMED + BLOOD (02/07/2016 8:55 AM CDT) Creatinine 24 Hour Urine 1.24 0.63 - 2.50 g/24 h [facility]) Body Surface Area 1.90 [facility] ([facility]) Creatinine Clearance 82(L) 85 - 125 mL/min [facility] ([facility]) Patient Height 5 ft [facility] ([facility]) Patient Height (Inches) 9 in [facility]) WEIGHT POUNDS ([facility]) 165 [facility] ([facility]) Comment: Test Performed at: [facility] [id number] [address] [facility] [place] [place] [address] CASEY SANCHEZ DO,MPH Urine specimen (specimen) URINE SPECIMEN OBTAINED BY CLEAN CATCH PROCEDURE / Unknown 02/07/2016 8:55 AM CDT 02/07/2016 10:49 PM CDT Narrative [facility]) - 02/08/2016 2:00 PM CDT Height (inches)->69 Weight (lbs)->168 Leticia Vaughn MD LAB - URINE CHEMISTR Y ORDERABLES Performing Organization Address [facility]/ZIP Co de Phone Number [facility]) * PROTHROMBIN [id number] PANEL (02/01/2016 7:20 PM CDT) PT PCR Specimen Whole Blood [facility] ([facility] [employer] [facility] [employer]) Prothrombin (F2) [id number] Mutation Negative [facility] ([facility] [employer]) Comment: Indication for testing: Assess genetic risk for thrombosis. NEGATIVE: The Factor II, prothrombin [id number] mutation, was not detected. Other causes of elevated prothrombin levels and hereditary forms of venous thrombosis have not been excluded. Recommendations: If clinically indicated, testing for other inherited or acquired thrombophilic disorders is recommended including DNA testing for the factor V Leiden mutation, measurement of total plasma homocysteine concentration, serological assays for anticardiolipin antibodies, multiple phospholipid-dependent coagulation assays for lupus inhibitor, protein C activity, protein S activity or free protein S antigen, and antithrombin activity. This result has been reviewed and approved by Lupe Gtz M.D. BACKGROUND INFORMATION: Prothrombin (F2) [id number] Mutation CHARACTERISTICS: The Factor II, [id number] mutation is a common genetic risk factor for venous thrombosis associated with elevated prothrombin levels leading to increased rates of thrombin generation and excessive growth of fibrin clots. The expression of Factor II thrombophilia is impacted by coexisting genetic thrombophilic disorders, acquired thrombophilic disorders (eg malignancy, hyperhomocysteinemia, high Factor VIII levels), and circumstances including: , oral contraceptive use, hormone replacement therapy, selective estrogen receptor modulators, travel, central venous catheters, surgery, and organ transplantation. INCIDENCE: Approximately 2-5 percent of Caucasians and 0.3 percent of Americans are heterozygous; homozygosity occurs in 1 in 10,000 individuals. INHERITANCE: Incomplete autosomal dominant. PENETRANCE: The risk of thrombosis is increased 2-4 fold for heterozygotes and further increased for homozygotes. 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 MUTATION TESTED: F2 c.06462O>A ([id number]). CLINICAL SENSITIVITY FOR VENOUS THROMBOSIS: Approximately 10 percent. METHODOLOGY: Polymerase chain reaction and fluorescence monitoring. ANALYTICAL SENSITIVITY AND SPECIFICITY: 99 percent. LIMITATIONS: Diagnostic errors can occur due to rare sequence variations. F2 gene mutations, other than [id number], will not be detected. Test developed and characteristics determined by [employer]. See Compliance Statement C: [employer] Blood specimen (specimen) BLOOD SPECIMEN / Unknown 02/01/2016 7:20 PM CDT 02/01/2016 7:42 PM CDT Leticia Vaughn MD LAB - COAGULATION OR DERABLES [facility] LAB ([facility]) * FACTOR V LEIDEN MUTATION PANEL (02/01/2016 7:20 PM CDT) Specimen Type Whole Blood [facility] ([facility]) Factor V Leiden R506Q Mutation Negative [facility] ([facility]) Comment: Indication for testing: Assess genetic risk for thrombosis. NEGATIVE: The factor V Leiden mutation, R506Q, was not detected. This result has been reviewed and approved by Lupe Gtz M.D. BACKGROUND INFORMATION: Factor V Leiden (F5) R506Q Mutation CHARACTERISTICS: Factor V Leiden mutation is the most common cause of inherited thrombophilia and accounts for over 90 percent of activated protein C resistance. The expression of Factor V Leiden thrombophilia is impacted by coexisting genetic thrombophilic disorders, acquired thrombophilic disorders (malignancy, hyperhomocysteinemia, high factor VIII levels), and circumstances including: , oral contraceptive use, hormone replacement therapy, selective estrogen receptor modulators, travel, central venous catheters, surgery, transplantation and advanced age. INCIDENCE: Approximately 5 percent of Caucasians, 2 percent of Hispanics, 1 percent of Americans and [place] Americans and 0.5 percent of Asians are heterozygous; homozygosity occurs in 1 in 5000 individuals. INHERITANCE: Incomplete autosomal dominant. PENETRANCE: Lifetime risk of thrombosis is 10 percent for heterozygotes and 80 percent of homozygotes. CAUSE: A deleterious F5 gene mutations R506Q (1691G>A) Note: Standardized nomenclature for the Factor V Leiden mutation is c.1601G>A ([id number]). CLINICAL SENSITIVITY AND SPECIFICITY: 99 percent. METHODOLOGY: Polymerase chain reaction and fluorescence monitoring. ANALYTICAL SENSITIVITY AND SPECIFICITY: 99 percent. LIMITATIONS: Diagnostic errors can occur due to rare sequence variations. F5 gene mutations, other than R506Q, will not be detected. Test developed and characteristics determined by [employer]. See Compliance Statement C: [employer] Blood specimen (specimen) BLOOD SPECIMEN / Unknown 02/01/2016 7:20 PM CDT 02/01/2016 7:42 PM CDT Leticia Vaughn MD LAB - COAGULATION OR DERABLES [facility] ([facility]) * CT PARACENTESIS (02/01/2016 4:18 PM CDT) Anatomical Region Laterality Modality Other Impressions 02/02/2016 12:12 PM CDT Impression: Ultrasound-guided paracentesis of approximately 4000 mL of clear straw colored fluid, as described above. I, Dr. Verduzco, was present and performed/supervised the entire procedure This report was approved by Wan Fisher D.O. on 02/02/2016 3:29 AM . IDr. PRAKASH M.D. have personally reviewed and interpreted this examination/study. This report was electronically signed by PRAKASH VERDUZCO M.D. on 02/02/2016 12:12 PM . Narrative 02/02/2016 12:12 PM CDT History: 51-year-old male with recurrent ascites. Operators: 1. Dr. Verduzco, Attending Physician 2. Dr. Fisher, Resident Physician Anesthesia: Local anesthesia - 5 ml of 1 % lidocaine. Procedure: Ultrasound guided paracentesis. Procedure in Detail: The procedure and possible complications were explained to the patient in detail, and informed consent was obtained. The patient was placed in a supine position on the CT table. Limited ultrasound examination of the abdomen demonstrated presence of free fluid in the peritoneum (ascites). An image was recorded and a percutaneous entry point was marked in the right lower quadrant of abdomen. The marked site and skin around the region was prepped and draped in a sterile fashion. Local anesthesia was provided by the injection with 1% Lidocaine. Using ultrasound guidance, a 5 Stateless coaxial needle was advanced into the pleural cavity. The needle entry was documented. Upon fluid return, the outer sheath was advanced over the needle in to the peritoneal cavity. The needle was removed and the sheath was then connected to four consecutive Vacutainer bottles and?approximately 4000 ml of clear straw colored fluid was drained. Appropriate amount of fluid was sent for necessary laboratory evaluation. The sheath was removed and sterile dressing was applied. The patient was transferred to the holding area in stable condition. There were no complications and the patient tolerated the procedure well.? Procedure Note Prakash Verduzco MD - 12/06/2017 History: 51-year-old male with recurrent ascites. Operators: 1. Dr. Verduzco, Attending Physician 2. Dr. Fisher, Resident Physician Anesthesia: Local anesthesia - 5 ml of 1 % lidocaine. Procedure: Ultrasound guided paracentesis. Procedure in Detail: The procedure and possible complications wereexplained to the patient in detail, and informed consent was obtained. Thepatient was placed in a supine position on the CT table. Limitedultrasound examination of the abdomen demonstrated presence of free fluid in the peritoneum (ascites). An imagewas recorded and a percutaneous entry point was marked in the right lowerquadrant of abdomen. The marked site and skin around the region was prepped and draped in asterile fashion. Local anesthesia was provided by the injection with 1%Lidocaine. Using ultrasound guidance, a 5 Stateless coaxial needle wasadvanced into the pleural cavity. The needle entry was documented. Upon fluid return, the outer sheath wasadvanced over the needle in to the peritoneal cavity. The needle wasremoved and the sheath was then connected to four consecutive Vacutainerbottles and?approximately 4000 ml of clear straw colored fluid was drained. Appropriate amount of fluid was sent fornecessary laboratory evaluation. The sheath was removed and sterile dressing was applied. The patient wastransferred to the holding area in stable condition. There were nocomplications and the patient tolerated the procedure well.? IMPRESSION Impression: Ultrasound-guided paracentesis of approximately 4000 mL ofclear straw colored fluid, as described above. IDr. Verduzco, was present and performed/supervised the entireprocedure This report was approved by Wan Fisher D.O. on 02/02/2016 3:29 AM. IDr. PRAKASH M.D. have personally reviewed and interpreted thisexamination/study. This report was electronically signed by PRAKASH VERDUZCO M.D. on 02/02/201612:12 PM . Leticia Vaughn MD CT ORDERABLES * (ABNORMAL) UREA NITROGEN URINE TIMED (02/01/2016 10:50 AM CDT) Only the most recent of2 resultswithin the time period is included. Urea Nitrogen Random Urine 85 Not Established mg/dL [facility] Collection Time Timed Urine 24 Hrs [facility] Urea Nitrogen 24 Hour Urine 4.6(L) 6.0 - 20.0 g/24 hrs [facility] Volume Timed Urine 5,425 mL [facility] Urine specimen (specimen) URINE SPECIMEN OBTAINED BY CLEAN CATCH PROCEDURE / Unknown 02/01/2016 10:50 AM CDT 02/01/2016 12:37 PM CDT Narrative [facility] - 02/01/2016 1:05 PM CDT 24 hour specimen Leticia Vaughn MD LAB - URINE CHEMISTR Y ORDERABLES Performing Organization Address [facility]/ZIP Co de Phone Number [address] [phone] * (ABNORMAL) PROTEIN URINE TIMED QUANTITATIVE (02/01/2016 10:50 AM CDT) Only the most recent of3 resultswithin the time period is included. Protein Urine 554 Not Established mg/dL [facility] Comment:Result obtained by jacobo [email or web address]. Collection Time Timed Urine 24 Hrs [facility] Protein 24 Hour Urine 30,055(H) 77 - 197 mg/24 hrs [facility] Comment:Result obtained by d ilution. Volume Timed Urine 5,425 mL [facility] Urine specimen (specimen) URINE SPECIMEN OBTAINED BY CLEAN CATCH PROCEDURE / Unknown 02/01/2016 10:50 AM CDT 02/01/2016 12:37 PM CDT Narrative [facility] - 02/01/2016 1:11 PM CDT 24 hour specimen Leticia Vaughn MD LAB - URINE CHEMISTR Y ORDERABLES Performing Organization Address [facility] Co de Phone Number [address] [phone] * PROTEIN FLUID (02/01/2016 10:50 AM CDT) Only the most recent of3 resultswithin the time period is included. Protein Fluid 2.0 Not Established For Fluids g/dL [facility] Comment:The reference range and other method performance specifications have not been established for this fluid. The test result must be integrated into the clinical context for interpretation. Fluid specimen (specimen) PERITONEAL FLUID / Unknown 02/01/2016 10:50 AM CDT 02/01/2016 4:01 PM CDT [facility] - 02/01/2016 4:39 PM CDT Send sample from paracentesis Leticia Vaughn MD LAB - BODY FLUID ORD ERABLES Performing Organization Address City/[facility]/ZIP Co de Phone Number [address] [phone] * ALBUMIN FLUID (02/01/2016 10:50 AM CDT) Only the most recent of3 resultswithin the time period is included. Albumin Fluid 1.2 Not Established For Fluids g/dL [facility] Comment:The reference range and other method performance specifications have not been established for this fluid. The test result must be integrated into the clinical context for interpretation. Fluid specimen (specimen) PERITONEAL FLUID / Unknown 02/01/2016 10:50 AM CDT 02/01/2016 4:01 PM CDT [facility] - 02/01/2016 4:39 PM CDT Please, send sample from paracentesis Leticia Vaughn MD LAB - BODY FLUID ORD ERABLES Performing Organization Address [facility]/ZIP Co de Phone Number [address] [phone] * CREATININE URINE TIMED (02/01/2016 10:50 AM CDT) Only the most recent of2 resultswithin the time period is included. Creatinine Urine 26 Not Established mg/dL [facility] Collection Time Timed Urine 24 Hrs [facility] Creatinine 24 Hour Urine 1.4 0.8 - 2.0 g/24 hrs [facility] Volume Timed Urine 5,425 mL [facility] Urine specimen (specimen) URINE SPECIMEN OBTAINED BY CLEAN CATCH PROCEDURE / Unknown 02/01/2016 10:50 AM CDT 02/01/2016 12:37 PM CDT [facility] - 02/01/2016 1:04 PM CDT 24 hr sample Leticia Vaughn MD LAB - URINE CHEMISTR Y ORDERABLES Performing Organization Address City/[facility]/ZIP Co de Phone Number [address] [phone] * (ABNORMAL) PREALBUMIN (01/31/2016 8:20 PM CDT) Only the most recent of2 resultswithin the time period is included. Prealbumin 11(L) 16 - 45 mg/dL [facility] Blood specimen (specimen) BLOOD SPECIMEN / Unknown 01/31/2016 8:20 PM CDT 01/31/2016 8:39 PM CDT Leticia Vaughn MD LAB - CHEMISTRY ORDE RABLES Performing Organization Address City/[facility]/ZIP Co de Phone Number [address] [phone] * FACTOR X ASSAY (01/31/2016 1:56 PM CDT) Factor X Activity 86 75 - 180 U/dL [facility] Blood specimen (specimen) BLOOD SPECIMEN / Unknown 01/31/2016 1:56 PM CDT 01/31/2016 1:56 PM CDT Leticia Vaughn MD LAB - COAGULATION OR DERABLES Performing Organization Address City/[facility] [place] [address], [facility] [phone] * VAS BILATERAL VENOUS DUPLEX LE (01/31/2016 10:02 AM CDT) Only the most recent of3 resultswithin the time period is included. Anatomical Region Laterality Modality Other Leticia Vaughn MD VASCULAR LAB ORDERAB LES * US RENAL TRANSPLANT (01/30/2016 7:33 PM CDT) Only the most recent of2 resultswithin the time period is included. Anatomical Region Laterality Modality Abdomen Other Impressions 01/31/2016 11:26 AM CDT IMPRESSION: 1. No evidence of nephrolithiasis or hydronephrosis. 2. Patent renal transplant vasculature. A preliminary was provided to Dr. Romero by Dr. Reed at 7:28 PM on 01/30/2016. Report dictated by Stephanie Gordon M.D. This report was approved by Stephanie Gordon M.D. on 01/31/2016 11:26 AM . I, Dr. ZAK LANDEROS M.D. have personally reviewed and interpreted this examination/study. This report was electronically signed by ZAK LANDEROS M.D. on 01/31/2016 11:26 AM . Narrative 01/31/2016 11:26 AM CDT EXAM: Transplant kidney ultrasound HISTORY: 51-year-old male status post renal transplant on 01/06/2016, presenting with elevated creatinine. FINDINGS: Comparison is made to prior study dated 01/07/2016. Size: 12.0 x 5.8 x 5.0 cm (previously 11.8 x 5.7 x 5.6 cm) Volume: 183 mL (previously 199 mL) Superior pole resistive index: 0.67 (previously 0.71) Mid kidney resistive index: 0.66 (previously 0.62) Inferior pole resistive index: 0.64 (previously 0.61) Main renal artery resistive index: 0.64 (previously 0.61) Renal artery anastomosis resistive index: 0.71 (previously 0.70) Peak systolic velocity of the main renal artery: 116 cm/s (previously 59 cm/s) Peak systolic velocity of the renal artery anastomosis: 120 cm/s (previously 118 cm/s) Peak systolic velocity of the right iliac artery adjacent to the anastomosis: 166 cm/s (previously 202 cm/s) Perfusion is within normal limits. The renal vein is patent. Renal echotexture is normal. There is no evidence of a solid renal mass, renal calculi, or hydronephrosis. There is increased volume ascites. Procedure Note Provider, MD Ruperto - 12/06/2017 EXAM: Transplant kidney ultrasound HISTORY: 51-year-old male status post renal transplant on 01/06/2016,presenting with elevated creatinine. FINDINGS: Comparison is made to prior study dated 01/07/2016. Size: 12.0 x 5.8 x 5.0 cm (previously 11.8 x 5.7 x 5.6 cm) Volume: 183 mL (previously 199 mL) Superior pole resistive index: 0.67 (previously 0.71) Mid kidney resistive index: 0.66 (previously 0.62) Inferior pole resistive index: 0.64 (previously 0.61) Main renal artery resistive index: 0.64 (previously 0.61) Renal artery anastomosis resistive index: 0.71 (previously 0.70) Peak systolic velocity of the main renal artery: 116 cm/s (previously 59cm/s) Peak systolic velocity of the renal artery anastomosis: 120 cm/s(previously 118 cm/s) Peak systolic velocity of the right iliac artery adjacent to theanastomosis: 166 cm/s (previously 202 cm/s) Perfusion is within normal limits. The renal vein is patent. Renal echotexture is normal. There is no evidence of a solid renal mass,renal calculi, or hydronephrosis. There is increased volume ascites. IMPRESSION IMPRESSION: 1. No evidence of nephrolithiasis or hydronephrosis. 2. Patent renal transplant vasculature. A preliminary was provided to Dr. Romero by Dr. Reed at 7:28 PM on01/30/2016. Report dictated by Stephanie Gordon M.D. This report was approved by Stephanie Gordon M.D. on 01/31/2016 11:26 AM. I, Dr. ZAK LANDEROS M.D. have personally reviewed and interpreted thisexamination/study. This report was electronically signed by ZAK LANDEROS M.D. on 01/31/201611:26 AM . Leticia Vaughn MD US ORDERABLES * US ABDOMEN DOPPLER ONLY LTD (01/30/2016 7:33 PM CDT) Only the most recent of3 resultswithin the time period is included. Anatomical Region Laterality Modality Abdomen Other Impressions 01/31/2016 11:21 AM CDT IMPRESSION: 1. Normal sonographic appearance of the transplant liver. 2. Patent hepatic vasculature. 3. Increased ascites, now moderate in volume. A preliminary report was provided to Dr. Lopez by Dr. Reed at 7:27 PM on 01/30/2016. Dictated by Stephanie Gordon M.D. This report was approved by Stephanie Gordon M.D. on 01/31/2016 11:21 AM . I, Dr. ZAK LANDEROS M.D. have personally reviewed and interpreted this examination/study. This report was electronically signed by ZAK LANDEROS M.D. on 01/31/2016 11:21 AM . Narrative 01/31/2016 11:21 AM CDT EXAM: 1. Limited abdominal ultrasound for liver transplant 2. Doppler evaluation of the hepatic vasculature HISTORY: 51-year-old male status post liver transplant on 01/06/2016. FINDINGS: Comparison is made to prior study dated 01/07/2016. Abdominal ultrasound: The patient is status post liver transplant. The orthotopic liver demonstrates normal echotexture and surface contour. No discrete hepatic mass or intrahepatic biliary dilation is seen. The gallbladder is absent. The common bile duct is nondilated, measuring 4 mm. The spleen measures 11.1 in length. There is increased ascites, now moderate in volume. Liver Doppler: Color and spectral Doppler evaluation demonstrates patency of the hepatic veins with appropriate flow direction and multiphasic waveforms. The portal veins appear patent with normal hepatopetal flow and phasic waveforms. The proper, left, and right hepatic arteries are patent and demonstrate normal arterial waveforms with brisk systolic upstroke and antegrade flow. Main portal vein velocity: 51 cm/s (previously 57 cm/s). Right portal vein velocity: 33 cm/s (previously 70 cm/s). Left portal vein velocity: 22 cm/s (previously 35 cm/s). Proper hepatic artery resistive index: 0.73 (previously 0.81). Right hepatic artery resistive index: 0.60 (previously 0.74). Left hepatic artery resistive index: 0.76 (previously 0.76). Procedure Note Provider, MD Ruperto - 12/06/2017 EXAM: 1. Limited abdominal ultrasound for liver transplant 2. Doppler evaluation of the hepatic vasculature HISTORY: 51-year-old male status post liver transplant on 01/06/2016. FINDINGS: Comparison is made to prior study dated 01/07/2016. Abdominal ultrasound: The patient is status post liver transplant. The orthotopic liverdemonstrates normal echotexture and surface contour. No discrete hepaticmass or intrahepatic biliary dilation is seen. The gallbladder is absent.The common bile duct is nondilated, measuring 4 mm. The spleen measures 11.1 in length. There is increasedascites, now moderate in volume. Liver Doppler: Color and spectral Doppler evaluation demonstrates patency of the hepaticveins with appropriate flow direction and multiphasic waveforms. Theportal veins appear patent with normal hepatopetal flow and phasicwaveforms. The proper, left, and right hepatic arteries are patent and demonstrate normal arterial waveforms withbrisk systolic upstroke and antegrade flow. Main portal vein velocity: 51 cm/s (previously 57 cm/s). Right portal vein velocity: 33 cm/s (previously 70 cm/s). Left portal vein velocity: 22 cm/s (previously 35 cm/s). Proper hepatic artery resistive index: 0.73 (previously 0.81). Right hepatic artery resistive index: 0.60 (previously 0.74). Left hepatic artery resistive index: 0.76 (previously 0.76). IMPRESSION IMPRESSION: 1. Normal sonographic appearance of the transplant liver. 2. Patent hepatic vasculature. 3. Increased ascites, now moderate in volume. A preliminary report was provided to Dr. Lopez by Dr. Reed at 7:27 PMon 01/30/2016. Dictated by Stephanie Gordon M.D. This report was approved by Stephanie Gordon M.D. on 01/31/2016 11:21 AM. I, Dr. ZAK LANDEROS M.D. have personally reviewed and interpreted thisexamination/study. This report was electronically signed by ZAK LANDEROS M.D. on 01/31/201611:21 AM . Leticia Vaughn MD US ORDERABLES * US ABDOMEN LIMITED (01/30/2016 7:33 PM CDT) Only the most recent of3 resultswithin the time period is included. Anatomical Region Laterality Modality Abdomen Other Impressions 01/31/2016 11:21 AM CDT IMPRESSION: 1. Normal sonographic appearance of the transplant liver. 2. Patent hepatic vasculature. 3. Increased ascites, now moderate in volume. A preliminary report was provided to Dr. Lopez by Dr. Reed at 7:27 PM on 01/30/2016. Dictated by Stephanie Gordon M.D. This report was approved by Stephanie Gordon M.D. on 01/31/2016 11:21 AM . I, Dr. ZAK LANDEROS M.D. have personally reviewed and interpreted this examination/study. This report was electronically signed by ZAK LANDEROS M.D. on 01/31/2016 11:21 AM . Narrative 01/31/2016 11:21 AM CDT EXAM: 1. Limited abdominal ultrasound for liver transplant 2. Doppler evaluation of the hepatic vasculature HISTORY: 51-year-old male status post liver transplant on 01/06/2016. FINDINGS: Comparison is made to prior study dated 01/07/2016. Abdominal ultrasound: The patient is status post liver transplant. The orthotopic liver demonstrates normal echotexture and surface contour. No discrete hepatic mass or intrahepatic biliary dilation is seen. The gallbladder is absent. The common bile duct is nondilated, measuring 4 mm. The spleen measures 11.1 in length. There is increased ascites, now moderate in volume. Liver Doppler: Color and spectral Doppler evaluation demonstrates patency of the hepatic veins with appropriate flow direction and multiphasic waveforms. The portal veins appear patent with normal hepatopetal flow and phasic waveforms. The proper, left, and right hepatic arteries are patent and demonstrate normal arterial waveforms with brisk systolic upstroke and antegrade flow. Main portal vein velocity: 51 cm/s (previously 57 cm/s). Right portal vein velocity: 33 cm/s (previously 70 cm/s). Left portal vein velocity: 22 cm/s (previously 35 cm/s). Proper hepatic artery resistive index: 0.73 (previously 0.81). Right hepatic artery resistive index: 0.60 (previously 0.74). Left hepatic artery resistive index: 0.76 (previously 0.76). Procedure Note Provider, MD Ruperto - 12/06/2017 EXAM: 1. Limited abdominal ultrasound for liver transplant 2. Doppler evaluation of the hepatic vasculature HISTORY: 51-year-old male status post liver transplant on 01/06/2016. FINDINGS: Comparison is made to prior study dated 01/07/2016. Abdominal ultrasound: The patient is status post liver transplant. The orthotopic liverdemonstrates normal echotexture and surface contour. No discrete hepaticmass or intrahepatic biliary dilation is seen. The gallbladder is absent.The common bile duct is nondilated, measuring 4 mm. The spleen measures 11.1 in length. There is increasedascites, now moderate in volume. Liver Doppler: Color and spectral Doppler evaluation demonstrates patency of the hepaticveins with appropriate flow direction and multiphasic waveforms. Theportal veins appear patent with normal hepatopetal flow and phasicwaveforms. The proper, left, and right hepatic arteries are patent and demonstrate normal arterial waveforms withbrisk systolic upstroke and antegrade flow. Main portal vein velocity: 51 cm/s (previously 57 cm/s). Right portal vein velocity: 33 cm/s (previously 70 cm/s). Left portal vein velocity: 22 cm/s (previously 35 cm/s). Proper hepatic artery resistive index: 0.73 (previously 0.81). Right hepatic artery resistive index: 0.60 (previously 0.74). Left hepatic artery resistive index: 0.76 (previously 0.76). IMPRESSION IMPRESSION: 1. Normal sonographic appearance of the transplant liver. 2. Patent hepatic vasculature. 3. Increased ascites, now moderate in volume. A preliminary report was provided to Dr. Lopez by Dr. Reed at 7:27 PMon 01/30/2016. Dictated by Stephanie Gordon M.D. This report was approved by Stephanie Gordon M.D. on 01/31/2016 11:[address] AZK Mccoy M.D. have personally reviewed and interpreted thisexamination/study. This report was electronically signed by ZAK LANDEROS M.D. on 01/31/201611:21 AM . Leticia Vaughn MD US ORDERABLES * MRI ANGIO PELVIS WWO CONTRAST (01/09/2016 5:00 PM CDT) Anatomical Region Laterality Modality Pelvis, Abdomen Other Impressions 01/10/2016 1:03 PM CDT IMPRESSION: No evidence of deep venous thrombosis in the abdomen or pelvis. Dictated by Alan Kasper MD (radiology clerk). This report was approved by Alan Kasper on 01/10/2016 9:13 AM . I, Dr. VIKRAM FERMIN M.D. have personally reviewed and interpreted this examination/study. This report was electronically signed by VIKRAM FERMIN M.D. on 01/10/2016 1:03 PM . Narrative 01/10/2016 1:03 PM CDT EXAMINATION: Magnetic resonance imaging (MRI) of the abdomen and pelvis without and with contrast HISTORY: Deep venous thrombosis, history of alcoholic cirrhosis and chronic kidney disease status post liver and kidney transplant on 01/06/2016 TECHNIQUE: MRI of the abdomen and pelvis was performed prior to and following the uneventful administration of 10 mL of Ablavar intravenous gadolinium contrast according to an angiographic protocol. COMPARISON: No prior study is available for comparison. FINDINGS: There are moderate bilateral pleural effusions with associated compressive atelectasis. A T1 precontrast hyperintense and T2 hyperintense nodule in the right lower lobe measures 1.7 cm (series 8 image 13), possibly representing a fluid filled pneumatocele. Postsurgical changes of orthotopic liver transplant and right lower quadrant renal transplant are identified, including a surgical drain terminating in the subhepatic space. No liver surface nodularity is seen to suggest hepatic cirrhosis. No arterially-enhancing liver lesion is identified. The intrahepatic and extrahepatic bile ducts are nondilated. The hepatic arterial anatomy is conventional. The portal vein and its major branches are patent. The hepatic veins are patent. The iliac veins and inferior vena cava are patent without filling defect to suggest deep venous thrombosis. The gallbladder is absent. The spleen, pancreas, adrenal glands, and transplant kidneys are normal. Excreted contrast is seen in the collecting system of the transplant kidney on delayed phase imaging. There is decreased enhancement of the [place] kidneys, consistent with chronic kidney disease. There is small volume ascites and anasarca. Procedure Note Vikram Fermin MD - 12/06/2017 EXAMINATION: Magnetic resonance imaging (MRI) of the abdomen and pelviswithout and with contrast HISTORY: Deep venous thrombosis, history of alcoholic cirrhosis andchronic kidney disease status post liver and kidney transplant on01/06/2016 TECHNIQUE: MRI of the abdomen and pelvis was performed prior to andfollowing the uneventful administration of 10 mL of Ablavar intravenousgadolinium contrast according to an angiographic protocol. COMPARISON: No prior study is available for comparison. FINDINGS: There are moderate bilateral pleural effusions with associated compressiveatelectasis. A T1 precontrast hyperintense and T2 hyperintense nodule inthe right lower lobe measures 1.7 cm (series 8 image 13), possiblyrepresenting a fluid filled pneumatocele. Postsurgical changes of orthotopic liver transplant and right lowerquadrant renal transplant are identified, including a surgical drainterminating in the subhepatic space. No liver surface nodularity is seen to suggest hepatic cirrhosis. Noarterially-enhancing liver lesion is identified. The intrahepatic and extrahepatic bile ducts are nondilated. The hepaticarterial anatomy is conventional. The portal vein and its major branchesare patent. The hepatic veins are patent. The iliac veins and inferiorvena cava are patent without filling defect to suggest deep venous thrombosis. The gallbladder is absent. The spleen, pancreas, adrenal glands, andtransplant kidneys are normal. Excreted contrast is seen in the collectingsystem of the transplant kidney on delayed phase imaging. There isdecreased enhancement of the [place] kidneys, consistent with chronic kidney disease. There is small volumeascites and anasarca. IMPRESSION IMPRESSION: No evidence of deep venous thrombosis in the abdomen or pelvis. Dictated by Alan Kasper MD (radiology clerk). This report was approved by Alan Kasper on 01/10/2016 9:[address] VIKRAM Mccoy M.D. have personally reviewed and interpreted thisexamination/study. This report was electronically signed by VIKRAM FERMIN M.D. on 01/10/20161:03 PM . Zaida Oliva MD MR ORDERABLES * MRI ANGIO ABDOMEN WWO CONTRAST (01/09/2016 5:00 PM CDT) Anatomical Region Laterality Modality Abdomen Other Impressions 01/10/2016 1:03 PM CDT IMPRESSION: No evidence of deep venous thrombosis in the abdomen or pelvis. Dictated by Alan Kasper MD (radiology clerk). This report was approved by Alan Kasper on 01/10/2016 9:[address] VIKRAM Mccoy M.D. have personally reviewed and interpreted this examination/study. This report was electronically signed by VIKRAM FERMIN M.D. on 01/10/2016 1:03 PM . Narrative 01/10/2016 1:03 PM CDT EXAMINATION: Magnetic resonance imaging (MRI) of the abdomen and pelvis without and with contrast HISTORY: Deep venous thrombosis, history of alcoholic cirrhosis and chronic kidney disease status post liver and kidney transplant on 01/06/2016 TECHNIQUE: MRI of the abdomen and pelvis was performed prior to and following the uneventful administration of 10 mL of Ablavar intravenous gadolinium contrast according to an angiographic protocol. COMPARISON: No prior study is available for comparison. FINDINGS: There are moderate bilateral pleural effusions with associated compressive atelectasis. A T1 precontrast hyperintense and T2 hyperintense nodule in the right lower lobe measures 1.7 cm (series 8 image 13), possibly representing a fluid filled pneumatocele. Postsurgical changes of orthotopic liver transplant and right lower quadrant renal transplant are identified, including a surgical drain terminating in the subhepatic space. No liver surface nodularity is seen to suggest hepatic cirrhosis. No arterially-enhancing liver lesion is identified. The intrahepatic and extrahepatic bile ducts are nondilated. The hepatic arterial anatomy is conventional. The portal vein and its major branches are patent. The hepatic veins are patent. The iliac veins and inferior vena cava are patent without filling defect to suggest deep venous thrombosis. The gallbladder is absent. The spleen, pancreas, adrenal glands, and transplant kidneys are normal. Excreted contrast is seen in the collecting system of the transplant kidney on delayed phase imaging. There is decreased enhancement of the [place] kidneys, consistent with chronic kidney disease. There is small volume ascites and anasarca. Procedure Note Vikram Fermin MD - 12/06/2017 EXAMINATION: Magnetic resonance imaging (MRI) of the abdomen and pelviswithout and with contrast HISTORY: Deep venous thrombosis, history of alcoholic cirrhosis andchronic kidney disease status post liver and kidney transplant on01/06/2016 TECHNIQUE: MRI of the abdomen and pelvis was performed prior to andfollowing the uneventful administration of 10 mL of Ablavar intravenousgadolinium contrast according to an angiographic protocol. COMPARISON: No prior study is available for comparison. FINDINGS: There are moderate bilateral pleural effusions with associated compressiveatelectasis. A T1 precontrast hyperintense and T2 hyperintense nodule inthe right lower lobe measures 1.7 cm (series 8 image 13), possiblyrepresenting a fluid filled pneumatocele. Postsurgical changes of orthotopic liver transplant and right lowerquadrant renal transplant are identified, including a surgical drainterminating in the subhepatic space. No liver surface nodularity is seen to suggest hepatic cirrhosis. Noarterially-enhancing liver lesion is identified. The intrahepatic and extrahepatic bile ducts are nondilated. The hepaticarterial anatomy is conventional. The portal vein and its major branchesare patent. The hepatic veins are patent. The iliac veins and inferiorvena cava are patent without filling defect to suggest deep venous thrombosis. The gallbladder is absent. The spleen, pancreas, adrenal glands, andtransplant kidneys are normal. Excreted contrast is seen in the collectingsystem of the transplant kidney on delayed phase imaging. There isdecreased enhancement of the [place] kidneys, consistent with chronic kidney disease. There is small volumeascites and anasarca. IMPRESSION IMPRESSION: No evidence of deep venous thrombosis in the abdomen or pelvis. Dictated by Alan Kasper MD (radiology clerk). This report was approved by Alan Kasper on 01/10/2016 9:13 AM . I, Dr. VIKRAM FERMIN M.D. have personally reviewed and interpreted thisexamination/study. This report was electronically signed by VIKRAM FERMIN M.D. on 01/10/20161:03 PM . Zaida Oliva MD MR ORDERABLES * (ABNORMAL) D-DIMER (01/07/2016 7:52 PM CDT) D-Dimer Quantitative 3.09(H) <=0.50 mcg/mL FEU [facility] Comment: In the absence of clinical symptoms, a value less than or equal to 0.5 mcg/mL FEU significantly decreases the probability of PE/DVT (negative predictive value >95%). 1 mcg/mL FEU = 1 Fibrinogen Equivalent Unit (approximates 0.5 mcg/ml of D- Dimer). Blood specimen (specimen) BLOOD SPECIMEN / Unknown 01/07/2016 7:52 PM CDT 01/07/2016 7:55 PM CDT Zaida Oliva MD LAB - COAGULATI ON ORDERABLES [address] [phone] * (ABNORMAL) FIBRINOGEN ACTIVITY (01/07/2016 7:52 PM CDT) Only the most recent of5 resultswithin the time period is included. Pathologist [facility] Fibrinogen Clauss 499(H) 200 - 400 mg/dL [facility] Blood specimen (specimen) BLOOD SPECIMEN / Unknown 01/07/2016 7:52 PM CDT 01/07/2016 7:55 PM CDT Zaida Oliva MD LAB - COAGULATI ON ORDERABLES [address] [phone] * CYTOMEGALOVIRUS ANTIBODY IGG BLOOD (01/06/2016 10:53 PM CDT) Only the most recent of2 resultswithin the time period is included. Pathologist [facility] Cytomegalovirus Antibody IgG <0.60 0.00 - 0.59 U/mL [facility]) Comment: Negative <0.60 Equivocal 0.60 - 0.69 Positive >0.69 Blood specimen (specimen) BLOOD SPECIMEN / Unknown 01/06/2016 10:53 PM CDT 01/06/2016 11:05 PM CDT Narrative [facility] ([facility]) - 01/10/2016 6:17 AM CDT Performed at: [address] [place] [address] [id number] Travel Ticketing Reviewer: Santana Mathis PhD, Phone: [phone] Zaida Oliva MD LAB - CHEMISTRY ORDERABLES [facility] ([facility]) * (ABNORMAL) BLOOD GASES ART (01/06/2016 10:53 PM CDT) Pathologist [facility] pH Arterial 7.42 7.35 - 7.45 [facility] pCO2 Arterial 34(L) 35 - 45 mmHg [facility] pO2 Arterial 239(H) 77 - 101 mmHg [facility] HCO3 Arterial 21.8(L) 22.0 - 26.0 mmol/L [facility] TCO2 Arterial 22.8(L) 25.0 - 29.0 mmol/L [facility] Base Excess Arterial -2.1(L) -2.0 - 2.0 mmol/L [facility] Hemoglobin Arterial 11.1(L) 13.5 - 17.5 g/dL [facility] Oxyhemoglobin Arterial 98.2 95.0 - 100.0 % [facility] Carboxyhemoglobin 0.3 0.0 - 3.0 % [facility] Methemoglobin 0.3 0.0 - 2.0 % [facility] FI O2 Arterial 100.0 % [facility] Blood specimen (specimen) BLOOD SPECIMEN / Unknown 01/06/2016 10:53 PM CDT 01/06/2016 11:05 PM CDT Narrative [facility] - 01/06/2016 11:08 PM CDT FIO2->100 Zaida Oliva MD LAB - BLOOD GAS ES ORDERABLES Performing Organization Address City/State/[facility] Co de Phone Number [address] [phone] * HEPATITIS SCREEN ACUTE (01/06/2016 10:53 PM CDT) Only the most recent of2 resultswithin the time period is included. Hepatitis A Virus Antibody IgM Non-react [facility] Hepatitis B Virus Surface Antigen Non-react [facility] Hepatitis B Core Virus Antibody IgM Non-react [facility] Hepatitis C Antibody Non-react [facility] Comment: Hepatitis C Antibody screen indicates [...] Zaida Oliva MD LAB - CHEMISTRY ORDERABLES [facility] [address] [place] [address] * (ABNORMAL) BLOOD GASES ART COMPLETE [facility] OR (01/06/2016 9:25 PM CDT) Only the most recent of7 resultswithin the time period is included. pH Arterial 7.38 7.35 - 7.45 [facility] pCO2 Arterial 36 35 - 45 mmHg [facility] pO2 Arterial 238(H) 77 - 101 mmHg [facility] HCO3 Arterial 20.6(L) 22.0 - 26.0 mmol/L [facility] TCO2 Arterial 21.7(L) 25.0 - 29.0 mmol/L [facility] Base Excess Arterial -4.1(L) -2.0 - 2.0 mmol/L [facility] Hemoglobin Arterial 9.6(L) 13.5 - 17.5 g/dL [facility] Oxyhemoglobin Arterial 97.7 95.0 - 100.0 % [facility] Carboxyhemoglobin 0.3 0.0 - 3.0 % [facility] Methemoglobin 0.6 0.0 - 2.0 % [facility] FI O2 Arterial 59.0 % [facility] Ionized Calcium Whole Blood 1.14 mmol/L [facility] Adjusted Ionized Calcium 1.13(L) 1.19 - 1.34 mmol/L [facility] Sodium Whole Blood 136 135 - 145 mmol/L [facility] Potassium Whole Blood 3.5 3.5 - 5.5 mmol/L [facility] Chloride Whole Blood 106 101 - 111 mmol/L [facility] Glucose Whole Blood 180(H) 70 - 110 mg/dL [facility] Lactic Acid Whole Blood 2.9 0.5 - 3.4 mmol/L [facility] Blood specimen (specimen) 01/06/2016 9:25 PM CDT 01/06/2016 9:26 PM CDT Narrative [facility] - 01/06/2016 9:28 PM CDT FIO2->40 Zaida Oliva MD LAB - BLOOD GAS ES ORDERABLES [address] [phone] * XR ABDOMEN KUB PORTABLE (01/06/2016 9:20 PM CDT) Only the most recent of2 resultswithin the time period is included. Anatomical Region Laterality Modality Other Impressions 01/07/2016 12:09 PM CDT IMPRESSION: Abdominal radiograph, 5:58 PM: A retained surgical lap sponge projects over the mid abdomen. The surgical team is aware of the finding and the lap sponge had been removed as of the following radiograph dated 01/06/2016 at 9:12 PM. No radiopaque surgical instruments are seen. Skin natan overlying the upper abdomen, the drainage catheters in the right upper quadrant of the abdomen, NG tube tip in the stomach, Lau catheter, and bear hugger are seen. Abdominal radiograph, 9:12 PM: The previously demonstrated lap sponge has been removed from the mid abdomen. No radiopaque surgical instruments or surgical sponges are seen. A swanz-estelle catheter, NG tube terminating in the stomach, multiple abdominal drains, skin natan, a urinary bladder catheter, a ureteral catheter projecting over the right side of the pelvis, and a bear hugger are seen. Findings were reported to [place] in OR for Dr. Oliva upon review by Dr. Montez on 01/06/2016 at 9:18 PM. Dictated by Nick Hobbs MD (Movement Assembly Final Inspector). I, Dr. JUVE WEN MD have personally reviewed and interpreted this examination/study. This report was electronically signed by JUVE WEN MD on 01/07/2016 12:09 PM . Narrative 01/07/2016 12:09 PM CDT EXAMINATION: PX ABDOMEN 1 VW, PX ABDOMEN 1 VW DATE: 01/06/2016 9:21 PM HISTORY: Liver/kidney transplant; instruments are not counted prior to incisions, x-ray check for instruments COMPARISON: No prior study is available for comparison. FINDINGS/ Procedure Note Juve Wen MD - 12/06/2017 EXAMINATION: PX ABDOMEN 1 VW, PX ABDOMEN 1 VW DATE: 01/06/2016 9:21 PM HISTORY: Liver/kidney transplant; instruments are not counted prior toincisions, x-ray check for instruments COMPARISON: No prior study is available for comparison. FINDINGS/ IMPRESSION IMPRESSION: Abdominal radiograph, 5:58 PM: A retained surgical lap sponge projects over the mid abdomen. The surgicalteam is aware of the finding and the lap sponge had been removed as of thefollowing radiograph dated 01/06/2016 at 9:12 PM. No radiopaque surgicalinstruments are seen. Skin natan overlying the upper abdomen, the drainage catheters in the rightupper quadrant of the abdomen, NG tube tip in the stomach, Lau catheter,and bear hugger are seen. Abdominal radiograph, 9:12 PM: The previously demonstrated lap sponge has been removed from the midabdomen. No radiopaque surgical instruments or surgical sponges are seen.A swanz-estelle catheter, NG tube terminating in the stomach, multipleabdominal drains, skin natan, a urinary bladder catheter, a ureteral catheter projecting over the right side ofthe pelvis, and a bear hugger are seen. Findings were reported to [place] in OR for Dr. Oliva upon review by on 01/06/2016 at 9:18 PM. Dictated by Nick Hobbs MD (Movement Assembly Final Inspector). I, Dr. JUVE WEN MD have personally reviewed and interpreted thisexamination/study. This report was electronically signed by JUVE WEN MD on 01/07/201612:09 PM . Zaida Oliva MD DIAGNOSTIC IMAG ING ORDERABLES * (ABNORMAL) TEG CITRATED KAOLIN (CK) (01/06/2016 4:30 PM CDT) Only the most recent of2 resultswithin the time period is included. G-Clot Strength 15.4(H) 4.5 - 11.0 d/sc [facility] Pathology Review TEG Other [facility] Interpretation TEG See Comment [facility] React-Time 3.5(L) 5.0 - 10.0 MIN [facility] K-Time 0.8(L) 1.0 - 3.0 MIN [facility] Angle A-BB 78.5(H) 53.0 - 72.0 Degrees [facility] MA (CK) BB 75.5(H) 50.0 - 70.0 mm [facility] LY30 0.0 0.0 - 8.0 % [facility] CI-Coagulation Index 4.8(H) -3.0 - 3.0 [facility] Blood specimen (specimen) 01/06/2016 4:30 PM CDT 01/06/2016 4:42 PM CDT Narrative [facility] - 01/06/2016 6:07 PM CDT SEE BELOW TEG Kaolin Sample Type Interpretation TEG Value Hemostasis State R < than 4 min: Enzymatic Hypercoagulability R 11-14 min: Low Clotting Factors R > than 14 min: Very low clotting factors MA 46-54 mm: Low Platelet function MA 41-45 mm: Very low platelet function MA 40 mm or less: Extremely low platelet function MA > 73 mm: Platelet hypercoagulability R < 4 min and Enzymatic and platelet hypercoagulability MA > 73 mm: Angle < 45 deg: Low fibrinogen level LY30 at 7.5% or >, Primary Fibrinolysis CI < than 1.0: LY30 at 7.5% or >, Secondary fibrinolysis CI > than 3.0: LY30 < 7.5%, Prothrombotic state CI > 3.0: Zaida Oliva MD LAB - BLOOD BAN K ORDERABLES [facility] [address] [place] [address], [facility] * HLA XM SEROLOGIC DONOR (01/06/2016 1:33 PM CDT) Only the most recent of2 resultswithin the time period is included. XM B Donor ID [id number] [facility] ([facility]) XM B Relation Donor [facility] ([facility]) XM Test Date 01/08/2016 [facility] ([facility]) XM T All Neg [facility] ([facility]) XM B Serum Date 01/06/2016 [facility] ([facility]) Comment: This test was developed and its performance characteristics determined bythe [facility]. It has not been cleared or approved by theU.S. Food and Drug Administration. The FDA has determined that suchclearance or approval is not necessary. This test is used for clinicalpurposes. It should not be regarded as investigational or for research.This laboratory is certified under the Clinical Laboratory ImprovementAmendments of 1988 (CLIA-88) as qualified to perform high complexityclinical laboratory testing.Performed at: [facility], [address] @ [place] [id number] Director: Gabo Deal MD, XM B All Neg S [facility] ([facility]) XM T AHG Neg [facility] ([facility]) XM B AHG Neg SL U [facility] ([facility]) Blood specimen (specimen) BLOOD SPECIMEN / Unknown 01/06/2016 1:33 PM CDT 01/12/2016 1:33 PM CDT Chavo Obregon MD LAB - BLOOD BANK ORD ERABLES [facility] ([facility]) * FLOW HLA XM DONOR (01/06/2016 1:33 PM CDT) Flow XM Donor ID [id number] [facility] ([facility]) Flow XM Relation Donor [facility] ([facility]) Flow XM Serum Date 01/06/2016 [facility] ([facility]) Flow XM T Cell Neg [id number] [facility] ([facility]) Flow XM Test Date 01/08/2016 [facility] ([facility]) Comment: This test was developed and its performance characteristics determined bythe [facility]. It has not been cleared or approved by theU.S. Food and Drug Administration. The FDA has determined that suchclearance or approval is not necessary. This test is used for clinicalpurposes. It should not be regarded as investigational or for research.This laboratory is certified under the Clinical Laboratory ImprovementAmendments of 1988 (CLIA-88) as qualified to perform high complexityclinical laboratory testing.Performed at: [facility], [address] @ [place] [address]Hzh Director: Gabo Deal MD, Flow XM B Cell Neg [id number] [facility] ([facility]) Blood specimen (specimen) BLOOD SPECIMEN / Unknown 01/06/2016 1:33 PM CDT 01/12/2016 1:33 PM CDT Chavo Obregon MD LAB - PATHOLOGY/CYTO LOGY ORDERABLES Performing Organization Address City/[facility]/ZIP Co de Phone Number [facility] ([facility]) * HLA ANTIBODY SCREEN LUM CLASS 2 SAB (01/06/2016 1:33 PM CDT) % PRA 0 [facility] ([facility]) Class 2 LUM SAB Specificity - [facility] ([facility]) Class 2 LUM SAB Moderate Risk - [facility] ([facility]) Class 2 LUM SAB Reportable Comments - [facility] ([facility]) Class 2 SAB Test Date 02/07/20 16 [facility] ([facility]) Comment: This test was developed and its performance characteristics determined bythe [facility]. It has not been cleared or approved by [facility]. Food and Drug Administration. The FDA has determined that suchclearance or approval is not necessary. This test is used for clinicalpurposes. It should not be regarded as investigational or for research.This laboratory is certified under the Clinical Laboratory ImprovementAmendments of 1988 (CLIA-88) as qualified to perform high complexityclinical laboratory testing.Performed at: [facility], [address] @ [place] [address]Aph Director: Gabo Deal MD, Blood specimen (specimen) BLOOD SPECIMEN / Unknown 01/06/2016 1:33 PM CDT 01/12/2016 1:33 PM CDT Chavo Obregon MD LAB - BLOOD BANK ORD ERABLES [facility] ([facility]) * HLA ANTIBODY SCREEN LUM CLASS 1 SAB (01/06/2016 1:33 PM CDT) Pathologist [facility] % PRA 0 [facility] ([facility]) Class 1 LUM SAB Specificity - [facility] ([facility]) Class 1 LUM SAB Moderate Risk - [facility] ([facility]) Class 1 LUM SAB Reportable Comments - [facility] ([facility]) Class 1 SAB Test Date 02/07/20 16 [facility] ([facility]) Comment: This test was developed and its performance characteristics determined bythe [facility]. It has not been cleared or approved by [facility].. Food and Drug Administration. The FDA has determined that suchclearance or approval is not necessary. This test is used for clinicalpurposes. It should not be regarded as investigational or for research.This laboratory is certified under the Clinical Laboratory ImprovementAmendments of 1988 (CLIA-88) as qualified to perform high complexityclinical laboratory testing.Performed at: [facility], [address] @ [place] [address]Xcg Director: Gabo Deal MD, Blood specimen (specimen) BLOOD SPECIMEN / Unknown 01/06/2016 1:33 PM CDT 01/12/2016 1:33 PM CDT Chavo Obregon MD LAB - BLOOD BANK ORD ERABLES [facility] ([facility]) * HLA TYPING DNA LOW RESOLUTION DR,DQ (01/06/2016 1:32 PM CDT) Only the most recent of2 resultswithin the time period is included. DR DQ Low Resolution DRB1-1 01:03 [facility] ([facility]) DR DQ Low Resolution DRB1-2 07 [facility] ([facility]) DR DQ Low Resolution DQB1-1 03 (DQ9) [facility] ([facility]) DR DQ Low Resolution DQB1-2 05 [facility] ([facility]) DR DQ Low Resolution DRB3-1 Negative [facility] ([facility]) DR DQ Low Resolution DRB3-2 - [facility] ([facility]) DR DQ Low Resolution DRB4-1 01:03N [facility] ([facility]) DR DQ Low Resolution DRB4-2 - [facility] ([facility]) DR DQ Low Resolution DRB5-1 Negative [facility] ([facility]) DR DQ Low Resolution DRB5-2 - [facility] ([facility]) DR DQ Low Resolution Methodology SSOP [facility] ([facility]) Comment DR DQ Low Resolution Confirmation Typing on Unos # [id number] [facility] ([facility]) DR DQ Low Resolution test date 01/08/2016 [facility] ([facility]) Comment: This test was developed and its performance characteristics determined bythe [facility]. It has not been cleared or approved by theU.S. Food and Drug Administration. The FDA has determined that suchclearance or approval is not necessary. This test is used for clinicalpurposes. It should not be regarded as investigational or for research.This laboratory is certified under the Clinical Laboratory ImprovementAmendments of 1988 (CLIA-88) as qualified to perform high complexityclinical laboratory testing.Performed at: [facility], [address] @ [place] [address]Kzi Director: Gabo Deal MD, Blood specimen (specimen) BLOOD SPECIMEN / Unknown 01/06/2016 1:32 PM CDT 01/12/2016 1:33 PM CDT Chavo Obregon MD LAB - BLOOD BANK ORD ERABLES [facility] ([facility]) * HLA TYPING DNA LOW RESOLUTION A,B,C (01/06/2016 1:32 PM CDT) Only the most recent of2 resultswithin the time period is included. ABC DNA A1 01 [facility] ([facility]) ABC DNA A2 - [facility] ([facility]) ABC DNA B1 07 [facility] ([facility]) ABC DNA B2 57 [facility] ([facility]) ABC DNA BW1 6 [facility] ([facility]) ABC DNA BW2 4 [facility] ([facility] ABC DNA C1 06 [facility] ABC DNA C2 07 [facility] ([facility]) ABC DNA Methodology SSOP [facility] ([facility]) Comment ABC DNA Confirmation Typing on Unos# [id number] [facility] ([facility]) ABC DNA Test Date 01/08/2016 [facility] ([facility]) Comment: This test was developed and its performance characteristics determined bythe [facility]. It has not been cleared or approved by theU.S. Food and Drug Administration. The FDA has determined that suchclearance or approval is not necessary. This test is used for clinicalpurposes. It should not be regarded as investigational or for research.This laboratory is certified under the Clinical Laboratory ImprovementAmendments of 1988 (CLIA-88) as qualified to perform high complexityclinical laboratory testing.Performed at: [facility], [address] @ [place] [address]Uwq Director: Gabo Deal MD, Blood specimen (specimen) BLOOD SPECIMEN / Unknown 01/06/2016 1:32 PM CDT 01/12/2016 1:33 PM CDT Chavo Obregon MD LAB - BLOOD BANK ORD ERABLES [facility] ([facility]) * PREPARE FFP UNIT(S) (01/06/2016 1:41 AM CDT) Only the most recent of2 resultswithin the time period is included. Unit FFP [id number] transfused [facility] (BEAKER) Unit ABO AB [facility] (BEAKER) Unit Rh POS [facility] ([facility] Unit Number [id number] [facility] ([facility]) Unit Status Transfused [facility] BLO OD BANK PRODUCTS (AKER) 01/06/2016 1:41 AM CDT 01/06/2016 1:41 AM CDT Narrative [facility] ([facility]) - 01/06/2016 1:41 AM CDT # of Units->1 Zaida Oliva MD LAB - BLOOD BAN K ORDERABLES [facility] ([facility]) * LIPASE BLOOD (01/06/2016 1:30 AM CDT) Lipase 23 8 - 78 Units/L [facility] Blood specimen (specimen) BLOOD SPECIMEN / Unknown 01/06/2016 1:30 AM CDT 01/06/2016 1:37 AM CDT Zaida Oliva MD LAB - CHEMISTRY ORDERABLES [address] [phone] * AMYLASE BLOOD (01/06/2016 1:30 AM CDT) Amylase 51 25 - 125 Units/L [facility] Blood specimen (specimen) BLOOD SPECIMEN / Unknown 01/06/2016 1:30 AM CDT 01/06/2016 1:37 AM CDT Zaida Oliva MD LAB - CHEMISTRY ORDERABLES Performing Organization Address [facility] Co de Phone Number [address] [phone] * (ABNORMAL) VANCOMYCIN LEVEL TROUGH (12/27/2015 5:29 PM CDT) Only the most recent of2 resultswithin the time period is included. Vancomycin Trough 24.0(H) 10.0 - 20.0 mcg/mL [facility] Blood specimen (specimen) BLOOD SPECIMEN / Unknown 12/27/2015 5:29 PM CDT 12/27/2015 5:39 PM CDT Erica Alston MD LAB - CHEMISTRY OR DERABLES Performing Organization Address [facility] de Phone Number [address] [phone] * CULTURE FUNGUS OTHER+FUNGUS SMEAR (12/27/2015 4:30 PM CDT) Culture Fungus-Other No Growth Fungi. [facility] Fungus Smear No Fungi seen. [facility] PERITONEAL FLUID / Unknown 12/27/2015 4:30 PM CDT 12/28/2015 9:57 AM CDT Narrative [facility] - 01/30/2016 8:52 AM CDT PERITONEAL DIALYSIS FLUID Specimen Type->Pertioneal Fluid Erica Alston MD LAB - MICROBIOLOGY ORDERABLES Performing Organization Address [facility] Co de Phone Number [address] [phone] * TRIGLYCERIDES FLUID (12/27/2015 4:30 PM CDT) Only the most recent of4 resultswithin the time period is included. Triglycerides Fluid 39 Not Established For Fluids mg/dL [facility] Comment:The reference range and other method performance specifications have not been established for this fluid. The test result must be integrated into the clinical context for interpretation. Fluid specimen (specimen) PERITONEAL FLUID / Unknown 12/27/2015 4:30 PM CDT 12/28/2015 9:55 AM CDT Narrative [facility] - 12/28/2015 10:50 AM CDT Peritoneal dialysis fluid Erica Alston MD LAB - BODY FLUID O RDERABLES [facility] [address] [place] [address] * (ABNORMAL) DRUG ABUSE PANEL 10-20+ETHANOL URINE NO CONFIRM (12/06/2015 2:45 PM CDT) Only the most recent of2 resultswithin the time period is included. Amphetamines Screen Urine Negative Negative : < 1000 ng/mL [facility] Barbiturates Screen Urine Negative Negative : < 200 ng/mL [facility] Benzodiazepine Screen Urine Positive(A) Negative : < 200 ng/mL [facility] Comment: Positive urine benzodiazepine screening results should be confirmed by another generally accepted non-immunological method such as gas chromatography or mass spectrometry. Opiates Urine Negative Negative : < 300 ng/mL [facility] Cocaine Metabolites Urine Negative Negative : < 300 ng/mL [facility] Phencyclidine Screen Urine Negative Negative : < 25 ng/ml [facility] Cannabinoids Screen Urine Negative Negative : <50 ng/mL [facility] Methadone Screen Urine Negative Negative : < 300 ng/mL [facility] Urine specimen (specimen) URINE / Unknown 12/06/2015 2:45 PM CDT 12/06/2015 3:07 PM CDT Narrative [facility] - 12/06/2015 3:32 PM CDT The Urine Toxicology Screening Panel does not screen for Propoxyphene, Meprobamate, Carisoprodol, Trazodone, zznp-xqe-kopzcvc medications and/or volatiles (Acetone, Isopropanol, Methanol or Ethylene Glycol). Ethanol, Salicylate, Acetaminophen, Tricyclic Antidepressants and several therapeutic drugs may be individually assayed in serum or plasma specimen. Toxicology testing by the [facility] is an aid to medical diagnosis and treatment of patients. No documented chain of custody was maintained. Results are intended to be used for clinical purposes only. Zaida Oliva MD LAB - URINE KEERTHI ASHLEY ORDERABLES [address] [phone] * XR PANOREX (12/06/2015 10:29 AM CDT) Anatomical Region Laterality Modality Head Other Impressions 12/06/2015 4:12 PM CDT IMPRESSION: No evidence of periapical abscess. 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 Report dictated by Navdeep Pinto DO (radiology clerk). This report was approved by Navdeep Pinto on 12/06/2015 4:03 PM . I, Dr. ELA SIBLEY M.D. have personally reviewed and interpreted this examination/study. This report was electronically signed by ELA SIBLEY M.D. on 12/06/2015 4:12 PM . Narrative 12/06/2015 4:12 PM CDT Exam: XR PANOREX Date: 12/06/2015 10:29 AM History: pre liver transplant Findings: Multiple teeth are missing. There are multiple dental restorations. No significant dental caries are seen. There is no periodontal disease or periapical abscess. The mandible is intact. There is anterior subluxation of the right temporal mandibular joint. The left temporomandibular joint is normal. Procedure Note Ela Sibley MD - 12/06/2017 Exam: XR PANOREX Date: 12/06/2015 10:29 AM History: pre liver transplant Findings: Multiple teeth are missing. There are multiple dental restorations. Nosignificant dental caries are seen. There is no periodontal disease orperiapical abscess. The mandible is intact. There is anterior subluxationof the right temporal mandibular joint. The left temporomandibular joint is normal. IMPRESSION IMPRESSION: No evidence of periapical abscess. 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 Report dictated by Navdeep Pinto DO (radiology clerk). This report was approved by Navdeep Pinto on 12/06/2015 4:03 PM . I, Dr. ELA SIBLEY M.D. have personally reviewed and interpreted thisexamination/study. This report was electronically signed by ELA SIBLEY M.D. on 12/06/20154:12 PM . Zaida Oliva MD DIAGNOSTIC IMAG ING ORDERABLES * QUANTIFERON TB-GOLD INC (12/06/2015 9:59 AM CDT) QuantiFERON TB Gold Negative Negative [facility] (BEAKER) Comment: The specimen received for QuantiFERON testing was incubated by the ordering institution. Specific procedures outlined in our Directory of Services and in the package insert for the QuantiFERON Gold (In Tube) test must be followed to enable for proper stimulation of cells for the production of interferon gamma. QuantiFERON Criteria Comment [facility] (BEAKER) Comment: To be considered positive a specimen should have a TB Ag minus Nil value greater than or equal to 0.35 IU/mL and in addition the TB Ag minus Nil value must be greater than or equal to 25% of the Nil value. There may be insufficient information in these values to differentiate between some negative and some indeterminate test values. QuantiFERON TB Antigen Value 0.03 IU/mL [facility] (BEAKER) QuantiFERON Nil Value 0.13 IU/mL [facility] (BEAKER) QuantiFERON Mitogen Value 1.89 IU/mL [facility] (BEAKER) QFT TB Ag minus Nil Value <0.00 IU/mL [facility] (BEAKER) Interpretation Comment [facility] ([facility]) Comment: The QuantiFERON TB Gold (in Tube) assay is intended for use as an aid in the diagnosis of TB infection. Negative results suggest that there is no TB infection. In patients with high suspicion of exposure, a negative test should be repeated. A positive test indicates infection with Mycobacterium tuberculosis. Among individuals without tuberculosis infection, a positive test may be due to exposure to M. kansasii, M. szulgai or M. marinum. On the Internet, go to cdc.gov/tb for further details. Blood specimen (specimen) BLOOD SPECIMEN / Unknown 12/06/2015 9:59 AM CDT 12/06/2015 10:20 AM CDT Narrative [facility] ([facility]) - 12/10/2015 6:41 AM CDT Performed at: - [address] [id number] Travel Ticketing Reviewer: Santana Mathis PhD, Phone: [phone] Zaida Oliva MD LAB - SEROLOGY ORDERABLES Performing Organization Address City/[facility]/ZIP Co de Phone Number [facility] * VANCOMYCIN LEVEL RANDOM (12/06/2015 9:59 AM CDT) Pathologist [facility] Vancomycin Random 16.6 Therapeutic Ranges not established for random specimens mcg/mL [facility] Blood specimen (specimen) BLOOD SPECIMEN / Unknown 12/06/2015 9:59 AM CDT 12/06/2015 11:07 AM CDT Erica Alston MD LAB - CHEMISTRY OR DERABLES Performing Organization Address [facility] Co de Phone Number [address] [phone] * HLA XM SEROLOGIC AUTO (12/06/2015 9:36 AM CDT) [facility] AXM Serum Date 12/06/19 16 [facility] ([facility]) AXM T ALL Neg [facility] ([facility]) AXM Test Date 12/07/19 16 [facility] ([facility]) Comment: This test was developed and its performance characteristics determined bythe [facility]. It has not been cleared or approved by theU.S. Food and Drug Administration. The FDA has determined that suchclearance or approval is not necessary. This test is used for clinicalpurposes. It should not be regarded as investigational or for research.This laboratory is certified under the Clinical Laboratory ImprovementAmendments of 1988 (CLIA-88) as qualified to perform high complexityclinical laboratory testing.Performed at: [facility], [address] [place] [id number] Director: Gabo Deal MD, AXM B ALL Neg [facility] ([facility]) AXM T AHG Neg [facility] ([facility]) AXM B AHG Neg [facility] ([facility]) Blood specimen (specimen) BLOOD SPECIMEN / Unknown 12/06/2015 9:36 AM CDT 12/06/2015 10:15 AM CDT Zaida Oliva MD LAB - BLOOD BAN K ORDERABLES [facility] ([facility]) * HLA ANTIBODY SCREEN LUM CLASS 2 ID (12/06/2015 9:36 AM CDT) % PRA 0 [facility] ([facility]) Class 2 LUM Specificity - [facility] ([facility]) Class 2 LUM Test Date 12/07/19 16 [facility] ([facility]) Comment: This test was developed and its performance characteristics determined bythe [facility]. It has not been cleared or approved by theU.S. Food and Drug Administration. The FDA has determined that suchclearance or approval is not necessary. This test is used for clinicalpurposes. It should not be regarded as investigational or for research.This laboratory is certified under the Clinical Laboratory ImprovementAmendments of 1988 (CLIA-88) as qualified to perform high complexityclinical laboratory testing.Performed at: [facility], [address] @ [place] [address]Vbl Director: aGbo Deal MD, Blood specimen (specimen) BLOOD SPECIMEN / Unknown 12/06/2015 9:36 AM CDT 12/06/2015 10:15 AM CDT Zaida Oliva MD LAB - BLOOD BAN K ORDERABLES [facility] ([facility]) * HLA ANTIBODY SCREEN LUM CLASS 1 ID (12/06/2015 9:36 AM CDT) % PRA 0 [facility] ([facility]) Class 1 LUM Specificity - [facility] ([facility]) Class 1 LUM Test Date 12/07/19 16 [facility] ([facility]) Comment: This test was developed and its performance characteristics determined bythe [facility]. It has not been cleared or approved by theU.S. Food and Drug Administration. The FDA has determined that suchclearance or approval is not necessary. This test is used for clinicalpurposes. It should not be regarded as investigational or for research.This laboratory is certified under the Clinical Laboratory ImprovementAmendments of 1988 (CLIA-88) as qualified to perform high complexityclinical laboratory testing.Performed at: [facility], [address] [place] [address]Fxk Director: Gabo Deal MD, Blood specimen (specimen) BLOOD SPECIMEN / Unknown 12/06/2015 9:36 AM CDT 12/06/2015 10:14 AM CDT Zaida Oliva MD LAB - BLOOD BAN K ORDERABLES Performing Organization Address City/[facility] Co de Phone Number [facility] ([facility]) * HIV-1 HIV-2 ANTIGEN/ANTIBODY (12/06/2015 9:36 AM CDT) Pathologist [facility] HIV Antigen/Antibod y 1 & 2 Non-reacti ve Non-react gini [facility] Comment: Neither HIV-1 p24 Antigen nor HIV-1/HIV-2 Antibodies are detected. Blood specimen (specimen) BLOOD SPECIMEN / Unknown 12/06/2015 9:36 AM CDT 12/06/2015 10:14 AM CDT Zaida Oliva MD LAB - HEMATOLOG Y ORDERABLES Performing Organization Address [facility]/ZIP Co de Phone Number [facility] [address] [place], [place] [address] [phone] * PSA FREE + TOTAL PANEL (12/06/2015 9:36 AM CDT) Pathologist [facility] PSA Total 0.5 0.0 - 4.0 ng/mL [facility] PSA Free 0.15 0.00 - 0.50 ng/mL [facility] PSA % Free 30 See Comment % [facility] Comment: [facility] uses the [employer] Member method for Total and Free PSA measurements. Measurements obtained with different assay methods should not be used interchangeably. Patients with normal Digital Rectal Exam (ALEXANDRA) results and Total PSA results of 4.0 - 10.0 ng/mL represent a diagnostic tavares zone. The decision of whether or not to perform a biopsy should not be based on the value of Free and/or Total PSA alone. Distribution of [place] % Free PSA Values for specimens with [place] Total PSA values between 4.0 and 10.0 ng/mL: % Free PSA Ranges <10.0 10.0-15.0 15.0-20.0 20.0-26.0 >26.0 Number of ----- --------- --------- --------- ----- Subjects Biopsy --------- ------ Negative 307 9.4 22.5 25.4 24.8 17.9 Positive 123 27.6 30.9 17.9 15.4 8.1 Blood specimen (specimen) BLOOD SPECIMEN / Unknown 12/06/2015 9:36 AM CDT 12/06/2015 10:13 AM CDT Zaida Oliva MD LAB - CHEMISTRY ORDERABLES Performing Organization Address City/[facility] Co de Phone Number [address] [phone] * RPR (12/06/2015 9:36 AM CDT) RPR Non-reacti ve Non-reacti ve [facility] Blood specimen (specimen) BLOOD SPECIMEN / Unknown 12/06/2015 9:36 AM CDT 12/06/2015 10:14 AM CDT Zaida Oliva MD LAB - CHEMISTRY ORDERABLES Performing Organization Address City/[facility]/ZIP Co de Phone Number [address] [place] [phone] * MUMPS ANTIBODY IGG (12/06/2015 9:36 AM CDT) Mumps Virus Antibody IgG 102.0 Immune >10.9 AU/mL [facility]) Comment: Negative <9.0 Equivocal 9.0 - 10.9 Positive >10.9 A positive result generally indicates past exposure to Mumps virus or previous vaccination. Blood specimen (specimen) BLOOD SPECIMEN / Unknown 12/06/2015 9:36 AM CDT 12/06/2015 10:16 AM CDT Narrative [facility]) - 12/07/2015 3:22 PM CDT Performed at: [address] [place] [id number] Travel Ticketing Reviewer: Santana Mathis PhD, Phone: [employer] Zaida Oliva MD LAB - CHEMISTRY ORDERABLES Performing Organization Address [facility] de Phone Number [facility]) * RUBELLA ANTIBODY IGG (12/06/2015 9:36 AM CDT) Pathologist [facility] Rubella Antibody IgG Quantitative >33.00 Immune >0.99 index [facility]) Comment: Non-immune <0.90 Equivocal 0.90 - 0.99 Immune >0.99 Blood specimen (specimen) BLOOD SPECIMEN / Unknown 12/06/2015 9:36 AM CDT 12/06/2015 10:15 AM CDT Narrative [facility]) - 12/07/2015 8:37 AM CDT Performed at: [address] [place] [address] [id number] Travel Ticketing Reviewer: Santana Mathis PhD, Phone: [phone] Zaida Oliva MD LAB - SEROLOGY ORDERABLES Performing Organization Address [facility] Co de Phone Number [facility]) * (ABNORMAL) AURORA-JUNIOR VIRUS ANTIBODY TO VCA IGG (12/06/2015 9:36 AM CDT) Aurora-Junior Virus Antibody To Viral Capsid Antigen IgG 95.1(H) 0.0 - 21.9 U/mL [facility]) Comment: INTERPRETIVE INFORMATION: Aurora-Junior Virus Antibody to Viral Capsid Antigen, IgG 17.9 U/mL or less.......Not Detected 18.0-21.9 U/mL..........Indeterminate - Repeat testing in 10-14 days may be helpful. 22.0 U/mL or greater....Detected Interpretive information regarding serologic features of EBV-associated diseases is available at [email or web address] Blood specimen (specimen) BLOOD SPECIMEN / Unknown 12/06/2015 9:36 AM CDT 12/06/2015 10:15 AM CDT Zaida Oliva MD LAB - CHEMISTRY ORDERABLES Performing Organization Address City/[facility]/ZIP Co de Phone Number [facility]) * CERULOPLASMIN (12/06/2015 9:36 AM CDT) Ceruloplasmin 22 20 - 60 mg/dL [facility] Blood specimen (specimen) BLOOD SPECIMEN / Unknown 12/06/2015 9:36 AM CDT 12/06/2015 10:14 AM CDT Zaida Oliva MD LAB - CHEMISTRY ORDERABLES Performing Organization Address City/[facility]/ZIP Co de Phone Number [address] [phone] * ALPHA FETOPROTEIN BLOOD TUMOR (12/06/2015 9:36 AM CDT) Alpha-Fetoprotei n Tumor Marker 2.3 0.0 - 8.3 ng/mL [facility] ([facility]) Comment:Mandy ECLIA methodol ogy Blood specimen (specimen) BLOOD SPECIMEN / Unknown 12/06/2015 9:36 AM CDT 12/06/2015 10:14 AM CDT Narrative [facility] ([facility]) - 12/07/2015 7:16 AM CDT Performed at: [address] [place] [address] [id number] Travel Ticketing Reviewer: Santana Mathis PhD, Phone: [phone] Zaida Oliva MD LAB - CHEMISTRY ORDERABLES Performing Organization Address City/[facility] Co de Phone Number [facility]) * [id number] BLOOD (12/06/2015 9:36 AM CDT) [facility] Euqjw-3-Xybkxk ypsin 117 90 - 200 mg/dL [facility] Blood specimen (specimen) BLOOD SPECIMEN / Unknown 12/06/2015 9:36 AM CDT 12/06/2015 10:14 AM CDT Zaida Oliva MD LAB - CHEMISTRY ORDERABLES Performing Organization Address [facility] Co de Phone Number [facility] [address] [place] [address] * BLOOD TYPE ABO+ RH PANEL (12/06/2015 9:36 AM CDT) [facility] Typem B POS [facility] Blood specimen (specimen) BLOOD SPECIMEN / Unknown 12/06/2015 9:36 AM CDT 12/06/2015 11:18 AM CDT Zaida Oliva MD LAB - BLOOD BAN K ORDERABLES Performing Organization Address [facility] Co de Phone Number [facility] [address] [place] [address] * NICOTINE + METABOLITES BLOOD (12/06/2015 9:36 AM CDT) [facility] Nicotine None Detected ng/mL [facility] ([facility]) Comment: Nicotine levels greater than 2.0 are consistent with the use of tobacco or tobacco cessation products. Cotinine None Detected ng/mL [facility] ([facility]) Comment: Cotinine levels greater than 20.0 are consistent with the use of tobacco or tobacco cessation products. Blood specimen (specimen) BLOOD SPECIMEN / Unknown 12/06/2015 9:36 AM CDT 12/06/2015 10:16 AM CDT Narrative [facility] ([place]) - 12/10/2015 1:06 PM CDT Performed at: - [address] [id number] Travel Ticketing Reviewer: Casey El MD, Phone: [phone] Zaida Oliva MD LAB - CHEMISTRY ORDERABLES [facility] ([place]) * HEPATITIS B SURFACE ANTIBODY (12/06/2015 9:36 AM CDT) Only the most recent of2 resultswithin the time period is included. Hepatitis B Virus Surface Antibody Non-react gini Non-react gini [facility] Comment: < 8 mIU/mL Hepatitis B surface Antibody (HBsAb). Nonreactive for HBsAb - individual is considered not immune to Hepatitis B Virus infection. Hepatitis B Surface Antibody Quantitative 5.2 <8.0 mIU/mL [facility] Comment: Hepatitis B Surface Antibody Numeric Result Interpretation: Nonreactive: <8.0 mIU/mL Indeterminate: 8.0 - 12.0 mIU/mL Reactive: >12.0 mIU/mL Blood specimen (specimen) BLOOD SPECIMEN / Unknown 12/06/2015 9:36 AM CDT 12/06/2015 10:14 AM CDT Zaida Oliva MD LAB - CHEMISTRY ORDERABLES [address] [phone] * (ABNORMAL) HEPATITIS B CORE ANTIBODY (12/06/2015 9:36 AM CDT) HBc Antibody Total Reactive(A ) Non-reacti ve [facility] Blood specimen (specimen) BLOOD SPECIMEN / Unknown 12/06/2015 9:36 AM CDT 12/06/2015 10:14 AM CDT Zaida Oliva MD LAB - CHEMISTRY ORDERABLES Performing Organization Address [facility] Co de Phone Number [address] [phone] * HEPATITIS B SURFACE ANTIGEN W RFLX CONFIRMATION (12/06/2015 9:36 AM CDT) Only the most recent of2 resultswithin the time period is included. [facility] Hepatitis B Virus Surface Antigen Screen Negative Negative [facility] ([facility]) Blood specimen (specimen) BLOOD SPECIMEN / Unknown 12/06/2015 9:36 AM CDT 12/06/2015 10:16 AM CDT Narrative [facility] ([facility]) - 12/07/2015 6:17 AM CDT Performed at: [address] [place] [address] [id number] Travel Ticketing Reviewer: Santana Mathis PhD, Phone: [phone] Zaida Oliva MD LAB - CHEMISTRY ORDERABLES Performing Organization Address [facility] Co de Phone Number [facility] ([place]) * ALCOHOL ETHYL BLOOD (12/06/2015 9:36 AM CDT) [facility] Interpretation Ethanol None Detected None Detected mg/dL [facility] Comment:Ethanol levels less than 10 mg/dL are resulted as None detected . Blood specimen (specimen) BLOOD SPECIMEN / Unknown 12/06/2015 9:36 AM CDT 12/06/2015 10:13 AM CDT Zaida Oliva MD LAB - CHEMISTRY ORDERABLES Performing Organization Address City/[facility]/ZIP Co de Phone Number [address] [phone] * (ABNORMAL) HEPATITIS A ANTIBODY (12/06/2015 9:36 AM CDT) Only the most recent of2 resultswithin the time period is included. Hepatitis A Virus Antibody Total Positive(A ) Negative [facility] Blood specimen (specimen) 12/06/2015 9:36 AM CDT 12/06/2015 10:15 AM CDT Narrative [facility] ([place]) - 12/07/2015 7:16 AM CDT Performed at: - [address] [id number] Travel Ticketing Reviewer: Santana Mathis PhD, Phone: [phone] Zaida Oliva MD LAB - CHEMISTRY ORDERABLES Performing Organization Address City/[facility]/ZIP Co de Phone Number [facility] ([place]) * ECHO STRESS TEST W DOBUTAMINE (12/06/2015 12:00 AM CDT) Anatomical Region Laterality Modality Other 12/06/2015 Zaida Oliva MD ECHOCARDIOGRAPH Y RADIANT * ECHO STRESS COLOR FLOW AND DOPPLER (12/06/2015 12:00 AM CDT) Anatomical Region Laterality Modality Other 12/06/2015 Zaida Oliva MD ECHOCARDIOGRAPH Y RADIANT * (ABNORMAL) OSMOLALITY URINE (11/13/2015 11:20 PM MANAGER PAPER) Osmolality Urine 488(L) 500 - 800 mOsm/kg [facility] Urine specimen (specimen) URINE SPECIMEN OBTAINED BY CLEAN CATCH PROCEDURE / Unknown 11/13/2015 11:20 PM MANAGER PAPER 11/13/2015 11:42 PM MANAGER PAPER Regino Joseph MD LAB - URINE CHEMISTR Y ORDERABLES [address] [phone] * IR US PARACENTESIS (10/30/2015 4:38 PM MANAGER PAPER) Anatomical Region Laterality Modality Other Impressions 10/30/2015 5:52 PM MANAGER PAPER Impression: successful placement of a abdominal peritoneal dialysis catheter and successful paracentesis. The abdominal fluid need to be drained daily for a least a week to allow healing of the PD catheter track. The catheter should be usable after one week. I was present throughout the procedure. This report was electronically signed by BRISA WITT MD on 10/30/2015 5:52 PM . Narrative 10/30/2015 5:52 PM MANAGER PAPER This is an interventional nephrology procedure performed on 10/30/2015 5:47 PM Attending(s), General Foundry Worker(s): Brisa Witt M.D., Regino Joseph M.D. Diagnosis: Liver cirrhosis, end-stage renal disease Indication: Relief of ascites, dialysis Procedures performed: 1. Insertion of PD catheter without peritoneoscopy 2. Injection of contrast in the peritoneal cavity 3. Ultrasound guidance for needle placement 4 Ultrasound guided Paracentesis This patient was referred for placement of peritoneal dialysis catheter. Following informed consent the patient was taken to the angiography suite and placed on the fluoroscopy table. The skin of the abdomen was prepared with chlorhexidine and sterile drapes were applied. Local anesthetic was infiltrated in the skin and subcutaneous tissues lateral to the umbilicus on the right side. A 1 cm transverse incision was made and with blunt dissection this was carried down to the rectus sheath. Under real-time ultrasound guidance, a 21-gauge micropuncture needle was advanced into the peritoneal cavity. A guidewire was then manipulated towards the pelvis. This allowed the placement of a 5 Stateless trocar. Injection of contrast confirmed entry into the peritoneal cavity with wide diffusion of contrast. Over a wire, the 5 Stateless trocar was exchanged for a 6 Stateless sheath. The side port of the sheath was connected to negative pressure compartment and 4800 mL of straw-colored ascitic fluid were drained. Patient received 25 g of IV abdomen and 1 g of Ancef intravenously during this process. A Glidewire was then inserted through the sheath and manipulated into the pelvis and then the tract was dilated with an 8 Stateless followed by 10, 12, 16 Stateless dilators and then a 18 Stateless peel-away sheath was placed. A double cuff curled peritoneal dialysis catheter was then inserted with a straightening trocar and the peel-away sheath was gradually withdrawn. Using a cuff implantation tool from the [employer] kit, the cuff was implanted in the rectus muscle. An exit site was chosen on the lower abdomen and anesthetized with lidocaine. Using a plastic tunneler, the catheter was then brought to the exterior with the cuff positioned approximately 1 cm from the exit site. Injection of contrast confirmed the absence of kinks and rapid flow into and out of the peritoneal cavity. The wound was then closed with subcutaneous 3-0 Vicryl and a running subcuticular 4-0 Vicryl. The wound was then sealed with Dermabond and Steri-Strips and covered with a gauze dressing. Procedure Note Brisa Witt MD - 12/06/2017 This is an interventional nephrology procedure performed on 10/30/2015 5:47PM Attending(s), General Foundry Worker(s): Brisa Witt M.D., Regino Joseph M.D. Diagnosis: Liver cirrhosis, end-stage renal disease Indication: Relief of ascites, dialysis Procedures performed: 1. Insertion of PD catheter without peritoneoscopy 2. Injection of contrast in the peritoneal cavity 3. Ultrasound guidance for needle placement 4 Ultrasound guided Paracentesis This patient was referred for placement of peritoneal dialysis catheter. Following informed consent the patient was taken to the angiography suiteand placed on the fluoroscopy table. The skin of the abdomen was preparedwith chlorhexidine and sterile drapes were applied. Local anesthetic wasinfiltrated in the skin and subcutaneous tissues lateral to the umbilicus on the right side. A 1 cmtransverse incision was made and with blunt dissection this was carrieddown to the rectus sheath. Under real-time ultrasound guidance, a 21-gaugemicropuncture needle was advanced into the peritoneal cavity. A guidewire was then manipulated towards thepelvis. This allowed the placement of a 5 Stateless trocar. Injection ofcontrast confirmed entry into the peritoneal cavity with wide diffusion ofcontrast. Over a wire, the 5 Stateless trocar was exchanged for a 6 Stateless sheath. The side port of the sheathwas connected to negative pressure compartment and 4800 mL ofstraw-colored ascitic fluid were drained. Patient received 25 g of IVabdomen and 1 g of Ancef intravenously during this process. A Glidewire was then inserted through the sheath and manipulatedinto the pelvis and then the tract was dilated with an 8 Stateless followedby 10, 12, 16 Stateless dilators and then a 18 Stateless peel-away sheath wasplaced. A double cuff curled peritoneal dialysis catheter was then inserted with a straightening trocarand the peel-away sheath was gradually withdrawn. Using a cuffimplantation tool from the [employer] kit, the cuff was implanted in the rectusmuscle. An exit site was chosen on the lower abdomen and anesthetized withlidocaine. Using a plastic tunneler, the catheter was then brought to theexterior with the cuff positioned approximately 1 cm from the exit site.Injection of contrast confirmed the absence of kinks and rapid flow into and out of the peritoneal cavity. Thewound was then closed with subcutaneous 3-0 Vicryl and a runningsubcuticular 4-0 Vicryl. The wound was then sealed with Dermabond andSteri-Strips and covered with a gauze dressing. IMPRESSION Impression: successful placement of a abdominal peritoneal dialysiscatheter and successful paracentesis. The abdominal fluid need to bedrained daily for a least a week to allow healing of the PD cathetertrack. The catheter should be usable after one week. I was present throughout the procedure. This report was electronically signed by BRISA WITT MD on 10/30/20155:52 PM . Regino Joseph MD IR ORDERABLES * IR PERITONEAL TUNNEL CATH PLACE (10/30/2015 4:38 PM MANAGER PAPER) Anatomical Region Laterality Modality Other Impressions 10/30/2015 5:52 PM MANAGER PAPER Impression: successful placement of a abdominal peritoneal dialysis catheter and successful paracentesis. The abdominal fluid need to be drained daily for a least a week to allow healing of the PD catheter track. The catheter should be usable after one week. I was present throughout the procedure. This report was electronically signed by BRISA WITT MD on 10/30/2015 5:52 PM . Narrative 10/30/2015 5:52 PM MANAGER PAPER This is an interventional nephrology procedure performed on 10/30/2015 5:47 PM Attending(s), General Foundry Worker(s): Brisa Witt M.D., Regino Joseph M.D. Diagnosis: Liver cirrhosis, end-stage renal disease Indication: Relief of ascites, dialysis Procedures performed: 1. Insertion of PD catheter without peritoneoscopy 2. Injection of contrast in the peritoneal cavity 3. Ultrasound guidance for needle placement 4 Ultrasound guided Paracentesis This patient was referred for placement of peritoneal dialysis catheter. Following informed consent the patient was taken to the angiography suite and placed on the fluoroscopy table. The skin of the abdomen was prepared with chlorhexidine and sterile drapes were applied. Local anesthetic was infiltrated in the skin and subcutaneous tissues lateral to the umbilicus on the right side. A 1 cm transverse incision was made and with blunt dissection this was carried down to the rectus sheath. Under real-time ultrasound guidance, a 21-gauge micropuncture needle was advanced into the peritoneal cavity. A guidewire was then manipulated towards the pelvis. This allowed the placement of a 5 Stateless trocar. Injection of contrast confirmed entry into the peritoneal cavity with wide diffusion of contrast. Over a wire, the 5 Stateless trocar was exchanged for a 6 Stateless sheath. The side port of the sheath was connected to negative pressure compartment and 4800 mL of straw-colored ascitic fluid were drained. Patient received 25 g of IV abdomen and 1 g of Ancef intravenously during this process. A Glidewire was then inserted through the sheath and manipulated into the pelvis and then the tract was dilated with an 8 Stateless followed by 10, 12, 16 Stateless dilators and then a 18 Stateless peel-away sheath was placed. A double cuff curled peritoneal dialysis catheter was then inserted with a straightening trocar and the peel-away sheath was gradually withdrawn. Using a cuff implantation tool from the [employer] kit, the cuff was implanted in the rectus muscle. An exit site was chosen on the lower abdomen and anesthetized with lidocaine. Using a plastic tunneler, the catheter was then brought to the exterior with the cuff positioned approximately 1 cm from the exit site. Injection of contrast confirmed the absence of kinks and rapid flow into and out of the peritoneal cavity. The wound was then closed with subcutaneous 3-0 Vicryl and a running subcuticular 4-0 Vicryl. The wound was then sealed with Dermabond and Steri-Strips and covered with a gauze dressing. Procedure Note Brisa Witt MD - 12/06/2017 This is an interventional nephrology procedure performed on 10/30/2015 5:47PM Attending(s), General Foundry Worker(s): Brisa Witt M.D., Regino Joseph M.D. Diagnosis: Liver cirrhosis, end-stage renal disease Indication: Relief of ascites, dialysis Procedures performed: 1. Insertion of PD catheter without peritoneoscopy 2. Injection of contrast in the peritoneal cavity 3. Ultrasound guidance for needle placement 4 Ultrasound guided Paracentesis This patient was referred for placement of peritoneal dialysis catheter. Following informed consent the patient was taken to the angiography suiteand placed on the fluoroscopy table. The skin of the abdomen was preparedwith chlorhexidine and sterile drapes were applied. Local anesthetic wasinfiltrated in the skin and subcutaneous tissues lateral to the umbilicus on the right side. A 1 cmtransverse incision was made and with blunt dissection this was carrieddown to the rectus sheath. Under real-time ultrasound guidance, a 21-gaugemicropuncture needle was advanced into the peritoneal cavity. A guidewire was then manipulated towards thepelvis. This allowed the placement of a 5 Stateless trocar. Injection ofcontrast confirmed entry into the peritoneal cavity with wide diffusion ofcontrast. Over a wire, the 5 Stateless trocar was exchanged for a 6 Stateless sheath. The side port of the sheathwas connected to negative pressure compartment and 4800 mL ofstraw-colored ascitic fluid were drained. Patient received 25 g of IVabdomen and 1 g of Ancef intravenously during this process. A Glidewire was then inserted through the sheath and manipulatedinto the pelvis and then the tract was dilated with an 8 Stateless followedby 10, 12, 16 Stateless dilators and then a 18 Stateless peel-away sheath wasplaced. A double cuff curled peritoneal dialysis catheter was then inserted with a straightening trocarand the peel-away sheath was gradually withdrawn. Using a cuffimplantation tool from the [employer] kit, the cuff was implanted in the rectusmuscle. An exit site was chosen on the lower abdomen and anesthetized withlidocaine. Using a plastic tunneler, the catheter was then brought to theexterior with the cuff positioned approximately 1 cm from the exit site.Injection of contrast confirmed the absence of kinks and rapid flow into and out of the peritoneal cavity. Thewound was then closed with subcutaneous 3-0 Vicryl and a runningsubcuticular 4-0 Vicryl. The wound was then sealed with Dermabond andSteri-Strips and covered with a gauze dressing. IMPRESSION Impression: successful placement of a abdominal peritoneal dialysiscatheter and successful paracentesis. The abdominal fluid need to bedrained daily for a least a week to allow healing of the PD cathetertrack. The catheter should be usable after one week. I was present throughout the procedure. This report was electronically signed by BRISA WITT MD on 10/30/20155:52 PM . Regino Joseph MD IR ORDERABLES * IR PERITONEOGRAM (10/30/2015 4:38 PM MANAGER PAPER) Only the most recent of2 resultswithin the time period is included. Anatomical Region Laterality Modality Abdomen Other Impressions 10/30/2015 5:52 PM MANAGER PAPER Impression: successful placement of a abdominal peritoneal dialysis catheter and successful paracentesis. The abdominal fluid need to be drained daily for a least a week to allow healing of the PD catheter track. The catheter should be usable after one week. I was present throughout the procedure. This report was electronically signed by BRISA WITT MD on 10/30/2015 5:52 PM . Narrative 10/30/2015 5:52 PM MANAGER PAPER This is an interventional nephrology procedure performed on 10/30/2015 5:47 PM Attending(s), General Foundry Worker(s): Brisa Witt M.D., Regino Joseph M.D. Diagnosis: Liver cirrhosis, end-stage renal disease Indication: Relief of ascites, dialysis Procedures performed: 1. Insertion of PD catheter without peritoneoscopy 2. Injection of contrast in the peritoneal cavity 3. Ultrasound guidance for needle placement 4 Ultrasound guided Paracentesis This patient was referred for placement of peritoneal dialysis catheter. Following informed consent the patient was taken to the angiography suite and placed on the fluoroscopy table. The skin of the abdomen was prepared with chlorhexidine and sterile drapes were applied. Local anesthetic was infiltrated in the skin and subcutaneous tissues lateral to the umbilicus on the right side. A 1 cm transverse incision was made and with blunt dissection this was carried down to the rectus sheath. Under real-time ultrasound guidance, a 21-gauge micropuncture needle was advanced into the peritoneal cavity. A guidewire was then manipulated towards the pelvis. This allowed the placement of a 5 Stateless trocar. Injection of contrast confirmed entry into the peritoneal cavity with wide diffusion of contrast. Over a wire, the 5 Stateless trocar was exchanged for a 6 Stateless sheath. The side port of the sheath was connected to negative pressure compartment and 4800 mL of straw-colored ascitic fluid were drained. Patient received 25 g of IV abdomen and 1 g of Ancef intravenously during this process. A Glidewire was then inserted through the sheath and manipulated into the pelvis and then the tract was dilated with an 8 Stateless followed by 10, 12, 16 Stateless dilators and then a 18 Stateless peel-away sheath was placed. A double cuff curled peritoneal dialysis catheter was then inserted with a straightening trocar and the peel-away sheath was gradually withdrawn. Using a cuff implantation tool from the [employer] kit, the cuff was implanted in the rectus muscle. An exit site was chosen on the lower abdomen and anesthetized with lidocaine. Using a plastic tunneler, the catheter was then brought to the exterior with the cuff positioned approximately 1 cm from the exit site. Injection of contrast confirmed the absence of kinks and rapid flow into and out of the peritoneal cavity. The wound was then closed with subcutaneous 3-0 Vicryl and a running subcuticular 4-0 Vicryl. The wound was then sealed with Dermabond and Steri-Strips and covered with a gauze dressing. Procedure Note Brisa Witt MD - 12/06/2017 This is an interventional nephrology procedure performed on 10/30/2015 5:47PM Attending(s), General Foundry Worker(s): Brisa Witt M.D., Regino Joseph M.D. Diagnosis: Liver cirrhosis, end-stage renal disease Indication: Relief of ascites, dialysis Procedures performed: 1. Insertion of PD catheter without peritoneoscopy 2. Injection of contrast in the peritoneal cavity 3. Ultrasound guidance for needle placement 4 Ultrasound guided Paracentesis This patient was referred for placement of peritoneal dialysis catheter. Following informed consent the patient was taken to the angiography suiteand placed on the fluoroscopy table. The skin of the abdomen was preparedwith chlorhexidine and sterile drapes were applied. Local anesthetic wasinfiltrated in the skin and subcutaneous tissues lateral to the umbilicus on the right side. A 1 cmtransverse incision was made and with blunt dissection this was carrieddown to the rectus sheath. Under real-time ultrasound guidance, a 21-gaugemicropuncture needle was advanced into the peritoneal cavity. A guidewire was then manipulated towards thepelvis. This allowed the placement of a 5 Stateless trocar. Injection ofcontrast confirmed entry into the peritoneal cavity with wide diffusion ofcontrast. Over a wire, the 5 Stateless trocar was exchanged for a 6 Stateless sheath. The side port of the sheathwas connected to negative pressure compartment and 4800 mL ofstraw-colored ascitic fluid were drained. Patient received 25 g of IVabdomen and 1 g of Ancef intravenously during this process. A Glidewire was then inserted through the sheath and manipulatedinto the pelvis and then the tract was dilated with an 8 Stateless followedby 10, 12, 16 Stateless dilators and then a 18 Stateless peel-away sheath wasplaced. A double cuff curled peritoneal dialysis catheter was then inserted with a straightening trocarand the peel-away sheath was gradually withdrawn. Using a cuffimplantation tool from the [employer] kit, the cuff was implanted in the rectusmuscle. An exit site was chosen on the lower abdomen and anesthetized withlidocaine. Using a plastic tunneler, the catheter was then brought to theexterior with the cuff positioned approximately 1 cm from the exit site.Injection of contrast confirmed the absence of kinks and rapid flow into and out of the peritoneal cavity. Thewound was then closed with subcutaneous 3-0 Vicryl and a runningsubcuticular 4-0 Vicryl. The wound was then sealed with Dermabond andSteri-Strips and covered with a gauze dressing. IMPRESSION Impression: successful placement of a abdominal peritoneal dialysiscatheter and successful paracentesis. The abdominal fluid need to bedrained daily for a least a week to allow healing of the PD cathetertrack. The catheter should be usable after one week. I was present throughout the procedure. This report was electronically signed by BRISA WITT MD on 10/30/20155:52 PM . Regino Joseph MD IR ORDERABLES * US GUIDE INTRAOPERATIVE (10/30/2015 4:38 PM MANAGER PAPER) Anatomical Region Laterality Modality Other Impressions 10/30/2015 5:52 PM MANAGER PAPER Impression: successful placement of a abdominal peritoneal dialysis catheter and successful paracentesis. The abdominal fluid need to be drained daily for a least a week to allow healing of the PD catheter track. The catheter should be usable after one week. I was present throughout the procedure. This report was electronically signed by BRISA WITT MD on 10/30/2015 5:52 PM . Narrative 10/30/2015 5:52 PM MANAGER PAPER This is an interventional nephrology procedure performed on 10/30/2015 5:47 PM Attending(s), General Foundry Worker(s): Brisa Witt M.D., Regino Joseph M.D. Diagnosis: Liver cirrhosis, end-stage renal disease Indication: Relief of ascites, dialysis Procedures performed: 1. Insertion of PD catheter without peritoneoscopy 2. Injection of contrast in the peritoneal cavity 3. Ultrasound guidance for needle placement 4 Ultrasound guided Paracentesis This patient was referred for placement of peritoneal dialysis catheter. Following informed consent the patient was taken to the angiography suite and placed on the fluoroscopy table. The skin of the abdomen was prepared with chlorhexidine and sterile drapes were applied. Local anesthetic was infiltrated in the skin and subcutaneous tissues lateral to the umbilicus on the right side. A 1 cm transverse incision was made and with blunt dissection this was carried down to the rectus sheath. Under real-time ultrasound guidance, a 21-gauge micropuncture needle was advanced into the peritoneal cavity. A guidewire was then manipulated towards the pelvis. This allowed the placement of a 5 Stateless trocar. Injection of contrast confirmed entry into the peritoneal cavity with wide diffusion of contrast. Over a wire, the 5 Stateless trocar was exchanged for a 6 Stateless sheath. The side port of the sheath was connected to negative pressure compartment and 4800 mL of straw-colored ascitic fluid were drained. Patient received 25 g of IV abdomen and 1 g of Ancef intravenously during this process. A Glidewire was then inserted through the sheath and manipulated into the pelvis and then the tract was dilated with an 8 Stateless followed by 10, 12, 16 Stateless dilators and then a 18 Stateless peel-away sheath was placed. A double cuff curled peritoneal dialysis catheter was then inserted with a straightening trocar and the peel-away sheath was gradually withdrawn. Using a cuff implantation tool from the [employer] kit, the cuff was implanted in the rectus muscle. An exit site was chosen on the lower abdomen and anesthetized with lidocaine. Using a plastic tunneler, the catheter was then brought to the exterior with the cuff positioned approximately 1 cm from the exit site. Injection of contrast confirmed the absence of kinks and rapid flow into and out of the peritoneal cavity. The wound was then closed with subcutaneous 3-0 Vicryl and a running subcuticular 4-0 Vicryl. The wound was then sealed with Dermabond and Steri-Strips and covered with a gauze dressing. Procedure Note Brisa Witt MD - 12/06/2017 This is an interventional nephrology procedure performed on 10/30/2015 5:47PM Attending(s), General Foundry Worker(s): Brisa Witt M.D., Regino Joseph M.D. Diagnosis: Liver cirrhosis, end-stage renal disease Indication: Relief of ascites, dialysis Procedures performed: 1. Insertion of PD catheter without peritoneoscopy 2. Injection of contrast in the peritoneal cavity 3. Ultrasound guidance for needle placement 4 Ultrasound guided Paracentesis This patient was referred for placement of peritoneal dialysis catheter. Following informed consent the patient was taken to the angiography suiteand placed on the fluoroscopy table. The skin of the abdomen was preparedwith chlorhexidine and sterile drapes were applied. Local anesthetic wasinfiltrated in the skin and subcutaneous tissues lateral to the umbilicus on the right side. A 1 cmtransverse incision was made and with blunt dissection this was carrieddown to the rectus sheath. Under real-time ultrasound guidance, a 21-gaugemicropuncture needle was advanced into the peritoneal cavity. A guidewire was then manipulated towards thepelvis. This allowed the placement of a 5 Stateless trocar. Injection ofcontrast confirmed entry into the peritoneal cavity with wide diffusion ofcontrast. Over a wire, the 5 Stateless trocar was exchanged for a 6 Stateless sheath. The side port of the sheathwas connected to negative pressure compartment and 4800 mL ofstraw-colored ascitic fluid were drained. Patient received 25 g of IVabdomen and 1 g of Ancef intravenously during this process. A Glidewire was then inserted through the sheath and manipulatedinto the pelvis and then the tract was dilated with an 8 Stateless followedby 10, 12, 16 Stateless dilators and then a 18 Stateless peel-away sheath wasplaced. A double cuff curled peritoneal dialysis catheter was then inserted with a straightening trocarand the peel-away sheath was gradually withdrawn. Using a cuffimplantation tool from the [employer] kit, the cuff was implanted in the rectusmuscle. An exit site was chosen on the lower abdomen and anesthetized withlidocaine. Using a plastic tunneler, the catheter was then brought to theexterior with the cuff positioned approximately 1 cm from the exit site.Injection of contrast confirmed the absence of kinks and rapid flow into and out of the peritoneal cavity. Thewound was then closed with subcutaneous 3-0 Vicryl and a runningsubcuticular 4-0 Vicryl. The wound was then sealed with Dermabond andSteri-Strips and covered with a gauze dressing. IMPRESSION Impression: successful placement of a abdominal peritoneal dialysiscatheter and successful paracentesis. The abdominal fluid need to bedrained daily for a least a week to allow healing of the PD cathetertrack. The catheter should be usable after one week. I was present throughout the procedure. This report was electronically signed by BRISA WITT MD on 10/30/20155:52 PM . Regino Joseph MD US ORDERABLES * ALBUMIN URINE TIMED (10/30/2015 6:29 AM MANAGER PAPER) Albumin Timed Urine Not established for collection periods other than 24 Hrs. mg/X hrs [facility] Albumin Random Urine >500.0 Not Established mcg/mL [facility] Comment:Result obtained by jacobo uriostegui. Collection Time Timed Urine 12 Hrs [facility] Volume Timed Urine 300 mL [facility] Urine specimen (specimen) URINE SPECIMEN OBTAINED BY CLEAN CATCH PROCEDURE / Unknown 10/30/2015 6:29 AM MANAGER PAPER 10/30/2015 7:02 AM MANAGER PAPER Narrative [facility] - 10/30/2015 11:00 AM MANAGER PAPER To be done on the 12 hour urine sample collected for urine protein Regino Joseph MD LAB - URINE CHEMISTR Y ORDERABLES [address] [phone] * CT ABDOMEN PELVIS WO CONTRAST (10/28/2015 9:08 AM MANAGER PAPER) Anatomical Region Laterality Modality Abdomen, Pelvis Other Impressions 10/28/2015 2:25 PM MANAGER PAPER IMPRESSION: 1. Hepatic cirrhosis. Moderate amount of ascites with density of simple fluid. 2. Postbiopsy changes in left kidney with a few locules of gas and minimal hemorrhage along the biopsy tract. No perinephric/subcapsular hematoma or retroperitoneal hemorrhage is identified. 3. Tubular hyperdensity in the left external iliac vein most concerning for deep venous thrombosis. This can be further evaluated with Doppler ultrasound examination of the lower extremities. 4. Trace bilateral pleural effusions and bibasilar opacities which could represent atelectasis and/or airspace disease. The findings were discussed with Dr. Bella at 10:30 AM on 10/28/[address] Worrell. Report dictated by Kingsley Snowden M.D., MPH (resident). I, Dr. AMRIT WORRELL M.D. have personally reviewed and interpreted this examination/study. This report was electronically signed by AMRIT WORRELL M.D. on 10/28/2015 2:25 PM . Narrative 10/28/2015 2:25 PM MANAGER PAPER EXAMINATION: Computed tomography of the abdomen and pelvis without contrast Exam Date: 10/28/2015 9:09 AM HISTORY: Dropping hemoglobin status post renal biopsy. TECHNIQUE: Computed tomography of the abdomen and pelvis without intravenous contrast according to standard protocol. COMPARISON: None available at the time of dictation. FINDINGS: Evaluation of abdominopelvic organs and vascular structures is limited due to lack of intravenous contrast. Small bilateral pleural effusions are present. There are dependent opacities in both lung bases representing atelectasis and/or airspace disease with associated atelectasis and/or airspace disease, right greater than left. The heart size is normal. The liver is shrunken with nodular margins and caudate lobe hypertrophy representing cirrhosis. There is no intra or extrahepatic biliary ductal dilation. The gallbladder is normal. There are no gallstones within the gallbladder. The spleen, pancreas, and adrenal glands appear normal. A moderate to large amount of ascites is present, measuring simple fluid density. Post percutaneous biopsy changes are seen in the left kidney with a few locules of air and minimal hemorrhage along the biopsy tract. There is no perinephric or subcapsular hematoma within the limits of this study. No retroperitoneal hematoma is identified. The right kidney appears normal. There is no hydronephrosis. The small and large bowel are normal in caliber without obstruction. The appendix is partially visible, the visible part appears normal. No free intraperitoneal air is identified. There are multiple scattered subcentimeter lymph nodes in the perla hepatis, mesentery, inguinal region and retroperitoneum. The abdominal aorta is normal in course and caliber. There is tubular hyperdensity within the left external iliac vein measuring approximately 4 cm in length (series 3 image 122 through 133) likely representing thrombus. The urinary bladder is decompressed. The prostate is present. Diffuse abdominal wall edema is identified. Osseous: No acute osseous abnormalities are seen. Procedure Note Amrit Worrell MD - 12/06/2017 EXAMINATION: Computed tomography of the abdomen and pelvis withoutcontrast Exam Date: 10/28/2015 9:09 AM HISTORY: Dropping hemoglobin status post renal biopsy. TECHNIQUE: Computed tomography of the abdomen and pelvis withoutintravenous contrast according to standard protocol. COMPARISON: None available at the time of dictation. FINDINGS: Evaluation of abdominopelvic organs and vascular structures is limited dueto lack of intravenous contrast. Small bilateral pleural effusions are present. There are dependentopacities in both lung bases representing atelectasis and/or airspacedisease with associated atelectasis and/or airspace disease, right greaterthan left. The heart size is normal. The liver is shrunken with nodular margins and caudate lobe hypertrophyrepresenting cirrhosis. There is no intra or extrahepatic biliary ductaldilation. The gallbladder is normal. There are no gallstones within thegallbladder. The spleen, pancreas, and adrenal glands appear normal. A moderate to large amount of ascites ispresent, measuring simple fluid density. Post percutaneous biopsy changesare seen in the left kidney with a few locules of air and minimalhemorrhage along the biopsy tract. There is no perinephric or subcapsular hematoma within the limits of thisstudy. No retroperitoneal hematoma is identified. The right kidney appearsnormal. There is no hydronephrosis. The small and large bowel are normal in caliber without obstruction. Theappendix is partially visible, the visible part appears normal. No freeintraperitoneal air is identified. There are multiple scatteredsubcentimeter lymph nodes in the perla hepatis, mesentery, inguinal region and retroperitoneum. The abdominal aorta is normal in course and caliber. There is tubularhyperdensity within the left external iliac vein measuring approximately 4cm in length (series 3 image 122 through 133) likely representingthrombus. The urinary bladder is decompressed. The prostate is present. Diffuseabdominal wall edema is identified. Osseous: No acute osseous abnormalities are seen. IMPRESSION IMPRESSION: 1. Hepatic cirrhosis. Moderate amount of ascites with density of simplefluid. 2. Postbiopsy changes in left kidney with a few locules of gas and minimalhemorrhage along the biopsy tract. No perinephric/subcapsular hematoma orretroperitoneal hemorrhage is identified. 3. Tubular hyperdensity in the left external iliac vein most concerningfor deep venous thrombosis. This can be further evaluated with Dopplerultrasound examination of the lower extremities. 4. Trace bilateral pleural effusions and bibasilar opacities which couldrepresent atelectasis and/or airspace disease. The findings were discussed with Dr. Bella at 10:30 AM on 10/28/2015 byDr. Worrell. Report dictated by Kingsley Snowden M.D., MPH (resident). I, Dr. AMRIT WORRELL M.D. have personally reviewed and interpreted thisexamination/study. This report was electronically signed by AMRIT WORRELL M.D. on 10/28/20152:25 PM . Regino Joseph MD CT ORDERABLES * AMYLASE BODY FLUID ([facility] ONLY) (10/27/2015 7:12 PM MANAGER PAPER) Only the most recent of2 resultswithin the time period is included. Amylase Fluid 41 Not Established For Fluids Units/L [facility] Comment:The reference range and other method performance specifications have not been established for this fluid. The test result must be integrated into the clinical context for interpretation. Fluid specimen (specimen) 10/27/2015 7:12 PM MANAGER PAPER 10/27/2015 7:29 PM MANAGER PAPER Regino Joseph MD LAB - BODY FLUID ORD ERABLES Performing Organization Address City/[facility]/ZIP Co de Phone Number [facility] [address] [phone] * VAS LEFT VENOUS DUPLEX LE (07/24/2015 11:25 AM MANAGER PAPER) Anatomical Region Laterality Modality Lower Extremity, Upper Extremity Other Tristin Gray MD VASCULAR L AB ORDERABLES * (ABNORMAL) CREATINE URINE TIMED (07/22/2015 6:06 AM MANAGER PAPER) Creatine Urine 25.5 Undefined mg/dL [facility] Comment:Results verified b y repeat testing Creatine 24 hour Urine 351(H) 0 - 40 mg/24 hr [facility]) Urine specimen (specimen) (Urine, unspecified source) 07/22/2015 6:06 AM MANAGER PAPER 07/22/2015 6:23 AM MANAGER PAPER Narrative [facility] - 07/27/2015 5:13 PM MANAGER PAPER Performed at: [address] [place] [address] [id number] Travel Ticketing Reviewer: Casey El MD, Phone: [phone] Tristin Gray MD LAB - URIN E CHEMISTRY ORDERABLES Performing Organization Address [facility] Co de Phone Number [facility] ([facility]) * EOSINOPHIL URINE SMEAR (07/20/2015 6:45 PM MANAGER PAPER) Eosin Stain Urine None None [facility] Urine specimen (specimen) 07/20/2015 6:45 PM MANAGER PAPER 07/20/2015 6:45 PM MANAGER PAPER Tristin Gray MD LAB - URIN E CHEMISTRY ORDERABLES Performing Organization Address [facility]/ZIP Co de Phone Number [facility] [address] [place], [place] [id number] [place] [address] * HEPATITIS C RNA QUANTITATIVE PCR (07/20/2015 3:04 PM MANAGER PAPER) Hepatitis C Virus RNA PCR Specimen: 1 ml Serum Reference: [id number] Test: Hepatitis C RT-PCR (Quantitative) RESULT Not Detected Reference Range Not Detected INTERPRETATION The quantitative Hepatitis C viral RNA RT-PCR determination was performed on a serum sample and is reported in IU/ml. Hepatitis C viral RNA was not detected. COMMENT The Hepatitis C viral (HCV) RNA analysis utilized a serum sample, real-time reverse on line csr PCR, and is reported as Not Detected, Detected (<12 IU/ml), Quantity (IU/ml) or >100,000,000 IU/ml. The analytical sensitivity of the assay is 5 IU/ml (90% of samples with this HCV RNA level were detected). Values less than 5 IU/ml are reported as Not Detected. The linear range is from 12 IU/ml to 100,000,000 IU/ml. Values greater than or equal to 5 IU/ml and <12 IU/ml are reported as Detected (<12 IU/ml). Values greater than 100,000,000 IU/ml are reported as >100,000,000 IU/ml. The detection/quantit ation of HCV RNA in serum is based on the isolation of HCV RNA with reverse on line csr of genomic HCV RNA followed by real-time PCR in the presence of an unrelated RNA internal control. The internal control ensures that RNA is isolated, and that no general significant inhibitors of the RT-PCR process are present. This analysis was performed using an [place] FDA approved test methodology ([employer] RealTime HCV). Test performed at [facility], [address] [place] [address] This case has been personally reviewed and interpreted by the attending (teaching) pathologist. Final Diagnosis performed by Gilmar Kulkarni PHD. Electronically signed 07/28/2015 [facility]) Blood specimen (specimen) BLOOD SPECIMEN / Unknown 07/20/2015 3:04 PM MANAGER PAPER 07/20/2015 3:04 PM MANAGER PAPER Tristin Gray MD LAB - CHEM ISTRY ORDERABLES [facility] ([facility]) * BCID PANEL (07/20/2015 2:45 PM MANAGER PAPER) Staphylococcus Not Detected Not Detected [facility] Staphylococcus aureus Not Detected Not Detected [facility] Enterococcus Not Detected Not Detected [facility] Enterococcus faecium Not Detected Not Detected [facility] Streptococcus Not Detected Not Detected [facility] Streptococcus agalactiae (Group B) Not Detected Not Detected [facility] Streptococcus pneumoniae Not Detected Not Detected [facility] Streptococcus pyogenes (Group A) Not Detected Not Detected [facility] Streptococcus anginosus Group Not Detected Not Detected [facility] Listeria monocytogenes Not Detected Not Detected [facility] Blood specimen (specimen) BLOOD SPECIMEN / Unknown 07/20/2015 2:45 PM MANAGER PAPER 07/22/2015 12:02 PM MANAGER PAPER Narrative [facility] - 07/22/2015 12:08 PM MANAGER PAPER No targets detected by Verigene nucleic acid test. No targets may be detected if there are organisms present that the system does not specifically test for, if the organisms are below the detectable concentration, or if there are multiple organisms present (mixed sample). Full identification and antimicrobial susceptibility testing to follow. Note: Verigene testing performed by nucleic acid probe. Results do not exclude the possibility of a mixed bacterial infection. RESULTS CALLED TO AND READ BACK BY Dr. Villalba ([facility]) AT 12:07 PM, 07/22/2015 Tristin Gray MD LAB - MICR OBIOLOGY ORDERABLES [address] [phone] * (ABNORMAL) COMPLEMENT C4 (06/14/2015 3:11 PM CDT) Complement C4 15(L) 16 - 47 mg/dL [facility] ([facility]) Comment: Test Performed at: [employer] [facility] [address] [place] [address] CASEY SANCHEZ DO,MPH Blood specimen (specimen) BLOOD SPECIMEN / Unknown 06/14/2015 3:11 PM CDT 06/14/2015 3:11 PM CDT Cindi Bella MD LAB - SEROLOGY ORDER [facility]AIN [facility] ([facility]) * COMPLEMENT C3 (06/14/2015 3:11 PM CDT) Pathologist [facility] Complement C3 158 90 - 180 mg/dL [facility] ([facility]) Comment: Test Performed at: [employer] [facility] [facility] [address] [place] [id number] CASEY SANCHEZ DO,MPH Blood specimen (specimen) BLOOD SPECIMEN / Unknown 06/14/2015 3:11 PM CDT 06/14/2015 3:11 PM CDT Cindi Bella MD LAB - CHEMISTRY REID MILLER Performing Organization Address City/[facility]/ZIP Co de Phone Number [facility] ([facility]) * (ABNORMAL) QUANTIFERON TB-GOLD (06/14/2015 3:09 PM CDT) [facility] QuantiFERON TB Gold INDETERMI APARNA(A) NEGATIVE [facility] ([facility]) Comment: Results are indeterminate for response to ESAT-6,TB7.7 and/or CFP-10 test antigens. QuantiFERON Nil Value 0.01 IU/mL [facility] ([facility]) QuantiFERON Mitogen Value 0.09 IU/mL [facility] ([facility]) QuantiFERON TB Antigen minus Nil value 0.00 IU/mL [facility] ([facility]) Comment: The Nil tube value is used to determine if the patient has a preexisting immune response which could cause a false-positive reading on the test. In order for a test to be valid, the Nil tube must have a value of less than or equal to 8.0 IU/mL. The mitogen control tube is used to assure the patient has a healthy immune status and also serves as a control for correct blood handling and incubation. It is used to detect false-negative readings. The mitogen tube must have a gamma interferon value of greater than or equal to 0.5 IU/mL higher than the value of the Nil tube. The TB antigen tube is coated with the M. tuberculosis specific antigens. For a test to be considered positive, the TB antigen tube value minus the Nil tube value must be greater than or equal to 0.35 IU/mL. For additional information, please refer to http://education.BO.LT/faq/QFT (This link is being provided for informational/ educational purposes only.) Test Performed at: [facility] [address] [place] [address] CASEY SANCHEZ DO,MPH Blood specimen (specimen) BLOOD SPECIMEN / Unknown 06/14/2015 3:09 PM CDT 06/14/2015 3:10 PM CDT Cindi Bella MD LAB - CHEMISTRY ORDE RABJAYLON Performing Organization Address [facility] Co de Phone Number [facility] ([facility]) * PROTEIN ELECTROPHORESIS URINE RANDOM PANEL (05/18/2015 3:44 PM CDT) Albumin Urine 38 % [facility] ([facility]) Offry-6-Pecqvebu 12 % [facility] ([facility]) Alobm-7-Qjnxcgvw 10 % [facility] ([facility]) Beta-Globulin 19 % [facility] ([facility]) Gamma Globulin Urine 21 % [facility] ([facility]) Interpretation [facility] ([facility]) Comment: Agarose electrophoresis of urine reveals albumin and various globulin fractions. No abnormal protein is observed. Test Performed at: [facility] [id number] [place] [address] CASEY SANCHEZ DO,MPH 05/18/2015 3:44 PM CDT 05/18/2015 3:51 PM CDT Cindi Bella MD LAB - URINE CHEMISTR Y ORDERABLES Performing Organization Address [facility] de Phone Number [facility] ([facility]) * US RETROPERITONEAL COMPLETE (05/18/2015 2:56 PM CDT) Anatomical Region Laterality Modality Abdomen Other Impressions 05/18/2015 3:28 PM CDT IMPRESSION: 1. Normal renal size. No evidence of nephrolithiasis, hydronephrosis, or solid renal mass. 2. Patent renal vasculature without secondary signs of renal artery stenosis. 3. Liver nodularity is consistent with hepatic cirrhosis. Ascites. Dictated by Nelson Buck MD (resident). I, Dr. ELA SIBLEY M.D. have personally reviewed and interpreted this examination/study. This report was electronically signed by ELA SIBLEY M.D. on 05/18/2015 3:28 PM . Narrative 05/18/2015 3:28 PM CDT EXAMINATION: 1. Complete retroperitoneal sonogram 2. Color and spectral Doppler evaluation of the renal vasculature HISTORY: ANA COMPARISON: No prior study is available for comparison. FINDINGS: Retroperitoneum: Right kidney: 12.8 x 6.4 x 5.7 cm Left kidney: 12.1 x 6.2 x 6.7 cm Renal parenchymal echogenicity is normal. There is no evidence of a solid renal mass, renal calculi, or hydronephrosis. The bladder is partially distended and is normal appearing. The liver has a nodular appearance and there is free intraperitoneal fluid. Renal Doppler: Arcuate arterial waveforms in both kidneys demonstrate brisk systolic upstrokes. While the renal arteries were not interrogated in their entirety, the visible portions display normal arterial waveforms and velocities. Resistive indices: Right superior kidney: 0.59 Right mid kidney: 0.53 Right inferior kidney: 0.62 Right renal artery: 0.68 Left superior kidney: 0.69 Left mid kidney: 0.57 Left inferior kidney: 0.64 Left renal artery: 0.71 Procedure Note Ela Sibley MD - 12/06/2017 EXAMINATION: 1. Complete retroperitoneal sonogram 2. Color and spectral Doppler evaluation of the renal vasculature HISTORY: ANA COMPARISON: No prior study is available for comparison. FINDINGS: Retroperitoneum: Right kidney: 12.8 x 6.4 x 5.7 cm Left kidney: 12.1 x 6.2 x 6.7 cm Renal parenchymal echogenicity is normal. There is no evidence of a solidrenal mass, renal calculi, or hydronephrosis. The bladder is partiallydistended and is normal appearing. The liver has a nodular appearance andthere is free intraperitoneal fluid. Renal Doppler: Arcuate arterial waveforms in both kidneys demonstrate brisk systolicupstrokes. While the renal arteries were not interrogated in theirentirety, the visible portions display normal arterial waveforms andvelocities. Resistive indices: Right superior kidney: 0.59 Right mid kidney: 0.53 Right inferior kidney: 0.62 Right renal artery: 0.68 Left superior kidney: 0.69 Left mid kidney: 0.57 Left inferior kidney: 0.64 Left renal artery: 0.71 IMPRESSION IMPRESSION: 1. Normal renal size. No evidence of nephrolithiasis, hydronephrosis, orsolid renal mass. 2. Patent renal vasculature without secondary signs of renal arterystenosis. 3. Liver nodularity is consistent with hepatic cirrhosis. Ascites. Dictated by Nelson Buck MD (resident). I, Dr. ELA SBILEY M.D. have personally reviewed and interpreted thisexamination/study. This report was electronically signed by ELA SIBLEY M.D. on 05/18/20153:28 PM . Cindi Bella MD ORDERABLES * (ABNORMAL) HEPATITIS B IMMUNITY PANEL (05/09/2015 4:21 PM CDT) Pathologist [facility] Hepatitis B Core Virus Antibody Total REACTIVE(A ) NON-REACT GINI [facility] ([facility]) Comment: Test Performed at: [facility] [place] [address] [place] [address] CASEY SANCHEZ DO,MPH HEPATITIS B SURFACE ([facility]) NON-REACTI VE NON-REACT GINI [facility] ([facility]) 05/09/2015 4:21 PM CDT 05/09/2015 4:22 PM CDT Cindi Bella MD LAB - CHEMISTRY REID MILLER [facility] Organization Address City/State/ZIP Co de Phone Number [facility] ([facility]) * HIV 1/0/2 DONOR (05/09/2015 4:21 PM CDT) Pathologist [facility] Donor HIV 1/2 Antibody Screen Nonreactive Nonreactive [facility] ([facility]) Comment: This test is for eligibility determination of Donors of blood and blood components and human cells, tissues, and cellular and tissue based products (HCT/Ps). This test is not intended to be used for routine clinical or routine diagnostic evaluation. Test Performed at: [facility]/[address] [address] NORMA BRYANT MD,PHD 05/09/2015 4:21 PM CDT 05/09/2015 4:22 PM CDT Cindi Bella MD LAB - CHEMISTRY ORDE RABLES Performing Organization Address [facility] de Phone Number [facility] ([facility]) * HIV-1 HIV-2 ANTIBODY DIFFERENTIATION (05/09/2015 4:21 PM CDT) HIV 1 Antibody NEGATIVE NEGATIVE [facility] ([facility]) HIV-2 Antibody NEGATIVE NEGATIVE [facility] ([facility]) Comment: Note: This assay is intended to be used as part of a multi-test HIV-1/HIV-2 diagnostic algorithm. A Negative HIV-1/HIV-2 differentiation assay does not exclude HIV infection since the time frame for seroconversion is variable. If acute HIV-1 infection is being considered, ordering the HIV-1 RNA Qualitative TMA assay (test code 70167) to determine the presence or absence of detectable viral RNA is recommended. PLEASE NOTE: This information has been disclosed to you from records whose confidentiality may be protected by state law. If your state requires such protection, then the state law prohibits you from making any further disclosure of the information without the specific written consent of the person to whom it pertains, or as otherwise permitted by law. A general authorization for the release of medical or other information is NOT sufficient for this purpose. Test Performed at: [facility] [address] [place] [address] CASEY SANCHEZ DO,MPH 05/09/2015 4:21 PM CDT 05/09/2015 4:22 PM CDT Cindi Bella MD LAB - CHEMISTRY REID MILLER Performing Organization Address [facility] de Phone Number [facility] ([facility]) * ANCA SCREEN W/ REFLX MPO+PR3+TITER (05/09/2015 4:21 PM CDT) ANCA Screen Negative Negative [facility] ([facility]) Comment: ANCA Screen includes evaluation for p-ANCA, c-ANCA, and atypical p-ANCA. Test Performed at: [facility]/[address] [address] NORMA BRYANT MD,PHD 05/09/2015 4:21 PM CDT 05/09/2015 4:22 PM CDT Cindi Bella MD LAB - CHEMISTRY REID SILVIOJAYLON Performing Organization Address [facility] Co de Phone Number [facility] ([facility]) * (ABNORMAL) PROTEIN ELECTROPHORESIS WO INTERP BLOOD (05/09/2015 4:21 PM CDT) Albumin Electrophoresis 3.8 - 4.8 g/dL [facility] ([facility]) Comment:ALBUMIN = 1.3 g/dL L Dakxt-9-Vynfxecj 0.2 0.2 - 0.3 g/dL [facility] ([facility]) Fmqrr-2-Gkkokxnl 0.9 0.5 - 0.9 g/dL [facility] ([facility]) Beta-1 Globulin 0.2(L) 0.4 - 0.6 g/dL [facility] ([facility]) Beta-2 Globulin 0.4 0.2 - 0.5 g/dL [facility] ([facility]) Gamma Globulin 0.7(L) 0.8 - 1.7 g/dL [facility] ([facility]) Interpretation [facility] ([facility]) Comment: Hypogammaglobulinemia may be seen in early or evolving lymphoproliferative disorders, acquired or congenital immune deficiencies, immunosuppressive therapy and light chain disease. Consider urine protein electrophoresis, urine immunofixation and/or free light chains if clinically indicated. Test Performed at: [facility] [id number] CASEY SANCHEZ DO,MPH Blood specimen (specimen) BLOOD SPECIMEN / Unknown 05/09/2015 4:21 PM CDT 05/09/2015 4:22 PM CDT Cindi Bella MD LAB - CHEMISTRY REID MILLER Performing Organization Address [facility]/State/ZIP Co de Phone Number [facility] ([facility]) * IMMUNOFIXATION (05/09/2015 4:21 PM CDT) Pathologist [facility] Interpretation [facility] ([facility]) Comment: Normal pattern. No monoclonal proteins detected. Test Performed at: [facility] [id number] CASEY SNACHEZ DO,MPH Blood specimen (specimen) BLOOD SPECIMEN / Unknown 05/09/2015 4:21 PM CDT 05/09/2015 4:22 PM CDT Cindi Bella MD LAB - CHEMISTRY REID MILLER [facility] ([facility]) * (ABNORMAL) C3, C4, COMPLEMENT CH50 (05/09/2015 4:21 PM CDT) Complement Total CH50 22(L) 31 - 60 U/mL [facility] ([facility]) Comment: Test Performed at: [facility] [address] CASEY SANCHEZ DO,MPH 05/09/2015 4:21 PM CDT 05/09/2015 4:22 PM CDT Cindi Bella MD LAB - CHEMISTRY REID MILLER Performing Organization Address [facility] Co de Phone Number [facility] ([facility]) * NEUTROPHIL CYTOPLASMIC ANTIBODY (05/09/2015 4:21 PM CDT) Pathologist [facility] Myeloperoxidase Antibody <1.0 AI [employer] ([facility]) Comment: Value Interpretation ----- <1.0 No Antibody Detected > or = 1.0 Antibody Detected Autoantibodies to myeloperoxidase (MPO) are commonly associated with the following small-vessel vasculitides: microscopic polyangitis, polyarteritis nodosa, Churg-Jb syndrome, necrotizing and crescentic glomerulonephritis and occasionally Wegeners granulomatosis. The perinuclear IFA pattern, (p-ANCA) is based largely on autoantibody to myeloperoxidase which serves as the primary antigen. These autoantibodies are present in active disease state. ANCA Proteinase 3 <1.0 [employer] ([facility]) Comment: Value Interpretation ----- <1.0 No Antibody Detected > or = 1.0 Antibody Detected Autoantibodies to proteinase-3 (MO-3) are accepted as characteristic for granulomatosis with polyangiitis (Emmy's), and are detectable in 95% of the histologically proven cases. The cytoplasmic IFA pattern,(c-ANCA), is based largely on autoantibody to MO-3 which serves as the primary antigen. These autoantibodies are present in active disease state. Test Performed at: [facility] [address] [place] [address] CASEY SANCHEZ DO,MPH Blood specimen (specimen) BLOOD SPECIMEN / Unknown 05/09/2015 4:21 PM CDT 05/09/2015 4:22 PM CDT Cindi Bella MD LAB - CHEMISTRY REID MILLER Performing Organization Address City/[facility]/ZIP Co de Phone Number [facility] ([facility]) * GLOMERULAR BASE MEMBRANE ANTIBODY IGG (05/09/2015 4:21 PM CDT) Glomerular Basement <1.0 <1.0 AI [facility] ([facility]) Comment: Interpretation: < 1.0 AI No Antibody Detected > OR = 1.0 AI Antibody Detected Test Performed at: [facility] [address] [place] [address] DI HAYWOOD MD PHD Blood specimen (specimen) BLOOD SPECIMEN / Unknown 05/09/2015 4:21 PM CDT 05/09/2015 4:22 PM CDT Cindi Bella MD LAB - CHEMISTRY REID MILLER Performing Organization Address [facility] de Phone Number [facility] ([facility]) * TROPONIN I (03/18/2015 12:26 PM CDT) Pathologist [facility] Troponin I <0.032 <0.032 ng/mL [facility] Blood specimen (specimen) BLOOD SPECIMEN / Unknown 03/18/2015 12:26 PM CDT 03/18/2015 12:32 PM CDT Nic García MD LAB - CHEMISTRY REID MILLER Performing Organization Address City/[facility]/ZIP Co de Phone Number [address] [phone] * LIPASE BODY FLUID ([facility] ONLY) (12/29/2014 9:47 AM CDT) Pathologist [facility] Lipase Fluid 82 Not Established For Fluids Units/L [facility] Peritoneal dialysis fluid specimen (specimen) BODY FLUID SPECIMEN / Unknown 12/29/2014 9:47 AM CDT 12/29/2014 10:11 AM CDT Katya Holliday Kylah ROMAN LAB - BODY FLUI D ORDERABLES [address] [phone] * CYTOLOGY NON-ESCALATOR SERVICE MECHANIC PANEL (STL) (12/29/2014 9:47 AM CDT) Cytology Non-Terrazzo Laborer Reference: [id number] Specimen: Peritoneal Fluid Clinical History: ascites Gross Description: 600 cc cloudy white fluid Preparation Method: 1 Pap smear slide, 1 Diff-Quik smear slide, 1 Cytospin Pap stained slide, 1 Cell Block SPECIMEN ADEQUACY: - SATISFACTORY FOR EVALUATION FINAL DIAGNOSIS: PERITONEAL FLUID - NEGATIVE FOR MALIGNANCY MICROSCOPIC DESCRIPTION: Material reviewed: 1 Diff Quick stained slide, 1 pap stained slide, 1 pap stained Cytospin slide, 1 H&E stained cell block Review of slides prepared reveals abundant acute inflammation and benign reactive mesothelial cells with frequent acellular debris in the background. The cell block is composed of similar material. Correlation with concurrent microbiology studies is required to accurately characterize and manage this process. ES/LW/lw This case has been personally reviewed and interpreted by the attending (teaching) pathologist. Initial Evaluation performed by Chandni HAMILTON(ASCP). Electronically signed 12/30/2014 Final Diagnosis performed by Jb Pace MD. Electronically signed 01/02/2015 [facility] ([place]) Peritoneal dialysis fluid specimen (specimen) BODY FLUID SPECIMEN / Unknown 12/29/2014 9:47 AM CDT 12/29/2014 10:03 AM CDT Narrative [facility] ([place]) - 01/02/2015 3:44 PM CDT Diagnosis->ascites Specimen Type->Peritoneal fluid Katya Holliday Kylah ROMAN LAB - PATHOLOGY /CYTOLOGY ORDERABLES [facility] ([place]) * MITOCHONDRIAL ANTIBODY SCREEN (12/13/2014 11:24 AM CDT) Mitochondrial M2 Antibody 2.9 0.0 - 20.0 Units [facility] Comment: Mitochondrial M2 Antibody Numeric Result Interpretation: <20.1 Units: Negative 20.1 - 24.9 Units: Equivocal >24.9 Units: Positive Blood specimen (specimen) BLOOD SPECIMEN / Unknown 12/13/2014 11:24 AM CDT 12/13/2014 12:20 PM CDT Frankie Valero MD LAB - CHEMISTRY REID MILLER [address] [phone] * QOZMQ-[id number]-[id number] BLOOD PHENOTYPING PANEL (12/13/2014 11:24 AM CDT) Pathologist [facility] Tbbfs-0-Qaorthqqta n 113 90 - 200 mg/dL [facility] ([facility]) Phenotype (PI) MM [facility] ([facility]) Comment: Phenotype Population A-1-AT Concentration* Incidence % % of MM Ref. Range Mean MM 86.5% 100% (90-200) 145 MS 8.0% 81% (73-162) 118 MZ 3.9% 60% (54-120) 87 FM 0.4% 97% (87-194) 141 SZ 0.3% 39% (35- 78) 57 SS 0.1% 71% (64-142) 103 ZZ 0.05% 7% ( 6- 14) 10 FS 0.05% 66% (59-132) 96 FZ Unknown Unknown FF Unknown Unknown *A-1-AT concentration in the homozygous MM phenotype is taken as the reference normal. Deficiency in phenotypes is reported relative to this reference. Blood specimen (specimen) BLOOD SPECIMEN / Unknown 12/13/2014 11:24 AM CDT 12/13/2014 12:20 PM CDT Narrative [facility] ([facility] [employer]) - 12/15/2014 5:13 PM CDT Performed at: [address] [place] [address] [id number] [employer] Ticketing Reviewer: Grant Munoz PhD, Phone: [phone] Performed at: 02 - [facility] [address] [id number] [employer] T[employer]eting Reviewer: Casey El MD, Phone: [phone] Frankie Valero MD LAB - CHEMISTRY REID MILLER [facility] ([place]) * SMOOTH MUSCLE ANTIBODY (12/13/2014 11:24 AM CDT) Pathologist [facility] F-Actin Antibody IgG 5.9 0.0 - 19.9 Units [facility] Comment: F-Actin Antibody Numeric Result Interpretation: <20.0 Units: Negative 20.0 - 30.0 Units: Weak Positive >30.0 Units: Moderate to Strong Positive Blood specimen (specimen) BLOOD SPECIMEN / Unknown 12/13/2014 11:24 AM CDT 12/13/2014 12:20 PM CDT Frankie Valero MD LAB - SEROLOGY ORDER KAIN Performing Organization Address City/[facility]/[place] [address], [facility] [phone] * HEPATITIS C ANTIBODY (12/13/2014 11:24 AM CDT) [facility] Hepatitis C Antibody Non-react gini Non-reac tive [facility] Comment: Hepatitis C Antibody screen indicates no serologic evidence of past or current infection with Hepatitis C Virus. Patients with unexplained liver disease who are immunocompromised or suspected of having acute Hepatitis C infection may benefit from Nucleic Acid Test (MARIANO) for Hepatitis C Viral RNA to confirm Hepatitis C status. Blood specimen (specimen) BLOOD SPECIMEN / Unknown 12/13/2014 11:24 AM CDT 12/13/2014 12:20 PM CDT Frankie Valero MD LAB - [place]MI[place] [address], [facility] [phone] * HEPATITIS B VIRUS DNA QUANT PCR (02/18/1998) 02/18/1998 Narrative [facility] - 02/18/1998 This order was created through External Result Entry Historical Provider LAB - SEROLOGY OR DERABLES [facility] Care Teams Group Program Manager Relationship Specialty Start Date End Date Zain Valenzuela MD [address] [place] [address] PCP - General 01/10/16 Hillary Gallardo, RN Registered Nurse Hepatology 12/24/17
[2024-10-15 11:38] VITALS: BP 152/99; PULSE 82; RESP 15; TEMP 36.5; O2SAT 98
--- NOTE | 2024-10-15 11:54 | ED_ITS ---
HPI - Dental/Oral General Chief complaint: Dental/Oral Stated complaint: bleeding gums Time Seen by Provider: 10/15/24 11:22 History of Present Illness HPI Narrative: 59-year-old male with a history of liver and kidney transplant in 2016 at [facility], hypertension, hypothyroidism, DVT (dx 1 year ago) on Eliquis presents to the emergency department for bleeding gums for the past month. Patient states he takes his Eliquis at night and wakes up with blood a on his gumline. He is concerned that this is secondary to his Eliquis. Also states over the past couple days he has noticed dime-sized dark tarry stools HGB is of bowel movement. States this has happened a couple times. Denies bright red blood, abdominal pain, lightheadedness or dizziness. States he contacted his PCP and was advised to come to the ED for further evaluation. Related Data Home Medications ?Medication ?Instructions ?Recorded ?Confirmed ?Last Taken ?Type aspirin 325 mg tablet 325 mg PO DAILY 11/13/23 10/07/24 Unknown History Allergies Allergy/AdvReac Type Severity Reaction Status Date / Time Qalicyv-OOR-WdB Reductase AdvReac Blurry Verified 10/15/24 11:34 Inhibitor Vision Review of Systems 2 Review of Systems: All systems reviewed & are unremarkable except as noted in HPI and below PMFSH Past Medical History Medical History BMI 30.0-30.9,adult Surgical History Surgical History Hx of endoscopy Hx of colonoscopy Liver transplant recipient Kidney transplant recipient Family History Family History Mother Hypertension Tobacco abuse Father Asbestosis Tobacco abuse Sibling Tobacco abuse Other Family history of malignant neoplasm Social History Social History Smoking status: Never smoker Second hand tobacco smoke exposure: Yes Alcohol intake: former Substance use: never Substance use type: does not use Do You Feel Safe in your Home?: Yes Lack of Transportation: No Lack of Food: Never True Current Housing: I Have Housing Concerned About Future Housing: No Difficulty Paying Gas/Electric Bills: No Difficulty Paying for Meds: No Currently Unemployed: No Education: Associate Degree Difficulty w/ Childcare or Family Care: No Living arrangements: with family Occupation/Education: occupation 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 HEAD: Normocephalic, atraumatic. EYES: EOMI. ENT: Nares clear, no rhinorrhea or epistaxis. Mucous membranes moist. Poor dentition throughout with evidence of gingivitis, no active bleeding. Posterior pharynx unremarkable. NECK: Supple. CHEST: Clear to auscultation. No respiratory distress. HEART: Regular rate and rhythm. No murmur heard. Normal peripheral pulses. ABDOMEN: Soft, nontender, nondistended, normal active bowel sounds. RECTAL: Chaperoned by CHRISTINA Rangel: 2 rectal skin tags, no active bleeding, no melena or hematochezia, Hemoccult negative EXTREMITIES: Normal range of motion. No edema. SKIN: Warm, dry, no rash. NEURO: No focal deficits. Alert and oriented x3 Course Vital Signs Vital signs: Vital Signs Temperature 98.8 F 10/15/24 08:48 Pulse Rate 87 10/15/24 08:48 Respiratory Rate 14 10/15/24 08:48 Blood Pressure 157/90 H 10/15/24 08:48 Pulse Oximetry 99 10/15/24 08:48 Oxygen Delivery Room Air 10/15/24 08:48 Temperature 97.7 F 10/15/24 11:38 Pulse Rate 82 10/15/24 11:38 Respiratory Rate 15 10/15/24 11:38 Blood Pressure 152/99 H 10/15/24 11:38 Pulse Oximetry 98 10/15/24 11:38 Oxygen Delivery Room Air 10/15/24 11:38 MDM - Dental/Oral MDM Narrative Medical decision making narrative: 59-year-old male with history of DVT on Eliquis presents to the ED for bleeding to his gums for the past month and small amount of melena he describes as dime- size, happening a couple times over the past few days. He denies hematochezia, abdominal pain, lightheadedness. Triage vitals with a low blood pressure, otherwise unremarkable. No active bleeding to his comes on exam, however he does have some poor dentition it and evidence of gingivitis. Rectal exam out active melena or hematochezia, Hemoccult is negative. Abdomen is soft and nontender. Will obtain CBC, chemistries, coags. CBC with mild leukocytosis of 10.6, stable hemoglobin of 6.5, stable hematocrit. Chemistries are largely unremarkable. Patient updated on results. Given no evidence of GI bleed at this time, feel he is safe to be discharged home. Did discuss strict ED return precautions and close follow-up with PCP. Advised to hold rivaroxaban and contact PCP for further management. Return precautions discussed. He is agreeable to plan verbalized understanding. Discharged in stable condition Lab Data 10/15/24 12:02 10/15/24 12:02 Labs: Lab Results 10/15/24 Range/Units 12:02 WBC 10.6 H (4.5-10.0) K/mm3 RBC 5.67 (4.6-6.20) M/mm3 Hgb 16.5 (14.0-18.0) g/dL Hct 49.9 (42.0-52.0) % MCV 88.0 (80-100) fl MCH 29.1 (26-34) pg MCHC 33.1 (32-36) g/dl RDW 12.2 (11.5-14.5) % Plt Count 300 (150-375) k/mm3 MPV 9.0 (7.4-10.4) fl Immature Gran % (Auto) 0.5 (0-0.5) % Neut % (Auto) 69.3 (45.5-73.1) % Lymph % (Auto) 16.5 L (18.3-44.2) % [place] % (Auto) 9.7 H (2.6-8.5) % Eos % (Auto) 2.9 (0-4.4) % Baso % (Auto) 1.1 (0.2-1.2) % Lymph # (Auto) 1.75 (0.9-3.2) K/mm3 [place] # (Auto) 1.0 H (0.1-0.6) K/mm3 Eos # (Auto) 0.3 (0-0.3) K/mm3 Baso # (Auto) 0.1 (0.0-0.1) K/mm3 Abs Immat Gran (auto) 0.05 H (0.00-0.031) K/mm3 Absolute Neuts (auto) 7.3 H (1.3-6.7) K/mm3 Absolute Nucleated RBC 0.000 (0.0-0.012) K/mm3 Nucleated RBC % 0.0 (0.0-0.2) % PT 15.4 H (11.1-14.7) Seconds INR 1.2 APTT 32.4 (22.3-36.8) Seconds Sodium 138 (137-145) mmol/L Potassium 4.5 (3.4-5.0) mmol/L Chloride 99 (98-107) mmol/L Carbon Dioxide 31 H (22-30) mmol/L Anion Gap 8 (4-12) mmol/L BUN 16 D (9-20) mg/dL Creatinine 1.29 (0.7-1.3) mg/dL Estim Creat Clear Calc 56 ml/min Estimated GFR 57 L (59 - ) Glucose 117 H (65-110) mg/dL Calcium 9.9 (8.4-10.2) mg/dL Total Bilirubin 0.8 (0.2-1.3) mg/dL AST 39 (17-59) U/L ALT 40 (6-50) U/L Alkaline Phosphatase 115 (38-126) U/L Total Protein 8.0 (6.3-8.2) g/dL Albumin 4.7 (3.5-5.1) g/dL Discharge Plan Discharge Clinical Impression: Bleeding gums Patient Disposition: Home, Self-Care Condition: Stable Instructions: Antibiotic Form Additional Instructions: You were evaluated in the emergency department for bleeding gums. Your lab work and blood counts are normal. Please do not take the blood thinner until you follow-up with your primary care provider. Return to the emergency department if you develop uncontrollable bleeding, dark tarry stools, blood in her stools, or other concerning symptoms. Patient Language: Stateless Prescriptions: No Action aspirin 325 mg tablet 325 mg PO DAILY diphenoxylate-atropine [Lomotil] 2.5-0.025 mg tablet 1 tablet PO TID PRN (Reason: diarrhea) Qty: 90 0RF Rx Instructions: Start with 1 tablet. May take up to 3 tab/day as needed if diarrhea persists oxycodone 5 mg tablet 5 mg PO Q6H PRN (Reason: pain) Qty: 30 0RF psyllium Packet 1 packet PO DAILY Qty: 30 0RF Rx Instructions: mix into at least 8 oz of water or juice before administering diltiazem HCl 240 mg capsule,extended release 24hr 240 mg PO DAILY Qty: 90 1RF tamsulosin 0.4 mg capsule 0.4 mg PO DAILY Qty: 90 1RF triamcinolone acetonide 0.5 % cream 1 applic TOPICAL DAILY Qty: 15 0RF pantoprazole 40 mg tablet,delayed release (DR/EC) 40 mg PO QAM Qty: 90 0RF Xarelto 15 mg tablet 15 mg PO DAILY Qty: 90 3RF Rx Instructions: must administer with evening meal allopurinol 100 mg tablet 100 mg PO DAILY Qty: 90 1RF trazodone 50 mg tablet 50 mg PO .hs PRN (Reason: insomnia) Qty: 90 0RF escitalopram oxalate 10 mg tablet See Rx Instructions .ROUTE .COMPLEX Qty: 90 0RF Dose Instruction: Take 1 tablet by mouth once daily Rx Instructions: Take 1 tablet by mouth once daily levothyroxine 112 mcg tablet See Rx Instructions .ROUTE .COMPLEX Qty: 90 1RF Dose Instruction: TAKE 1 TABLET BY MOUTH DAILY Rx Instructions: TAKE 1 TABLET BY MOUTH DAILY dapagliflozin propanediol [Farxiga] 10 mg tablet 10 mg PO DAILY Qty: 90 3RF ezetimibe 10 mg tablet 10 mg PO DAILY Qty: 90 1RF Follow-up/Referrals: Zain Valenzuela MD [Primary Care Provider] - Stand Alone Forms: Work/School Release IP
--- OUTSIDE RECORDS SUMMARY | 2024-10-15 12:12 | XMS_ITS | Encounter Summary ---
Author Organization [facility] Address [address] [place] [address] Care Team Providers Care Editor Sound Name Role Phone Zain Valenzuela MD Primary Care Provider [phone] Hillary Gallardo RN Unavailable Unavailable Reason for Visit * Reason Comments Refill Request Encounter Details Date Type Department Care Team (Late st Contact Info) Description 09/05/2023 Refill [facility] - Nephrology [address] [place] [address], [place] [address] Alfonso Pfeiffer MD [address] [place] [address] [place] [address] Refill Request Social History Tobacco [...] st Contact Info) Description 10/19/2024 10:00 AM WET POUR SUPERVISOR Office Visit [facility] - Nephrology [address] [place] [phone] 10/19/2024 11:30 AM WET POUR SUPERVISOR Office Visit [facility] - GI [address] [place] [id number] Katya Montero PA-C [address] [place] [address] [facility] [place] [address] documented as of this encounter [...] Medication Management General On track( 11:14 AM WET POUR SUPERVISOR) Neida Alvarado RN Note: Expected end date: [...] chemistry documented in this encounter Care Teams Editor Sound Relationship Specialty Start Date End Date Zain Valenzulea MD [address] [place] [address] PCP - General 01/10/16 Hillary Gallardo, RN Registered Nurse Hepatology 12/24/17 documented as of this encounter
--- OUTSIDE RECORDS SUMMARY | 2024-10-15 12:12 | XMS_ITS ---
Author Organization [facility] Address [address] [place] [address] Care Team Providers Care Sales And Marketing Director Name Role Phone Zain Valenzuela MD Primary Care Provider [phone] Hillary Gallardo RN Unavailable Unavailable Transplant Episode Kidney Recipient [facility] ([place], [place]) - [facility] Organ Received: Left Kidney Transplanted on 01/06/2016 Marked as Active Follow-up on 01/06/2016 Kidney CoordinatorHillary Gallardo RN Phone: N/A Fax: N/A Email: N/A [place] Organ Diagnosis Organ Primary Contributory Kidney Hepatorenal [...]
--- OUTSIDE RECORDS SUMMARY | 2024-10-15 12:12 | XMS_ITS | Referral Summary ---
Author Organization [facility] Address [address] [place] [address] Care Team Providers Care Locomotive Repairer Diesel Name Role Phone Zain Valenzuela MD Primary Care Provider [phone] Hillary Gallardo RN Unavailable Unavailable Source Comments [facility],non-owned Affiliates and Associated Physician Practices is amultiple site organization consisting of ambulatory clinics and hospital sitesin [place], [place], [place] and [place]. This disclosure is being madepursuant to the Care Everywhere program and may not contain all information available regarding this patient. Last updated 18.[facility] Encounters Date Type Department Care Team Description 09/24/2024 Orders Only [facility] - Nephrology [address] [place] [phone] Da River MD Chronic kidney disease-mineral and bone disorder; S/P Combined Kidney-Liver TXP in 01/06/16 09/24/2024 Orders Only [facility] Nephrology [address] [place] [address] [phone] Shalonda Barboza MD Kidney replaced by transplant (HCC); Chronic kidney disease-mineral and bone disorder 09/23/2024 Refill [facility] [address] [place] [address] Alfonso Pfeiffer MD MEDICATION REFILL 09/23/2024 Refill [facility] [address] [place] [address] Frankie Valero MD MEDICATION REFILL 08/27/2024 Orders Only [facility] - GI [address] [place] [phone] Katya Montero PA-C S/P Combined Kidney-Liver TXP in 01/06/16; Long-term use of immunosuppressant medication 07/30/2024 Orders Only [facility] - GI [address] [place] [phone] Katya Montero PA-C S/P Combined Kidney-Liver TXP in 01/06/16; Long-term use of immunosuppressant medication 07/30/2024 Orders Only [facility] - Nephrology [address] [place] [address] [phone] Shalonda Barboza MD Kidney replaced by transplant [...] 81 MG chew tabletIndication s:S/P liver transplant ([facility]) CHEW AND SWALLOW 1 TABLET BY MOUTH ONCE DAILY 30 tablet 11 02/26/2022 Active triamcinolone acetonide (KENALOG) 0.1 % ointmentIndicati ons:Arthropod bite, initial encounter Apply to affected bug bites twice daily. 30 days supply. 80 g 1 04/02/2022 Active pantoprazole EC (Protonix) 40 MG tabletIndication s:Kidney replaced by transplant ([facility]) Take 1 (one) tablet by mouth once daily 90 tablet 3 08/23/2022 Active predniSONE (Deltasone) 5 MG tabletIndication s:Kidney replaced by transplant ([facility]) Take 1 (one) tablet by mouth every 2 days 45 tablet 3 08/23/2022 Active tacrolimus (Prograf) 1 MG capsuleIndicatio ns:Kidney replaced by transplant ([facility]) Take 3 (three) capsules by mouth [...] 100 MG tabletIndication s:Kidney replaced by transplant ([facility]),Hyperurice charlee Take 1 (one) tablet by [...] TXP in 01/06/16. Donor: Standard criteria donor [id number] KDPI 32% CMV D+/R-, EBV D+/R+ HLA: 0 Ag match, 5 Ag mismatch Recipient: A: 23, 25 B: 18, 49 DR: 11, 17 Donor: A: 1, - B: 7, 57 DR: 7, 103 MAG 3 Renal Scan on 02/01/16: [place] kidneys 47%, TXP 53% function. Bx in [...] Transplant Date: 01/06/2016 Donor: Standard criteria donor [id number] KDPI 32% CMV D+/R-, EBV D+/R+ HLA: [...] (Pj) Biopsies: Explant 01/06/2016 LIVER AND GALLBLADDER, BAD RIVER BAND, EXPLANT (A): CIRRHOTIC LIVER WITH STAGE 4 [...] Transplant Date: 01/06/2016 Donor: Standard criteria donor [id number] KDPI 32% CMV D+/R-, EBV D+/R+ HLA: [...] (Pj) Biopsies: Explant 01/06/2016 LIVER AND GALLBLADDER, BAD RIVER BAND, EXPLANT (A): CIRRHOTIC LIVER WITH STAGE 4 [...] cm (5' 11 ) 10/14/2023 11:50 AM MAIL CARRIERS SUPERVISOR Body Mass Index 27.62 10/14/2023 11:50 AM MAIL CARRIERS SUPERVISOR Functional Status Functional Status Response Date of [...] st Contact Info) Description 10/19/2024 10:00 AM MAIL CARRIERS SUPERVISOR Office Visit [facility] - Nephrology [address] [place] [address] [phone] 10/19/2024 11:30 AM MAIL CARRIERS SUPERVISOR Office Visit [facility] - GI [address] [place] [phone] Katya Montero PA-C [address] [place] [address] [place] [phone] Goals Goal Patient Goal Type Associated Problems [...] Management General On track(01/25/2 022 11:14 AM MAIL CARRIERS SUPERVISOR) Neida Alvarado RN Note: Expected end date: ongoing Interventions: Take all medications as prescribed Let your doctor know right away about any changes in your medications Make sure to request a refill of your medication at least one week prior to your last dose Procedures Procedure Name Priority Date/Time Associated Diagnosis Comments HEMOGLOBIN A1C Routine 09/11/2024 9:08 AM MAIL CARRIERS SUPERVISOR 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 MICROALB/CREAT RATIO URINE RANDOM PANEL Routine 09/11/2024 9:07 AM MAIL CARRIERS SUPERVISOR Kidney replaced by transplant ([facility]) Chronic kidney disease-mineral and bone disorder URINALYSIS REFLEX TO MICROSCOPIC NO CULTURE Routine 09/11/2024 9:07 AM MAIL CARRIERS SUPERVISOR Kidney replaced by transplant ([facility]) Chronic kidney disease-mineral and bone disorder PHOSPHORUS BLOOD Routine 09/11/2024 9:07 AM MAIL CARRIERS SUPERVISOR Kidney replaced by transplant ([facility]) Chronic kidney disease-mineral and bone disorder MAGNESIUM BLOOD Routine 09/11/2024 9:07 AM MAIL CARRIERS SUPERVISOR Kidney replaced by transplant ([facility]) Chronic kidney disease-mineral and bone disorder COMPREHENSIVE METABOLIC PANEL Routine 09/11/2024 9:07 AM MAIL CARRIERS SUPERVISOR Kidney replaced by transplant ([facility]) Chronic kidney disease-mineral and bone disorder CBC W AUTO DIFFERENTIAL Routine 09/11/2024 9:07 AM MAIL CARRIERS SUPERVISOR Kidney replaced by transplant ([facility]) Chronic kidney disease-mineral and bone disorder TACROLIMUS LEVEL Routine 09/11/2024 9:06 AM MAIL CARRIERS SUPERVISOR S/P Combined Kidney-Liver TXP in 01/06/16 Long-term use of immunosuppressant medication CBC W AUTO DIFFERENTIAL Routine 09/11/2024 9:06 AM MAIL CARRIERS SUPERVISOR S/P Combined Kidney-Liver TXP in 01/06/16 Long-term use of immunosuppressant medication COMPREHENSIVE METABOLIC PANEL Routine 09/11/2024 9:06 AM MAIL CARRIERS SUPERVISOR S/P Combined Kidney-Liver TXP in 01/06/16 Long-term [...] * (ABNORMAL) HEMOGLOBIN A1C (09/11/2024 9:08 AM MAIL CARRIERS SUPERVISOR) Hemoglobin A1c 6.6(H) 4.8 - 5.6 % [facility] INSURANCE BILL Comment: Prediabetes: 5.7 - 6.4 Diabetes: >6.4 Glycemic control for adults with diabetes: <7.0 Blood BLOOD SPECIMEN / Unknown 09/11/2024 9:08 AM MAIL CARRIERS SUPERVISOR 09/11/2024 Narrative [facility] INSURANCE BILL - 09/12/2024 6:39 AM MAIL CARRIERS SUPERVISOR Performed at: [address] [place] [id number] Facilities Technician: Santana Mathis PhD, Phone: [phone] Da River MD LAB - CHEMISTRY REID MILLER [facility] INSURANCE BILL [address] [place] [address] * MICROALB/CREAT RATIO URINE RANDOM PANEL (09/11/2024 9:07 AM MAIL CARRIERS SUPERVISOR) Creatinine Urine 52.0 Not Estab. mg/dL [facility] INSURANCE BILL Microalbumin Urine 14.4 Not Estab. ug/mL [facility] INSURANCE BILL Microalbumin/Crea tinine Ratio 28 0 - 29 mg/g creat [facility] INSURANCE BILL Comment: Normal: 0 - 29 Moderately increased: 30 - 300 Severely increased: >300 Urine URINE SPECIMEN OBTAINED BY CLEAN CATCH PROCEDURE / Unknown 09/11/2024 9:07 AM MAIL CARRIERS SUPERVISOR 09/11/2024 Narrative [facility] INSURANCE BILL - 09/12/2024 7:06 AM MAIL CARRIERS SUPERVISOR Performed at: [address] [place] [id number] Facilities Technician: Santana Mathis PhD, Phone: [phone] Da River MD LAB - URINE CHEMISTR Y ORDERABLES Performing Organization Address City/State/[facility] Co de Phone Number [facility] INSURANCE BILL [address] [place] [address] * URINALYSIS REFLEX TO MICROSCOPIC NO CULTURE (09/11/2024 9:07 AM MAIL CARRIERS SUPERVISOR) Specific [place] UA 1.011 1.005 - 1.030 [facility] [...] CATCH PROCEDURE / Unknown 09/11/2024 9:07 AM MAIL CARRIERS SUPERVISOR 09/11/2024 Narrative [facility] INSURANCE BILL - 09/12/2024 7:06 AM MAIL CARRIERS SUPERVISOR Performed at: [address] [place] [id number] Facilities Technician: Santana Mathis PhD, Phone: [phone] Da River MD LAB - URINALYSIS ORD ERABLES [facility] INSURANCE BILL [address] [place] [address] * CBC WITH DIFFERENTIAL (09/11/2024 9:07 AM MAIL CARRIERS SUPERVISOR) Only the most recent of2 resultswithin the [...] BLOOD SPECIMEN / Unknown 09/11/2024 9:07 AM MAIL CARRIERS SUPERVISOR 09/11/2024 Narrative [facility] INSURANCE BILL - 09/12/2024 7:06 AM MAIL CARRIERS SUPERVISOR Performed at: 01 - [facility] [address] [place], [place] [id number] Facilities Technician: Santana Mathis PhD, Phone: [phone] Da River MD LAB - HEMATOLOGY ORD ERABLES [facility] INSURANCE BILL [address] [place] [address] * (ABNORMAL) COMPREHENSIVE METABOLIC PANEL (09/11/2024 9:07 AM MAIL CARRIERS SUPERVISOR) Only the most recent of2 resultswithin the [...] BLOOD SPECIMEN / Unknown 09/11/2024 9:07 AM MAIL CARRIERS SUPERVISOR 09/11/2024 Narrative [facility] INSURANCE BILL - 09/12/2024 8:07 AM MAIL CARRIERS SUPERVISOR Performed at: - [facility] [address] [place], [place] [id number] Facilities Technician: Santana Mathis PhD, Phone: [phone] Da River MD LAB - CHEMISTRY REID MILLER Performing Organization Address City/[facility]/ZIP Co de Phone Number [facility] INSURANCE BILL [address] [place] [address] * PHOSPHORUS BLOOD (09/11/2024 9:07 AM MAIL CARRIERS SUPERVISOR) Phosphorus 3.3 2.8 - 4.1 mg/dL [facility] INSURANCE BILL Blood BLOOD SPECIMEN / Unknown 09/11/2024 9:07 AM MAIL CARRIERS SUPERVISOR 09/11/2024 Narrative [facility] INSURANCE BILL - 09/12/2024 8:07 AM MAIL CARRIERS SUPERVISOR Performed at: - [address] [id number] Facilities Technician: Santana Mathis PhD, Phone: [phone] Da River MD LAB - CHEMISTRY REID MILLER Performing Organization Address [facility] Co de Phone Number [facility] INSURANCE BILL [address] [place] [address] * MAGNESIUM BLOOD (09/11/2024 9:07 AM MAIL CARRIERS SUPERVISOR) Magnesium 1.7 1.6 - 2.3 mg/dL [facility] INSURANCE BILL Blood BLOOD SPECIMEN / Unknown 09/11/2024 9:07 AM MAIL CARRIERS SUPERVISOR 09/11/2024 Narrative [facility] INSURANCE BILL - 09/12/2024 8:07 AM MAIL CARRIERS SUPERVISOR Performed at: [address] [id number] Facilities Technician: Santana Mathis PhD, Phone: [phone] Da River MD LAB - CHEMISTRY REID MILLER Performing Organization Address City/[facility] Co de Phone Number [facility] INSURANCE BILL [address] [place] [address] * TACROLIMUS LEVEL (09/11/2024 9:06 AM MAIL CARRIERS SUPERVISOR) Tacrolimus 11.9 2.0 - 20.0 ng/mL [facility] INSURANCE BILL Comment: Trough (immediately following transplant) 15.0 Trough (steady state, 2 weeks or more after transplant): 3.0 - 8.0 Performed by LC-MS/MS technology. Blood BLOOD SPECIMEN / Unknown 09/11/2024 9:06 AM MAIL CARRIERS SUPERVISOR 09/11/2024 Narrative [facility] INSURANCE BILL - 09/16/2024 6:10 AM MAIL CARRIERS SUPERVISOR Test(s) 350210-[id number] (FK506), Blood was developed and its performance characteristics determined by [facility]. It has not been cleared or approved by the Food and Drug Administration. Performed at: - [address] [id number] Facilities Technician: Lauren Flores MD, Phone: [phone] Katya Montero PA-C LAB - THERAPEUT IC DRUG MONITORING ORDERABLES Performing Organization Address [facility] Co de Phone Number [facility] INSURANCE BILL [address] [place] [address] * (ABNORMAL) LIPID PROFILE (04/17/2024 10:14 AM [...] Resulting Agency Comment Lab Testing performed at: [facility] [address] [facility] [phone] Da River MD LAB - CHEMISTRY REID MILLER Performing Organization Address City/[facility]/ZIP Co de Phone Number [facility] INSURANCE BILL [address] [place] [address] * ENDOSCOPY, COLON, DIAGNOSTIC (12/07/2021 9:32 AM [...] non-turk portions. Procedure Code(s): --- Professional --- 35559, Colonoscopy, flexible; diagnostic, including collection of specimen(s) by brushing or washing, when performed (separate procedure) Diagnosis Code(s): --- Professional --- Z12.11, Encounter for screening for malignant neoplasm of colon K64.8, Other hemorrhoids K57.30, Diverticulosis of large intestine without perforation or abscess without bleeding CPT copyright 2019 [employer]. All rights reserved. The codes documented in this report are preliminary and upon 3rd mate review may be revised to meet current compliance requirements. Shereen Erwin MD 12/07/2021 10:50:24 AM This report has been signed electronically. Note Initiated On: 12/07/2021 9:32 AM Number of Addenda: [address] [address] [facility] 12/07/2021 9:32 AM CDT Shereen Erwin MD GI PROCEDURE ORDERAB LES [facility] * HEPATITIS SCREEN ACUTE (01/06/2016 10:53 PM CDT) Hepatitis A Virus Antibody IgM Non-react marcelo [facility]-reac [facility]ive [facility] Hepatitis B Virus Surface Antigen [facility] Hepatitis B Core Virus Antibody IgM Non-react [facility] Hepatitis C Antibody Non-react [facility] Comment: Hepatitis C Antibody screen indicates no [...] LAB - CHEMISTRY ORDERABLES Performing Organization Address [facility] Co de Phone Number [address] [phone] * HIV-1 HIV-2 ANTIGEN/ANTIBODY (12/06/2015 9:36 AM CDT) HIV Antigen/Antibod y 1 & 2 Non-reacti ve Non-react [facility] Comment: Neither HIV-1 p24 Antigen nor HIV-1/HIV-2 Antibodies are detected. Blood specimen (specimen) BLOOD SPECIMEN / Unknown 12/06/2015 9:36 AM CDT 12/06/2015 10:14 AM CDT Zaida Oliva MD LAB - HEMATOLOG Y ORDERABLES Performing Organization Address City/[facility]/ZIP Co de Phone Number [address] [phone] from Last 3 Months or Most Recently Relevant to Health Maintenance Advance Directives * Full Code (Latest Code Status on File) Date Activated Date Inactivated Comments 11/24/2018 7:20 PM 11/26/2018 1:25 PM * Full Code Date Activated Date Inactivated Comments 04/29/2018 5:12 PM 05/01/2018 2:37 PM Care Teams Locomotive Repairer Diesel Relationship Specialty Start Date End Date Zain Valenzuela MD [address] [place] [address] PCP - General 01/10/16 Hillary Gallardo, RN Registered Nurse Hepatology 12/24/17
--- OUTSIDE RECORDS SUMMARY | 2024-10-15 12:12 | XMS_ITS ---
Author Organization [facility] Address [address] [facility] [facility] [place] [address] Care Team Providers Care Tram Driver Name Role Phone Zain Valenzuela MD Primary Care Provider [phone] Hillary Gallardo RN Unavailable Unavailable Transplant Episode Liver Recipient [facility] ([place], [place]) - MOS[facility] Organ Received: Liver Transplanted on 01/06/2016 Marked as Active Follow-up on 01/06/2016 Liver CoordinatorHillary Gallardo RN Phone: N/A Fax: N/A Email: N/A [place] Organ Diagnosis Organ Primary Contributory Liver Alcoholic [...]
--- OUTSIDE RECORDS SUMMARY | 2024-10-15 12:12 | XMS_ITS | Encounter Summary ---
Author Organization [facility] Address [address] [place] [address] [place] [address] Care Team Providers Care Mate First Name Role Phone Zain Valenzuela MD Primary Care Provider [phone] Hillary Gallardo RN Unavailable Unavailable Reason for Visit * Reason Onset Date Comments MEDICATION REFILL 02/27/2020 Encounter Details Date Type Department Care Team (Late st Contact Info) Description 02/27/2020 Refill [facility] Ne[facility] [address] [place] [phone] Mychart, Generic Provider MEDICATION REFILL Social [...] st Contact Info) Description 10/19/2024 10:00 AM ENVIRONMENTAL MONITORING SPECIALIST Office Visit [facility] - Nephrology [address] [place] [address], [place] [phone] 10/19/2024 11:30 AM ENVIRONMENTAL MONITORING SPECIALIST Office Visit [facility] - GI [address] [facility], [place] [phone] Katya Montero PA-C [address] [place] [address] [address] DIV [place] [phone] documented as of this encounter Goals Goal [...] type documented in this encounter Care Teams Mate First Relationship Specialty Start Date End Date Zain Valenzuela MD [address] [place] [address] PCP - General 01/10/16 Hillary Gallardo, RN Registered Nurse Hepatology 12/24/17 documented as of this encounter
--- OUTSIDE RECORDS SUMMARY | 2024-10-15 12:12 | XMS_ITS | Encounter Summary ---
Author Organization [facility] Address [address] [place], [place] [address] [address] Care Team Providers Care Director Of Education And Training Name Role Phone Zain Valenzuela MD Primary Care Provider [phone] Hillary Gallardo RN Unavailable Unavailable Reason for Visit * Reason Onset Date Comments MEDICATION REFILL 10/19/2019 Encounter Details Date Type Department Care Team (Late st Contact Info) Description 10/19/2019 Refill [facility] GI [address] [place] [address] Frankie Valero MD [address] [place] [address] MEDICATION REFILL Social History Tobacco Use Types [...] st Contact Info) Description 10/19/2024 10:00 AM RIVET HOLE MACHINE OPERATOR Office Visit [facility] - Nephrology [address] [place] [address], [place] [phone] 10/19/2024 11:30 AM RIVET HOLE MACHINE OPERATOR Office Visit [facility] [place] [address] [place] [phone] Katya Montero PA-C [address] [place] [place] [address] 3[address] [place] [phone] documented as of this encounter Goals Goal [...] on filedocumented in this encounter Care Teams Director Of Education And Training Relationship Specialty Start Date End Date Zain Valenzuela MD [address] [place] [phone] PCP - General 01/10/16 Hillary Gallardo, RN Registered Nurse Hepatology 12/24/17 documented as of this encounter
--- OUTSIDE RECORDS SUMMARY | 2024-10-15 12:12 | XMS_ITS | Encounter Summary ---
Author Organization [facility] Address [facility] [facility] [place] [place] [address] Care Team Providers Care Sustainability Purchasing Agent Name Role Phone Zain Valenzuela MD Primary Care Provider [phone] Hillary Gallardo RN Unavailable Unavailable Reason for Visit * Reason Onset Date Comments MEDICATION REFILL 04/22/2023 Encounter Details Date Type Department Care Team (Late st Contact Info) Description 04/22/2023 Refill [facility] [address] [facility] [address] [place] [address] Alfonso Pfeiffer MD [address] [phone] MEDICATION REFILL Social History Tobacco Use Types [...] st Contact Info) Description 10/19/2024 10:00 AM COMMUNICATION ANALYST Office [facility] [address] [place] [phone] 10/19/2024 11:30 AM COMMUNICATION ANALYST Office [facility] [address] [place] [phone] Katya Montero PA-C [address] [place] [address] [address] [place] [phone] documented as of this encounter Goals Goal [...] Medication Management General On track( 11:14 AM COMMUNICATION ANALYST) Neida Alvarado RN Note: Expected end date: ongoing Interventions: Take all medications as prescribed Let your doctor know right away about any changes in your medications Make sure to request a refill of your medication at least one week prior to your last dose documented as of this encounter Visit Diagnoses Not on filedocumented in this encounter Care Teams Sustainability Purchasing Agent Relationship Specialty Start Date End Date Zain Valenzuela MD [address] [place] [phone] PCP - General 01/10/16 Hillary Gallardo, RN Registered Nurse Hepatology 12/24/17 documented as of this encounter
--- OUTSIDE RECORDS SUMMARY | 2024-10-15 12:12 | XMS_ITS | Encounter Summary ---
Author Organization [facility] Address [facility] [facility] [place] [address] Care Team Providers Care Sports Psychologist Name Role Phone Zain Valenzuela MD Primary Care Provider [phone] Hillary Gallardo RN Unavailable Unavailable Reason for Visit * Reason Comments Refill Request Encounter Details Date Type Department Care Team (Late st Contact Info) Description 09/05/2023 Refill [facility] - GI [address] [place] [address], [place] [phone] Katya Montero PA-C [address] [place] [address] [address] [place] [address] Refill Request Social History Tobacco [...] st Contact Info) Description 10/19/2024 10:00 AM ELEVATED GUARD Office Visit [facility] - Nephrology [address] [place] [phone] 10/19/2024 11:30 AM ELEVATED GUARD Office Visit [facility] - GI [address] [place] [phone] Katya Montero PA-C [address] [place] [address] [address] [place] [phone] documented as of this encounter [...] Medication Management General On track( 11:14 AM ELEVATED GUARD) Neida Alvarado RN Note: Expected end date: [...] transplant documented in this encounter Care Teams Sports Psychologist Relationship Specialty Start Date End Date Zain Valenzuela MD [address] [place] [address] PCP - General 01/10/16 Hillary Gallardo, RN Registered Nurse Hepatology 12/24/17 documented as of this encounter
--- OUTSIDE RECORDS SUMMARY | 2024-10-15 12:12 | XMS_ITS | Clinical Summary ---
Author Organization [facility] RightSignature Address [address] [address] Care Team Providers Care Shellfish Manager Name Role Phone Zain Valenzuela MD Primary Care Provider Hillary Gallardo RN Unavailable Unavailable Source Comments [facility],non-owned Affiliates and Associated Physician Practices is amultiple site organization consisting of ambulatory clinics and hospital sitesin [place], [place] and [place]. This disclosure is being madepursuant to the Care Everywhere program and may not contain all information available regarding this patient. Last updated 18.[facility] Right[employer] Allergies Active Allergy Reactions Criticality Noted Date [...] 40 MG tabletIndication s:Kidney replaced by transplant ([facility]) Take 1 (one) tablet by mouth once daily 90 tablet 3 08/23/2022 Active predniSONE (Deltasone) 5 MG tabletIndication s:Kidney replaced by transplant ([facility]) Take 1 (one) tablet by mouth every 2 days 45 tablet 3 08/23/2022 Active tacrolimus (Prograf) 1 MG capsuleIndicatio ns:Kidney replaced by transplant ([facility]) Take 3 (three) capsules by mouth every [...] 100 MG tabletIndication s:Kidney replaced by transplant ([facility]),Hyperurice charlee Take 1 (one) tablet by mouth [...] TXP in 01/06/16. Donor: Standard criteria donor [id number] KDPI 32% CMV D+/R-, EBV D+/R+ HLA: 0 Ag match, 5 Ag mismatch Recipient: A: 23, 25 B: 18, 49 DR: 11, 17 Donor: A: 1, - B: 7, 57 DR: 7, 103 MAG 3 Renal Scan on 02/01/16: Tribe kidneys 47%, TXP 53% function. Bx in [...] Transplant Date: 01/06/2016 Donor: Standard criteria donor [id number] KDPI 32% CMV D+/R-, EBV D+/R+ HLA: [...] (Pj) Biopsies: Explant 01/06/2016 LIVER AND GALLBLADDER, DEERING, EXPLANT (A): CIRRHOTIC LIVER WITH STAGE 4 [...] Transplant Date: 01/06/2016 Donor: Standard criteria donor [id number] KDPI 32% CMV D+/R-, EBV D+/R+ HLA: [...] (Pj) Biopsies: Explant 01/06/2016 LIVER AND GALLBLADDER, DEERING, EXPLANT (A): CIRRHOTIC LIVER WITH STAGE 4 [...] Orders Only [facility] [address] [place] [phone] Da River MD Chronic kidney disease-mineral and bone disorder; S/P Combined Kidney-Liver TXP in 01/06/16 09/24/2024 Orders Only [facility] [address] [place] [phone] Shalonda Barboza MD Kidney replaced by transplant (HCC); Chronic kidney disease-mineral and bone disorder 09/23/2024 Refill [facility] [address] [place] [phone] Alfonso Pfeiffer MD MEDICATION REFILL 09/23/2024 Refill [facility] [address] [place] [phone] Frankie Valero MD MEDICATION REFILL 08/27/2024 Orders [place] [facility] [place] [address] [place] [phone] Katya Montero PA-C S/P Combined Kidney-Liver TXP in 01/06/16; Long-term use of immunosuppressant medication 07/30/2024 Orders Only [facility] [address] [place] [phone] Katya Montero PA-C S/P Combined Kidney-Liver TXP in 01/06/16; Long-term use of immunosuppressant medication 07/30/2024 Orders Only [facility] Nephrology [address] [place] [phone] Shalonda Barboza MD Kidney replaced by transplant [...] cm (5' 11 ) 10/14/2023 11:50 AM LUMITE INJECTOR Body Mass Index 27.62 10/14/2023 11:50 AM LUMITE INJECTOR Plan of Treatment Upcoming Encounters Date Type Department Care Team (Late st Contact Info) Description 10/19/2024 10:00 AM LUMITE INJECTOR Office Visit [facility] [address] [place] [phone] 10/19/2024 11:30 AM LUMITE INJECTOR Office Visit [facility] - GI [address] [place] [phone] Katya Montero PA-C [address] [place] [address] [address] [place] [phone] Health Maintenance Due Date Last Done Comments COLOGUARD (AGES 45-75) - COLON CA SCREENING [address] COLONOGRAPHY - COLON CA SCREENING 1965 FIT - COLON CA SCREENING 1965 FLEX SIG - COLON CA SCREENING 1965 COVID-19 VACCINE (#1) 01/25/1969 DTAP/TDAP/TD VACCINES (1 - Tdap) 01/25/1983 PNEUMOCOCCAL VACCINE 50+ (1 of 2 - PCV) 01/25/1983 ZOSTER VACCINE (1 of 2) 01/25/1983 Respiratory Syncytial Virus (RSV) Vaccine Pt: or over 60 yrs (1 - Risk 60-74 years 1-dose series) 2024 INFLUENZA VACCINE (#1) 2024 05/29/2017, 2016 DEPRESSION SCREENING 09/08/2024 SCREENING FOR DIABETES 09/11/2027 , 09/11/2024, 09/11/2024, Additional history exists LIPID TESTING 04/17/2029 04/17/2024, 12/0 12/2022, 08/29/2022, Additional history exists COLON MONITORING 12/08/2031 12/07/2021, 12/07/2021 COLONOSCOPY - COLON CA SCREENING 12/08/2031 12/07/2021, 12/07/2021 Colorectal Cancer Screening 12/08/2031 HIV SCREENING Completed 12/06/2015 HEPATITIS C SCREENING Completed 01/06/2016 , 10/31/2015, 07/20/2015, Additional history exists HEPATITIS B VACCINE Aged Out No longe r eligible based on patient's age to complete this topic HIB VACCINE Aged Out No longer eligi [...] Medication Management General On track( 11:14 AM LUMITE INJECTOR) No Neida Mcgarry RN Note: Expected end date: ongoing Interventions: Take all medications as prescribed Let your doctor know right away about any changes in your medications Make sure to request a refill of your medication at least one week prior to your last dose Procedures Procedure Name Priority Date/Time Associated Diagnosis Comments HEMOGLOBIN A1C Routine 09/11/2024 9:08 AM LUMITE INJECTOR 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 MICROALB/CREAT RATIO URINE RANDOM PANEL Routine 09/11/2024 9:07 AM LUMITE INJECTOR Kidney replaced by transplant ([facility]) Chronic kidney disease-mineral and bone disorder URINALYSIS REFLEX TO MICROSCOPIC NO CULTURE Routine 09/11/2024 9:07 AM LUMITE INJECTOR Kidney replaced by transplant ([facility]) Chronic kidney disease-mineral and bone disorder PHOSPHORUS BLOOD Routine 09/11/2024 9:07 AM LUMITE INJECTOR Kidney replaced by transplant ([facility]) Chronic kidney disease-mineral and bone disorder MAGNESIUM BLOOD Routine 09/11/2024 9:07 AM LUMITE INJECTOR Kidney replaced by transplant ([facility]) Chronic kidney disease-mineral and bone disorder COMPREHENSIVE METABOLIC PANEL Routine 09/11/2024 9:07 AM LUMITE INJECTOR Kidney replaced by transplant ([facility]) Chronic kidney disease-mineral and bone disorder CBC W AUTO DIFFERENTIAL Routine 09/11/2024 9:07 AM LUMITE INJECTOR Kidney replaced by transplant ([facility]) Chronic kidney disease-mineral and bone disorder TACROLIMUS LEVEL Routine 09/11/2024 9:06 AM LUMITE INJECTOR S/P Combined Kidney-Liver TXP in 01/06/16 Long-term use of immunosuppressant medication CBC W AUTO DIFFERENTIAL Routine 09/11/2024 9:06 AM LUMITE INJECTOR S/P Combined Kidney-Liver TXP in 01/06/16 Long-term use of immunosuppressant medication COMPREHENSIVE METABOLIC PANEL Routine 09/11/2024 9:06 AM LUMITE INJECTOR S/P Combined Kidney-Liver TXP in 01/06/16 Long-term use of immunosuppressant medication LIPID PROFILE Routine 04/17/2024 10:14 AM CDT Kidney replaced by transplant ([facility]) Chronic kidney disease-mineral and bone disorder ENDOSCOPY, COLON, DIAGNOSTIC Routine 12/07/2021 9:32 AM CDT HEPATITIS SCREEN ACUTE Routine 01/06/2016 10:53 PM CDT HIV-1 HIV-2 ANTIGEN/ANTIBODY Routine 12/06/2015 9:36 AM CDT from Last 3 Months or Most Recently Relevant to Health Maintenance Results * (ABNORMAL) HEMOGLOBIN A1C (09/11/2024 9:08 AM LUMITE INJECTOR) Hemoglobin A1c 6.6(H) 4.8 - 5.6 % [facility] INSURANCE BILL Comment: Prediabetes: 5.7 - 6.4 Diabetes: >6.4 Glycemic control for adults with diabetes: <7.0 Blood BLOOD SPECIMEN / Unknown 09/11/2024 9:08 AM LUMITE INJECTOR 09/11/2024 Narrative [facility] INSURANCE BILL - 09/12/2024 6:39 AM LUMITE INJECTOR Performed at: [address] [place] [id number] External Relations Director: Santana Mathis PhD, Phone: [phone] Da River MD LAB - CHEMISTRY REID MILLER [facility] Organization Address City/State/ZIP Co de Phone Number [facility] INSURANCE BILL [address] [place] [address] * MICROALB/CREAT RATIO URINE RANDOM PANEL (09/11/2024 9:07 AM LUMITE INJECTOR) Creatinine Urine 52.0 Not Estab. mg/dL [facility] INSURANCE BILL Microalbumin Urine 14.4 Not Estab. ug/mL [facility] INSURANCE BILL Microalbumin/Crea tinine Ratio 28 0 - 29 mg/g creat [facility] INSURANCE BILL Comment: Normal: 0 - 29 Moderately increased: 30 - 300 Severely increased: >300 Urine URINE SPECIMEN OBTAINED BY CLEAN CATCH PROCEDURE / Unknown 09/11/2024 9:07 AM LUMITE INJECTOR 09/11/2024 Narrative [facility] INSURANCE BILL - 09/12/2024 7:06 AM LUMITE INJECTOR Performed at: [address] [place] [id number] External Relations Director: Santana Mathis PhD, Phone: [phone] Da River MD LAB - URINE CHEMISTR Y ORDERABLES Performing Organization Address [facility] Co de Phone Number [facility] INSURANCE BILL [address] [place] [address] * URINALYSIS REFLEX TO MICROSCOPIC NO CULTURE (09/11/2024 9:07 AM LUMITE INJECTOR) Specific [place] UA 1.011 1.005 - 1.030 [facility] INSURANCE [...] CATCH PROCEDURE / Unknown 09/11/2024 9:07 AM LUMITE INJECTOR 09/11/2024 Narrative [facility] INSURANCE BILL - 09/12/2024 7:06 AM LUMITE INJECTOR Performed at: [address] [place] [id number] External Relations Director: Santana Mathis PhD, Phone: [phone] Da River MD LAB - URINALYSIS ORD ERABLES Performing Organization Address City/[facility] Co de Phone Number [facility] INSURANCE BILL [address] [place] [address] * CBC WITH DIFFERENTIAL (09/11/2024 9:07 AM LUMITE INJECTOR) Only the most recent of2 resultswithin the [...] BLOOD SPECIMEN / Unknown 09/11/2024 9:07 AM LUMITE INJECTOR 09/11/2024 Narrative [facility] INSURANCE BILL - 09/12/2024 7:06 AM LUMITE INJECTOR Performed at: [address] - [address] [id number] External Relations Director: Santana Mathis PhD, Phone: [phone] Da River MD LAB - HEMATOLOGY ORD ERABLES [facility] INSURANCE BILL [address] [place] [address] * (ABNORMAL) COMPREHENSIVE METABOLIC PANEL (09/11/2024 9:07 AM LUMITE INJECTOR) Only the most recent of2 resultswithin the [...] BLOOD SPECIMEN / Unknown 09/11/2024 9:07 AM LUMITE INJECTOR 09/11/2024 Narrative [facility] INSURANCE BILL - 09/12/2024 8:07 AM LUMITE INJECTOR Performed at: - [place] [id number] [place], [place] [id number] External Relations Director: Santana Mathis PhD, Phone: [phone] Da River MD LAB - CHEMISTRY REID MILLER [facility] INSURANCE BILL [address] [place] [address] * PHOSPHORUS BLOOD (09/11/2024 9:07 AM LUMITE INJECTOR) Phosphorus 3.3 2.8 - 4.1 mg/dL [facility] INSURANCE BILL Blood BLOOD SPECIMEN / Unknown 09/11/2024 9:07 AM LUMITE INJECTOR 09/11/2024 Narrative [facility] INSURANCE BILL - 09/12/2024 8:07 AM LUMITE INJECTOR Performed at: [address] [place] [id number] External Relations Director: Santana Mathis PhD, Phone: [phone] Da River MD LAB - CHEMISTRY REID MILLER Performing Organization Address [facility] de Phone Number [facility] INSURANCE BILL [address] [place] [address] * MAGNESIUM BLOOD (09/11/2024 9:07 AM LUMITE INJECTOR) Magnesium 1.7 1.6 - 2.3 mg/dL [facility] INS[facility] Blood BLOOD SPECIMEN / Unknown 09/11/2024 9:07 AM LUMITE INJECTOR 09/11/2024 Narrative [facility] INSURANCE BILL - 09/12/2024 8:07 AM LUMITE INJECTOR Performed at: [address] [id number] External Relations Director: Santana Mathis PhD, Phone: [phone] Da River MD LAB - CHEMISTRY REID MILLER Performing Organization Address [facility] de Phone Number [facility] INSURANCE BILL [address] [place] [address] * TACROLIMUS LEVEL (09/11/2024 9:06 AM LUMITE INJECTOR) Tacrolimus 11.9 2.0 - 20.0 ng/mL [facility] INSURANCE BILL Comment: Trough (immediately following transplant) 15.0 Trough (steady state, 2 weeks or more after transplant): 3.0 - 8.0 Performed by LC-MS/MS technology. Blood BLOOD SPECIMEN / Unknown 09/11/2024 9:06 AM LUMITE INJECTOR 09/11/2024 Narrative [facility] INSURANCE BILL - 09/16/2024 6:10 AM LUMITE INJECTOR Test(s) 703888-[id number] (FK506), Blood was developed and its performance characteristics determined by [facility]. It has not been cleared or approved by the Food and Drug Administration. Performed at: [id number] [place], [place] [id number] External Relations Director: Lauren Flores MD, Phone: [phone] Katya Montero PA-C LAB - THERAPEUT IC DRUG MONITORING ORDERABLES Performing Organization Address [facility]/ZIP Co de Phone Number [facility] INSURANCE BILL [address] [place] [address] * (ABNORMAL) LIPID PROFILE (04/17/2024 10:14 AM [...] Resulting Agency Comment Lab Testing performed at: [facility] [address] [facility] [id number] Da River MD LAB - CHEMISTRY REID MILLER Performing Organization Address [facility] Co de Phone Number [facility] INSURANCE BILL [address] [place] [address] * ENDOSCOPY, COLON, DIAGNOSTIC (12/07/2021 9:32 AM [...] non-turk portions. Procedure Code(s): --- Professional --- 93143, Colonoscopy, flexible; diagnostic, including collection of specimen(s) by brushing or washing, when performed (separate procedure) Diagnosis Code(s): --- Professional --- Z12.11, Encounter for screening for malignant neoplasm of colon K64.8, Other hemorrhoids K57.30, Diverticulosis of large intestine without perforation or abscess without bleeding CPT copyright 2019 [employer]. All rights reserved. The codes documented in this report are preliminary and upon information assurance review may be revised to meet current compliance requirements. Shereen Erwin MD 12/07/2021 10:50:24 AM This report has been signed electronically. Note Initiated On: 12/07/2021 9:32 AM Number of Addenda: [address] 12/07/2021 9:32 AM CDT Shereen Erwin MD GI PROCEDURE ORDERAB LES [facility] * HEPATITIS SCREEN ACUTE (01/06/2016 10:53 PM CDT) Hepatitis A Virus Antibody IgM Non-react [facility] Hepatitis B Virus Surface Antigen Non-react [facility] Hepatitis B Core Virus Antibody IgM Non-react [facility] Hepatitis C Antibody Non-react [facility] Comment: Hepatitis C Antibody screen [...] LAB - CHEMISTRY ORDERABLES Performing Organization Address City/[facility]/ZIP Co de Phone Number [facility] [address] [place] [address] * HIV-1 HIV-2 ANTIGEN/ANTIBODY (12/06/2015 9:36 AM CDT) HIV Antigen/Antibod y 1 & 2 Non-reacti ve Non-react marcelo [facility] Comment: Neither HIV-1 p24 Antigen nor HIV-1/HIV-2 Antibodies are detected. Blood specimen (specimen) BLOOD SPECIMEN / Unknown 12/06/2015 9:36 AM CDT 12/06/2015 10:14 AM CDT Zaida Oliva MD LAB - HEMATOLOG Y ORDERABLES Performing Organization Address City/[facility] Co de Phone Number [address] [phone] from Last 3 Months or Most Recently Relevant to Health Maintenance Advance Directives * Full Code (Latest Code Status on File) Date Activated Date Inactivated Comments 11/24/2018 7:20 PM 11/26/2018 1:25 PM * Full Code Date Activated Date Inactivated Comments 04/29/2018 5:12 PM 05/01/2018 2:37 PM Care Teams Shellfish Manager Relationship Specialty Start Date End Date Zain Valenzuela MD [address] [place] [address] PCP - General 01/10/16 Hillary Gallardo, RN Registered Nurse Hepatology 12/24/17
--- OUTSIDE RECORDS SUMMARY | 2024-10-15 12:13 | XMS_ITS | Patient Health Summary ---
Author Organization [facility] Address [address] [place] [address] Care Team Providers Care Oncologist Name Role Phone Zain Valenzuela MD Primary Care Provider [phone] Hillary Gallardo RN Unavailable Unavailable Note from [facility],non-owned Affiliates and Associated Physician Practices is amultiple site organization consisting of ambulatory clinics and hospital sitesin [place], [place], [place] and [place]. This disclosure is being madepursuant to the Care Everywhere program and may not contain all information available regarding this patient. Last updated 18.[facility] Allergies * Live Vaccines (Immunodeficiency)(Other) -Low Criticality [...] cm (5' 11 ) 10/14/2023 11:50 AM HOUSE STEWARD/STEWARDESS Body Mass Index 27.62 10/14/2023 11:50 AM HOUSE STEWARD/STEWARDESS Procedures * HEMOGLOBIN A1C(Performed 09/11/2024) Performed for Chronic kidney disease-mineral and bone disorder, S/P Combined Kidney-Liver TXP in 01/06/16 * MICROALB/CREAT RATIO URINE RANDOM PANEL(Performed 09/11/2024) Performed for Kidney replaced by transplant ([facility]), Chronic kidney disease- mineral and bone disorder * URINALYSIS REFLEX TO MICROSCOPIC NO CULTURE(Performed 09/11/2024) Performed for Kidney replaced by transplant ([facility]), Chronic kidney disease- mineral and bone disorder * PHOSPHORUS BLOOD(Performed 09/11/2024) Performed for Kidney replaced by transplant ([facility]), Chronic kidney disease- mineral and bone disorder * MAGNESIUM BLOOD(Performed 09/11/2024) Performed for Kidney replaced by transplant ([facility]), Chronic kidney disease- mineral and bone disorder * COMPREHENSIVE METABOLIC PANEL(Performed 09/11/2024) Performed for Kidney replaced by transplant ([facility]), Chronic kidney disease- mineral and bone disorder * CBC W AUTO DIFFERENTIAL(Performed 09/11/2024) Performed for Kidney replaced by transplant ([facility]), Chronic kidney disease- mineral and bone [...] 04/17/2024) Performed for Kidney replaced by transplant ([facility]), Chronic kidney disease- mineral and bone disorder * URINALYSIS REFLEX TO MICROSCOPIC NO CULTURE(Performed 04/17/2024) Performed for Kidney replaced by transplant ([facility]), Chronic kidney disease- mineral and bone disorder * TACROLIMUS LEVEL(Performed 04/17/2024) Performed for Kidney replaced by transplant ([facility]), Chronic kidney disease- mineral and bone disorder * PHOSPHORUS BLOOD(Performed 04/17/2024) Performed for Kidney replaced by transplant ([facility]), Chronic kidney disease- mineral and bone disorder * MAGNESIUM BLOOD(Performed 04/17/2024) Performed for Kidney replaced by transplant ([facility]), Chronic kidney disease- mineral and bone disorder * COMPREHENSIVE METABOLIC PANEL(Performed 04/17/2024) Performed for Kidney replaced by transplant ([facility]), Chronic kidney disease- mineral and bone disorder * CBC W AUTO DIFFERENTIAL(Performed 04/17/2024) Performed for Kidney replaced by transplant ([facility]), Chronic kidney disease- mineral and bone disorder * PTH INTACT(Performed 04/17/2024) Performed for Kidney replaced by transplant ([facility]), Chronic kidney disease- mineral and bone disorder * URIC ACID BLOOD(Performed 04/17/2024) Performed for Kidney replaced by transplant ([facility]), Chronic kidney disease- mineral and bone disorder * VITAMIN D 25-HYDROXY(Performed 04/17/2024) Performed for Kidney replaced by transplant ([facility]), Chronic kidney disease- mineral and bone disorder * CYTOMEGALOVIRUS QUANT BLOOD(Performed 04/17/2024) Performed for Kidney replaced by transplant ([facility]), Chronic kidney disease- mineral and bone disorder * BK VIRUS PCR QUANTITATIVE(Performed 04/17/2024) Performed for Kidney replaced by transplant ([facility]), Chronic kidney disease- mineral and bone disorder * LIPID PROFILE(Performed 04/17/2024) Performed for Kidney replaced by transplant ([facility]), Chronic kidney disease- mineral and bone disorder * COMPREHENSIVE METABOLIC PANEL(Performed 01/31/2024) Performed for ANA (acute kidney injury) ([facility]), S/P Combined Kidney-Liver TXP in 01/06/16 [...] hyperglyceridemia, Kidney replaced by transplant (HCC), Immunosuppression ([facility]), Long-term use of immunosuppressant medication, Chronic kidney disease-mineral and bone disorder * PTH INTACT(Performed 08/29/2022) Performed for Hyperuricemia, Pure hyperglyceridemia, S/P Combined Kidney-Liver TXP in 01/06/16, Immunosuppression ([facility]), Long-term use of immunosuppressant medication, Chronic kidney disease-mineral and bone disorder * URIC ACID BLOOD(Performed 08/29/2022) Performed for Hyperuricemia, Pure hyperglyceridemia, S/P Combined Kidney-Liver TXP in 01/06/16, Immunosuppression ([facility]), Long-term use of immunosuppressant medication, Chronic kidney disease-mineral and bone disorder * VITAMIN D 25-HYDROXY(Performed 08/29/2022) Performed for Hyperuricemia, Pure hyperglyceridemia, S/P Combined Kidney-Liver TXP in 01/06/16, Immunosuppression ([facility]), Long-term use of immunosuppressant medication, Chronic kidney disease-mineral and bone disorder * LIPID PROFILE(Performed 08/29/2022) Performed for Hyperuricemia, Pure hyperglyceridemia, S/P Combined Kidney-Liver TXP in 01/06/16, Immunosuppression ([facility]), Long-term use of immunosuppressant medication, Chronic kidney disease-mineral and bone disorder * CREATININE URINE RANDOM(Performed 08/29/2022) Performed for Hyperuricemia, Pure hyperglyceridemia, S/P Combined Kidney-Liver TXP in 01/06/16, Immunosuppression ([facility]), Long-term use of immunosuppressant medication, Chronic kidney disease-mineral and bone disorder * PROTEIN URINE RANDOM QUANTITATIVE(Performed 08/29/2022) Performed for Hyperuricemia, Pure hyperglyceridemia, S/P Combined Kidney-Liver TXP in 01/06/16, Immunosuppression ([facility]), Long-term use of immunosuppressant medication, Chronic kidney disease-mineral and bone disorder * URINALYSIS W/MICROSCOPIC NO CULTURE(Performed 08/29/2022) Performed for Hyperuricemia, Pure hyperglyceridemia, S/P Combined Kidney-Liver TXP in 01/06/16, Immunosuppression ([facility]), Long-term use of immunosuppressant medication, Chronic kidney disease-mineral and bone disorder * PHOSPHORUS BLOOD(Performed 08/29/2022) Performed for Hyperuricemia, Pure hyperglyceridemia, S/P Combined Kidney-Liver TXP in 01/06/16, Immunosuppression ([facility]), Long-term use of immunosuppressant medication, Chronic kidney disease-mineral and bone disorder * MAGNESIUM BLOOD(Performed 08/29/2022) Performed for Hyperuricemia, Pure hyperglyceridemia, S/P Combined Kidney-Liver TXP in 01/06/16, Immunosuppression ([facility]), Long-term use of immunosuppressant medication, Chronic kidney disease-mineral and bone disorder * CYTOMEGALOVIRUS QUANT BLOOD(Performed 08/29/2022) Performed for Hyperuricemia, Pure hyperglyceridemia, S/P Combined Kidney-Liver TXP in 01/06/16, Immunosuppression ([facility]), Long-term use of immunosuppressant medication, Chronic kidney disease-mineral and bone disorder * BK VIRUS PCR QUANTITATIVE(Performed 08/29/2022) Performed for Hyperuricemia, Pure hyperglyceridemia, S/P Combined Kidney-Liver TXP in 01/06/16, Immunosuppression ([facility]), Long-term use of immunosuppressant medication, Chronic [...] CKD stage 2, GFR 60-89 ml/min * MS DESTROY PREMALIG LESION, 1ST LESION(Performed 04/02/2022) Performed for Actinic keratosis * PATHOLOGY TISSUE(Performed 12/07/2021) Performed for Screen for colon cancer, 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 * COLONOSCOPY SCREEN(Performed 12/07/2021) Performed for Screen for colon cancer, 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 * MS ED EGD FLEX TRANSORAL DX(Performed 12/07/2021) Performed [...] disease-mineraland bone disorder, Kidney replaced by transplant ([facility]) * VITAMIN D 25-HYDROXY(Performed 10/02/2021) Performed for BK polyoma viremia, Essential hypertension, benign, Hyperuricemia, Hypoalbuminemia, Long-term use of immunosuppressant medication, Pure hyperglyceridemia, Chronic kidney disease-mineraland bone disorder, Kidney replaced by transplant ([facility]) * URIC ACID BLOOD(Performed 10/02/2021) Performed for BK polyoma viremia, Essential hypertension, benign, Hyperuricemia, Hypoalbuminemia, Long-term use of immunosuppressant medication, Pure hyperglyceridemia, Chronic kidney disease-mineraland bone disorder, Kidney replaced by transplant ([facility]) * CREATININE URINE RANDOM(Performed 10/02/2021) Performed for BK polyoma viremia, Essential hypertension, benign, Hyperuricemia, Hypoalbuminemia, Long-term use of immunosuppressant medication, Pure hyperglyceridemia, Chronic kidney disease-mineraland bone disorder, Kidney replaced by transplant ([facility]) * PROTEIN URINE RANDOM QUANTITATIVE(Performed 10/02/2021) Performed for BK polyoma viremia, Essential hypertension, benign, Hyperuricemia, Hypoalbuminemia, Long-term use of immunosuppressant medication, Pure hyperglyceridemia, Chronic kidney disease-mineraland bone disorder, Kidney replaced by transplant ([facility]) * URINALYSIS W/MICROSCOPIC NO CULTURE(Performed 10/02/2021) Performed for BK polyoma viremia, Essential hypertension, benign, Hyperuricemia, Hypoalbuminemia, Long-term use of immunosuppressant medication, Pure hyperglyceridemia, Chronic kidney disease-mineraland bone disorder, Kidney replaced by transplant ([facility]) * PHOSPHORUS BLOOD(Performed 10/02/2021) Performed for BK polyoma viremia, Essential hypertension, benign, Hyperuricemia, Hypoalbuminemia, Long-term use of immunosuppressant medication, Pure hyperglyceridemia, Chronic kidney disease-mineraland bone disorder, Kidney replaced by transplant ([facility]) * MAGNESIUM BLOOD(Performed 10/02/2021) Performed for BK polyoma viremia, Essential hypertension, benign, Hyperuricemia, Hypoalbuminemia, Long-term use of immunosuppressant medication, Pure hyperglyceridemia, Chronic kidney disease-mineraland bone disorder, Kidney replaced by transplant ([facility]) * COMPREHENSIVE METABOLIC PANEL(Performed 10/02/2021) Performed [...] TXP in 01/06/16, Hyperuricemia, Pure hyperglyceridemia, Immunosuppression ([facility]), Long-term use of immunosuppressant medication, Chronic kidney disease-mineral and bone disorder * DIFFERENTIAL MANUAL(Performed 09/12/2020) Performed for S/P Combined Kidney-Liver TXP in 01/06/16, Hyperuricemia, Immunosuppression ([facility]), Long-term use of immunosuppressant medication, Chronic kidney disease-mineral and bone disorder * PTH INTACT W/O CALCIUM(Performed 09/12/2020) Performed for Kidney replaced by transplant ([facility]) * URIC ACID BLOOD(Performed 09/12/2020) Performed for S/P Combined Kidney-Liver TXP in 01/06/16, Hyperuricemia, Immunosuppression ([facility]), Long-term use of immunosuppressant medication, Chronic kidney disease-mineral and bone disorder * VITAMIN D 25-HYDROXY(Performed 09/12/2020) Performed for S/P Combined Kidney-Liver TXP in 01/06/16, Hyperuricemia, Immunosuppression ([facility]), Long-term use of immunosuppressant medication, Chronic kidney disease-mineral and bone disorder * LIPID PROFILE(Performed 09/12/2020) Performed for S/P Combined Kidney-Liver TXP in 01/06/16, Hyperuricemia, Immunosuppression ([facility]), Long-term use of immunosuppressant medication, Chronic kidney disease-mineral and bone disorder * CREATININE URINE RANDOM(Performed 09/12/2020) Performed for S/P Combined Kidney-Liver TXP in 01/06/16, Hyperuricemia, Immunosuppression ([facility]), Long-term use of immunosuppressant medication, Chronic kidney disease-mineral and bone disorder * PROTEIN URINE RANDOM QUANTITATIVE(Performed 09/12/2020) Performed for S/P Combined Kidney-Liver TXP in 01/06/16, Hyperuricemia, Immunosuppression ([facility]), Long-term use of immunosuppressant medication, Chronic kidney disease-mineral and bone disorder * URINALYSIS W/MICROSCOPIC NO CULTURE(Performed 09/12/2020) Performed for S/P Combined Kidney-Liver TXP in 01/06/16, Hyperuricemia, Immunosuppression ([facility]), Long-term use of immunosuppressant medication, Chronic [...] MICROSCOPIC ONLY REFLEXED(Performed 11/06/2019) Performed for Immunosuppression ([facility]), Long-term use of immunosuppressant medication, Kidney replaced by transplant ([facility]), Chronic kidney disease-mineral and bone disorder, Hyperuricemia, Pure hyperglyceridemia, S/P liver transplant ([facility]) * VITAMIN D 25-HYDROXY(Performed 11/06/2019) Performed for Immunosuppression ([facility]), Long-term use of immunosuppressant medication, Kidney replaced by transplant ([facility]), Chronic kidney disease-mineral and bone disorder, Hyperuricemia, Pure hyperglyceridemia, S/P liver transplant ([facility]) * PTH INTACT(Performed 11/06/2019) Performed for Immunosuppression ([facility]), Long-term use of immunosuppressant medication, Kidney replaced by transplant ([facility]), Chronic kidney disease-mineral and bone disorder, Hyperuricemia, Pure hyperglyceridemia, S/P liver transplant ([facility]) * URIC ACID BLOOD(Performed 11/06/2019) Performed for Immunosuppression ([facility]), Long-term use of immunosuppressant medication, Kidney replaced by transplant ([facility]), Chronic kidney disease-mineral and bone disorder, Hyperuricemia, Pure hyperglyceridemia, S/P liver transplant ([facility]) * LIPID PROFILE(Performed 11/06/2019) Performed for Immunosuppression ([facility]), Long-term use of immunosuppressant medication, Kidney replaced by transplant ([facility]), Chronic kidney disease-mineral and bone disorder, Hyperuricemia, Pure hyperglyceridemia, S/P liver transplant ([facility]) * CREATININE URINE RANDOM(Performed 11/06/2019) Performed for Immunosuppression ([facility]), Long-term use of immunosuppressant medication, Kidney replaced by transplant ([facility]), Chronic kidney disease-mineral and bone disorder, Hyperuricemia, Pure hyperglyceridemia, S/P liver transplant ([facility]) * PROTEIN URINE RANDOM QUANTITATIVE(Performed 11/06/2019) Performed for Immunosuppression ([facility]), Long-term use of immunosuppressant medication, Kidney replaced by transplant ([facility]), Chronic kidney disease-mineral and bone disorder, Hyperuricemia, Pure hyperglyceridemia, S/P liver transplant ([facility]) * URINALYSIS W/MICROSCOPIC NO CULTURE(Performed 11/06/2019) Performed for Immunosuppression ([facility]), Long-term use of immunosuppressant medication, Kidney replaced by transplant ([facility]), Chronic kidney disease-mineral and bone disorder, Hyperuricemia, Pure hyperglyceridemia, S/P liver transplant ([facility]) * PHOSPHORUS BLOOD(Performed 11/06/2019) Performed for Immunosuppression ([facility]), Long-term use of immunosuppressant medication, Kidney replaced by transplant ([facility]), Chronic kidney disease-mineral and bone disorder, Hyperuricemia, Pure hyperglyceridemia, S/P liver transplant ([facility]) * MAGNESIUM BLOOD(Performed 11/06/2019) Performed for Immunosuppression ([facility]), Long-term use of immunosuppressant medication, Kidney replaced by transplant ([facility]), Chronic kidney disease-mineral and bone disorder, Hyperuricemia, Pure hyperglyceridemia, S/P liver transplant ([facility]) * COMPREHENSIVE METABOLIC PANEL(Performed 06/19/2019) Performed for S/P Combined Kidney-Liver TXP in 01/06/16, Long-term use of immunosuppressant medication * CBC W AUTO DIFFERENTIAL(Performed 06/19/2019) Performed for S/P Combined Kidney-Liver TXP in 01/06/16, Long-term use of immunosuppressant medication * TACROLIMUS IMMUNOASSAY(Performed 06/19/2019) Performed for Encounter for therapeutic drug level monitoring, History of kidney transplant ([facility]), History of liver transplant ([facility]) * CREATININE URINE RANDOM(Performed 05/18/2019) Performed [...] 02/02/2016) * MAGNESIUM BLOOD(Performed 02/02/2016) * PROTHROMBIN [id number] PANEL(Performed 02/01/2016) * FACTOR V LEIDEN MUTATION [...] 12/06/2015) * ALCOHOL ETHYL BLOOD(Performed 12/06/2015) * [id number] BLOOD(Performed 12/06/2015) * CERULOPLASMIN(Performed 12/06/2015) * LIPID [...] 12/29/2014) * ALBUMIN FLUID(Performed 12/29/2014) * CYTOLOGY NON-EXTERNAL GRINDER TOOL PANEL (STL)(Performed 12/29/2014) * PROTEIN FLUID(Performed 12/29/2014) * AMYLASE BODY FLUID(Performed 12/29/2014) * LIPASE BODY FLUID STL(Performed 12/29/2014) * CULTURE ANAEROBE(Performed 12/29/2014) * CULTURE AEROBIC(Performed 12/29/2014) * PT-INR SLH(Performed 12/29/2014) * COMPREHENSIVE METABOLIC PANEL(Performed 12/29/2014) * CBC W AUTO DIFFERENTIAL(Performed 12/29/2014) * CBC W AUTO DIFFERENTIAL(Performed 12/29/2014) * COMPREHENSIVE METABOLIC PANEL(Performed 12/26/2014) * [id number] BLOOD PHENOTYPING PANEL(Performed 12/13/2014) * MITOCHONDRIAL ANTIBODY [...] * (ABNORMAL) HEMOGLOBIN A1C (09/11/2024 9:08 AM HOUSE STEWARD/STEWARDESS) Only the most recent of5 resultswithin the time period is included. Hemoglobin A1c 6.6(H) 4.8 - 5.6 % [facility] INSURANCE BILL Comment: Prediabetes: 5.7 - 6.4 Diabetes: >6.4 Glycemic control for adults with diabetes: <7.0 Blood BLOOD SPECIMEN / Unknown 09/11/2024 9:08 AM HOUSE STEWARD/STEWARDESS 09/11/2024 Narrative [facility] INSURANCE BILL - 09/12/2024 6:39 AM HOUSE STEWARD/STEWARDESS Performed at: - [address] [id number] Tractor Technician: Santana Mathis PhD, Phone: [phone] Peggy River MD LAB - CHEMISTRY REID MILLER [facility] Organization Address City/State/ZIP Co de Phone Number [facility] INSURANCE BILL [address] [place] [address] * MICROALB/CREAT RATIO URINE RANDOM PANEL (09/11/2024 9:07 AM HOUSE STEWARD/STEWARDESS) Only the most recent of6 resultswithin the [...] CATCH PROCEDURE / Unknown 09/11/2024 9:07 AM HOUSE STEWARD/STEWARDESS 09/11/2024 Narrative [facility] INSURANCE BILL - 09/12/2024 7:06 AM HOUSE STEWARD/STEWARDESS Performed at: 01 - [address] [place] [address] [id number] Tractor Technician: Santana Mathis PhD, Phone: [phone] Peggy River MD LAB - URINE CHEMISTR Y ORDERABLES Performing Organization Address [facility] Co de Phone Number [facility] INSURANCE BILL [address] [place] [address] * URINALYSIS REFLEX TO MICROSCOPIC NO CULTURE (09/11/2024 9:07 AM HOUSE STEWARD/STEWARDESS) Only the most recent of30 resultswithin the time period is included. Specific [place] UA 1.011 1.005 - 1.030 [facility] INSURANCE [...] CATCH PROCEDURE / Unknown 09/11/2024 9:07 AM HOUSE STEWARD/STEWARDESS 09/11/2024 Narrative [facility] INSURANCE BILL - 09/12/2024 7:06 AM HOUSE STEWARD/STEWARDESS Performed at: [facility] [address] [place] [address] [id number] Tractor Technician: Santana Mathis PhD, Phone: [phone] Peggy River MD LAB - URINALYSIS ORD ERABLES Performing Organization Address City/[facility]/ZIP Co de Phone Number [facility] INSURANCE BILL [address] [place] [address] * CBC WITH DIFFERENTIAL (09/11/2024 9:07 AM HOUSE STEWARD/STEWARDESS) Only the most recent of203 resultswithin the [...] BLOOD SPECIMEN / Unknown 09/11/2024 9:07 AM HOUSE STEWARD/STEWARDESS 09/11/2024 Narrative [facility] INSURANCE BILL - 09/12/2024 7:06 AM HOUSE STEWARD/STEWARDESS Performed at: 01 - [address] [id number] Tractor Technician: Santana Mathis PhD, Phone: [phone] Peggy River MD LAB - HEMATOLOGY LILIANA DIALLO [facility] INSURANCE BILL [address] [place] [address] * (ABNORMAL) COMPREHENSIVE METABOLIC PANEL (09/11/2024 9:07 AM HOUSE STEWARD/STEWARDESS) Only the most recent of68 resultswithin the [...] BLOOD SPECIMEN / Unknown 09/11/2024 9:07 AM HOUSE STEWARD/STEWARDESS 09/11/2024 Narrative [facility] INSURANCE BILL - 09/12/2024 8:07 AM HOUSE STEWARD/STEWARDESS Performed at: 01 - [address] [id number] Tractor Technician: Santana Mathis PhD, Phone: [phone] Peggy River MD LAB - CHEMISTRY REID MILLER [facility] INSURANCE BILL [address] [place] [address] * PHOSPHORUS BLOOD (09/11/2024 9:07 AM HOUSE STEWARD/STEWARDESS) Only the most recent of74 resultswithin the time period is included. Phosphorus 3.3 2.8 - 4.1 mg/dL [facility] INSURANCE BILL Blood BLOOD SPECIMEN / Unknown 09/11/2024 9:07 AM HOUSE STEWARD/STEWARDESS 09/11/2024 Narrative [facility] INSURANCE BILL - 09/12/2024 8:07 AM HOUSE STEWARD/STEWARDESS Performed at: [address] [place] [id number] Tractor Technician: Santana Mathis PhD, Phone: [phone] Peggy River MD LAB - CHEMISTRY REID MILLER Performing Organization Address [facility] de Phone Number [facility] INSURANCE BILL [address] [place] [address] * MAGNESIUM BLOOD (09/11/2024 9:07 AM HOUSE STEWARD/STEWARDESS) Only the most recent of95 resultswithin the time period is included. Magnesium 1.7 1.6 - 2.3 mg/dL [facility] INSURANCE BILL Blood BLOOD SPECIMEN / Unknown 09/11/2024 9:07 AM HOUSE STEWARD/STEWARDESS 09/11/2024 Narrative [facility] INSURANCE BILL - 09/12/2024 8:07 AM HOUSE STEWARD/STEWARDESS Performed at: [facility] [id number] Tractor Technician: Santana Mathis PhD, Phone: [phone] Peggy River MD LAB - CHEMISTRY REID MILLER Performing Organization Address [facility] Co de Phone Number [facility] [address] [place] [address] * TACROLIMUS LEVEL (09/11/2024 9:06 AM HOUSE STEWARD/STEWARDESS) Only the most recent of81 resultswithin the time period is included. Tacrolimus 11.9 2.0 - 20.0 ng/mL [facility] INSURANCE BILL Comment: Trough (immediately following transplant) 15.0 Trough (steady state, 2 weeks or more after transplant): 3.0 - 8.0 Performed by LC-MS/MS technology. Blood BLOOD SPECIMEN / Unknown 09/11/2024 9:06 AM HOUSE STEWARD/STEWARDESS 09/11/2024 Narrative [facility] INSURANCE BILL - 09/16/2024 6:10 AM HOUSE STEWARD/STEWARDESS Test(s) [id number] ([id number]), Blood was developed and its performance characteristics determined by [facility]. It has not been cleared or approved by the Food and Drug Administration. Performed at: - [address] [id number] Tractor Technician: Lauren Flores MD, Phone: [phone] Katya Montero PA-C LAB - THERAPEUT IC DRUG MONITORING ORDERABLES Performing Organization Address [facility] de Phone Number [facility] INSURANCE BILL [address] [place] [address] * CYTOMEGALOVIRUS QUANT BLOOD (04/17/2024 10:14 AM CDT) Only the most recent of4 resultswithin the time period is included. [facility] Cytomegalovirus DNA Quantitative PCR Negative Negative IU/mL [...] Resulting Agency Comment Lab Testing performed at: [address] [phone] Peggy River MD LAB - CHEMISTRY REID MILLER Performing Organization Address City/[facility]/ZIP Co de Phone Number [facility]Advanced [facility] INSURANCE BILL [address] [place] [address] * URIC ACID BLOOD (04/17/2024 10:14 AM CDT) Only the most recent of17 resultswithin the time period is included. Uric Acid 7.5 3.8 - 8.4 mg/dL [facility] INSURANCE BILL Comment: Therapeutic target for gout patients: <6.0 FASTING Blood BLOOD SPECIMEN / Unknown 04/17/2024 10:14 AM CDT 04/17/2024 Narrative Resulting Agency Comment Lab Testing performed at: [facility] [address] [facility] [place] [phone] Peggy River MD LAB - CHEMISTRY REID MILLER Performing Organization Address City/[facility]/ZIP Co de Phone Number [facility] INSURANCE BILL [address] [place] [address] * PTH INTACT (04/17/2024 10:14 AM CDT) Only the most recent of8 resultswithin the time period is included. PTH Intact 36 15 - 65 pg/mL [facility] INSURANCE BILL Comment:FASTING Blood BLOOD SPECIMEN / Unknown 04/17/2024 10:14 AM CDT 04/17/2024 Narrative Resulting Agency Comment Lab Testing performed at: [facility] [address] [facility] ER [phone] Peggy River MD LAB - CHEMISTRY REID MILLER Performing Organization Address [facility] Co de Phone Number [facility] INSURANCE BILL [address] [place] [address] * VITAMIN D 25-HYDROXY (04/17/2024 10:14 AM CDT) Only the most recent of16 resultswithin the time period is included. Vitamin D, 25 Hydroxy 35.7 30.0 - 100.0 ng/mL [facility] INSURANCE BILL Comment: Vitamin D deficiency has been defined by the Sumrall of Medicine and an Endocrine Society practice guideline as a level of serum 25-OH vitamin D less than 20 ng/mL (1,2). The Endocrine Society went on to further define vitamin D insufficiency as a level between 21 and 29 ng/mL (2). 1. IOM (Sumrall of Medicine). 2010. Dietary reference intakes for calcium and D. [place]: The National Academies Press. 2. Salvatore MF, Vern MURPHY, Fortino VANG, et al. Evaluation, treatment, and prevention of vitamin D deficiency: an Endocrine Society clinical practice guideline. JCEM. 2010; 96(7):1911-30. FASTING Blood BLOOD SPECIMEN / Unknown 04/17/2024 10:14 AM CDT 04/17/2024 Narrative Resulting Agency Comment Lab Testing performed at: [facility] [place] [address] [facility] [phone] Peggy River MD LAB - CHEMISTRY REID ANGUIANOJAYLON Performing Organization Address City/[facility] Co de Phone Number [facility]Advanced [facility] INSURANCE BILL [address] [place] [address] * BK VIRUS PCR QUANTITATIVE (04/17/2024 10:14 AM CDT) Only the most recent of23 resultswithin the time period is included. Pathologist [facility] BK Virus Quantitative Negative Negative IU/mL [facility] INSURANCE BILL Comment: No BK DNA detected. . The linear range of the assay is 22 - 100,000,000 IU/mL. BK DNA Quantitative PCR Log 10 copy/mL NOT AVAILABLE LABAdvanced Plasma TherapiesRP INSURANCE BILL Comment: FASTING Result cannot be obtained for this observation. Blood BLOOD SPECIMEN / Unknown 04/17/2024 10:14 AM CDT 04/17/2024 Narrative Resulting Agency Comment Lab Testing performed at: [facility] [phone] Peggy River MD LAB - CHEMISTRY [facility] MILLER Performing Organization Address City/[facility]/ZIP Co de Phone Number [facility] INSURANCE BILL [address] [place] [address] * (ABNORMAL) LIPID PROFILE (04/17/2024 10:14 AM [...] Resulting Agency Comment Lab Testing performed at: [facility] [address] [facility] [phone] Peggy River MD LAB - CHEMISTRY REID MILLER [facility] INSURANCE BILL [address] [place] [address] * URINALYSIS MICROSCOPIC ONLY REFLEXED (08/11/2023 10:44 AM HOUSE STEWARD/STEWARDESS) Only the most recent of12 resultswithin the [...] for this observation. 08/11/2023 10:4 4 AM HOUSE STEWARD/STEWARDESS 08/11/2023 Narrative Resulting Agency Comment Lab Testing performed at: [facility] [address] [facility] [phone] Moni Nova APRN-BIG DATA SOFTWARE ENGINEER LAB - URINALYSI S ORDERABLES Performing Organization Address City/[facility]/ZIP Co de Phone Number [facility] INSURANCE BILL [address] [place] [address] * URINALYSIS W/MICROSCOPIC NO CULTURE (08/11/2023 10:44 AM HOUSE STEWARD/STEWARDESS) Only the most recent of27 resultswithin the time period is included. Specific [place] UA 1.016 1.005 - 1.030 [facility] INSURANCE [...] CATCH PROCEDURE / Unknown 08/11/2023 10:44 AM HOUSE STEWARD/STEWARDESS 08/11/2023 Narrative Resulting Agency Comment Lab Testing performed at: [facility] [address] [facility] [phone] Moni Nova APRN-BIG DATA SOFTWARE ENGINEER LAB - URINALYSI S ORDERABLES Performing Organization Address City/[facility]/ZIP Co de Phone Number [facility] INSURANCE BILL [address] [place] [address] * VITAMIN D 1,25 DIHYDROXY (08/11/2023 10:44 AM HOUSE STEWARD/STEWARDESS) Calcitriol (1,25 di-[place] Vit D) 62.4 24.8 - 81.5 pg/mL [facility] INSURANCE BILL Comment:FASTING Blood BLOOD SPECIMEN / Unknown 08/11/2023 10:44 AM HOUSE STEWARD/STEWARDESS 08/11/2023 Narrative Resulting Agency Comment Lab Testing performed at: [facility] [address] [phone] Moni Nova PALLET REPAIRER-BIG DATA SOFTWARE ENGINEER LAB - CHEMISTRY ORDERABLES Performing Organization Address City/[facility] Co de Phone Number [facility] INSURANCE BILL [address] [place] [address] * PROTEIN URINE RANDOM QUANTITATIVE (08/11/2023 10:44 AM HOUSE STEWARD/STEWARDESS) Only the most recent of33 resultswithin the time period is included. Protein Urine 12.0 Not Estab. mg/dL [facility] INSURANCE BILL Comment:FASTING Urine URINE SPECIMEN OBTAINED BY CLEAN CATCH PROCEDURE / Unknown 08/11/2023 10:44 AM HOUSE STEWARD/STEWARDESS 08/11/2023 Narrative Resulting Agency Comment Lab Testing performed at: [facility] [place] [id number] [facility] [phone] Moni Nova PALLET REPAIRER-BIG DATA SOFTWARE ENGINEER LAB - URINE KEERTHI ASHLEY ORDERABLES Performing Organization Address [facility] de Phone Number [facility] INSURANCE BILL [address] [place] [address] * CREATININE URINE RANDOM (08/11/2023 10:44 AM HOUSE STEWARD/STEWARDESS) Only the most recent of36 resultswithin the time period is included. Creatinine Urine 137.8 Not Estab. mg/dL [facility] INSURANCE BILL Comment:FASTING Urine URINE SPECIMEN OBTAINED BY CLEAN CATCH PROCEDURE / Unknown 08/11/2023 10:44 AM HOUSE STEWARD/STEWARDESS 08/11/2023 Narrative Resulting Agency Comment Lab Testing performed at: [facility] [place] [address] [facility] [phone] Moni Nova PALLET REPAIRER-BIG DATA SOFTWARE ENGINEER LAB - URINE KEERTHI ASHLEY ORDERABLES Performing Organization Address City/[facility] Co de Phone Number [facility] INSURANCE BILL [address] [place] [address] * PROSTATE SPECIFIC ANTIGEN SCREEN (04/27/2022 8:58 AM CDT) PSA 2.7 0.0 - 4.0 ng/mL [facility] INSURANCE BILL Comment: Amndy ECLIA methodology. . According to the [employer], Serum PSA should decrease and [...] Resulting Agency Comment Lab Testing performed at: [facility] [address] [facility] [phone] Katya Montero PA-C LAB - CHEMISTRY ORDERABLES [facility] INSURANCE BILL [address] [place] [address] * MS DESTROY PREMALIG LESION, 1ST LESION (04/02/2022 1:53 PM CDT) Narrative German Thompson MD - 04/02/2022 1:53 PM CDT Kenia Nunez MD 04/02/2022 1:54 PM Diagnosis and treatment options discussed, addressing the benefit and risks of each. Pt wish to proceed with cryotherapy. Liquid Nitrogen was applied to 1 lesion on (R scientologist) for 7-10s each. Number of cycles: 1. Wound care reviewed. Kenia Nunez MD Dermatology, PGY-2 German Thompson MD PROCEDURE/MINOR SURG ICAL ORDERABLES * PATHOLOGY TISSUE (12/07/2021 9:49 AM CDT) Only the most recent of9 resultswithin the time period is included. Case Report Surgical Pathology Report Case: [id number] Authorizing Provider: Shereen Erwin MD Collected: 12/07/2021 09:49 AM Ordering Location: [facility] ENDOSCOPY Received: 12/07/2021 11:14 AM Pathologist: German Anthony MD Specimens: A) - Esophagus, Esophageal Bx at 36-38 cm B) - Esophagus, Esophageal Bx 34-36 cm C) - Esophagus, Esophageal Bx 32- 34 cm D) - Esophagus, Esophageal Bx 30- 32 cm E) - Esophagus, Esophageal Bx 28- 30 cm F) - Esophagus, Esophageal Bx 26-28 cm 12/10/2021 11:20 AM [facility] Final Diagnosis Esophagus, 36-38 cm, [...] metaplasia - No dysplasia 12/10/2021 11:20 AM [facility] Microscopic Description and Comment Comment: [...] final diagnosis, similar to the prior biopsies ([id number], reviewed). 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 Operative procedure/findings: 12 cm Vang's, biopsied. 12/10/2021 11:20 AM [facility] Gross Description The requisition and [...] in cassette F1. DF 12/10/2021 11:20 AM [facility] Disclaimer The performance characteristics of all immunohistochemical and indirect immunofluorescence stains (if any) cited in this report were determined by the Histopathology Laboratory of [facility]. Some of these tests were developed by [...] the attending (teaching) pathologist. 12/10/2021 11:20 AM [facility] Embedded Images 12/10/2021 11:20 AM [facility] Biopsy, NOS REGION OF ESOPHAGUS [...] - PATHOLOGY/CYTO LOGY ORDERABLES Performing Organization Address City/State/[facility] de Phone Number [facility] PATH[facility]Y [facility] [address] [place], [place] [address] [phone] * EGD (12/07/2021 9:34 AM CDT) Report [...] non-turk portions. Procedure Code(s): --- Professional --- 70802, Esophagogastroduod enoscopy, flexible, transoral; with biopsy, single or multiple Diagnosis Code(s): --- Professional --- K22.70, 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 CPT copyright 2019 [employer]. All rights reserved. The codes documented in this report are preliminary and upon school library media specialist review may be revised to meet current compliance requirements. Shereen Erwin MD 12/07/2021 10:48:06 AM This report has been signed electronically. Note Initiated On: 12/07/2021 9:34 AM Number of Addenda: 0 [facility] [address] [place] [address] [facility] 12/07/2021 9:34 AM CDT Shereen Erwin MD GI PROCEDURE ORDERAB LES [facility] EMERGENCY DEPART[facility] * ENDOSCOPY, COLON, DIAGNOSTIC (12/07/2021 9:32 AM [...] non-turk portions. Procedure Code(s): --- Professional --- 43069, Colonoscopy, flexible; diagnostic, including collection of specimen(s) by brushing or washing, when performed (separate procedure) Diagnosis Code(s): --- Professional --- Z12.11, Encounter for screening for malignant neoplasm of colon K64.8, Other hemorrhoids K57.30, Diverticulosis of large intestine without perforation or abscess without bleeding CPT copyright 2019 [employer]. All rights reserved. The codes documented in this report are preliminary and upon school library media specialist review may be revised to meet current compliance requirements. Shereen Erwin MD 12/07/2021 10:50:24 AM This report has been signed electronically. Note Initiated On: 12/07/2021 9:32 AM Number of Addenda: [address] [address] [facility] 12/07/2021 9:32 AM CDT Shereen Erwin MD GI PROCEDURE ORDERAB LES [facility] EM[facility] * BK VIRUS QUANT PCR PLASMA STL (10/02/2021 10:26 AM HOUSE STEWARD/STEWARDESS) BK Virus Quant by PCR, Interp Not detected Not detected 10/03/2021 3:46 PM HOUSE STEWARD/STEWARDESS [facility] Specimen Type Plasma 10/03/2021 3:46 PM HOUSE STEWARD/STEWARDESS [facility] Blood BLOOD SPECIMEN / Unknown Lab Venipuncture / Unknown 10/02/2021 10:26 AM HOUSE STEWARD/STEWARDESS 10/02/2021 11:12 AM HOUSE STEWARD/STEWARDESS Narrative [facility]CRO[facility] - 10/03/2021 3:46 PM HOUSE STEWARD/STEWARDESS DNA isolated from the plasma was analyzed [...] developed and its performance characteristics determined by [facility]. It has not been cleared or approved by the U.S. Food and Drug Administration. The FDA has determined that such clearance or approval is not necessary. The test is used for clinical purposes. It should not be regarded as investigational or for research. This laboratory is certified under the Clinical Laboratory. Moni Nova PALLET [facility]PA[facility] LAB - CHEMISTRY ORDERABLES [facility] [address] [place] [address], [facility] [phone] * (ABNORMAL) PTH INTACT ([facility]) (10/02/2021 10:26 AM HOUSE STEWARD/STEWARDESS) Only the most recent of11 resultswithin the time period is included. PTH Intact 84.0(H) 8.0 - 77.0 pg/mL 10/02/2021 11:48 AM HOUSE STEWARD/STEWARDESS [facility] Blood BLOOD SPECIMEN / Unknown Lab Venipuncture / Unknown 10/02/2021 10:26 AM HOUSE STEWARD/STEWARDESS 10/02/2021 11:14 AM HOUSE STEWARD/STEWARDESS Moni Nova PALLET REPAIRER[facility] LAB - CHEMISTRY ORDERABLES [facility] [address] [place] [address], [place] [phone] * (ABNORMAL) DIFFERENTIAL MANUAL (09/12/2020 10:49 AM HOUSE STEWARD/STEWARDESS) Only the most recent of10 resultswithin the time period is included. WBC (corrected for NRBC) 16.3 10 3/uL 09/12/2020 12:32 PM [facility] Total Cell Count 100 09/12/2020 12:32 PM [facility] Neutrophils Absolute Manual 12.06(H) 1.60 - 7.00 10 3/uL 09/12/2020 12:32 PM [facility] Comment:(BANDS+SEGS) x WBC = NEUT # (ANC) Lymphocyte Absolute Manual 1.79 0.80 - 2.90 10 3/uL 09/12/2020 12:32 PM [facility] Monocytes Absolute Manual 2.12(H) 0.14 - 0.66 10 3/uL 09/12/2020 12:32 PM [facility] Eosinophils Absolute Manual 0.16 0.00 - 0.22 10 3/uL 09/12/2020 12:32 PM [facility] Basophil Absolute Manual 0.16(H) 0.00 - 0.06 10 3/uL 09/12/2020 12:32 PM [facility] Band % Manual 1 0 - 10 % 09/12/2020 12:32 PM [facility] Neutrophil % Manual 73(H) 30 - 60 % 09/12/2020 12:32 PM [facility] Lymphocyte % Manual 11(L) 20 - 45 % 09/12/2020 12:32 PM [facility] Monocytes % Manual 13(H) 2 - 10 % 09/12/2020 12:32 PM [facility] Eosinophils % Manual 1 1 - 6 % 09/12/2020 12:32 PM [facility] Basophils % Manual 1 0 - 3 % 09/12/2020 12:32 PM [facility] Platelet Estimate Adequate Adequate 09/12/2020 12:32 PM [facility] RBC Morphology Normal 09/12/2020 12:32 PM [facility] Blood BLOOD SPECIMEN / Unknown Lab Venipuncture / Unknown 09/12/2020 10:49 AM HOUSE STEWARD/STEWARDESS 09/12/2020 11:19 AM HOUSE STEWARD/STEWARDESS Moni Dunbarp PALLET REPAIRER-BIG DATA SOFTWARE ENGINEER LAB - HEMATOLOG Y ORDERABLES [facility] [address] [place] [address], [facility] [phone] * TACROLIMUS IMMUNOASSAY (06/19/2019 10:50 AM CDT) Only the most recent of4 resultswithin the time period is included. Pathologist [facility] Tacrolimus 6.5 2.0 - 20.0 ng/mL [facility] INSURANCE BILL Comment: Clinical studies have shown that patients administered 0.07 mg/kg Prograf, obtain an optimal response to the drug at the following trough levels: . Trough (immediately following transplant): 15.0 . Trough (steady state, 2 weeks or more after transplant): 3.0 - 8.0 . Detection Limit = 2.0 . Tacrolimus assay performed by [employer] QMS Immunoassay. FASTING Blood BLOOD SPECIMEN / Unknown 06/19/2019 10:50 AM CDT 06/19/2019 Narrative Resulting Agency Comment Lab Testing performed at: [facility] [address] [facility] [phone] Katya Montero PA-C LAB - CHEMISTRY ORDERABLES [facility] INSURANCE BILL [address] [place] [address] * (ABNORMAL) RENAL FUNCTION PANEL (11/26/2018 5:17 AM CDT) Only the most recent of11 resultswithin the time period is included. Pathologist [facility] BUN 15 7 - 26 mg/dL 11/26/2018 6:00 AM T [facility] Creatinine 1.1 0.6 - 1.2 mg/dL 11/26/2018 6:00 AM [facility] Sodium 141 136 - 145 mmol/L 11/26/2018 6:00 AM T [facility] Potassium 3.3(L) 3.5 - 4.5 mmol/L 11/26/2018 6:00 AM T [facility] Chloride 109(H) 98 - 107 mmol/L 11/26/2018 6:00 AM [facility] CO2 23 22 - 29 mmol/L 11/26/2018 6:00 AM [facility] Glucose 105 70 - 115 mg/dL 11/26/2018 6:00 AM [facility] Albumin 3.4 3.4 - 5.0 g/dL 11/26/2018 6:00 AM [facility] Calcium 8.8 8.4 - 10.2 mg/dL 11/26/2018 6:00 AM [facility] Phosphorus 3.2 2.3 - 4.7 mg/dL 11/26/2018 6:00 AM [facility] Anion Gap 12 8 - 18 11/26/2018 6:00 AM [facility] BUN/Creatinine Ratio 14 7 - 23 11/26/2018 6:00 AM [facility] Osmolality Calculated 293 270 - 300 mOsm/kg 11/26/2018 6:00 AM [facility] eGFR >60 >60 mL/min/1.7 3 m2 11/26/2018 6:00 AM [facility] Blood BLOOD SPECIMEN / Unknown Lab Venipuncture / Unknown 11/26/2018 5:17 AM CDT 11/26/2018 5:34 AM CDT Amanda Anguiano MD LAB - CHEMISTRY REID MILLER [address] [phone] * PTT [facility] (11/25/2018 7:14 AM CDT) Only the most recent of26 resultswithin the time period is included. APTT 33.2 23.0 - 38.4 Seconds 11/25/2018 8:02 AM [facility] Comment: Suggested therapeutic range for full dose I.V. heparin therapy for venous thromboembolism is 66.0-91.0 seconds. Blood BLOOD SPECIMEN / Unknown Lab Venipuncture / Unknown 11/25/2018 7:14 AM CDT 11/25/2018 7:44 AM CDT Zander Lux MD LAB - COAGULATION OR DERABLES [address] [phone] * PT-INR [facility] (11/25/2018 7:14 AM CDT) Only the most recent of82 resultswithin the time period is included. PT 13.7 12.1 - 14.8 Seconds 11/25/2018 8:01 AM CDT [facility] INR 1.1 See Comment 11/25/2018 8:01 AM CDT [facility] Comment: The suggested therapeutic range for standard coumadin (warfarin) therapy is an INR of 2.0-3.0. For high-risk patients (Mechanical Mitral Valve Prosthesis, etc.), the suggested prophylactic therapeutic range is an INR of 2.5-3.5. Blood BLOOD SPECIMEN / Unknown Lab Venipuncture / Unknown 11/25/2018 7:14 AM CDT 11/25/2018 7:44 AM CDT Zander Lux MD LAB - COAGULATION OR DERABLES Performing Organization Address [facility] Co de Phone Number [address] [phone] * CULTURE STOOL+ E COLI SHIGA-LIKE TOXIN (11/25/2018 3:53 AM CDT) Culture No growth Salmonella, Shigella, Campylobacter, Escherichia coli 0157:h7 or Yersinia RICKY 11/27/2018 2:29 PM CDT [facility] Culture Negative Escherichia coli Shiga-like toxin (NM) RICKY 11/27/2018 2:29 PM CDT [facility] Stool STOOL SPECIMEN / Unknown Collection / Unknown 11/25/2018 3:53 AM CDT 11/25/2018 3:53 AM CDT Zander Lux MD LAB - MICROBIOLOGY O RDERABLES Performing Organization Address [facility]/ZIP Co de Phone Number [facility] [address] [place] [address], [facility] [phone] * SODIUM URINE RANDOM (11/25/2018 3:53 AM CDT) Only the most recent of4 resultswithin the time period is included. Sodium Urine <20 Not Established mmol/L 11/25/2018 4:16 AM CDT [facility] Urine URINE SPECIMEN OBTAINED BY CLEAN CATCH PROCEDURE / Unknown Collection / Unknown 11/25/2018 3:53 AM CDT 11/25/2018 3:53 AM CDT Leticia Marte MD LAB - URINE CHEMISTR Y ORDERABLES Performing Organization Address City/[facility] Co de Phone Number [address] [phone] * UREA NITROGEN URINE RANDOM (11/25/2018 3:53 AM CDT) Only the most recent of2 resultswithin the time period is included. Urea Nitrogen Random Urine 1,801 Not Established mg/dL 11/25/2018 4:16 AM CDT [facility] Urine URINE SPECIMEN OBTAINED BY CLEAN CATCH PROCEDURE / Unknown Collection / Unknown 11/25/2018 3:53 AM CDT 11/25/2018 3:53 AM CDT Leticia Marte MD LAB - URINE CHEMISTR Y ORDERABLES Performing Organization Address [facility] Co de Phone Number [address] [phone] * CLOSTRIDIUM DIFFICILE GD AG + TOXIN A+B (11/24/2018 7:55 PM CDT) GDH Antigen Negative Negative, Invalid 11/25/2018 8:34 AM CDT [facility] C difficile Toxin A + B Negative Negative, Invalid 11/25/2018 8:34 AM CDT [facility] Interpretation C difficile Negative for toxigenic C. difficile Negative for toxigenic C. difficile 11/25/2018 8:34 AM CDT [facility] Stool STOOL SPECIMEN / Unknown Collection / Unknown 11/24/2018 7:55 PM CDT 11/24/2018 7:55 PM CDT Amanda Anguiano MD LAB - MICROBIOLOGY O NIKI [facility] [address] [place], [place] [address], [facility] [phone] * XR ABDOMEN 2VW (11/24/2018 7:38 PM CDT) Anatomical Region Laterality Modality Abdomen Radiographic Leticia ging 11/25/2018 7:41 AM CDT Impressions 11/25/2018 7:50 AM CDT IMPRESSION: No evidence of bowel obstruction. Dictated by Keeley Irvin MD (radiology services manager). Dr. DEBO Mccoy have personally reviewed and [...] obstruction. Dictated by Keeley Irvin MD (radiology services manager). Dr. DEBO Mccoy have personally reviewed and interpreted this examination/study. This report was electronically signed by DEBO HAUSER on 11/25/2018 7:50 AM . Amanda Anguiano MD DIAGNOSTIC IMAGING O NIKI * LACTIC ACID BLOOD (11/24/2018 7:20 PM CDT) Only the most recent of3 resultswithin the time period is included. Lactic Acid-Stat 1.1 0.5 - 2.2 mmol/L 11/24/2018 7:44 PM CDT [facility] Blood BLOOD SPECIMEN / Unknown Lab Venipuncture / Unknown 11/24/2018 7:20 PM CDT 11/24/2018 7:20 PM CDT Amanda Anguiano MD LAB - CHEMISTRY REID MILLER [address] [phone] * TSH (11/24/2018 7:19 PM CDT) Only the most recent of2 resultswithin the time period is included. TSH 0.598 0.350 - 4.940 uIU/mL 11/24/2018 9:38 PM CDT [facility] Blood BLOOD SPECIMEN / Unknown Lab Venipuncture / Unknown 11/24/2018 7:19 PM CDT 11/24/2018 7:19 PM CDT Amanda Anguiano MD LAB - CHEMISTRY REID MILLER Performing Organization Address [facility]/ZIP Co de Phone Number [address] [phone] * T4 FREE (11/24/2018 7:19 PM CDT) Only the most recent of2 resultswithin the time period is included. T4 Free 0.9 0.7 - 1.5 ng/dL 11/24/2018 9:38 PM CDT [facility] Blood BLOOD SPECIMEN / Unknown Lab Venipuncture / Unknown 11/24/2018 7:19 PM CDT 11/24/2018 7:19 PM CDT Amanda Anguiano MD LAB - CHEMISTRY REID MILLER Performing Organization Address City/[facility]/[place] [address], [facility] [phone] * CULTURE BLOOD (11/24/2018 7:09 PM CDT) Only the most recent of15 resultswithin the time period is included. Culture No growth day 5 RICKY 11/29/2018 11:[address] [facility] MICROBIOLOGY Blood PERIPHERAL BLOOD / Unknown Lab Venipuncture / Unknown 11/24/2018 7:09 PM CDT 11/24/2018 7:19 PM CDT Amanda Anguiano MD LAB - MICROBIOLOGY O RDERABLES [facility] MICROBIOLOGY [address] [place], [address] [phone] * EGD (11/16/2018 1:45 PM CDT) Report [...] changes classified as Vang's stage C9-M11 per Davenport criteria. These changes involved the mucosa at [...] changes classified as Vang's stage C9-M11 per Davenport criteria. Biopsied 4 quadrant every 2 cm. [...] the endoscope. Procedure Code(s): --- Professional --- 25704, Esophagogastroduode noscopy, flexible, transoral; with biopsy, single or multiple Diagnosis Code(s): --- Professional --- K22.70, 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 K31.89, Other diseases of stomach and duodenum CPT copyright 2016 [employer]. All rights reserved. The codes documented in this report are preliminary and upon school library media specialist review may be revised to meet current compliance requirements. Frankie Valero MD 11/16/2018 2:38:25 PM This report has been signed electronically. Note Initiated On: 11/16/2018 1:45 PM Number of Addenda: 0 [facility] [address] [facility] [place] [address] [facility] EMERGENCY DEPARTMENT 11/16/2018 1:45 PM CDT Frankie Valero MD GI PROCEDURE ORDERAB LES [facility] [employer]ATION * CARDIAC PROCEDURE ORDER (07/04/2018 3:30 [...] AM CDT 06/10/2018 Narrative Resulting Agency Comment [address] [phone] Mariah Giordano MD LAB - MICROBIOLOGY O RDERABLES Performing Organization Address [facility]/ZIP Co de Phone Number [facility] INSURANCE BILL [address] [place] [address] * (ABNORMAL) BASIC METABOLIC PANEL (CALCIUM TOTAL) [...] AM CDT 06/10/2018 Narrative Resulting Agency Comment [facility] [address] [facility] [id number] Mariah Giordano MD LAB - CHEMISTRY ORDE RABJAYLON Performing Organization Address [facility] Co de Phone Number [facility] INSURANCE BILL [address] [place] [address] * (ABNORMAL) HEPATIC FUNCTION PANEL (06/10/2018 8:01 [...] CDT 06/10/2018 Narrative Resulting Agency Comment [facility] [address] [facility] [id number] Mariah Giordano MD LAB - CHEMISTRY REID MILLER Performing Organization Address City/[facility]/ZIP Co de Phone Number [facility] INSURANCE BILL [address] [place] [address] * EKG 12-LEAD (05/01/2018 12:42 AM CDT) Only the most recent of6 resultswithin the time period is included. Ventricular Rate 77 BPM [facility] Atrial Rate 77 BPM [facility] P-R Interval 176 ms [facility] QRS Duration ms 86 ms [facility] Q-T Interval ms 350 ms [facility] QTC Calculation (Bezet) 396 ms [facility] Calculated P Monroe 30 degrees [facility] Calculated R [place] 39 degrees [facility] Calculated T Monroe 30 degrees [facility] Interpretation EKG NORMAL SINUS RHYTHM St elevation consistent with EARLY REPOLARIZATION and pericarditis ABNORMAL ECG WHEN COMPARED WITH ECG OF 29-APR-2018 19:31, NO SIGNIFICANT CHANGE WAS FOUND Confirmed by MD Denise., Leni ([id number]), medical editor Jagdish Blair ([id number]) on 05/20/2018 9:03:31 PM [facility] MUSE 05/01/2018 12:4 2 AM CDT 05/20/2018 9:03 PM CDT Tristin Gray MD ECG ORDERA BLESylwia Performing Organization Address City/[facility]/ZIP Co de Phone Number [facility] MUSE * XR KNEE RIGHT 2VW OR LESS (04/29/2018 8:40 PM CDT) Anatomical Region Laterality Modality Lower Extremity Radiographic Leticia ging 04/30/2018 7:10 AM CDT Impressions 04/30/2018 7:17 AM CDT Impression: No acute osseous injury. Dictated by Glynn Jean MD (radiology services manager) Nadine, Dr. DEBO HAUSER have personally reviewed [...] injury. Dictated by Glynn Jean MD (radiology services manager) Dr. DEBO Mccoy have personally reviewed and interpreted this examination/study. This report was electronically signed by DEBO HAUSER on 04/30/2018 7:17 AM . Ruchi Bond DO DIAGNOSTIC IMAGING ORDERABLES * CYTOMEGALOVIRUS DNA RT-PCR QUANT (12/27/2017 7:56 AM CDT) Only the most recent of15 resultswithin the time period is included. Cytomegalovirus DNA Quantitative Negative Negative IU/mL [facility] ([facility]) Comment: No CMV DNA detected. The quantitative range of this assay is 200 to 1 million IU/mL. This test was developed and its performance characteristics determined by [facility]. It has not been cleared or approved by the Food and Drug Administration. The FDA has determined that such clearance or approval is not necessary. log10 CMV DNA Quantitative CANCELED log10 IU/mL [facility] ([facility]) Comment: Unable to calculate result since non-numeric result obtained for component test. Result canceled by the ancillary 12/27/2017 7:56 AM CDT 12/27/2017 Narrative [facility] ([facility]) - 12/30/2017 3:21 PM CDT Performed at: - [address] [id number] Tractor Technician: Casey El MD, Phone: [phone] Mariah Giordano MD LAB - MICROBIOLOGY O RDERABLES [facility] ([facility]) [address] [place] [address] * NM RENAL SCAN W FLOW AND FUNCTION (10/13/2017 10:46 AM HOUSE STEWARD/STEWARDESS) Only the most recent of2 resultswithin the time period is included. Anatomical Region Laterality Modality Abdomen Other Impressions 10/13/2017 2:19 PM HOUSE STEWARD/STEWARDESS Procedure: Renal blood flow and function without Lasix diuresis. 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 Technique: 10.3 mCi [...] and excretion of the tracer by both [place] kidneys. No evidence of hydronephrosis or obstruction. 2. In the transplanted kidney, there is preserved flow and function and no evidence for obstruction. 3. Differential function is 55% for the transplanted kidney and 45% for the [place] kidneys, grossly unchanged (previously 53%and 47% respectively). [...] December2015, needs differential renal function between the [place] and thetransplanted kidneys. Technique: 10.3 mCi of [...] uptake and excretion of the tracer byboth [place] kidneys. No evidence of hydronephrosis or obstruction. 2. In the transplanted kidney, there is preserved flow and function and noevidence for obstruction. 3. Differential function is 55% for the transplanted kidney and 45% forthe [place] kidneys, grossly unchanged (previously 53%and 47%respectively). This report was approved by Monica Patel on 10/13/2017 1:37 PM . I, Dr. SMITHA MELO D.O. have personally reviewed and interpreted thisexamination/study. This report was electronically signed by SMITHA MELO D.O. on 10/13/20172:19 PM . Peggy River MD NM ORDERABLES * AURORA-JUNIOR VIRUS PCR QUANT BLOOD/CSF (07/18/2017 8:05 AM HOUSE STEWARD/STEWARDESS) Only the most recent of9 resultswithin the time period is included. Aurora-Junior DNA PCR Real Time Negative CANCELED Negative copies/mL [facility] ([facility]) Comment: No EBV DNA detected. The quantitative range of this assay is 100 to 1 million copies/mL. This test was developed and its performance characteristics determined by [facility]. It has not been cleared or approved by the Food and Drug Administration. Unable to calculate result since non-numeric result obtained for component test. Result canceled by the ancillary Other (qualifier value) 07/18/2017 8:05 AM HOUSE STEWARD/STEWARDESS 07/18/2017 Narrative [facility] ([place]) - 07/22/2017 6:12 AM HOUSE STEWARD/STEWARDESS Performed at: [address] [place] [id number] Tractor Technician: Casey El MD, Phone: [phone] Specimen Comment: A courtesy copy of this report has been sent to Specimen Comment: the patient. Ajit Bello PA-C LAB - MICROBIOLOGY ORDERABLES [facility] ([facility]) * PROTEIN CREATININE RATIO URINE RANDOM PNL (05/22/2017 1:44 PM CDT) Only the most recent of25 resultswithin the time period is included. Creatinine Urine 81 20 - 370 mg/dL [facility] ([facility]) Protein/Creatini ne Ratio 74 22 - 128 mg/g creat [facility] ([facility]) Protein Total Random Urine 6 5 - 25 mg/dL [facility] ([facility]) Comment: REPORT COMMENT: SPLIT 05/22/2017 FROM [id number] Test Performed at: [facility] [place] [address] [place] [address] CASEY SANCHEZ DO,MPH 05/22/2017 1:44 PM CDT 05/22/2017 1:51 PM CDT Frankie Valero MD LAB - URINE CHEMISTR Y ORDERABLES Performing Organization Address City/[facility]/ZIP Co de Phone Number [facility] ([facility]) * IMMUNE CELL FUNCTION ASSAY (04/12/2017 7:10 AM CDT) Only the most recent of2 resultswithin the time period is included. [employer]([facility]) TNP ATP ng/mL [facility] ([facility]) Comment: * Test not performed. * * Unsuitable for analysis due * * to the age of the specimen. * REPORT COMMENT: FASTING:YES Test Performed at: [facility] [address] [place] [phone] COLT SCOTT,PHD 04/12/2017 7:10 AM CDT 04/12/2017 7:11 AM CDT Mariah Giordano MD LAB - SEROLOGY ORDER KAIN [facility] ([facility]) * CALCIUM IONIZED BLOOD (08/13/2016 11:42 AM HOUSE STEWARD/STEWARDESS) [facility] Calcium Ionized 5.1 4.8 - 5.6 mg/dL [facility] ([facility]) Comment: Test Performed at: [facility] [place] [address] [place] [phone] CASEY SANCHEZ DO,MPH Venous blood specimen (specimen) 08/13/2016 11:42 AM HOUSE STEWARD/STEWARDESS 08/13/2016 11:42 AM HOUSE STEWARD/STEWARDESS Mariah Giordano MD LAB - CHEMISTRY ORDE PAUL Performing Organization Address City/[facility]/ZIP Co de Phone Number [facility] ([facility]) * ASPERGILLUS ANTIGEN PANEL (08/13/2016 11:41 AM HOUSE STEWARD/STEWARDESS) [facility] Index Total 0.13 <0.50 [facility] ([facility]) Aspergillus Antigen Not Detected Not Detected [facility] ([facility]) Comment: A negative result does not exclude [...] HEPARIN, ARGATROBAN OR DABIGATRAN?->N Test Performed at: [facility]/[address] NORMA BRYANT MD,PHD 08/13/2016 11:4 1 AM HOUSE STEWARD/STEWARDESS 08/13/2016 11:41 AM HOUSE STEWARD/STEWARDESS Mariah Giordano MD LAB - SEROLOGY ORDER KAIN [facility] ([facility]) * CRYPTOCOCCUS ANTIGEN BLOOD (08/13/2016 11:39 AM HOUSE STEWARD/STEWARDESS) Only the most recent of2 resultswithin the time period is included. [facility] Serum [facility] ([facility]) MSAFP Screen Not Detected Not Detected [facility] ([facility]) Comment: Culture should be performed on the initial positive antigen test in order to recover the causative organism for precise identification (C. neoformans vs C. gattii) and potential susceptibility testing. Test Performed at: [facility]/[address] [id number] NORMA BRYANT MD,PHD 08/13/2016 11:3 9 AM HOUSE STEWARD/STEWARDESS 08/13/2016 11:39 AM HOUSE STEWARD/STEWARDESS Mariah Giordano MD LAB - SEROLOGY ORDER KAIN Performing Organization Address [facility] de Phone Number [facility] ([facility]) * AURORA-JUNIOR VIRUS PCR QUALITATIVE (07/09/2016 7:32 AM CDT) [facility] EDTA WHOLE BLOOD [facility] ([facility]) Aurora-Junior Virus by PCR NOT DETECTED [facility] ([facility]) Comment: REFERENCE RANGE: NOT DETECTED This test was developed and its analytical performance characteristics have been determined by [employer]. It has not been cleared or approved by the U.S. Food and Drug Administration. The FDA has determined that such clearance or approval is not necessary. This assay has been validated pursuant to the CLIA regulations and is used for clinical purposes. Test Performed at: [facility] [address] [place] [phone] JAISON MILLS MD,PHD 07/09/2016 7:32 AM CDT 07/09/2016 7:32 AM CDT Frankie Valero MD LAB - MICROBIOLOGY O RDERABLES Performing Organization Address [facility]/ZIP Co de Phone Number [facility] ([facility]) * XR CHEST 2VW (07/01/2016 11:50 AM [...] procedure performed on 05/03/2016 2:48 PM Attending(s), Notched Blade Loader(s): Brisa Witt MD Procedure : Removal of [...] nephrology procedure performed on 05/03/2016 2:48PM Attending(s), Notched Blade Loader(s): Brisa Witt MD Procedure : Removal of [...] ANTIBODY IGM (04/30/2016 11:20 AM CDT) Pathologist [facility] Parvovirus B19 Antibody IgM 0.4 0.0 - 0.8 index [facility] ([facility]) Comment: Negative <0.9 Equivocal 0.9 - 1.1 Positive >1.1 Blood specimen (specimen) BLOOD SPECIMEN / Unknown 04/30/2016 11:20 AM CDT 04/30/2016 11:34 AM CDT Narrative [facility] ([facility]) - 05/02/2016 1:13 PM CDT Performed at: [address] [place] [id number] Tractor Technician: Casey El MD, Phone: [phone] Mariah Giordano MD LAB - SEROLOGY ORDER KAIN Performing Organization Address [facility] de Phone Number [facility]) * PARVOVIRUS B19 ANTIBODY IGG (04/30/2016 11:20 AM CDT) [facility] Parvovirus B19 Antibody IgG 0.1 0.0 - 0.8 index [facility] ([facility]) Comment: Negative <0.9 Equivocal 0.9 - 1.1 Positive >1.1 Blood specimen (specimen) BLOOD SPECIMEN / Unknown 04/30/2016 11:20 AM CDT 04/30/2016 11:34 AM CDT Narrative [facility]) - 05/02/2016 1:13 PM CDT Performed at: [address] [place] [id number] Tractor Technician: Casey El MD, Phone: [phone] Mariah Giordano MD LAB - SEROLOGY ORDER KAIN Performing Organization Address City/[facility] Co de Phone Number [facility]) * (ABNORMAL) TRANSFERRIN (04/30/2016 11:20 AM CDT) Only the most recent of5 resultswithin the time period is included. [facility] Transferrin 129(L) 174 - 382 mg/dL [facility] Transferrin Saturation % 13(L) 16 - 50 % [facility] Blood specimen (specimen) BLOOD SPECIMEN / Unknown 04/30/2016 11:20 AM CDT 04/30/2016 11:34 AM CDT Mariah Giordano MD LAB - CHEMISTRY REID MILLER Performing Organization Address City/[facility]/ZIP Co de Phone Number [address] [phone] * (ABNORMAL) RETIC COUNT (04/30/2016 11:20 AM CDT) Only the most recent of2 resultswithin the time period is included. Reticulocyte % 3.1(H) 0.4 - 2.5 % [facility] Reticulocyte Absolute 0.11 0.02 - 0.13 10 6/uL [facility] Blood specimen (specimen) BLOOD SPECIMEN / Unknown 04/30/2016 11:20 AM CDT 04/30/2016 11:35 AM CDT Mariah Giordano MD LAB - HEMATOLOGY LILIANA DIALLO Performing Organization Address [facility]/ZIP Co de Phone Number [address] [phone] * (ABNORMAL) IRON BLOOD (04/30/2016 11:20 AM CDT) Only the most recent of4 resultswithin the time period is included. Iron 21(L) 50 - 175 mcg/dL [facility] Blood specimen (specimen) BLOOD SPECIMEN / Unknown 04/30/2016 11:20 AM CDT 04/30/2016 11:34 AM CDT Mariah Giordano MD LAB - CHEMISTRY REID MILLER Performing Organization Address City/[facility]/ZIP Co de Phone Number [address] [phone] * FOLATE (04/30/2016 11:20 AM CDT) Only the most recent of2 resultswithin the time period is included. Folate 13.6 7.0 - 31.4 ng/mL [facility] Blood specimen (specimen) BLOOD SPECIMEN / Unknown 04/30/2016 11:20 AM CDT 04/30/2016 11:35 AM CDT Mariah Giordano MD LAB - CHEMISTRY REID MILLER Performing Organization Address City/[facility]/ZIP Co de Phone Number [address] [phone] * VITAMIN B12 (04/30/2016 11:20 AM CDT) Only the most recent of2 resultswithin the time period is included. Vitamin B12 459 213 - 816 pg/mL [facility] Blood specimen (specimen) BLOOD SPECIMEN / Unknown 04/30/2016 11:20 AM CDT 04/30/2016 11:35 AM CDT Mariah Giordano MD LAB - CHEMISTRY REID MILLER Performing Organization Address [facility] Co de Phone Number [address] [phone] * FERRITIN (04/30/2016 11:20 AM CDT) Only the most recent of5 resultswithin the time period is included. Ferritin 140 22 - 275 ng/mL [facility] Blood specimen (specimen) BLOOD SPECIMEN / Unknown 04/30/2016 11:20 AM CDT 04/30/2016 11:34 AM CDT Mariah Giordano MD LAB - CHEMISTRY REID MILLER Performing Organization Address [facility] Co de Phone Number [address] [phone] * (ABNORMAL) CALCIUM IONIZED WHOLE BLOOD (04/26/2016 8:16 AM CDT) Only the most recent of29 resultswithin the time period is included. Ionized Calcium Whole Blood 1.20 mmol/L [facility] Adjusted Ionized Calcium 1.17(L) 1.19 - 1.34 mmol/L [facility] pH Whole Blood 7.35 7.35 - 7.45 [facility] Blood specimen (specimen) BLOOD SPECIMEN / Unknown 04/26/2016 8:16 AM CDT 04/26/2016 8:20 AM CDT Narrative [facility] - 04/26/2016 8:22 AM CDT For apheresis procedure Peggy River MD LAB - CHEMISTRY ORDE PAUL [facility] [address] [place] [address] * (ABNORMAL) CBC W/O DIFFERENTIAL (04/26/2016 8:16 AM CDT) Only the most recent of25 resultswithin the time period is included. WBC 3.1(L) 3.5 - 10.5 10 3/uL [facility] RBC 3.07(L) 4.30 - 5.70 10 6/uL [facility] Hemoglobin 7.7(L) 13.5 - 17.5 g/dL [facility] Hematocrit 24.9(L) 39.0 - 50.0 % [facility] MCV 81.1 81.0 - 97.0 fL [facility] MCH 25.1(L) 28.0 - 34.0 pg [facility] MCHC 30.9(L) 32.0 - 36.0 g/dL [facility] Platelet Count 414(H) 150 - 400 10 3/uL [facility] RDW-SD 52.1(H) 36.0 - 50.0 fL [facility] RDW-CV 17.3(H) 11.2 - 14.8 % [facility] MPV 8.9(L) 9.3 - 12.8 fL [facility] Blood specimen (specimen) BLOOD SPECIMEN / Unknown 04/26/2016 8:16 AM CDT 04/26/2016 8:20 AM CDT Peggy River MD LAB - HEMATOLOGY ORD ERABLES [facility] [address] [place] [address] * TYPE + SCREEN PANEL (04/09/2016 7:54 AM CDT) Only the most recent of14 resultswithin the time period is included. Typem B POS [facility] Antibody Screen NEG [facility] Blood specimen (specimen) 04/09/2016 7:54 AM CDT 04/09/2016 8:03 AM CDT Peggy River MD LAB - BLOOD BANK ORD ERABLES Performing Organization Address [facility] Co de Phone Number [facility] [address] [place] [address] * CROSSMATCH RBC LEUKOREDUCED (03/29/2016 9:07 AM CDT) Only the most recent of3 resultswithin the time period is included. Unit RBC-WBCD [id number] transfused [facility] PRODUCTS (BEAKER) Unit ABO B [facility] (BEAKER) Unit Rh POS [facility] (BEAKER) Unit Number [id number] [facility] (BEAKER) Unit Status Transfused [facility] BLO OD BANK PRODUCTS (BEAKER) 03/29/2016 9:07 AM CDT 03/29/2016 9:26 AM CDT Narrative [facility] PRODUCTS (BEAKER) - 03/29/2016 9:07 AM CDT # of Units->1 Peggy River MD LAB - BLOOD BANK ORD ERABLES Performing Organization Address [facility]/ZIP Co de Phone Number [facility] PRODUCTS (BEAKER) * IR PICC OR CENTRAL LINE REPLACE (03/13/2016 10:46 AM CDT) Anatomical Region Laterality Modality Other Narrative 03/14/2016 5:15 PM CDT This is an interventional nephrology procedure performed on March 13, 2016 Notched Blade Loader: Andressa Nassar Procedures performed: 1. Replacement of [...] nephrology procedure performed on March 13, 2016 Notched Blade Loader: Andressa Nassar Procedures performed: 1. Replacement of [...] included. Glucose, Fingerstick 93 70-115mg/d L mg/dL [facility]) Comment:Notched Blade Loader: CHAPITO NICE 03/08/2016 6:44 PM CDT Chavo Obregon MD LAB - CHEMISTRY REID MILLER Performing Organization Address City/[facility]/ZIP Co de Phone Number [facility]) * CULTURE AEROBIC (03/08/2016 5:38 PM CDT) Only the most recent of31 resultswithin the time period is included. Culture Aerobic No Growth at 5 days [facility] Gram Stain [facility] Comment:Bottles only. Abdominal Fluid PERITONEAL FLUID / Unknown 03/08/2016 5:38 PM CDT 03/08/2016 5:38 PM CDT Narrative [facility] - 03/14/2016 10:59 AM CDT Specimen Type->Abdominal fluid Gram Stains are routinely screened for the presence of Polymorphonuclear Cells. Chavo Obregon MD LAB - MICROBIOLOGY O NIKI Performing Organization Address City/[facility]/ZIP Co de Phone Number [address] [phone] * CELL COUNT W DIFFERENTIAL FLUID (03/08/2016 5:37 PM CDT) Only the most recent of30 resultswithin the time period is included. Fluid specimen (specimen) ([facility]) 03/08/2016 5:37 PM CDT Narrative [facility] - 03/08/2016 5:58 PM CDT The following orders were created for panel order Body fluid cell count with diff. Procedure Abnormality Status --------- ------ Body fluid cell count wit...[[id number]] Abnormal Final result MANUAL DIFFERENTIAL FLUID[[id number]] Final result Please view results for these tests on the individual orders. Chavo Obregon MD LAB - BODY FLUID ORD ERABLES Performing Organization Address City/[facility]/ZIP Co de Phone Number [facility] [address] * DIFFERENTIAL MANUAL FLUID (03/08/2016 5:37 PM CDT) Only the most recent of30 resultswithin the time period is included. Pathologist [facility] Segs % Fluid 2 % [facility] Lymphocytes % Fluid 72 % [facility] Monocytes % Fluid 18 % [facility] Macrophages % Fluid 7 % [facility] Mesothelials % Fluid 1 % [facility] Fluid specimen (specimen) ([facility]) 03/08/2016 5:37 PM CDT 03/08/2016 5:52 PM CDT Narrative [facility] - 03/08/2016 5:58 PM CDT No reference ranges established for body fluid differential. Chavo Obregon MD LAB - BODY FLUID ORD ERABLES Performing Organization Address [facility]/ZIP Co de Phone Number [facility] [address] [phone] * (ABNORMAL) CELL COUNT FLUID (03/08/2016 5:37 PM CDT) Only the most recent of30 resultswithin the time period is included. Color Fluid Yellow(A) Colorless, Straw [facility] Clarity Fluid Hazy(A) Clear [facility] Volume Fluid 6.0 mL [facility] WBC Fluid 289 Reference Range Not Established /uL [facility] RBC Fluid 1,000 Reference Range Not Established /uL [facility] Differential Manual Differential to follow. [facility] Fluid specimen (specimen) (Ascities) 03/08/2016 5:37 PM CDT 03/08/2016 5:37 PM CDT Narrative [facility] - 03/08/2016 5:52 PM CDT No established reference ranges for WBC and RBC body fluid count. Chavo Obregon MD LAB - BODY FLUID ORD ERABLES Performing Organization Address [facility] Co de Phone Number [address] [phone] * CULTURE ANAEROBE (03/08/2016 5:28 PM CDT) Only the most recent of27 resultswithin the time period is included. Culture Anaerobic No Growth at 5 days [facility] Abdominal Fluid 03/08/2016 5 :28 PM CDT 03/10/2016 4:00 PM CDT [facility] - 03/14/2016 11:00 AM CDT Specimen Type->Abdominal fluid Chavo Obregon MD LAB - MICROBIOLOGY O RDERABLES Performing Organization Address [facility] de Phone Number [address] [phone] * IR CENTRAL LINE INSERT TUNNEL (03/08/2016 10:00 AM CDT) Anatomical Region Laterality Modality Other Narrative 03/08/2016 11:25 AM CDT This is an Interventional Nephrology procedure performed on March 08, 2016 Notched Blade Loader: Regino Joseph Attending: Regino Joseph Procedures performed: [...] This allowed the placement of a 5 Venezuelan trocar which in turn allowed the placement [...] Nephrology procedure performed on March 08, 2016 Notched Blade Loader: Regino Joseph Attending: Regino Joseph Procedures performed: [...] guidance. This allowed the placement ofa 5 Venezuelan trocar which in turn allowed the placement [...] Nephrology procedure performed on March 08, 2016 Notched Blade Loader: Regino Joseph Attending: Regino Joseph Procedures performed: [...] This allowed the placement of a 5 Venezuelan trocar which in turn allowed the placement [...] Nephrology procedure performed on March 08, 2016 Notched Blade Loader: Regino Joseph Attending: Regino Joseph Procedures performed: [...] guidance. This allowed the placement ofa 5 Venezuelan trocar which in turn allowed the placement [...] Abdomen Other Narrative 03/08/2016 4:07 PM CDT Notched Blade Loader: Christiano Attending: Peggy River MD Indication for [...] Procedure Note Peggy River MD - 12/06/2017 Notched Blade Loader: Christiano Attending: Peggy River MD Indication for [...] B Virus DNA IU/mL <20 Not Detected [facility] Blood specimen (specimen) BLOOD SPECIMEN / Unknown 02/19/2016 Narrative [facility] - 02/19/2016 This order was created through External Result Entry Historical Provider LAB - CHEMISTRY O RDERABLES [facility] * (ABNORMAL) PROTEIN CREATININE RATIO URINE TIMED PNL (02/07/2016 8:55 AM CDT) Creatinine 24 Hour Urine 1.24 0.63 - 2.50 g/24 h [facility] ([facility]) Protein 24 Hour Urine 13,500(H) < OR = 84 mg/g creat [facility] ([facility]) Protein 24 Hour Urine 16,740(H) <150 mg/24 h [facility] ([facility]) Comment: TOTAL URINE VOLUME: REPORT COMMENT: SPLIT 02/07/2016 FROM [id number] Test Performed at: [facility] [address] [place] [address] CASEY ASNCHEZ DO,MPH Urine specimen (specimen) 02/07/2016 8:55 AM CDT 02/07/2016 10:49 PM CDT Leticia Vaughn MD LAB - URINE CHEMISTR Y ORDERABLES Performing Organization Address [facility]/ZIP Co de Phone Number [facility]) * (ABNORMAL) CREATININE CLEARANCE URINE TIMED + BLOOD (02/07/2016 8:55 AM CDT) Creatinine 24 Hour Urine 1.24 0.63 - 2.50 g/24 h [facility]) Body Surface Area 1.90 [facility]) Creatinine Clearance 82(L) 85 - 125 mL/min [facility] ([facility]) Patient Height 5 ft [facility] ([facility]) Patient Height (Inches) 9 in [facility] ([facility]) WEIGHT [facility] ([facility]) 165 [facility] ([facility]) Comment: Test Performed at: [facility] [address] [address] [facility] [place] [address] CASEY SANCHEZ DO,MPH Urine specimen (specimen) URINE SPECIMEN OBTAINED BY CLEAN CATCH PROCEDURE / Unknown 02/07/2016 8:55 AM CDT 02/07/2016 10:49 PM CDT Narrative [facility] ([facility]) - 02/08/2016 2:00 PM CDT Height (inches)->69 Weight (lbs)->168 Leticia Vaughn MD LAB - URINE CHEMISTR Y ORDERABLES Performing Organization Address [facility]/ZIP Co de Phone Number [facility]) * PROTHROMBIN [id number] PANEL (02/01/2016 7:20 PM CDT) PT PCR Specimen Whole Blood [facility] ([employer]) Prothrombin (F2) O19107N Mutation Negative [facility]) Comment: Indication for testing: Assess genetic risk for thrombosis. NEGATIVE: The Factor II, prothrombin [id number] mutation, was not detected. Other causes of [...] Lupe Gtz M.D. BACKGROUND INFORMATION: Prothrombin (F2) U35485N Mutation CHARACTERISTICS: The Factor II, [id number] mutation is a common genetic risk factor [...] homozygotes. 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 MUTATION TESTED: F2 c.73635O>A (S27908K). CLINICAL SENSITIVITY FOR VENOUS THROMBOSIS: Approximately 10 percent. METHODOLOGY: Polymerase chain reaction and fluorescence monitoring. ANALYTICAL SENSITIVITY AND SPECIFICITY: 99 percent. LIMITATIONS: Diagnostic errors can occur due to rare sequence variations. F2 gene mutations, other than R45876B, will not be detected. Test developed and characteristics determined by [facility]. See Compliance Statement C: [employer] Blood specimen (specimen) BLOOD SPECIMEN / Unknown 02/01/2016 7:20 PM CDT 02/01/2016 7:42 PM CDT Leticia Vaughn MD LAB - COAGULATION OR DERABLES [facility] ([facility]) * FACTOR V LEIDEN MUTATION PANEL (02/01/2016 7:20 PM CDT) Specimen Type Whole Blood [facility] ([facility]) Factor V Leiden R506Q Mutation Negative [facility] ([facility]) Comment: Indication for testing: Assess genetic risk [...] of Hispanics, 1 percent of Americans and [place] Americans and 0.5 percent of Asians are heterozygous; homozygosity occurs in 1 in 5000 individuals. INHERITANCE: Incomplete autosomal dominant. PENETRANCE: Lifetime risk of thrombosis is 10 percent for heterozygotes and 80 percent of homozygotes. CAUSE: A deleterious F5 gene mutations R506Q (1691G>A) Note: Standardized nomenclature for the Factor V Leiden mutation is c.1601G>A ([id number]). CLINICAL SENSITIVITY AND SPECIFICITY: 99 percent. METHODOLOGY: Polymerase chain reaction and fluorescence monitoring. ANALYTICAL SENSITIVITY AND SPECIFICITY: 99 percent. LIMITATIONS: Diagnostic errors can occur due to rare sequence variations. F5 gene mutations, other than R506Q, will not be detected. Test developed and characteristics determined by [facility]. See Compliance Statement C: [employer] Blood specimen (specimen) BLOOD SPECIMEN / Unknown 02/01/2016 7:20 PM CDT 02/01/2016 7:42 PM CDT Leticia Vaughn MD LAB - COAGULATION OR DERABLES [facility] ([facility]) * CT PARACENTESIS (02/01/2016 4:18 PM CDT) [...] 1% Lidocaine. Using ultrasound guidance, a 5 Venezuelan coaxial needle was advanced into the pleural [...] with 1%Lidocaine. Using ultrasound guidance, a 5 Venezuelan coaxial needle wasadvanced into the pleural cavity. [...] Nitrogen Random Urine 85 Not Established mg/dL [facility] Collection Time Timed Urine 24 Hrs [facility] Urea Nitrogen 24 Hour Urine 4.6(L) 6.0 - 20.0 g/24 hrs [facility] Volume Timed Urine 5,425 mL [facility] Urine specimen (specimen) URINE SPECIMEN OBTAINED BY CLEAN CATCH PROCEDURE / Unknown 02/01/2016 10:50 AM CDT 02/01/2016 12:37 PM CDT Narrative [facility] - 02/01/2016 1:05 PM CDT 24 hour specimen Leticia Vaughn MD LAB - URINE CHEMISTR Y ORDERABLES Performing Organization Address [facility]/ZIP Co de Phone Number [address] [phone] * (ABNORMAL) PROTEIN URINE TIMED QUANTITATIVE (02/01/2016 10:50 AM CDT) Only the most recent of3 resultswithin the time period is included. Protein Urine 554 Not Established mg/dL [facility] Comment:Result obtained by jacobo uriostegui. Collection Time Timed Urine 24 Hrs [facility] Protein 24 Hour Urine 30,055(H) 77 - 197 mg/24 hrs [facility] Comment:Result obtained by d ilution. Volume Timed Urine 5,425 mL [facility] Urine specimen (specimen) URINE SPECIMEN OBTAINED BY CLEAN CATCH PROCEDURE / Unknown 02/01/2016 10:50 AM CDT 02/01/2016 12:37 PM CDT Narrative [facility] - 02/01/2016 1:11 PM CDT 24 hour specimen Leticia Vaughn MD LAB - URINE CHEMISTR Y ORDERABLES Performing Organization Address [facility] Co de Phone Number [address] [phone] * PROTEIN FLUID (02/01/2016 10:50 AM CDT) Only the most recent of3 resultswithin the time period is included. Protein Fluid 2.0 Not Established For Fluids g/dL [facility] Comment:The reference range and other method performance specifications have not been established for this fluid. The test result must be integrated into the clinical context for interpretation. Fluid specimen (specimen) PERITONEAL FLUID / Unknown 02/01/2016 10:50 AM CDT 02/01/2016 4:01 PM CDT [facility] - 02/01/2016 4:39 PM CDT Send sample from paracentesis Leticia Vaughn MD LAB - BODY FLUID ORD ERABLES Performing Organization Address City/[facility]/ZIP Co de Phone Number [address] [phone] * ALBUMIN FLUID (02/01/2016 10:50 AM CDT) Only the most recent of3 resultswithin the time period is included. Albumin Fluid 1.2 Not Established For Fluids g/dL [facility] Comment:The reference range and other method performance specifications have not been established for this fluid. The test result must be integrated into the clinical context for interpretation. Fluid specimen (specimen) PERITONEAL FLUID / Unknown 02/01/2016 10:50 AM CDT 02/01/2016 4:01 PM CDT [facility] - 02/01/2016 4:39 PM CDT Please, send sample from paracentesis Leticia Vaughn MD LAB - BODY FLUID ORD ERABLES Performing Organization Address [facility]/ZIP Co de Phone Number [address] [phone] * CREATININE URINE TIMED (02/01/2016 10:50 AM CDT) Only the most recent of2 resultswithin the time period is included. Creatinine Urine 26 Not Established mg/dL [facility] Collection Time Timed Urine 24 Hrs [facility] Creatinine 24 Hour Urine 1.4 0.8 - 2.0 g/24 hrs [facility] Volume Timed Urine 5,425 mL [facility] Urine specimen (specimen) URINE SPECIMEN OBTAINED BY CLEAN CATCH PROCEDURE / Unknown 02/01/2016 10:50 AM CDT 02/01/2016 12:37 PM CDT [facility] - 02/01/2016 1:04 PM CDT 24 hr sample Leticia Vaughn MD LAB - URINE CHEMISTR Y ORDERABLES Performing Organization Address City/[facility]/ZIP Co de Phone Number [address] [phone] * (ABNORMAL) PREALBUMIN (01/31/2016 8:20 PM CDT) Only the most recent of2 resultswithin the time period is included. Prealbumin 11(L) 16 - 45 mg/dL [facility] Blood specimen (specimen) BLOOD SPECIMEN / Unknown 01/31/2016 8:20 PM CDT 01/31/2016 8:39 PM CDT Leticia Vaughn MD LAB - CHEMISTRY ORDE RABLES Performing Organization Address City/[facility]/ZIP Co de Phone Number [address] [phone] * FACTOR X ASSAY (01/31/2016 1:56 PM CDT) Factor X Activity 86 75 - 180 U/dL [facility] Blood specimen (specimen) BLOOD SPECIMEN / Unknown 01/31/2016 1:56 PM CDT 01/31/2016 1:56 PM CDT Leticia Vaughn MD LAB - COAGULATION OR DERABLES Performing Organization Address City/[facility] [place] [address], [facility] [phone] * VAS BILATERAL VENOUS DUPLEX LE (01/31/2016 [...] at 7:27 PM on 01/30/2016. Dictated by Stpehanie Gordon M.D. This report was approved by [...] Gordon M.D. on 01/31/2016 11:[address] ZAK Mccoy M.D. have personally reviewed and interpreted [...] pelvis. Dictated by Alan Kasper MD (radiology services manager). This report was approved by Alan Kasper [...] imaging. There is decreased enhancement of the [place] kidneys, consistent with chronic kidney disease. There [...] phase imaging. There isdecreased enhancement of the [place] kidneys, consistent with chronic kidney disease. There is small volumeascites and anasarca. IMPRESSION IMPRESSION: No evidence of deep venous thrombosis in the abdomen or pelvis. Dictated by Alan Kasper MD (radiology services manager). This report was approved by Alan Kasper [...] pelvis. Dictated by Alan Kasper MD (radiology services manager). This report was approved by Alan Kasper on 01/10/2016 9:[address] VIKRAM Mccoy M.D. have personally reviewed and interpreted this examination/study. This report was electronically signed by VIKRAM FREMIN M.D. on 01/10/2016 1:03 PM . Narrative [...] imaging. There is decreased enhancement of the [place] kidneys, consistent with chronic kidney disease. There [...] phase imaging. There isdecreased enhancement of the [place] kidneys, consistent with chronic kidney disease. There is small volumeascites and anasarca. IMPRESSION IMPRESSION: No evidence of deep venous thrombosis in the abdomen or pelvis. Dictated by Alan Kasper MD (radiology services manager). This report was approved by Alan Kasper on 01/10/2016 9:13 AM . I, Dr. VIKRAM FERMIN M.D. have personally reviewed and interpreted thisexamination/study. This report was electronically signed by VIKRAM FERMIN M.D. on 01/10/20161:03 PM . Zaida Oliva MD MR ORDERABLES * (ABNORMAL) D-DIMER (01/07/2016 7:52 PM CDT) D-Dimer Quantitative 3.09(H) <=0.50 mcg/mL FEU [facility] Comment: In the absence of clinical symptoms, [...] Oliva MD LAB - COAGULATI ON ORDERABLES [address] [phone] * (ABNORMAL) FIBRINOGEN ACTIVITY (01/07/2016 7:52 PM CDT) Only the most recent of5 resultswithin the time period is included. Pathologist [facility] Fibrinogen Clauss 499(H) 200 - 400 mg/dL [facility] Blood specimen (specimen) BLOOD SPECIMEN / Unknown 01/07/2016 7:52 PM CDT 01/07/2016 7:55 PM CDT Zaida Oliva MD LAB - COAGULATI ON ORDERABLES [address] [phone] * CYTOMEGALOVIRUS ANTIBODY IGG BLOOD (01/06/2016 10:53 PM CDT) Only the most recent of2 resultswithin the time period is included. Pathologist [facility] Cytomegalovirus Antibody IgG <0.60 0.00 - 0.59 U/mL [facility]) Comment: Negative <0.60 Equivocal 0.60 - 0.69 Positive >0.69 Blood specimen (specimen) BLOOD SPECIMEN / Unknown 01/06/2016 10:53 PM CDT 01/06/2016 11:05 PM CDT Narrative [facility] ([facility]) - 01/10/2016 6:17 AM CDT Performed at: [address] [place] [address] [id number] Tractor Technician: Santana Mathis PhD, Phone: [phone] Zaida Oliva MD LAB - CHEMISTRY [facility]AB[facility] ([facility]) * (ABNORMAL) BLOOD GASES ART (01/06/2016 10:53 PM CDT) Pathologist [facility] pH Arterial 7.42 7.35 - 7.45 [facility] pCO2 Arterial 34(L) 35 - 45 mmHg [facility] pO2 Arterial 239(H) 77 - 101 mmHg [facility] HCO3 Arterial 21.8(L) 22.0 - 26.0 mmol/L [facility] TCO2 Arterial 22.8(L) 25.0 - 29.0 mmol/L [facility] Base Excess Arterial -2.1(L) -2.0 - 2.0 mmol/L [facility] Hemoglobin Arterial 11.1(L) 13.5 - 17.5 g/dL [facility] Oxyhemoglobin Arterial 98.2 95.0 - 100.0 % [facility] Carboxyhemoglobin 0.3 0.0 - 3.0 % [facility] Methemoglobin 0.3 0.0 - 2.0 % [facility] FI O2 Arterial 100.0 % [facility] Blood specimen (specimen) BLOOD SPECIMEN / Unknown 01/06/2016 10:53 PM CDT 01/06/2016 11:05 PM CDT Narrative [facility] - 01/06/2016 11:08 PM CDT FIO2->100 Zaida Oliva MD LAB - BLOOD GAS ES ORDERABLES Performing Organization Address City/State/[facility] Co de Phone Number [address] [phone] * HEPATITIS SCREEN ACUTE (01/06/2016 10:53 PM CDT) Only the most recent of2 resultswithin the time period is included. Hepatitis A Virus Antibody IgM Non-react [facility] Hepatitis B Virus Surface Antigen Non-react [facility] Hepatitis B Core Virus Antibody IgM Non-react [facility] Hepatitis C Antibody Non-react [facility] Comment: Hepatitis C Antibody screen indicates no [...] Zaida Oliva MD LAB - CHEMISTRY ORDERABLES [facility] [address] [place] [address] * (ABNORMAL) BLOOD GASES ART COMPLETE [facility] (01/06/2016 9:25 PM CDT) Only the most recent of7 resultswithin the time period is included. pH Arterial 7.38 7.35 - 7.45 [facility] pCO2 Arterial 36 35 - 45 mmHg [facility] pO2 Arterial 238(H) 77 - 101 mmHg [facility] HCO3 Arterial 20.6(L) 22.0 - 26.0 mmol/L [facility] TCO2 Arterial 21.7(L) 25.0 - 29.0 mmol/L [facility] Base Excess Arterial -4.1(L) -2.0 - 2.0 mmol/L [facility] Hemoglobin Arterial 9.6(L) 13.5 - 17.5 g/dL [facility] Oxyhemoglobin Arterial 97.7 95.0 - 100.0 % [facility] Carboxyhemoglobin 0.3 0.0 - 3.0 % [facility] Methemoglobin 0.6 0.0 - 2.0 % [facility] FI O2 Arterial 59.0 % [facility] Ionized Calcium Whole Blood 1.14 mmol/L [facility] Adjusted Ionized Calcium 1.13(L) 1.19 - 1.34 mmol/L [facility] Sodium Whole Blood 136 135 - 145 mmol/L [facility] Potassium Whole Blood 3.5 3.5 - 5.5 mmol/L [facility] Chloride Whole Blood 106 101 - 111 mmol/L [facility] Glucose Whole Blood 180(H) 70 - 110 mg/dL [facility] Lactic Acid Whole Blood 2.9 0.5 - 3.4 mmol/L [facility] Blood specimen (specimen) 01/06/2016 9:25 PM CDT 01/06/2016 9:26 PM CDT Narrative [facility] - 01/06/2016 9:28 PM CDT FIO2->40 Zaida Oliva MD LAB - BLOOD GAS ES ORDERABLES [address] [phone] * XR ABDOMEN KUB PORTABLE (01/06/2016 9:20 [...] hugger are seen. Findings were reported to [place] in [place] for Dr. Oliva upon review by Dr. Montez on 01/06/2016 at 9:18 PM. Dictated by Nick Hobbs MD (Urogynecology Physician). I, Dr. JUVE WEN MD have personally [...] hugger are seen. Findings were reported to [place] in [place] for Dr. Oliva upon review by on 01/06/2016 at 9:18 PM. Dictated by Nick Hobbs MD (Urogynecology Physician). I, Dr. JUVE WEN MD have personally reviewed and interpreted thisexamination/study. This report was electronically signed by JUVE WEN MD on 01/07/201612:09 PM . Zaida Oliva MD DIAGNOSTIC IMAG ING ORDERABLES * (ABNORMAL) TEG CITRATED KAOLIN (CK) (01/06/2016 4:30 PM CDT) Only the most recent of2 resultswithin the time period is included. G-Clot Strength 15.4(H) 4.5 - 11.0 d/sc [facility] Pathology Review TEG Other [facility] Interpretation TEG See Comment [facility] React-Time 3.5(L) 5.0 - 10.0 MIN [facility] K-Time 0.8(L) 1.0 - 3.0 MIN [facility] Angle A-BB 78.5(H) 53.0 - 72.0 Degrees [facility] MA (CK) BB 75.5(H) 50.0 - 70.0 mm [facility] LY30 0.0 0.0 - 8.0 % [facility] CI-Coagulation Index 4.8(H) -3.0 - 3.0 [facility] Blood specimen (specimen) 01/06/2016 4:30 PM CDT 01/06/2016 4:42 PM CDT Narrative [facility] - 01/06/2016 6:07 PM [...] MD LAB - BLOOD BAN K ORDERABLES [facility] [address] [place] [address], [facility] * HLA XM SEROLOGIC DONOR (01/06/2016 1:33 PM CDT) Only the most recent of2 resultswithin the time period is included. XM B Donor ID [id number] [facility] ([facility]) XM B Relation Donor [facility] ([facility]) XM Test Date 01/08/2016 [facility] ([facility]) XM T All Neg [facility] ([facility]) XM B Serum Date 01/06/2016 [facility] ([facility]) Comment: This test was developed and its performance characteristics determined bythe [facility]. It has not been cleared or approved by theU.S. Food and Drug Administration. The FDA has determined that suchclearance or approval is not necessary. This test is used for clinicalpurposes. It should not be regarded as investigational or for research.This laboratory is certified under the Clinical Laboratory ImprovementAmendments of 1988 (CLIA-88) as qualified to perform high complexityclinical laboratory testing.Performed at: [facility], [address] @ [place] [address]Ggf Director: Gabo Deal MD, XM B All Neg [facility] ([facility]) XM T [facility]HG Neg [facility] ([facility]) XM B [facility]HG Neg [facility] ([facility]) Blood specimen (specimen) BLOOD SPECIMEN / Unknown 01/06/2016 1:33 PM CDT 01/12/2016 1:33 PM CDT Chavo Obregon MD LAB - BLOOD BANK ORD ERABLES [facility] ([facility]) * FLOW HLA XM DONOR (01/06/2016 1:33 PM CDT) Flow XM Donor ID [id number] [facility] ([facility]) Flow XM Relation Donor [facility] ([facility]) Flow XM Serum Date 01/06/2016 [facility] ([facility]) Flow XM T Cell Neg [id number] [facility] ([facility]) Flow XM Test Date 01/08/2016 [facility] ([facility]) Comment: This test was developed and its performance characteristics determined bythe [facility]. It has not been cleared or approved by theU.S. Food and Drug Administration. The FDA has determined that suchclearance or approval is not necessary. This test is used for clinicalpurposes. It should not be regarded as investigational or for research.This laboratory is certified under the Clinical Laboratory ImprovementAmendments of 1988 (CLIA-88) as qualified to perform high complexityclinical laboratory testing.Performed at: [facility], [address] @ [place] [address]Doo Director: Gabo Deal MD, Flow XM B Cell Neg [id number] [facility] ([facility]) Blood specimen (specimen) BLOOD SPECIMEN / Unknown 01/06/2016 1:33 PM CDT 01/12/2016 1:33 PM CDT Chavo Obregon MD LAB - PATHOLOGY/CYTO LOGY ORDERABLES Performing Organization Address City/[facility]/ZIP Co de Phone Number [facility] ([facility]) * HLA ANTIBODY SCREEN LUM CLASS 2 SAB (01/06/2016 1:33 PM CDT) % PRA 0 [facility] ([facility]) Class 2 LUM SAB Specificity - [facility] ([facility] Class 2 LUM SAB Moderate Risk - [facility] ([facility]) Class 2 LUM SAB Reportable Comments - [facility] ([facility]) Class 2 SAB Test Date 02/07/20 16 [facility] ([facility]) Comment: This test was developed and its performance characteristics determined bythe [facility]. It has not been cleared or approved by [facility]. Food and Drug Administration. The FDA has determined that suchclearance or approval is not necessary. This test is used for clinicalpurposes. It should not be regarded as investigational or for research.This laboratory is certified under the Clinical Laboratory ImprovementAmendments of 1988 (CLIA-88) as qualified to perform high complexityclinical laboratory testing.Performed at: [facility], [address] @ [place] [address]Akl Director: Gabo Deal MD, Blood specimen (specimen) BLOOD SPECIMEN / Unknown 01/06/2016 1:33 PM CDT 01/12/2016 1:33 PM CDT Chavo Obregon MD LAB - BLOOD BANK ORD ERABLES [facility] ([facility]) * HLA ANTIBODY SCREEN LUM CLASS 1 SAB (01/06/2016 1:33 PM CDT) Pathologist [facility] % PRA 0 [facility] ([facility]) Class 1 LUM SAB Specificity - [facility] ([facility]) Class 1 LUM SAB Moderate Risk - [facility] ([facility]) Class 1 LUM SAB Reportable Comments - [facility] ([facility]) Class 1 SAB Test Date 02/07/20 16 [facility] ([facility]) Comment: This test was developed and its performance characteristics determined bythe [facility]. It has not been cleared or approved by [facility] Food and Drug Administration. The FDA has determined that suchclearance or approval is not necessary. This test is used for clinicalpurposes. It should not be regarded as investigational or for research.This laboratory is certified under the Clinical Laboratory ImprovementAmendments of 1988 (CLIA-88) as qualified to perform high complexityclinical laboratory testing.Performed at: [facility], [address] @ [place] [address]Pus Director: Gabo Dael MD, Blood specimen (specimen) BLOOD SPECIMEN / Unknown 01/06/2016 1:33 PM CDT 01/12/2016 1:33 PM CDT Chavo Obregon MD LAB - BLOOD BANK ORD ERABLES [facility] ([facility]) * HLA TYPING DNA LOW RESOLUTION DR,DQ (01/06/2016 1:32 PM CDT) Only the most recent of2 resultswithin the time period is included. DR DQ Low Resolution DRB1-1 01:03 [facility] ([facility]) DR DQ Low Resolution DRB1-2 07 [facility] ([facility]) DR DQ Low Resolution DQB1-1 03 (DQ9) [facility] ([facility]) DR DQ Low Resolution DQB1-2 05 [facility] ([facility]) DR DQ Low Resolution DRB3-1 Negative [facility] ([facility]) DR DQ Low Resolution DRB3-2 - [facility] ([facility]) DR DQ Low Resolution DRB4-1 01:03N [facility] ([facility]) DR DQ Low Resolution DRB4-2 - [facility] ([facility]) DR DQ Low Resolution DRB5-1 Negative [facility] ([facility]) DR DQ Low Resolution DRB5-2 - [facility] ([facility]) DR DQ Low Resolution Methodology SSOP [facility] ([facility]) Comment DR DQ Low Resolution Confirmation Typing on Unos # [id number] [facility] ([facility]) DR DQ Low Resolution test date 01/08/2016 [facility] ([facility]) Comment: This test was developed and its performance characteristics determined bythe [facility]. It has not been cleared or approved by theU.S. Food and Drug Administration. The FDA has determined that suchclearance or approval is not necessary. This test is used for clinicalpurposes. It should not be regarded as investigational or for research.This laboratory is certified under the Clinical Laboratory ImprovementAmendments of 1988 (CLIA-88) as qualified to perform high complexityclinical laboratory testing.Performed at: [facility], [address] @ [place] [address]Ibq Director: Gabo Deal MD, Blood specimen (specimen) BLOOD SPECIMEN / Unknown 01/06/2016 1:32 PM CDT 01/12/2016 1:33 PM CDT Chavo Obregon MD LAB - BLOOD BANK ORD ERABLES [facility] ([facility]) * HLA TYPING DNA LOW RESOLUTION A,B,C (01/06/2016 1:32 PM CDT) Only the most recent of2 resultswithin the time period is included. ABC DNA A1 01 [facility] ([facility]) ABC DNA A2 - [facility] ([facility] ABC DNA B1 07 [facility] ([facility] ABC DNA B2 57 [facility] ([facility] ABC DNA BW1 6 [facility] ([facility] ABC DNA BW2 4 [facility] ([facility]) ABC DNA C1 06 [facility] ([facility]) ABC DNA C2 07 [facility] ([facility]) ABC DNA Methodology SSOP [facility] ([facility]) Comment ABC DNA Confirmation Typing on Unos# [id number] [facility] ([facility]) ABC DNA Test Date 01/08/2016 [facility] ([facility]) Comment: This test was developed and its performance characteristics determined bythe [facility]. It has not been cleared or approved by theU.S. Food and Drug Administration. The FDA has determined that suchclearance or approval is not necessary. This test is used for clinicalpurposes. It should not be regarded as investigational or for research.This laboratory is certified under the Clinical Laboratory ImprovementAmendments of 1988 (CLIA-88) as qualified to perform high complexityclinical laboratory testing.Performed at: [facility], [address] @ [place] [address]Als Director: Gabo Deal MD, Blood specimen (specimen) BLOOD SPECIMEN / Unknown 01/06/2016 1:32 PM CDT 01/12/2016 1:33 PM CDT Chavo Obregon MD LAB - BLOOD BANK ORD ERABLES [facility] ([facility]) * PREPARE FFP UNIT(S) (01/06/2016 1:41 AM CDT) Only the most recent of2 resultswithin the time period is included. Unit FFP [id number] transfused [facility] (BEAKER) Unit ABO AB [facility] (BEAKER) Unit Rh POS [facility] ([facility]) Unit Number [id number] [facility] ([facility]) Unit Status Transfused [facility]LO OD [facility] (AKER) 01/06/2016 1:41 AM CDT 01/06/2016 1:41 AM CDT Narrative [facility] ([facility]) - 01/06/2016 1:41 AM CDT # of Units->1 Zaida Oliva MD LAB - BLOOD BAN K ORDERABLES [facility] ([facility]) * LIPASE BLOOD (01/06/2016 1:30 AM CDT) Lipase 23 8 - 78 Units/L [facility] Blood specimen (specimen) BLOOD SPECIMEN / Unknown 01/06/2016 1:30 AM CDT 01/06/2016 1:37 AM CDT Zaida Oliva MD LAB - CHEMISTRY ORDERABLES [address] [phone] * AMYLASE BLOOD (01/06/2016 1:30 AM CDT) Amylase 51 25 - 125 Units/L [facility] Blood specimen (specimen) BLOOD SPECIMEN / Unknown 01/06/2016 1:30 AM CDT 01/06/2016 1:37 AM CDT Zaida Oliva MD LAB - CHEMISTRY ORDERABLES Performing Organization Address [facility] Co de Phone Number [address] [phone] * (ABNORMAL) VANCOMYCIN LEVEL TROUGH (12/27/2015 5:29 PM CDT) Only the most recent of2 resultswithin the time period is included. Vancomycin Trough 24.0(H) 10.0 - 20.0 mcg/mL [facility] Blood specimen (specimen) BLOOD SPECIMEN / Unknown 12/27/2015 5:29 PM CDT 12/27/2015 5:39 PM CDT Erica Alston MD LAB - CHEMISTRY OR DERABLES Performing Organization Address [facility] de Phone Number [address] [phone] * CULTURE FUNGUS OTHER+FUNGUS SMEAR (12/27/2015 4:30 PM CDT) Culture Fungus-Other No Growth Fungi. [facility] Fungus Smear No Fungi seen. [facility] PERITONEAL FLUID / Unknown 12/27/2015 4:30 PM CDT 12/28/2015 9:57 AM CDT Narrative [facility] - 01/30/2016 8:52 AM CDT PERITONEAL DIALYSIS FLUID Specimen Type->Pertioneal Fluid Erica Alston MD LAB - MICROBIOLOGY ORDERABLES Performing Organization Address [facility] Co de Phone Number [address] [phone] * TRIGLYCERIDES FLUID (12/27/2015 4:30 PM CDT) Only the most recent of4 resultswithin the time period is included. Triglycerides Fluid 39 Not Established For Fluids mg/dL [facility] Comment:The reference range and other method performance specifications have not been established for this fluid. The test result must be integrated into the clinical context for interpretation. Fluid specimen (specimen) PERITONEAL FLUID / Unknown 12/27/2015 4:30 PM CDT 12/28/2015 9:55 AM CDT Narrative [facility] - 12/28/2015 10:50 AM CDT Peritoneal dialysis fluid Erica Alston MD LAB - BODY FLUID O RDERABLES [facility] [address] [place] [address] * (ABNORMAL) DRUG ABUSE PANEL 10-20+ETHANOL URINE NO CONFIRM (12/06/2015 2:45 PM CDT) Only the most recent of2 resultswithin the time period is included. Amphetamines Screen Urine Negative Negative : < 1000 ng/mL [facility] Barbiturates Screen Urine Negative Negative : < 200 ng/mL [facility] Benzodiazepine Screen Urine Positive(A) Negative : < 200 ng/mL [facility] Comment: Positive urine benzodiazepine screening results should be confirmed by another generally accepted non-immunological method such as gas chromatography or mass spectrometry. Opiates Urine Negative Negative : < 300 ng/mL [facility] Cocaine Metabolites Urine Negative Negative : < 300 ng/mL [facility] Phencyclidine Screen Urine Negative Negative : < 25 ng/ml [facility] Cannabinoids Screen Urine Negative Negative : <50 ng/mL [facility] Methadone Screen Urine Negative Negative : < 300 ng/mL [facility] Urine specimen (specimen) URINE / Unknown 12/06/2015 2:45 PM CDT 12/06/2015 3:07 PM CDT Narrative [facility] - 12/06/2015 3:32 PM CDT The Urine Toxicology Screening Panel does not screen for Propoxyphene, Meprobamate, Carisoprodol, Trazodone, avjt-ims-rzeufbb medications and/or volatiles (Acetone, Isopropanol, Methanol or Ethylene Glycol). Ethanol, Salicylate, Acetaminophen, Tricyclic Antidepressants and several therapeutic drugs may be individually assayed in serum or plasma specimen. Toxicology testing by the [facility] is an aid to medical diagnosis and treatment of patients. No documented chain of custody was maintained. Results are intended to be used for clinical purposes only. Zaida Oliva MD LAB - URINE KEERTHI ASHLEY ORDERABLES [address] [phone] * XR PANOREX (12/06/2015 10:29 AM CDT) Anatomical Region Laterality Modality Head Other Impressions 12/06/2015 4:12 PM CDT IMPRESSION: No evidence of periapical abscess. 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 Report dictated by Navdeep Pinto DO (radiology services manager). This report was approved by Navdeep Pinto [...] Report dictated by Navdeep Pinto DO (radiology services manager). This report was approved by Navdeep Pinto on 12/06/2015 4:03 PM . I, Dr. ELA SIBLEY M.D. have personally reviewed and interpreted thisexamination/study. This report was electronically signed by ELA SIBLEY M.D. on 12/06/20154:12 PM . Zaida Oliva MD DIAGNOSTIC IMAG ING ORDERABLES * QUANTIFERON TB-GOLD INC (12/06/2015 9:59 AM CDT) QuantiFERON TB Gold Negative Negative [facility] (BEAKER) Comment: The specimen received for QuantiFERON testing was incubated by the ordering institution. Specific procedures outlined in our Directory of Services and in the package insert for the QuantiFERON Gold (In Tube) test must be followed to enable for proper stimulation of cells for the production of interferon gamma. QuantiFERON Criteria Comment [facility] (BEAKER) Comment: To be considered positive [...] values. QuantiFERON TB Antigen Value 0.03 IU/mL [facility] (BEAKER) QuantiFERON Nil Value 0.13 IU/mL [facility] (BEAKER) QuantiFERON Mitogen Value 1.89 IU/mL [facility] (BEAKER) QFT TB Ag minus Nil Value <0.00 IU/mL [facility] (BEAKER) Interpretation Comment [facility] ([facility]) Comment: The QuantiFERON TB Gold (in Tube) [...] AM CDT 12/06/2015 10:20 AM CDT Narrative [facility] ([facility]) - 12/10/2015 6:41 AM CDT Performed at: - [address] [id number] Tractor Technician: Santana Mathis PhD, Phone: [phone] Zaida Oliva MD LAB - SEROLOGY ORDERABLES Performing Organization Address City/[facility]/ZIP Co de Phone Number [facility] * VANCOMYCIN LEVEL RANDOM (12/06/2015 9:59 AM CDT) Pathologist [facility] Vancomycin Random 16.6 Therapeutic Ranges not established for random specimens mcg/mL [facility] Blood specimen (specimen) BLOOD SPECIMEN / Unknown 12/06/2015 9:59 AM CDT 12/06/2015 11:07 AM CDT Erica Alston MD LAB - CHEMISTRY OR DERABLES Performing Organization Address [facility] Co de Phone Number [address] [phone] * HLA XM SEROLOGIC AUTO (12/06/2015 9:36 AM CDT) [facility] AXM Serum Date 12/06/19 16 [facility] ([facility]) AXM T ALL Neg [facility] ([facility]) AXM Test Date 12/07/19 16 [facility] ([facility]) Comment: This test was developed and its performance characteristics determined bythe [facility]. It has not been cleared or approved by theU.S. Food and Drug Administration. The FDA has determined that suchclearance or approval is not necessary. This test is used for clinicalpurposes. It should not be regarded as investigational or for research.This laboratory is certified under the Clinical Laboratory ImprovementAmendments of 1988 (CLIA-88) as qualified to perform high complexityclinical laboratory testing.Performed at: [facility], [address] [place] [id number] Director: Gabo Deal MD, AXM B ALL Neg [facility] ([facility]) AXM T AHG Neg [facility] ([facility] AXM B AHG Neg [facility] ([facility]) Blood specimen (specimen) BLOOD SPECIMEN / Unknown 12/06/2015 9:36 AM CDT 12/06/2015 10:15 AM CDT Zaida Oliva MD LAB - BLOOD BAN K ORDERABLES [facility] ([facility]) * HLA ANTIBODY SCREEN LUM CLASS 2 ID (12/06/2015 9:36 AM CDT) % PRA 0 [facility] ([facility]) Class 2 LUM Specificity - [facility] ([facility]) Class 2 LUM Test Date 12/07/19 16 [facility] ([facility]) Comment: This test was developed and its performance characteristics determined bythe [facility]. It has not been cleared or approved by theU.S. Food and Drug Administration. The FDA has determined that suchclearance or approval is not necessary. This test is used for clinicalpurposes. It should not be regarded as investigational or for research.This laboratory is certified under the Clinical Laboratory ImprovementAmendments of 1988 (CLIA-88) as qualified to perform high complexityclinical laboratory testing.Performed at: [facility], [address] @ [place] [address]Bli Director: Gabo Deal MD, Blood specimen (specimen) BLOOD SPECIMEN / Unknown 12/06/2015 9:36 AM CDT 12/06/2015 10:15 AM CDT Zaida Oliva MD LAB - BLOOD BAN K ORDERABLES [facility] ([facility]) * HLA ANTIBODY SCREEN LUM CLASS 1 ID (12/06/2015 9:36 AM CDT) % PRA 0 [facility] ([facility]) Class 1 LUM Specificity - [facility] ([facility]) Class 1 LUM Test Date 12/07/19 16 [facility] ([facility]) Comment: This test was developed and its performance characteristics determined bythe [facility]. It has not been cleared or approved by theU.S. Food and Drug Administration. The FDA has determined that suchclearance or approval is not necessary. This test is used for clinicalpurposes. It should not be regarded as investigational or for research.This laboratory is certified under the Clinical Laboratory ImprovementAmendments of 1988 (CLIA-88) as qualified to perform high complexityclinical laboratory testing.Performed at: [facility], [address] [place] [address]Qbu Director: Gabo Deal MD, Blood specimen (specimen) BLOOD SPECIMEN / Unknown 12/06/2015 9:36 AM CDT 12/06/2015 10:14 AM CDT Zaida Oliva MD LAB - BLOOD BAN K ORDERABLES Performing Organization Address City/[facility] Co de Phone Number [facility] ([facility]) * HIV-1 HIV-2 ANTIGEN/ANTIBODY (12/06/2015 9:36 AM CDT) Pathologist [facility] HIV Antigen/Antibod y 1 & 2 Non-reacti ve Non-react gini [facility] Comment: Neither HIV-1 p24 Antigen nor HIV-1/HIV-2 Antibodies are detected. Blood specimen (specimen) BLOOD SPECIMEN / Unknown 12/06/2015 9:36 AM CDT 12/06/2015 10:14 AM CDT Zaida Oliva MD LAB - HEMATOLOG Y ORDERABLES Performing Organization Address [facility]/ZIP Co de Phone Number [facility] [address] [place], [place] [address] [phone] * PSA FREE + TOTAL PANEL (12/06/2015 9:36 AM CDT) Pathologist [facility] PSA Total 0.5 0.0 - 4.0 ng/mL [facility] PSA Free 0.15 0.00 - 0.50 ng/mL [facility] PSA % Free 30 See Comment % [facility] Comment: [facility] uses the [employer] method for Total and Free PSA measurements. [...] Free and/or Total PSA alone. Distribution of HAND GRINDER % Free PSA Values for specimens with HAND GRINDER Total PSA values between 4.0 and 10.0 [...] LAB - CHEMISTRY ORDERABLES Performing Organization Address City/[facility] Co de Phone Number [address] [phone] * RPR (12/06/2015 9:36 AM CDT) RPR Non-reacti ve Non-reacti ve [facility] Blood specimen (specimen) BLOOD SPECIMEN / Unknown 12/06/2015 9:36 AM CDT 12/06/2015 10:14 AM CDT Zaida Oliva MD LAB - CHEMISTRY ORDERABLES Performing Organization Address City/[facility]/ZIP Co de Phone Number [address] [place] [phone] * MUMPS ANTIBODY IGG (12/06/2015 9:36 AM CDT) Mumps Virus Antibody IgG 102.0 Immune >10.9 AU/mL [facility]) Comment: Negative <9.0 Equivocal 9.0 - 10.9 Positive >10.9 A positive result generally indicates past exposure to Mumps virus or previous vaccination. Blood specimen (specimen) BLOOD SPECIMEN / Unknown 12/06/2015 9:36 AM CDT 12/06/2015 10:16 AM CDT Narrative [facility]) - 12/07/2015 3:22 PM CDT Performed at: [address] [place] [id number] Tractor Technician: Santana Mathis PhD, Phone: [phone] Zaida Oliva MD LAB - CHEMISTRY ORDERABLES Performing Organization Address [facility] de Phone Number [facility]) * RUBELLA ANTIBODY IGG (12/06/2015 9:36 AM CDT) Pathologist [facility] Rubella Antibody IgG Quantitative >33.00 Immune >0.99 index [facility]) Comment: Non-immune <0.90 Equivocal 0.90 - 0.99 Immune >0.99 Blood specimen (specimen) BLOOD SPECIMEN / Unknown 12/06/2015 9:36 AM CDT 12/06/2015 10:15 AM CDT Narrative [facility]) - 12/07/2015 8:37 AM CDT Performed at: [address] [place] [id number] Tractor Technician: Santana Mathis PhD, Phone: [phone] Zaida Oliva MD LAB - SEROLOGY ORDERABLES Performing Organization Address [facility] Co de Phone Number [facility]) * (ABNORMAL) AURORA-JUNIOR VIRUS ANTIBODY TO VCA IGG (12/06/2015 9:36 AM CDT) Aurora-Junior Virus Antibody To Viral Capsid Antigen IgG 95.1(H) 0.0 - 21.9 U/mL [facility]) Comment: INTERPRETIVE INFORMATION: Aurora-Junior Virus Antibody to Viral Capsid Antigen, IgG 17.9 U/mL or less.......Not Detected 18.0-21.9 U/mL..........Indeterminate - Repeat testing in 10-14 days may be helpful. 22.0 U/mL or greater....Detected Interpretive information regarding serologic features of EBV-associated diseases is available at [email or web address]. Blood specimen (specimen) BLOOD SPECIMEN / Unknown 12/06/2015 9:36 AM CDT 12/06/2015 10:15 AM CDT Zaida Oliva MD LAB - CHEMISTRY ORDERABLES Performing Organization Address City/[facility]/ZIP Co de Phone Number [facility]) * CERULOPLASMIN (12/06/2015 9:36 AM CDT) Ceruloplasmin 22 20 - 60 mg/dL [facility] Blood specimen (specimen) BLOOD SPECIMEN / Unknown 12/06/2015 9:36 AM CDT 12/06/2015 10:14 AM CDT Zaida Oliva MD LAB - CHEMISTRY ORDERABLES Performing Organization Address City/[facility]/ZIP Co de Phone Number [address] [phone] * ALPHA FETOPROTEIN BLOOD TUMOR (12/06/2015 9:36 AM CDT) Alpha-Fetoprotei n Tumor Marker 2.3 0.0 - 8.3 ng/mL [facility] ([facility]) Comment:Mandy ECLIA methodol ogy Blood specimen (specimen) BLOOD SPECIMEN / Unknown 12/06/2015 9:36 AM CDT 12/06/2015 10:14 AM CDT Narrative [facility] ([facility]) - 12/07/2015 7:16 AM CDT Performed at: [address] [place] [id number] Tractor Technician: Santana Mathis PhD, Phone: [phone] Zaida Oliva MD LAB - CHEMISTRY ORDERABLES Performing Organization Address City/[facility] Co de Phone Number [facility]) * [id number] BLOOD (12/06/2015 9:36 AM CDT) [facility] Niwap-7-Gwfhmz ypsin 117 90 - 200 mg/dL [facility] Blood specimen (specimen) BLOOD SPECIMEN / Unknown 12/06/2015 9:36 AM CDT 12/06/2015 10:14 AM CDT Zaida Oliva MD LAB - CHEMISTRY ORDERABLES Performing Organization Address [facility] Co de Phone Number [facility] [address] [place] [address] * BLOOD TYPE ABO+ RH PANEL (12/06/2015 9:36 AM CDT) [facility] Typem B POS [facility] Blood specimen (specimen) BLOOD SPECIMEN / Unknown 12/06/2015 9:36 AM CDT 12/06/2015 11:18 AM CDT Zaida Oliva MD LAB - BLOOD BAN K ORDERABLES Performing Organization Address [facility] Co de Phone Number [facility] [address] [place] [address] * NICOTINE + METABOLITES BLOOD (12/06/2015 9:36 AM CDT) [facility] Nicotine None Detected ng/mL [facility] ([facility]) Comment: Nicotine levels greater than 2.0 are consistent with the use of tobacco or tobacco cessation products. Cotinine None Detected ng/mL [facility] ([facility]) Comment: Cotinine levels greater than 20.0 are consistent with the use of tobacco or tobacco cessation products. Blood specimen (specimen) BLOOD SPECIMEN / Unknown 12/06/2015 9:36 AM CDT 12/06/2015 10:16 AM CDT Narrative [facility] ([place]) - 12/10/2015 1:06 PM CDT Performed at: - [address] [id number] Tractor Technician: Casey El MD, Phone: [phone] Zaida Oliva MD LAB - CHEMISTRY ORDERABLES [facility] ([place]) * HEPATITIS B SURFACE ANTIBODY (12/06/2015 9:36 AM CDT) Only the most recent of2 resultswithin the time period is included. Hepatitis B Virus Surface Antibody Non-react gini Non-react gini [facility] Comment: < 8 mIU/mL Hepatitis B surface Antibody (HBsAb). Nonreactive for HBsAb - individual is considered not immune to Hepatitis B Virus infection. Hepatitis B Surface Antibody Quantitative 5.2 <8.0 mIU/mL [facility] Comment: Hepatitis B Surface Antibody Numeric Result Interpretation: Nonreactive: <8.0 mIU/mL Indeterminate: 8.0 - 12.0 mIU/mL Reactive: >12.0 mIU/mL Blood specimen (specimen) BLOOD SPECIMEN / Unknown 12/06/2015 9:36 AM CDT 12/06/2015 10:14 AM CDT Zaida Oliva MD LAB - CHEMISTRY ORDERABLES [address] [phone] * (ABNORMAL) HEPATITIS B CORE ANTIBODY (12/06/2015 9:36 AM CDT) HBc Antibody Total Reactive(A ) Non-reacti ve [facility] Blood specimen (specimen) BLOOD SPECIMEN / Unknown 12/06/2015 9:36 AM CDT 12/06/2015 10:14 AM CDT Zaida Oliva MD LAB - CHEMISTRY ORDERABLES Performing Organization Address [facility] Co de Phone Number [address] [phone] * HEPATITIS B SURFACE ANTIGEN W RFLX CONFIRMATION (12/06/2015 9:36 AM CDT) Only the most recent of2 resultswithin the time period is included. [facility] Hepatitis B Virus Surface Antigen Screen Negative Negative [facility] ([facility]) Blood specimen (specimen) BLOOD SPECIMEN / Unknown 12/06/2015 9:36 AM CDT 12/06/2015 10:16 AM CDT Narrative [facility] ([place]) - 12/07/2015 6:17 AM CDT Performed at: [address] [place] [id number] Tractor Technician: Santana Mathis PhD, Phone: [phone] Zaida Oliva MD LAB - CHEMISTRY ORDERABLES Performing Organization Address [facility] Co de Phone Number [facility] ([place]) * ALCOHOL ETHYL BLOOD (12/06/2015 9:36 AM CDT) [facility] Interpretation Ethanol None Detected None Detected mg/dL [facility] Comment:Ethanol levels less than 10 mg/dL are resulted as None detected . Blood specimen (specimen) BLOOD SPECIMEN / Unknown 12/06/2015 9:36 AM CDT 12/06/2015 10:13 AM CDT Zaida Oliva MD LAB - CHEMISTRY ORDERABLES Performing Organization Address City/[facility]/ZIP Co de Phone Number [address] [phone] * (ABNORMAL) HEPATITIS A ANTIBODY (12/06/2015 9:36 AM CDT) Only the most recent of2 resultswithin the time period is included. Hepatitis A Virus Antibody Total Positive(A ) Negative [facility] Blood specimen (specimen) 12/06/2015 9:36 AM CDT 12/06/2015 10:15 AM CDT Narrative [facility] ([place]) - 12/07/2015 7:16 AM CDT Performed at: - [address] [id number] Tractor Technician: Santana Mathis PhD, Phone: [phone] Zaida Oliva MD LAB - CHEMISTRY ORDERABLES Performing Organization Address City/[facility]/ZIP Co de Phone Number [facility] ([place]) * ECHO STRESS TEST W DOBUTAMINE (12/06/2015 12:00 AM CDT) Anatomical Region Laterality Modality Other 12/06/2015 Zaida Oliva MD ECHOCARDIOGRAPH Y RADIANT * ECHO STRESS COLOR FLOW AND DOPPLER (12/06/2015 12:00 AM CDT) Anatomical Region Laterality Modality Other 12/06/2015 Zaida Oliva MD ECHOCARDIOGRAPH Y RADIANT * (ABNORMAL) OSMOLALITY URINE (11/13/2015 11:20 PM HOUSE STEWARD/STEWARDESS) Osmolality Urine 488(L) 500 - 800 mOsm/kg [facility] Urine specimen (specimen) URINE SPECIMEN OBTAINED BY CLEAN CATCH PROCEDURE / Unknown 11/13/2015 11:20 PM HOUSE STEWARD/STEWARDESS 11/13/2015 11:42 PM HOUSE STEWARD/STEWARDESS Regino Jospeh MD LAB - URINE CHEMISTR Y ORDERABLES [address] [phone] * IR US PARACENTESIS (10/30/2015 4:38 PM HOUSE STEWARD/STEWARDESS) Anatomical Region Laterality Modality Other Impressions 10/30/2015 5:52 PM HOUSE STEWARD/STEWARDESS Impression: successful placement of a abdominal peritoneal [...] 5:52 PM . Narrative 10/30/2015 5:52 PM HOUSE STEWARD/STEWARDESS This is an interventional nephrology procedure performed on 10/30/2015 5:47 PM Attending(s), Notched Blade Loader(s): Brisa Witt M.D., Regino Joseph M.D. Diagnosis: [...] This allowed the placement of a 5 Venezuelan trocar. Injection of contrast confirmed entry into the peritoneal cavity with wide diffusion of contrast. Over a wire, the 5 Venezuelan trocar was exchanged for a 6 Venezuelan sheath. The side port of the sheath was connected to negative pressure compartment and 4800 mL of straw-colored ascitic fluid were drained. Patient received 25 g of IV abdomen and 1 g of Ancef intravenously during this process. A Glidewire was then inserted through the sheath and manipulated into the pelvis and then the tract was dilated with an 8 Venezuelan followed by 10, 12, 16 Venezuelan dilators and then a 18 Venezuelan peel-away sheath was placed. A double cuff curled peritoneal dialysis catheter was then inserted with a straightening trocar and the peel-away sheath was gradually withdrawn. Using a cuff implantation tool from the Y-Zapper kit, the cuff was implanted in the [...] nephrology procedure performed on 10/30/2015 5:47PM Attending(s), Notched Blade Loader(s): Brisa Witt M.D., Regino Joseph M.D. Diagnosis: [...] This allowed the placement of a 5 Venezuelan trocar. Injection ofcontrast confirmed entry into the peritoneal cavity with wide diffusion ofcontrast. Over a wire, the 5 Venezuelan trocar was exchanged for a 6 Venezuelan sheath. The side port of the sheathwas connected to negative pressure compartment and 4800 mL ofstraw-colored ascitic fluid were drained. Patient received 25 g of IVabdomen and 1 g of Ancef intravenously during this process. A Glidewire was then inserted through the sheath and manipulatedinto the pelvis and then the tract was dilated with an 8 Venezuelan followedby 10, 12, 16 Venezuelan dilators and then a 18 Venezuelan peel-away sheath wasplaced. A double cuff curled [...] PERITONEAL TUNNEL CATH PLACE (10/30/2015 4:38 PM HOUSE STEWARD/STEWARDESS) Anatomical Region Laterality Modality Other Impressions 10/30/2015 5:52 PM HOUSE STEWARD/STEWARDESS Impression: successful placement of a abdominal peritoneal [...] 5:52 PM . Narrative 10/30/2015 5:52 PM HOUSE STEWARD/STEWARDESS This is an interventional nephrology procedure performed on 10/30/2015 5:47 PM Attending(s), Notched Blade Loader(s): Brisa Witt M.D., Regino Joseph M.D. Diagnosis: [...] This allowed the placement of a 5 Venezuelan trocar. Injection of contrast confirmed entry into the peritoneal cavity with wide diffusion of contrast. Over a wire, the 5 Venezuelan trocar was exchanged for a 6 Venezuelan sheath. The side port of the sheath was connected to negative pressure compartment and 4800 mL of straw-colored ascitic fluid were drained. Patient received 25 g of IV abdomen and 1 g of Ancef intravenously during this process. A Glidewire was then inserted through the sheath and manipulated into the pelvis and then the tract was dilated with an 8 Venezuelan followed by 10, 12, 16 Venezuelan dilators and then a 18 Venezuelan peel-away sheath was placed. A double cuff [...] nephrology procedure performed on 10/30/2015 5:47PM Attending(s), Notched Blade Loader(s): Brisa Witt M.D., Regino Joseph M.D. Diagnosis: [...] This allowed the placement of a 5 Venezuelan trocar. Injection ofcontrast confirmed entry into the peritoneal cavity with wide diffusion ofcontrast. Over a wire, the 5 Venezuelan trocar was exchanged for a 6 Venezuelan sheath. The side port of the sheathwas connected to negative pressure compartment and 4800 mL ofstraw-colored ascitic fluid were drained. Patient received 25 g of IVabdomen and 1 g of Ancef intravenously during this process. A Glidewire was then inserted through the sheath and manipulatedinto the pelvis and then the tract was dilated with an 8 Venezuelan followedby 10, 12, 16 Venezuelan dilators and then a 18 Venezuelan peel-away sheath wasplaced. A double cuff curled [...] ORDERABLES * IR PERITONEOGRAM (10/30/2015 4:38 PM HOUSE STEWARD/STEWARDESS) Only the most recent of2 resultswithin the time period is included. Anatomical Region Laterality Modality Abdomen Other Impressions 10/30/2015 5:52 PM HOUSE STEWARD/STEWARDESS Impression: successful placement of a abdominal peritoneal [...] 5:52 PM . Narrative 10/30/2015 5:52 PM HOUSE STEWARD/STEWARDESS This is an interventional nephrology procedure performed on 10/30/2015 5:47 PM Attending(s), Notched Blade Loader(s): Brisa Witt M.D., Regino Joseph M.D. Diagnosis: [...] This allowed the placement of a 5 Venezuelan trocar. Injection of contrast confirmed entry into the peritoneal cavity with wide diffusion of contrast. Over a wire, the 5 Venezuelan trocar was exchanged for a 6 Venezuelan sheath. The side port of the sheath was connected to negative pressure compartment and 4800 mL of straw-colored ascitic fluid were drained. Patient received 25 g of IV abdomen and 1 g of Ancef intravenously during this process. A Glidewire was then inserted through the sheath and manipulated into the pelvis and then the tract was dilated with an 8 Venezuelan followed by 10, 12, 16 Venezuelan dilators and then a 18 Venezuelan peel-away sheath was placed. A double cuff curled peritoneal dialysis catheter was then inserted with a straightening trocar and the peel-away sheath was gradually withdrawn. Using a cuff implantation tool from the Ramamia-Zapper kit, the cuff was implanted in the [...] nephrology procedure performed on 10/30/2015 5:47PM Attending(s), Notched Blade Loader(s): Birsa Witt M.D., Regino Joseph M.D. Diagnosis: Liver [...] This allowed the placement of a 5 Venezuelan trocar. Injection ofcontrast confirmed entry into the peritoneal cavity with wide diffusion ofcontrast. Over a wire, the 5 Venezuelan trocar was exchanged for a 6 Venezuelan sheath. The side port of the sheathwas connected to negative pressure compartment and 4800 mL ofstraw-colored ascitic fluid were drained. Patient received 25 g of IVabdomen and 1 g of Ancef intravenously during this process. A Glidewire was then inserted through the sheath and manipulatedinto the pelvis and then the tract was dilated with an 8 Venezuelan followedby 10, 12, 16 Venezuelan dilators and then a 18 Venezuelan peel-away sheath wasplaced. A double cuff curled [...] * US GUIDE INTRAOPERATIVE (10/30/2015 4:38 PM HOUSE STEWARD/STEWARDESS) Anatomical Region Laterality Modality Other Impressions 10/30/2015 5:52 PM HOUSE STEWARD/STEWARDESS Impression: successful placement of a abdominal peritoneal [...] 5:52 PM . Narrative 10/30/2015 5:52 PM HOUSE STEWARD/STEWARDESS This is an interventional nephrology procedure performed on 10/30/2015 5:47 PM Attending(s), Notched Blade Loader(s): Brisa Witt M.D., Regino Joseph M.D. Diagnosis: [...] This allowed the placement of a 5 Venezuelan trocar. Injection of contrast confirmed entry into the peritoneal cavity with wide diffusion of contrast. Over a wire, the 5 Venezuelan trocar was exchanged for a 6 Venezuelan sheath. The side port of the sheath was connected to negative pressure compartment and 4800 mL of straw-colored ascitic fluid were drained. Patient received 25 g of IV abdomen and 1 g of Ancef intravenously during this process. A Glidewire was then inserted through the sheath and manipulated into the pelvis and then the tract was dilated with an 8 Venezuelan followed by 10, 12, 16 Venezuelan dilators and then a 18 Venezuelan peel-away sheath was placed. A double cuff [...] nephrology procedure performed on 10/30/2015 5:47PM Attending(s), Notched Blade Loader(s): Brisa Witt M.D., Regino Joseph M.D. Diagnosis: [...] This allowed the placement of a 5 Venezuelan trocar. Injection ofcontrast confirmed entry into the peritoneal cavity with wide diffusion ofcontrast. Over a wire, the 5 Venezuelan trocar was exchanged for a 6 Venezuelan sheath. The side port of the sheathwas connected to negative pressure compartment and 4800 mL ofstraw-colored ascitic fluid were drained. Patient received 25 g of IVabdomen and 1 g of Ancef intravenously during this process. A Glidewire was then inserted through the sheath and manipulatedinto the pelvis and then the tract was dilated with an 8 Venezuelan followedby 10, 12, 16 Venezuelan dilators and then a 18 Venezuelan peel-away sheath wasplaced. A double cuff curled [...] * ALBUMIN URINE TIMED (10/30/2015 6:29 AM HOUSE STEWARD/STEWARDESS) Albumin Timed Urine Not established for collection periods other than 24 Hrs. mg/X hrs [facility] Albumin Random Urine >500.0 Not Established mcg/mL [facility] Comment:Result obtained by jacobo uriostegui. Collection Time Timed Urine 12 Hrs [facility] Volume Timed Urine 300 mL [facility] Urine specimen (specimen) URINE SPECIMEN OBTAINED BY CLEAN CATCH PROCEDURE / Unknown 10/30/2015 6:29 AM HOUSE STEWARD/STEWARDESS 10/30/2015 7:02 AM HOUSE STEWARD/STEWARDESS Narrative [facility] - 10/30/2015 11:00 AM HOUSE STEWARD/STEWARDESS To be done on the 12 hour urine sample collected for urine protein Regino Joseph MD LAB - URINE CHEMISTR Y ORDERABLES [address] [phone] * CT ABDOMEN PELVIS WO CONTRAST (10/28/2015 9:08 AM HOUSE STEWARD/STEWARDESS) Anatomical Region Laterality Modality Abdomen, Pelvis Other Impressions 10/28/2015 2:25 PM HOUSE STEWARD/STEWARDESS IMPRESSION: 1. Hepatic cirrhosis. Moderate amount of [...] 2:25 PM . Narrative 10/28/2015 2:25 PM HOUSE STEWARD/STEWARDESS EXAMINATION: Computed tomography of the abdomen and [...] MD CT ORDERABLES * AMYLASE BODY FLUID ([facility] ONLY) (10/27/2015 7:12 PM HOUSE STEWARD/STEWARDESS) Only the most recent of2 resultswithin the time period is included. Amylase Fluid 41 Not Established For Fluids Units/L [facility] Comment:The reference range and other method performance specifications have not been established for this fluid. The test result must be integrated into the clinical context for interpretation. Fluid specimen (specimen) 10/27/2015 7:12 PM HOUSE STEWARD/STEWARDESS 10/27/2015 7:29 PM HOUSE STEWARD/STEWARDESS Regino Joseph MD LAB - BODY FLUID ORD ERABLES Performing Organization Address City/[facility]/ZIP Co de Phone Number [facility] [address] [phone] * VAS LEFT VENOUS DUPLEX LE (07/24/2015 11:25 AM HOUSE STEWARD/STEWARDESS) Anatomical Region Laterality Modality Lower Extremity, Upper Extremity Other Tristin Gray MD VASCULAR L AB ORDERABLES * (ABNORMAL) CREATINE URINE TIMED (07/22/2015 6:06 AM HOUSE STEWARD/STEWARDESS) Creatine Urine 25.5 Undefined mg/dL [facility] Comment:Results verified b y repeat testing Creatine 24 hour Urine 351(H) 0 - 40 mg/24 hr [facility]) Urine specimen (specimen) (Urine, unspecified source) 07/22/2015 6:06 AM HOUSE STEWARD/STEWARDESS 07/22/2015 6:23 AM HOUSE STEWARD/STEWARDESS Narrative [facility] - 07/27/2015 5:13 PM HOUSE STEWARD/STEWARDESS Performed at: [address] [place] [address] [id number] Tractor Technician: Casey El MD, Phone: [phone] Tristin Gray MD LAB - URIN E CHEMISTRY ORDERABLES Performing Organization Address [facility] Co de Phone Number [facility] ([facility]) * EOSINOPHIL URINE SMEAR (07/20/2015 6:45 PM HOUSE STEWARD/STEWARDESS) Eosin Stain Urine None None [facility] Urine specimen (specimen) 07/20/2015 6:45 PM HOUSE STEWARD/STEWARDESS 07/20/2015 6:45 PM HOUSE STEWARD/STEWARDESS Tristin Gray MD LAB - URIN E CHEMISTRY ORDERABLES Performing Organization Address [facility]/ZIP Co de Phone Number [facility] [address] [place], [place] [id number] [place] [address] * HEPATITIS C RNA QUANTITATIVE PCR (07/20/2015 3:04 PM HOUSE STEWARD/STEWARDESS) Hepatitis C Virus RNA PCR Specimen: 1 ml Serum Reference: [id number] Test: Hepatitis C RT-PCR (Quantitative) RESULT Not Detected Reference Range Not Detected INTERPRETATION The quantitative Hepatitis C viral RNA RT-PCR determination was performed on a serum sample and is reported in IU/ml. Hepatitis C viral RNA was not detected. COMMENT The Hepatitis C viral (HCV) RNA analysis utilized a serum sample, real-time reverse internal controls analyst PCR, and is reported as Not Detected, [...] the isolation of HCV RNA with reverse internal controls analyst of genomic HCV RNA followed by real-time PCR in the presence of an unrelated RNA internal control. The internal control ensures that RNA is isolated, and that no general significant inhibitors of the RT-PCR process are present. This analysis was performed using an [place] FDA approved test methodology (Money[employer] RealTime HCV). 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 Final Diagnosis performed by Gilmar Kulkarni PHD. Electronically signed 07/28/2015 [facility] ([place]) Blood specimen (specimen) BLOOD SPECIMEN / Unknown 07/20/2015 3:04 PM HOUSE STEWARD/STEWARDESS 07/20/2015 3:04 PM HOUSE STEWARD/STEWARDESS Tristin Gray MD LAB - CHEM ISTRY ORDERABLES [facility] ([place]) * BCID PANEL (07/20/2015 2:45 PM HOUSE STEWARD/STEWARDESS) Staphylococcus Not Detected Not Detected [facility] Staphylococcus aureus Not Detected Not Detected [facility] Enterococcus Not Detected Not Detected [facility] Enterococcus faecium Not Detected Not Detected [facility] Streptococcus Not Detected Not Detected [facility] Streptococcus agalactiae (Group B) Not Detected Not Detected [facility] Streptococcus pneumoniae Not Detected Not Detected [facility] Streptococcus pyogenes (Group A) Not Detected Not Detected [facility] Streptococcus anginosus Group Not Detected Not Detected [facility] Listeria monocytogenes Not Detected Not Detected [facility] Blood specimen (specimen) BLOOD SPECIMEN / Unknown 07/20/2015 2:45 PM HOUSE STEWARD/STEWARDESS 07/22/2015 12:02 PM HOUSE STEWARD/STEWARDESS Narrative [facility] - 07/22/2015 12:08 PM HOUSE STEWARD/STEWARDESS No targets detected by Verigene nucleic acid [...] TO AND READ BACK BY Dr. Villalba ([facility]) AT 12:07 PM, 07/22/2015 Tristin Gray MD LAB - MICR OBIOLOGY ORDERABLES [address] [phone] * (ABNORMAL) COMPLEMENT C4 (06/14/2015 3:11 PM CDT) Complement C4 15(L) 16 - 47 mg/dL [facility] ([facility]) Comment: Test Performed at: [employer] [facility] [id number] [place] [address] CASEY SANCHEZ DO,MPH Blood specimen (specimen) BLOOD SPECIMEN / Unknown 06/14/2015 3:11 PM CDT 06/14/2015 3:11 PM CDT Cindi Bella MD LAB - SEROLOGY ORDER KAIN [facility] ([facility]) * COMPLEMENT C3 (06/14/2015 3:11 PM CDT) Pathologist [facility] Complement C3 158 90 - 180 mg/dL [facility] ([facility]) Comment: Test Performed at: [employer] [facility] [address] [place] [id number] CASEY SANCHEZ DO,MPH Blood specimen (specimen) BLOOD SPECIMEN / Unknown 06/14/2015 3:11 PM CDT 06/14/2015 3:11 PM CDT Cindi Bella MD LAB - CHEMISTRY REID MILLER Performing Organization Address City/[facility]/ZIP Co de Phone Number [facility] ([facility]) * (ABNORMAL) QUANTIFERON TB-GOLD (06/14/2015 3:09 PM CDT) [facility] QuantiFERON TB Gold INDETERMI APARNA(A) NEGATIVE [facility] ([facility]) Comment: Results are indeterminate for response to ESAT-6,TB7.7 and/or CFP-10 test antigens. QuantiFERON Nil Value 0.01 IU/mL [facility] ([facility]) QuantiFERON Mitogen Value 0.09 IU/mL [facility] ([facility]) QuantiFERON TB Antigen minus Nil value 0.00 IU/mL [facility] ([facility]) Comment: The Nil tube value is used [...] IU/mL. For additional information, please refer to http://education.[employer]anti/faq/QFT (This link is being provided for informational/ educational purposes only.) Test Performed at: [employer] [id number] [place] [address] CASEY SANCHEZ DO,MPH Blood specimen (specimen) BLOOD SPECIMEN / Unknown 06/14/2015 3:09 PM CDT 06/14/2015 3:10 PM CDT Cindi Bella MD LAB - CHEMISTRY ORDE RABJAYLON Performing Organization Address [facility] Co de Phone Number [facility] ([facility]) * PROTEIN ELECTROPHORESIS URINE RANDOM PANEL (05/18/2015 3:44 PM CDT) Albumin Urine 38 % [facility]) Atfvm-4-Kskyhllx 12 % [facility]) Zbnon-6-Pipqfeld 10 % [facility]) Beta-Globulin 19 % [facility]) Gamma Globulin Urine 21 % [facility]) Interpretation [facility] ([facility]) Comment: Agarose electrophoresis of urine reveals albumin and various globulin fractions. No abnormal protein is observed. Test Performed at: [employer] [id number] [place] [address] CASEY SANCHEZ DO,MPH 05/18/2015 3:44 PM CDT 05/18/2015 3:51 PM CDT Cindi Bella MD LAB - URINE CHEMISTR Y ORDERABLES Performing Organization Address [facility] de Phone Number [facility] ([facility]) * US RETROPERITONEAL COMPLETE (05/18/2015 2:56 PM [...] IMMUNITY PANEL (05/09/2015 4:21 PM CDT) [facility]ologist [facility] Healthcare Hepatitis B Core Virus Antibody Total REACTIVE(A ) NON-REACT GINI [facility] ([facility]) Comment: Test Performed at: [facility] [address] [address] [place] [address] CASEY SANCHEZ DO,MPH HEPATITIS B SURFACE ([facility]) NON-REACTI VE NON-REACT GINI [facility] ([facility]) 05/09/2015 4:21 PM CDT 05/09/2015 4:22 PM CDT Cindi Bella MD LAB - CHEMISTRY REID MILLER [facility] Organization Address City/State/ZIP Co de Phone Number [facility] ([facility]) * HIV 1/0/2 DONOR (05/09/2015 4:21 PM CDT) Pathologist [facility] Donor HIV 1/2 Antibody Screen Nonreactive Nonreactive [facility] ([facility]) Comment: This test is for eligibility determination of Donors of blood and blood components and human cells, tissues, and cellular and tissue based products (HCT/Ps). This test is not intended to be used for routine clinical or routine diagnostic evaluation. Test Performed at: [facility]/[address] [address] NORMA BRYANT MD,PHD 05/09/2015 4:21 PM CDT 05/09/2015 4:22 PM CDT Cindi Bella MD LAB - CHEMISTRY ORDE RABLES Performing Organization Address [facility] de Phone Number [facility] ([facility]) * HIV-1 HIV-2 ANTIBODY DIFFERENTIATION (05/09/2015 4:21 PM CDT) HIV 1 Antibody NEGATIVE NEGATIVE [facility] ([facility]) HIV-2 Antibody NEGATIVE NEGATIVE [facility] ([facility]) Comment: Note: This assay is intended to be used as part of a multi-test HIV-1/HIV-2 diagnostic algorithm. A Negative HIV-1/HIV-2 differentiation assay does not exclude HIV infection since the time frame for seroconversion is variable. If acute HIV-1 infection is being considered, ordering the HIV-1 RNA Qualitative TMA assay (test code 09492) to determine the presence or absence of [...] sufficient for this purpose. Test Performed at: [facility] [address] [place] [address] CASEY SANCHEZ DO,MPH 05/09/2015 4:21 PM CDT 05/09/2015 4:22 PM CDT Cindi Bella MD LAB - CHEMISTRY REID MILLER Performing Organization Address [facility] de Phone Number [facility] ([facility]) * ANCA SCREEN W/ REFLX MPO+PR3+TITER (05/09/2015 4:21 PM CDT) ANCA Screen Negative Negative [facility] ([facility]) Comment: ANCA Screen includes evaluation for p-ANCA, c-ANCA, and atypical p-ANCA. Test Performed at: [facility]/[address] [address] NORMA BRYANT MD,PHD 05/09/2015 4:21 PM CDT 05/09/2015 4:22 PM CDT Cindi Bella MD LAB - CHEMISTRY REID SILVIOJAYLON Performing Organization Address [facility] Co de Phone Number [facility] ([facility]) * (ABNORMAL) PROTEIN ELECTROPHORESIS WO INTERP BLOOD (05/09/2015 4:21 PM CDT) Albumin Electrophoresis 3.8 - 4.8 g/dL [facility] ([facility]) Comment:ALBUMIN = 1.3 g/dL L Vwyqf-2-Cepvomya 0.2 0.2 - 0.3 g/dL [facility] ([facility]) Mvvow-1-Jneutmlp 0.9 0.5 - 0.9 g/dL [facility] ([facility]) Beta-1 Globulin 0.2(L) 0.4 - 0.6 g/dL [facility] ([facility]) Beta-2 Globulin 0.4 0.2 - 0.5 g/dL [facility] ([facility]) Gamma Globulin 0.7(L) 0.8 - 1.7 g/dL [facility] ([facility]) Interpretation [facility] ([facility]) Comment: Hypogammaglobulinemia may be seen in early or evolving lymphoproliferative disorders, acquired or congenital immune deficiencies, immunosuppressive therapy and light chain disease. Consider urine protein electrophoresis, urine immunofixation and/or free light chains if clinically indicated. Test Performed at: [facility] [id number] CASEY SANCHEZ DO,MPH Blood specimen (specimen) BLOOD SPECIMEN / Unknown 05/09/2015 4:21 PM CDT 05/09/2015 4:22 PM CDT Cindi Bella MD LAB - CHEMISTRY REID MILLER Performing Organization Address [facility]/State/ZIP Co de Phone Number [facility] ([facility]) * IMMUNOFIXATION (05/09/2015 4:21 PM CDT) Pathologist [facility] Interpretation [facility] ([facility]) Comment: Normal pattern. No monoclonal proteins detected. Test Performed at: [facility] [id number] CASEY SANCHEZ DO,MPH Blood specimen (specimen) BLOOD SPECIMEN / Unknown 05/09/2015 4:21 PM CDT 05/09/2015 4:22 PM CDT Cindi Bella MD LAB - CHEMISTRY REID MILLER [facility] ([facility]) * (ABNORMAL) C3, C4, COMPLEMENT CH50 (05/09/2015 4:21 PM CDT) Complement Total CH50 22(L) 31 - 60 U/mL [facility] ([facility]) Comment: Test Performed at: [facility] [address] CASEY SANCHEZ DO,MPH 05/09/2015 4:21 PM CDT 05/09/2015 4:22 PM CDT Cindi Bella MD LAB - CHEMISTRY REID MILLER Performing Organization Address [facility] Co de Phone Number [facility] ([facility]) * NEUTROPHIL CYTOPLASMIC ANTIBODY (05/09/2015 4:21 PM CDT) Pathologist [facility] Myeloperoxidase Antibody <1.0 AI [facility] ([facility]) Comment: Value Interpretation ----- <1.0 No Antibody [...] active disease state. ANCA Proteinase 3 <1.0 [facility] ([facility]) Comment: Value Interpretation ----- <1.0 No Antibody Detected > or = 1.0 Antibody Detected Autoantibodies to proteinase-3 (MS-3) are accepted as characteristic for granulomatosis with polyangiitis (Emmy's), and are detectable in 95% of the histologically proven cases. The cytoplasmic IFA pattern,(c-ANCA), is based largely on autoantibody to MS-3 which serves as the primary antigen. These autoantibodies are present in active disease state. Test Performed at: [facility] [address] [place] [address] CASEY SANCHEZ DO,MPH Blood specimen (specimen) BLOOD SPECIMEN / Unknown 05/09/2015 4:21 PM CDT 05/09/2015 4:22 PM CDT Cindi Bella MD LAB - CHEMISTRY REID MILLER Performing Organization Address City/[facility]/ZIP Co de Phone Number [facility] ([facility]) * GLOMERULAR BASE MEMBRANE ANTIBODY IGG (05/09/2015 4:21 PM CDT) Glomerular Basement <1.0 <1.0 AI [facility] ([facility]) Comment: Interpretation: < 1.0 AI No Antibody Detected > OR = 1.0 AI Antibody Detected Test Performed at: [facility] [address] [place] [address] DI HAYWOOD MD PHD Blood specimen (specimen) BLOOD SPECIMEN / Unknown 05/09/2015 4:21 PM CDT 05/09/2015 4:22 PM CDT Cindi Bella MD LAB - CHEMISTRY REID MILLER Performing Organization Address [facility] de Phone Number [facility] ([facility]) * TROPONIN I (03/18/2015 12:26 PM CDT) Pathologist [facility] Troponin I <0.032 <0.032 ng/mL [facility] Blood specimen (specimen) BLOOD SPECIMEN / Unknown 03/18/2015 12:26 PM CDT 03/18/2015 12:32 PM CDT Nic García MD LAB - CHEMISTRY REID MILLER Performing Organization Address City/[facility]/ZIP Co de Phone Number [address] [phone] * LIPASE BODY FLUID ([facility] ONLY) (12/29/2014 9:47 AM CDT) Pathologist [facility] Lipase Fluid 82 Not Established For Fluids Units/L [facility] Peritoneal dialysis fluid specimen (specimen) BODY FLUID SPECIMEN / Unknown 12/29/2014 9:47 AM CDT 12/29/2014 10:11 AM CDT Katya Holliday Kylah ROMAN LAB - BODY FLUI D ORDERABLES [address] [phone] * CYTOLOGY NON-EXTERNAL GRINDER TOOL PANEL (STL) (12/29/2014 9:47 AM CDT) Cytology Non-Fly Fishing Guide Reference: [id number] Specimen: Peritoneal Fluid Clinical History: ascites Gross [...] by Jb Pace MD. Electronically signed 01/02/2015 [facility] ([place]) Peritoneal dialysis fluid specimen (specimen) BODY FLUID SPECIMEN / Unknown 12/29/2014 9:47 AM CDT 12/29/2014 10:03 AM CDT Narrative [facility] ([place]) - 01/02/2015 3:44 PM CDT Diagnosis->ascites Specimen Type->Peritoneal fluid Katya Holliday Kylah ROMAN LAB - PATHOLOGY /CYTOLOGY ORDERABLES [facility] ([place]) * MITOCHONDRIAL ANTIBODY SCREEN (12/13/2014 11:24 AM CDT) Mitochondrial M2 Antibody 2.9 0.0 - 20.0 Units [facility] Comment: Mitochondrial M2 Antibody Numeric Result Interpretation: <20.1 Units: Negative 20.1 - 24.9 Units: Equivocal >24.9 Units: Positive Blood specimen (specimen) BLOOD SPECIMEN / Unknown 12/13/2014 11:24 AM CDT 12/13/2014 12:20 PM CDT Frankie Valero MD LAB - CHEMISTRY REID MILLER [address] [phone] * ILTIG-1-SOUASGEWIKB BLOOD PHENOTYPING PANEL (12/13/2014 11:24 AM CDT) Pathologist [facility] Lhdls-1-Nkpfkxtavz n 113 90 - 200 mg/dL [facility] ([facility]) Phenotype (PI) [facility]) Comment: Phenotype Population A-1-AT Concentration* Incidence % [...] AM CDT 12/13/2014 12:20 PM CDT Narrative [facility] ([employer]) - 12/15/2014 5:13 PM CDT Performed at: [address] [place] [id number] Tractor Technician: Garnt Munoz PhD, Phone: [phone] Performed at: 02 - [facility] [address] [id number] Tractor Technician: Casey El MD, Phone: [phone] Frankie Valero MD LAB - CHEMISTRY REID MILLER [facility] ([place]) * SMOOTH MUSCLE ANTIBODY (12/13/2014 11:24 AM CDT) Pathologist [facility] F-Actin Antibody IgG 5.9 0.0 - 19.9 Units [facility] Comment: F-Actin Antibody Numeric Result Interpretation: <20.0 Units: Negative 20.0 - 30.0 Units: Weak Positive >30.0 Units: Moderate to Strong Positive Blood specimen (specimen) BLOOD SPECIMEN / Unknown 12/13/2014 11:24 AM CDT 12/13/2014 12:20 PM CDT Frankie Valero MD LAB - SEROLOGY ORDER KAIN Performing Organization Address City/[facility]/[place] [address], [facility] [phone] * HEPATITIS C ANTIBODY (12/13/2014 11:24 AM CDT) [facility] Hepatitis C Antibody Non-react gini Non-reac tive [facility] Comment: Hepatitis C Antibody screen indicates no [...] Valero MD LAB - [place]MI[place] [address], [facility] [phone] * HEPATITIS B VIRUS DNA QUANT PCR (02/18/1998) 02/18/1998 Narrative [facility] - 02/18/1998 This order was created through External Result Entry Historical Provider LAB - SEROLOGY OR DERABLES [facility] Care Teams Oncologist Relationship Specialty Start Date End Date Zain Valenzuela MD [address] [place] [address] PCP - General 01/10/16 Hillary Gallardo, RN Registered Nurse Hepatology 12/24/17
[2024-10-15 12:20] LABS: Basophils Absolute Auto 0.1 K/mm3 (0.0-0.1); Basophils Percent Auto 1.1 % (0.2-1.2); Eosinophils Absolute Auto 0.3 K/mm3 (0-0.3); Eosinophils Percent Auto 2.9 % (0-4.4); Hematocrit 49.9 % (42.0-52.0); Hemoglobin 16.5 g/dL (14.0-18.0); Immature Granulocyte Absolute 0.05 K/mm3 (0.00-0.031); Immature Granulocyte Percent A 0.5 % (0-0.5); Lymphocytes Absolute Auto 1.75 K/mm3 (0.9-3.2); Lymphocytes Percent Auto 16.5 % (18.3-44.2); Mean Corpuscular HGB Conc 33.1 g/dl (32-36); Mean Corpuscular Hemoglobin 29.1 pg (26-34); Monocytes Percent Auto 9.7 % (2.6-8.5); Neutrophils Absolute Auto 7.3 K/mm3 (1.3-6.7); Neutrophils Percent Auto 69.3 % (45.5-73.1); Platelet Count Result 300 k/mm3 (150-375); Red Blood Count 5.67 M/mm3 (4.6-6.20); Red Cell Distribution Width 12.2 % (11.5-14.5); White Blood Count 10.6 K/mm3 (4.5-10.0)
[2024-10-15 12:27] LABS: Alanine Aminotransferase 40 U/L (6-50); Albumin Level 4.7 g/dL (3.5-5.1); Alkaline Phosphatase 115 U/L (38-126); Anion Gap 8 mmol/L (4-12); Aspartate Amino Transferase 39 U/L (17-59); Bilirubin,Total 0.8 mg/dL (0.2-1.3); Blood Urea Nitrogen 16 mg/dL (9-20); Calcium 9.9 mg/dL (8.4-10.2); Carbon Dioxide 31 mmol/L (22-30); Chloride 99 mmol/L (98-107); Estimated CRCL calculation 56 ml/min; Estimated Glomerular Filt Rate 57; Glucose 117 mg/dL (65-110); Potassium 4.5 mmol/L (3.4-5.0); Sodium 138 mmol/L (137-145)
[2024-10-15 12:33] LABS: INR 1.2; Prothrombin Time 15.4 Seconds (11.1-14.7)
[2024-10-15 12:34] LABS: Partial Thromboplastin Time 32.4 Seconds (22.3-36.8)
[2024-10-15 12:45] VITALS: BP 139/91; PULSE 86; RESP 15; TEMP 36.5; O2SAT 99
== END 2024-10-15 12:51 | disposition home or self-care (01) ==
PROVIDERS: Emergency Provider Physician Assistant; PCP Family Medicine
DX: K06.8 Other specified disorders of gingiva and edentulous alveolar ridge (principal); I10 Essential (primary) hypertension; E03.9 Hypothyroidism, unspecified; Z94.0 Kidney transplant status; Z94.4 Liver transplant status; Z86.718 Personal history of other venous thrombosis and embolism; Z79.01 Long term (current) use of anticoagulants; Z79.82 Long term (current) use of aspirin
CPT/HCPCS: 36415; 80053; 85025; 85610; 85730; 99283